=== PATIENT | female | born 1990 | race Caucasian/White ===

== ENCOUNTER 2023-01-27 15:40 | Outpatient (OUT) | payer BC, SELFPAY ==
[2023-01-27 16:10] LABS: Basophils Percent Auto 0.6 % (0.2-2.0); Eosinophils Absolute Auto 0.2 10^3/uL (0.0-0.7); Eosinophils Percent Auto 2.6 % (0.9-7.0); Hematocrit 39.4 % (36.0-48.0); Hemoglobin 13.2 g/dL (12.0-16.0); Immature Granulocytes Abs Auto 0.01 10^3/uL (0.00-0.03); Immature Granulocytes Pct Auto 0.1 % (0.0-0.5); Lymphocytes Absolute Auto 1.7 10^3/uL (1.2-3.8); Lymphocytes Percent Auto 23.5 % (20.5-60.0); Mean Corpuscular HGB Conc 33.5 g/dL (29.9-35.2); Mean Corpuscular Hemoglobin 28.4 pg (26.7-34.0); Mean Corpuscular Volume 84.9 fL (81.0-99.0); Mean Platelet Volume 9.9 fL (9.5-13.5); Monocytes Absolute Auto 0.6 10^3/uL (0.3-0.8); Monocytes Percent Auto 8.4 % (1.7-12.0); Neutrophils Absolute Auto 4.7 10^3/uL (1.4-6.5); Neutrophils Percent Auto 64.8 % (43.0-75.0); Platelet Count 298 10^3/uL (150-450); Red Blood Count 4.64 10^6/uL (4.20-5.40); Red Cell Distribution Width 13.3 % (11.0-15.0); White Blood Count 7.2 10^3/uL (4.0-11.0)
[2023-01-27 16:48] LABS: Free T4 1.01 ng/dL (0.76-1.46)
[2023-01-27 16:52] LABS: Thyroid Stimulating Hormone 2.483 uIU/mL (0.358-3.740)
== END 2023-01-27 15:41 | disposition home or self-care (01) ==
PROVIDERS: Visit Provider Obstetrics & Gynecology
DX: N92.6 Irregular menstruation, unspecified (principal)
CPT/HCPCS: 36415; 84439; 84443; 85025

== ENCOUNTER 2023-03-03 02:28 | Emergency (ER) | payer BC, SELFPAY ==
[2023-03-03 02:33] VITALS: BP 147/84; PULSE 71; RESP 16; TEMP 36.6; O2SAT 98; BMI 34.2
[2023-03-03 02:45] VITALS: RESP 16
--- NOTE | 2023-03-03 02:51 | ED.EAR1 ---
HPI - Ear Problem General Chief complaint: Ear Stated complaint: R EAR PAIN Time Seen by Provider: 03/03/23 02:41 Source: patient Mode of arrival: walk-in Limitations: no limitations History of Present Illness HPI Narrative: 32-year-old female presents for right ear pain. It started about 8 PM, about seven hours ago. It's been continuous, no trauma, no drainage. No left ear pain or fever. No injury. It's throbbing and moderate to severe and continuous. Related Data Home Medications Medication Instructions Recorded Confirmed acetaminophen 500 mg tablet 1,000 mg PO Q4H PRN pain 03/03/23 03/03/23 (Acetaminophen Extra Strength) control 03/03/23 ibuprofen 100 mg tablet 200 mg PO Q8H PRN pain 03/03/23 03/03/23 ibuprofen 800 mg tablet mg 03/03/23 Previous Rx's Medication Instructions Recorded amoxicillin 500 mg capsule 500 mg PO TID 10 days #30 caps 03/03/23 ibuprofen 800 mg tablet 800 mg PO Q8H PRN pain #20 tabs 03/03/23 Allergies Allergy/AdvReac Type Severity Reaction Status Date / Time No Known Drug Allergies Allergy Verified 03/03/23 02:38 Review of Systems ROS Narrative A ten point review of systems is negative except as noted above. PFSH PFSH Social History Smoking status: Never smoker Exam Narrative Exam Narrative: Nurses note and vital signs reviewed and patient is not hypoxic. General: The patient appears well and in no apparent distress. Patient is resting comfortably on cart. Skin: Warm, dry, no pallor noted. There is no rash noted. Head: Normocephalic, atraumatic Eye: Normal conjunctiva, no drainage Ears, Nose, Mouth, and Throat: oral mucosa is moist. Nares patent. left tympanic membrane and external canal are normal. The right external canal is normal but the right tympanic membrane is quite erythematous with distorted light reflex. Cardiovascular: Regular Rate and Rhythm Respiratory: Patient is in no distress, no accessory muscle use, lungs are clear to auscultation, no wheezing, rales or rhonchi Back: non-tender GI: nontender Musculoskeletal: no joint swelling Neurological: A&O, normal speech Psychiatric: Cooperative Constitutional Vital Signs, click to edit/add: Last Vital Signs Temp 97.9 F 03/03/23 02:33 Pulse 71 03/03/23 02:33 Resp 16 03/03/23 02:45 BP 147/84 H 03/03/23 02:33 Pulse Ox 98 03/03/23 02:33 O2 Del Method Room Air 03/03/23 02:33 Course Vital Signs Vital signs: Vital Signs Temperature 97.9 F 03/03/23 02:33 Pulse Rate 71 03/03/23 02:33 Respiratory Rate 16 03/03/23 02:33 Blood Pressure 147/84 H 03/03/23 02:33 Pulse Oximetry 98 03/03/23 02:33 Oxygen Delivery Method Room Air 03/03/23 02:33 Temperature 97.9 F 03/03/23 02:33 Pulse Rate 71 03/03/23 02:33 Respiratory Rate 16 03/03/23 02:45 Blood Pressure 147/84 H 03/03/23 02:33 Pulse Oximetry 98 03/03/23 02:33 Oxygen Delivery Method Room Air 03/03/23 02:33 Medical Decision Making MDM Narrative Medical decision making narrative: my clinical impression is that she has otitis media. Treatment diagnosis and follow up are discussed with the patient. Differential Diagnosis Differential Diagnosis: otitis medial, otitis externa Discharge Plan Discharge Chief Complaint: Ear Clinical Impression: Otitis media Patient Disposition: Home, Self-Care Time of Disposition Decision: 02:49 Condition: Good Mode of Transportation: Private Vehicle Prescriptions / Home Meds: New ibuprofen 800 mg tablet 800 mg PO Q8H PRN (Reason: pain) Qty: 20 0RF amoxicillin 500 mg capsule 500 mg PO TID 10 Days Qty: 30 0RF No Action acetaminophen [Acetaminophen Extra Strength] 500 mg tablet 1,000 mg PO Q4H PRN (Reason: pain) control ibuprofen 800 mg tablet ibuprofen 100 mg tablet 200 mg PO Q8H PRN (Reason: pain) Instructions: Ear Infection (ED) Stand Alone Forms: Portal Instructions Referrals: Physician,Non-Staff, MD [Primary Care Provider] - 1 week
[2023-03-03] MEDS: AMOXICILLIN 500 MG CAPSULE PO (02:56)
[2023-03-03] MEDS: KETOROLAC TROMETHAMINE 60 MG/2 ML VIAL IM (02:56)
== END 2023-03-03 03:06 | disposition home or self-care (01) ==
PROVIDERS: Emergency Provider Emergency Medicine
DX: H66.91 Otitis media, unspecified, right ear (principal); Z79.899 Other long term (current) drug therapy; Z79.3 Long term (current) use of hormonal contraceptives
CPT/HCPCS: 96372; 99284

== ENCOUNTER 2023-07-12 19:12 | Emergency (ER) | payer BC, SELFPAY ==
--- OUTSIDE RECORDS SUMMARY | 2023-07-12 19:21 | XMS_ITS | CCD ---
Author Organization [facility] Care Team Providers Care Customs Guard Name Role Phone Emilee Schmid Unavailable MD Wilberto Corona Attending Provider [phone] NO FAMILY, PHYSICIAN Primary Care Provider Unava ilable Wilberto Corona Unavailable NO FAMILY, PHYSICIAN Primary Care Provider Unava ilable MD Wilberto Corona Attending Provider Wilberto Corona S Admitting Unavailable Wilberto Corona Attending Unavailable NO FAMILY, PHYSICIAN Primary Care Unavailable Wilberto Corona S Attending Unavailable NO FAMILY, PHYSICIAN Primary Care Unavailable Devan Coronaif S Admitting Unavailable WILY ., DR FERREIRA Attending Unavailable RINARD, DR TAMMY Eng Consulting Unavailable [facility] Primary Care Unavailable WILY ., DR FERREIRA Admitting Unavailable WILY ., DR FERREIRA Consulting Unavailable WILY ., DR FERREIRA Attending Unavailable REQUEST, DR NONE LISTED Primary Care Unavaila ble WILY ., DR FERREIRA Consulting Unavailable WILY ., DR FERREIRA Admitting Unavailable WILY ., DR FERREIRA Attending Unavailable WILY ., DR FERREIRA Consulting Unavailable REQUEST, DR NONE LISTED Primary Care Unavaila ble WILY ., DR FERREIRA Admitting Unavailable WILY ., DR FERREIRA Attending Unavailable WILY ., DR FERREIRA Consulting Unavailable REQUEST, NONE LISTED Primary Care Unavaila ble WILY ., DR FERREIRA Admitting Unavailable RINARD, DR TAMMY Eng Consulting Unavailable REQUEST, NONE LISTED Primary Care Unavaila ble WILY ., DR FERREIRA Admitting Unavailable WILY ., DR FERREIRA Attending Unavailable WILY ., DR FERREIRA Consulting Unavailable PAY ., DR ALLEN Admitting Unavailable PAY ., DR ALLEN Attending Unavailable [facility]INO [facility]ERRY [facility] Unavailable ALMA CROFT Consulting Unavailable CLAY ., DR COFFEY Admitting Unavailable CLAY Rea, DR COFFEY Attending Unavailable LINDA .GABINO Consulting [facility] Primary Care Unavailable JENNYFER SMITH Consulting Unavailable [facility] [place] Primary Care Unavailable WILY ., DR FERREIRA Consulting Unavailable WILY ., DR FERREIRA Attending Unavailable WILY ., DR FERREIRA Admitting Unavailable [employer] Unavailable JHON JULIEN Attending Unavailable KESHA BA Attending Unavailable JEREMY CASTLE Attending Unavailable LYNNETTE MCDUFFIE Attending Unavailable RICH CAMARGO Attending Unavailable Medications Current Medications Medication Drug Class(es) Dates Sig (Normalized) Sig (Original) amoxicillin 500 mg oral capsule (1 source) Penicillin-class Antibacterial take 1 capsule by mouth every eight hours Amoxicillin 500 MG 1 capsule Orally Three times a day Active cefdinir 300 mg oral capsule (1 source) Cephalosporin Antibacterial Start: 03-09-2023 take 1 capsule by mouth every twelve hours Cefdinir 300 MG 1 capsule Orally twice a day for 7 days Feb, Active Depo-Provera 400 MG/ML (3 sources) Depo-Provera 400 MG/ML as directed Intramuscular Active apri 0.15-30 mg-mcg tablet (3 sources) Progestin, Estrogen take 1 tablet by mouth every twenty-four hours Apri 0.15-30 MG-MCG 1 tablet Orally Once a day Active fluticasone propionate 0.05 mg/actuat metered dose nasal spray (9 sources) Corticosteroid Start: 12-20-2021 take 1 spray(s) nasal route twice daily Fluticasone Propionate 50 MCG/ACT 1 spray in each nostril Nasally Twice a day for 14 days Feb, Active levothyroxine sodium 0.075 mg oral tablet (10 sources) l-Thyroxine Start: 05-07-2022 take 75 ug by mouth once daily Levothyroxine Active 75 MCG PO Daily May 07, 2022 1:00am Levothyroxine So dium 75 MCG Oral for 90 Not-Taking predniSONE 20 mg oral tablet (2 sources) Start: 04-04-2023 take 1 tablet by mouth every twelve hours prednisone 20 MG 1 tablet Orally BID for 5 Mar, Active Completed/Discontinued Medications Medication Drug Class(es) Dates Sig (Normalized) Sig (Original) cetirizine hydrochloride 10 mg oral tablet (8 sources) Histamine-1 Receptor Antagonist Start: 12-20-2021 take 1 tablet by mouth every twelve hours Cetirizine HCl 10 MG 1 tablet Orally Twice a day for 14 days Dec, Not-Taking citalopram 20 mg oral tablet (8 sources) Serotonin Reuptake Inhibitor Citalopram Hydrobromide 20 MG Oral for 90 Not-Taking Diclofenac (3 sources) Nonsteroidal Anti-inflammatory Drug Start: 08-01-2022 Voltaren 1 % as directed Externally 1-2 grams every 6-8 hours as needed for 30 days Jul, Not-Taking Start: 08-01-2022 Voltaren 1 % a s directed Externally 1-2 grams every 6-8 hours as needed for 30 days Jul, Active Iron (8 sources) Iron Not-Taking Iron Active Levonorgestrel (8 sources) Progestin, Progestin-containing Intraute rine Device Mirena Not-Taking Mirena Active Megestrol (7 sources) Progestin Megace ES Not-Ta orly Megace ES Active Problems Active Problems Problem Classification Problem Date Documented Date Episodic/Chronic E Codes: Fall (1 source) Fall (on) (from) other stairs and steps, initial encounter; Translations: [FALL ON FROM OTH STAIRS STEPS INIT] Onset: 08-01-2022 Episodic Menstrual disorders (5 sources) Excessive and frequent menstruation with irregular cycle; Translations: [EXCESS AND FREQ MEN W/IRREG CYCLE] Onset: 07-30-2022 Chronic Other female genital disorders (4 sources) Abnormal uterine and vaginal bleeding, unspecified; Translations: [ABNORMAL UTERINE VAGINAL BLEED UNS] Onset: 02-17-2022 Chronic Other nervous system disorders (9 sources) Chronic pain; Translations: [Other chronic pain] Chronic Other nervous system disorders (4 sources) Other chronic pain Chronic Other nervous system disorders (1 source) Other chronic pain; Translations: [Other chronic pain] Onset: 05-07-2022 Chronic Other screening for suspected conditions (not mental disorders or infectious disease) (4 sources) Encounter for screening for malignant neoplasm of cervix; Translations: [ENC SCREENING MALIG NEOPLASM CERV] Onset: 09-09-2022 Episodic Other upper respiratory disease (1 source) Nasal congestion Episodic Otitis media and related conditions (3 sources) Other acute nonsuppurative otitis media, bilateral; Translations: [Acute suppurative otitis media without spontaneous rupture of ear drum, right ear] Onset: 12-20-2021 Resolved: 12-20-2021 Episodic Ovarian cyst (1 source) Unspecified ovarian cyst, right side; Translations: [UNSPECIFIED OVARIAN CYST RIGHT SIDE] Onset: 08-01-2022 Episodic Spondylosis; intervertebral disc disorders; other back problems (13 sources) Inflammation of sacroiliac joint; Translations: [Sacroiliitis, not elsewhere classified] Chronic Spondylosis; intervertebral disc disorders; other back problems (7 sources) Sacrococcygeal disorders, not elsewhere classified; Translations: [SACROCOCCYGEAL DISORDERS NEC] Onset: 07-30-2022 Episodic Superficial injury; contusion (1 source) Contusion of lower back and pelvis, initial encounter; Translations: [CONTUSION LOWER BACK PELVIS INITIAL] Onset: 08-01-2022 Episodic Thyroid disorders (4 sources) Hypothyroidism, unspecified; Translations: [HYPOTHYROIDISM UNSPECIFIED] Onset: 04-07-2022 Chronic Viral infection (1 source) COVID-19; Translations: [COVID-19] Onset: 05-26-2022 Past or Other Problems Problem Classification Problem Date Documented Da te Episodic/Chronic Cardiac dysrhythmias (1 source) Palpitations; Translations: [PALPITATIONS] Onset: 05-26-2022 Episodic Nonspecific chest pain (4 sources) Other chest pain; Translations: [OTHER CHEST PAIN] Onset: 05-22-2022 Episodic Results Test Name Value Interpretation Reference Range Facility HCG ( test) IAmoira d Ql (U)Ordered By: Wilberto Corona on 08-13-2022 HCG ( test) Ql (U) Negative [facility] HCG,Urineon 08-13-2022 Beta HCG ( test) Ql (U) Negative Normal [facility] Comment on above: Result Comment: PERF ORMED BY: [address] [id number] PATHOLOGIST [employer] YUDITH MONTERO M.D. Performed By: #### U HCG #### [address] [address] [facility] US PELVIS AND TRANSVAGon US PELVIS AND TRANSVAG EXAMINATION: US PELVIS AND TRANSVAG HISTORY: Excessive menstruation with irregular cycle COMPARISON: 02/17/2022 FINDINGS: The uterus is anteverted. Uterus is normal in size, contour and echotexture measuring 8.9 x 3.4 x 5.5 cm. No focal myometrial mass The endometrium measures 3.1 mm, normal The right ovary measures 4.5 x 3.8 x 4.1 cm. Normal color Doppler flow. Area of anechoic echogenicity measuring 3.7 cm, simple cyst. Left ovary measures 2.4 x 2.5 x 2.3 cm. Normal color Doppler flow. No free fluid IMPRESSION: 3.7 cm right ovarian cyst Electronically authenticated by: TAMMY GARCIA Date: 2022-07-30 19:20 Normal [facility] XR SACRUM_COCCYXon 3 XR SACRUM_COCCYX EXAM: XR SACRUM_COCCYX TECHNIQUE: AP, angled AP and lateral views sacrum and coccyx HISTORY: Unspecified fall COMPARISON: None. _ FINDINGS: No fracture or dislocation. Soft tissues are unremarkable. No arthritic changes. ____ IMPRESSION: No fracture. Electronically authenticated by: ALMA CROFT Date: 2022-07-30 18:51 Normal [facility] CBC AUTO DIFFon 05-22-2022 BASO # 0.0 103/ul Normal 0.0-0.1 [facility] Comment on above: Performed By: #### P RCFACT #### [facility] [address] [address] [address] Lisa Lopez Basophils/100 WBC (Bld) 0.6 % Normal 0.2-2.0 [facility] Comment on above: Performed By: #### P RCFACT #### [facility] [address] [address] [address] Lisa Lopez EO # 0.1 103/ul Normal 0.0-0.7 [facility] Comment on above: Performed By: #### P RCFACT #### [facility] [address] [place] [address] Dr. Lisa Lopez Eosinophils/100 WBC (Bld) 1.9 % Normal 0.9-7.0 [facility] Comment on above: Performed By: #### P RCFACT #### [facility] [address] [place] [address] Dr. Lisa Lopez Erythrocyte distribution width (RBC) [Ratio] 13.2 % Normal 11.0-15.0 [facility] Comment on above: Performed By: #### P RCFACT #### [facility] [address] [place] [address] Dr. Lisa Lopez Hematocrit (Bld) [Volume fraction] 41.9 % Normal 36.0-48.0 [facility] Comment on above: Performed By: #### P RCFACT #### [facility] [address] [place] [address] Dr. Lisa Lopez Hemoglobin (Bld) [Mass/Vol] 13.9 g/dL Normal 12.0-16.0 [facility] Comment on above: Performed By: #### P RCFACT #### [facility] [address] [place] [address] Dr. Lisa Lopez IG # 0.02 10e3/ul Normal 0.00-0.03 [facility] Comment on above: Performed By: #### P RCFACT #### [facility] [address] [place] [address] Dr. Lisa Lopez IG % 0.3 % Normal 0.0-0.5 [facility] Comment on above: Performed By: #### P RCFACT #### [facility] [address] [place] [address] Dr. Lisa Lopez LYMPH # 0.5 103/ul Critically low 1.2-3.[address] [facility] Comment on above: Performed By: #### P RCFACT #### [facility] [address] [place] [address] Dr. Lisa Lopez Lymphocytes/100 WBC (Bld) 6.2 % Critically low 20.5-60.0 [facility] Comment on above: Performed By: #### P RCFACT #### [facility] [address] [place] [address] Dr. Lisa Lopez MANUAL DIFF REQ NO Normal [facility] Comment on above: Performed By: #### P RCFACT #### [facility] [address] [place] [address] Dr. Lisa Lopez MCH (RBC) [Entitic mass] 28.0 pg Normal 26.7-34.0 [facility] Comment on above: Performed By: #### P RCFACT #### [facility] [address] [place] [address] Dr. Lisa Lopez MCHC (RBC) [Mass/Vol] 33.2 g/dL Normal 29.9-35.2 [facility] Comment on above: Performed By: #### P RCFACT #### [facility] [address] [place] [address] Dr. Lisa Lopez MCV (RBC) [Entitic vol] 84.5 fL Normal 81.0-99.0 [facility] Comment on above: Performed By: #### P RCFACT #### [facility] [address] [place] [address] Dr. Lisa Lopez MONO # 0.5 103/ul Normal 0.3-0.8 [facility] Comment on above: Performed By: #### P RCFACT #### [facility] [address] [place] [address] Dr. Lisa Lopez Monocytes/100 WBC (Bld) 6.7 % Normal 1.7-12.0 [facility] Comment on above: Performed By: #### P RCFACT #### [facility] [address] [place] [address] Dr. Lisa Lopez NEUT # 6.1 103/ul Normal 1.4-6.5 [facility] Comment on above: Performed By: #### P RCFACT #### [facility] [address] [place] [address] Dr. Lisa Lopez Neutrophils/100 WBC (Bld) 84.3 % Critically high 43.0-75.0 [facility] Comment on above: Performed By: #### P RCFACT #### [facility] [address] [address] [address] Lisa Lopez Platelet mean volume (Bld) [Entitic vol] 9.5 fL Normal 9.5-13.5 [facility] Comment on above: Performed By: #### P RCFACT #### [facility] [address] [address] [address] Lisa Lopez PLT 260 103/ul Normal 150-450 [facility] Comment on above: Performed By: #### P RCFACT #### [facility] [address] [place] [address] Dr. Lisa Lopez RBC 4.96 106/ul Normal 4.20-5.40 [facility] Comment on above: Performed By: #### P RCFACT #### [facility] [address] [place] [address] Dr. Lisa Lopez WBC 7.2 103/ul Normal 4.0-11.0 [facility] Comment on above: Performed By: #### P RCFACT #### [facility] [address] [place] [address] Dr. Lisa Lopez [facility]on SARS-CoV-2 (COVID-19) RNA ALLI+probe Ql (Unsp spec) Detected Abnormal NOT DETECTED [facility] Comment on above: Result Comment: This test is not yet approved or cleared by the [place] FDA. When there are no FDA-approved or cleared tests available, and other criteria are met, FDA can make tests available under an emergency access mechanism called an Emergency Use Authorization (EUA). The EUA for this test is supported by the [employer] Supervisor of Health and Human Service's declaration that circumstances exist to justify the emergency use of in vitro diagnostics for the detection and/or diagnosis of the virus that causes COVID-19. This EUA will remain in effect for the duration of the COVID-19 declaration justifying emergency of IVDs, unless it is terminated or revoked by the FDA (after which the test may no longer be used). Performed By: #### C VDTBH #### [facility] [address] [place] [address] Dr. Lisa Lopez D-DIMERon 05-22-2022 D-DIMER 0.23 mg/L FEU Normal <=0.59 [facility] Comment on above: Performed By: #### B 2GPG #### [facility] [address] [place] [address] Dr. Lisa Lopez D-DIMER COMMENTS SEE BELOW Normal [facility] Comment on above: Result Comment: Incr eases in D-Dimer concentration observed with thromboembolic events can be variable due to localization, size, and age of the thrombus. Therefore, a thromboembolic event cannot be diagnosed with certainty on the basis of the reference range. D-Dimers may also be elevated for a variety of disorders including: advanced age, , coronary disease, cancer, liver disease, infection, inflammation, hematoma, DIC, trauma, post-surgery, diabetes, thrombolytic or anticoagulant therapy, stress, and generalized hospitalization. Performed By: #### B 2GPG #### [facility] [address] [place] [address] Dr. Lisa Lopez ER URINE PROFILEon 3 Bilirubin Ql (U) Negative Normal NEGATIVE [facility] Comment on above: Performed By: #### B 2GPG #### [facility] [address] [place] [address] Dr. Lisa Lopez Clarity (U) CLEAR Normal CLEAR [facility] Comment on above: Performed By: #### B 2GPG #### [facility] [address] [place] [address] Dr. Lisa Lopez Color (U) LT. YELLOW Normal YELLOW [facility] Comment on above: Performed By: #### B 2GPG #### [facility] [address] [place] [address] Dr. Lias QUINTANILLA A micrscopic examination will be performed if indicated. Normal [facility] Comment on above: Performed By: #### B 2GPG #### [facility] [address] [place] [address] Dr. Lisa Lopez Glucose Ql (U) Negative Normal NEGATIVE [facility] Comment on above: Performed By: #### B 2GPG #### [facility] [address] [address] [address] Lisa Lopez Hemoglobin Ql (U) Negative Normal NEGATIVE [facility] Comment on above: Performed By: #### B 2GPG #### [facility] [address] [place] [address] Dr. Lisa Lopez Ketones Ql (U) Negative Normal NEGATIVE [facility] Comment on above: Performed By: #### B 2GPG #### [facility] [address] [place] [address] Dr. Lisa Lopez LEUKOCYTES Negative Normal NEGATIVE [facility] Comment on above: Performed By: #### B 2GPG #### [facility] [address] [place] [address] Dr. Lisa Lopez Nitrite Ql (U) Negative Normal NEGATIVE [facility] Comment on above: Performed By: #### B 2GPG #### [facility] [address] [place] [address] Dr. Lisa Lopez pH (U) 7.0 [pH] Normal 5-9 [facility] Comment on above: Performed By: #### B 2GPG #### [facility] [address] [place] [address] Dr. Lisa Lopez SPEC GRAVITY <=1.005 Abnormal 1.005-<=1.025 [facility] Comment on above: Performed By: #### B 2GPG #### [facility] [address] [place] [address] Dr. Lisa Lopez UA PROTEIN Negative Normal NEGATIVE/ TRACE [facility] Comment on above: Performed By: #### B 2GPG #### [facility] [address] [place] [address] Dr. Lisa Lopez UR MICRO IND NOT INDICATED Normal [facility] Comment on above: Performed By: #### B 2GPG #### [facility] [address] [place] [address] Dr. Lisa Lopez Urobilinogen Qn (U) 0.2 {Naya'U}/dL Normal 0.2 - 1. 0 [facility] Comment on above: Performed By: #### B 2GPG #### [facility] [address] [place] [address] Dr. Lisa Lopez INFLUENZA A AND B AGon 05-22 INFLUANEGH SEE BELOW Normal [facility] Comment on above: Result Comment: Nega tive for Flu A protein angiten. Infection due to Flu A cannot be ruled out. Flu A angiten in the sample may be below the detection limit of the test. Performed By: #### P RCFACT #### [facility] [address] [place] [address] Dr. Lisa Lopez INFLUBNEGH SEE BELOW Normal [facility] Comment on above: Result Comment: Nega tive for Flu B protein antigen. Infection due to Flu B cannot be ruled out. Flu B antigen in the sample may be below the detection limit of the test. Performed By: #### P RCFACT #### [facility] [address] [place] [address] Dr. Lisa Lopez INFLUENZA A AG Negative Normal NEGATIVE SEE COMMENT [facility] Comment on above: Performed By: #### P RCFACT #### [facility] [address] [place] [address] Dr. Lisa Lopez INFLUENZA B AG Negative Normal NEGATIVE SEE COMMENT [facility] Comment on above: Performed By: #### P RCFACT #### [facility] [address] [place] [address] Dr. Lisa Lopez URon 05-22-2022 , QUAL Negative Normal NEGATIVE [facility] Comment on above: Performed By: #### B 2GPG #### [facility] [address] [place] [address] Dr. Lisa Lopez PROF 14(COMP METB)on 023 Albumin [Mass/Vol] 3.6 g/dL Normal 3.4-5.0 [facility] Comment on above: Performed By: #### P RCFACT #### [facility] [address] [place] [address] Dr. Lisa Lopez Albumin/Globulin [Mass ratio] 0.9 {ratio} Normal [facility] Comment on above: Performed By: #### P RCFACT #### [facility] [address] [address] [address] Lisa Lopez ALP [Catalytic activity/Vol] 102 U/L Normal 46-116 [facility] Comment on above: Performed By: #### P RCFACT #### [facility] [address] [address] [address] Lisa Lopez ALT [Catalytic activity/Vol] 32 U/L Normal 14-59 [facility] Comment on above: Performed By: #### P RCFACT #### [facility] [address] [address] [address] Lisa Lopez Anion gap [Moles/Vol] 11.1 mmol/L Normal [facility] Comment on above: Performed By: #### P RCFACT #### [facility] [address] [place] [address] Dr. Lisa Lopez AST [Catalytic activity/Vol] 14 U/L Critically low 15-37 [facility] Comment on above: Performed By: #### P RCFACT #### [facility] [address] [address] [address] Lisa Lopez Bilirubin [Mass/Vol] 0.2 mg/dL Normal 0.2-1.0 [facility] Comment on above: Performed By: #### P RCFACT #### [facility] [address] [place] [address] Dr. Lisa Lopez Calcium [Mass/Vol] 9.2 mg/dL Normal 8.5-10.1 [facility] Comment on above: Performed By: #### P RCFACT #### [facility] [address] [address] [address] Lisa Lopez Chloride [Moles/Vol] 102 mmol/L Normal 98-107 [facility] Comment on above: Performed By: #### P RCFACT #### [facility] [address] [address] [address] Lisa Lopez CO2 [Moles/Vol] 29.5 mmol/L Normal 21.0-32.0 [facility] Comment on above: Performed By: #### P RCFACT #### [facility] [address] [place] [address] Dr. Lisa Lopez Creatinine [Mass/Vol] 0.83 mg/dL Normal 0.55-1.02 [facility] Comment on above: Performed By: #### P RCFACT #### [facility] [address] [place] [address] Dr. Lisa Lopez EGFR-AF BOTSWANAN >60 Normal >=60 [facility] Comment on above: Performed By: #### P RCFACT #### [facility] [address] [place] [address] Dr. Lisa Lopez EGFR-NON AF BOTSWANAN >60 Normal >=60 [facility] Comment on above: Performed By: #### P RCFACT #### [facility] [address] [place] [address] Dr. Lisa Lopez Globulin (S) [Mass/Vol] 4.2 g/dL Normal [facility] Comment on above: Performed By: #### P RCFACT #### [facility] [address] [place] [address] Dr. Lisa Lopez Glucose [Mass/Vol] 107 mg/dL Critically high 74-106 [facility] Comment on above: Performed By: #### P RCFACT #### [facility] [address] [place] [address] Dr. Lisa Lopez Potassium [Moles/Vol] 3.6 mmol/L Normal 3.5-5.1 [facility] Comment on above: Performed By: #### P RCFACT #### [facility] [address] [place] [address] Dr. Lisa Lopez Protein [Mass/Vol] 7.8 g/dL Normal 6.4-8.2 [facility] Comment on above: Performed By: #### P RCFACT #### [facility] [address] [place] [address] Dr. Lisa Lopez Sodium [Moles/Vol] 139 mmol/L Normal 136-145 [facility] Comment on above: Performed By: #### P RCFACT #### [facility] [address] [place] [address] Dr. Lisa Lopez Urea nitrogen [Mass/Vol] 9.0 mg/dL Normal 7.0-18.0 [facility] Comment on above: Performed By: #### P RCFACT #### [facility] [address] [place] [address] Dr. Lisa Lopez Urea nitrogen/Creatinine [Mass ratio] 10.8 mg/mg Normal [facility] Comment on above: Performed By: #### P RCFACT #### [facility] [address] [place] [address] Dr. Lisa Lopez PROTIMEon 05-22-2022 INR Coag (PPP) [Relative time] 0.93 {INR} Normal [facility] Comment on above: Performed By: #### B 2GPG #### [facility] [address] [place] [address] Dr. Lisa Lopez INR GUIDELINES SEE BELOW Normal [facility] Comment on above: Result Comment: DELVIN RED INR: 2.0 - 3.0 CONDITIONS NOT LISTED BELOW 2.5 - 3.5 FOR PROSTHETIC HEART VALVE REPLACEMENT 2.5 - 3.5 RECURRENT THROMBOSIS Performed By: #### B 2GPG #### [facility] [address] [place] [address] Dr. Lisa Lopez PT Coag (PPP) [Time] 9.9 s Normal 9.0-11.6 [facility] Comment on above: Performed By: #### B 2GPG #### [facility] [address] [place] [address] Dr. Lisa Lopez PTTon 05-22-2022 aPTT Coag (Bld) [Time] 28.0 s Normal 22.3-36.2 [facility] Comment on above: Performed By: #### B 2GPG #### [facility] [address] [place] [address] Dr. Lisa Lopez TROPONIN, HIGH SENSITIVITYon 05-22-2022 HSTROP <4.0 Normal 4.0-51.3 [facility] Comment on above: Result Comment: CUT- OFF POINTS HAVE BEEN ESTABLISHED BASED ON THE FOURTH UNIVERSAL DEFINITIONS OF MYOCARDIAL INFARCTION. THE UPPER REFERENCE LIMIT (URL) OF TROPONIN, DEFINED THE 99TH PERCENTILE OF cTnI DISTRIBUTION IN A REFERENCE POPULATION, HAS BEEN CONFIRMED THE DECISION THRESHOLD FOR CA DIAGNOSIS. Performed By: #### P RCFACT #### [facility] [address] [address] [address] Lisa Lopez TSHon 05-22-2022 TSH 1.450 uIU/mL Normal 0.358-3.740 [facility] Comment on above: Performed By: #### P RCFACT #### [facility] [id number] Lisa Lopez XR CHEST 1 Von 05-22-2022 XR CHEST 1 V EXAM: XR CHEST 1 V a t 1738 hours HISTORY: CHEST PAIN, UNSPECIFIED COMPARISON: None. TECHNIQUE: AP upright portable chest x-ray FINDINGS: The heart is not enlarged and the vasculature is not distended. No acute infiltrate, effusion or pneumothorax is identified. The osseous structures are grossly intact. IMPRESSION: No acute infiltrate or evidence of cardiac decompensation. Direct comparison with a previous study would be helpful in determining the chronicity of these findings. Electronically authenticated by: JENNYFER SMITH Date: 2022-05-22 18:12 Normal [facility] HCG ( test) IA.rapi d Ql (U)Ordered By: Wilberto Corona on 05-07-2022 HCG ( test) Ql (U) Negative [facility] HCG,Urineon 05-07-2022 Beta HCG ( test) Ql (U) Negative Normal [facility] Comment on above: Result Comment: PERF ORMED BY: [place] [address] PATHOLOGIST HEAD OF CONSERVATION YUDITH MONTERO M.D. Performed By: #### U HCG #### [address] FACTOR V LEIDEN MUTATION TORRES LYSISon 05-01-2022 Factor V Leiden Comment Normal [facility] Comment on above: Result Comment: Resu lt: c.1601G>A (p.[id number]) - Not Detected . This result is not associated with an increased risk for venous thromboembolism. See Additional Clinical Information and Comments. Additional Clinical Information: Venous thromboembolism is a multifactorial disease influenced by genetic, environmental, and circumstantial risk factors. The c.1601G>A (p. [id number]) variant in the F5 gene, commonly referred to as Factor V Leiden, is a genetic risk factor for venous thromboembolism. Heterozygous carriers of this variant have a 6- to 8-fold increased risk for venous thromboembolism. Individuals homozygous for this variant (ie, with a copy of the variant on each chromosome) have an approximately 80-fold increased risk for venous thromboembolism. Individuals who carry both a c.*97G>A variant in the F2 gene and Factor V Leiden have an approximately 20-fold increased risk for venous thromboembolism. Risks are likely to be even higher in more complex genotype combinations involving the F2 c.*97G>A variant and Factor V Leiden (PMID: 95320292). Additional risk factors include but are not limited to: deficiency of protein C, protein S, or antithrombin III, age, male sex, personal or family history of deep vein thromboembolism, smoking, surgery, prolonged immobilization, malignant neoplasm, tamoxifen treatment, raloxifene treatment, oral contraceptive use, hormone replacement therapy, and . Management of thrombotic risk and thrombotic events should follow established guidelines and fit the clinical circumstance. This result cannot predict the occurrence or recurrence of a thrombotic event. . Comment: Genetic counseling is recommended to discuss the potential clinical implications of positive results, as well as recommendations for testing family members. . Genetic Coordinators are available for health care providers to discuss results at [phone] ([phone]). . Test Details: Variant Analyzed: c.1601G>A (p. [id number]), referred to as Factor V Leiden . Methods/Limitations: DNA analysis of the F5 gene (NM_000130.5) was performed by PCR amplification followed by restriction enzyme analysis. The diagnostic sensitivity is >99%. Results must be combined with clinical information for the most accurate interpretation. Molecular-based testing is highly accurate, but as in any laboratory test, diagnostic errors may occur. False positive or false negative results may occur for reasons that include genetic variants, blood transfusions, bone marrow transplantation, somatic or tissue-specific mosaicism, mislabeled samples, or erroneous representation of family relationships. . This test was developed and its performance characteristics determined by [employer]. It has not been cleared or approved by the Food and Drug Administration. . References: Cindy S, Mercedes AK, Adam R, Surinder WW, Juwan JH; [employer] Professional Practice and Guidelines Committee. Addendum: [place] [employer] consensus statement on factor V Leiden mutation testing. Sherin Med. 2020Jun 15. doi: 10.1038/f89200-211-21199-h. PMID: 22674094. . Miguel Angel LITTLE. Factor V Leiden Thrombophilia. 1998August 24 (Updated 2017Apr 16). In: Tj MP, Hilda HH, Kelsey RA, et al., editors. Cinda(R) (Internet). [place] ([place]): [facility]; 9901-4070. Available from: https://www.ncbi.nlm.nih.gov/books/YKT1676/ . Leif S, Mercedes AK, Vin X, Liam B, Luisito EB, Estela P, Junito CS; [employer] Laboratory [employer] Committee. Venous thromboembolism laboratory testing (factor V Leiden and factor II c.*97G>A), 2018 update: a technical standard of the [place] [employer] and [employer]omics (ACMG). Sherin Med. 2017;20(12):5987-6439. doi: 10.1038/a36937-968-0271-q. Epub 2017Jan 15. PMID: 96334302. . Yaneth Cortez, PhD, [facility] Dameon Donnelly, PhD Ad Tineo, PhD, FAC Rui Mejia, PhD, FAC Robert Napoles, PhD, FAC W Annie Santo, PhD, FAC Judi Borges, PhD, FAC Felipa Becker, PhD, [facility] Performed By: #### F VPCR #### [facility] [address] [place] [address] [address] [address] Lisa Lopez THYROGLOBULIN ABon Thyroglobulin Antibody <1.0 Normal 0.0-0.9 [facility] Comment on above: Result Comment: Thyr oglobulin Antibody measured by [facility] [employer] Methodology Performed By: #### T HYGAB #### [facility] [address] [place], [place] [address] Dr. Lisa Lopez B-2 GLYCOPROTEIN AB IGGon Beta-2 Glycoprotein I Ab, IgG <9 Normal 0-20 [facility] Comment on above: Result Comment: The reference interval reflects a 3SD or 99th percentile interval, which is thought to represent a potentially clinically significant result in accordance with the International Consensus Statement on the classification criteria for definitive antiphospholipid syndrome (APS). J Thromb Haem 2006;4:295-306. Performed By: #### B 2GPG #### [facility] [address] [place] [address] Dr. Lisa Lopez B2-GLYCOPROTEIN 1 AB IGMon 0 04-28-2022 Beta-2 Glycoprotein I Ab, IgM <9 Normal 0-32 [facility] Comment on above: Result Comment: The reference interval reflects a 3SD or 99th percentile interval, which is thought to represent a potentially clinically significant result in accordance with the International Consensus Statement on the classification criteria for definitive antiphospholipid syndrome (APS). J Thromb Haem 2006;4:295-306. Performed By: #### B GLYIGM #### [facility] [address] [place] [address] Dr. Lisa Lopez LAB TESTINGon 04-28-2022 RECV HEADER SEE SCANNED REPORT I N HPF Normal [facility] Comment on above: Performed By: #### B 2GPG #### [facility] [address] [place] [address] Dr. Lisa Lopez REV FROM REF LAB 05/15/2022 [facility] Comment on above: Performed By: #### B 2GPG #### [facility] [address] [place] [address] Dr. Lisa Lopez SENT TO REF LAB 04/28/2022 Normal [facility] Comment on above: Performed By: #### B 2GPG #### [facility] [address] [place] [address] Dr. Lisa Lopez Screen dRVVTon 04-28-2022 dRVVT Coag (PPP) [Time] 34.1 s Normal 32.0-45.7 [facility] Comment on above: Order Comment: Speci men Type: BLOOD SPECIMEN Ordering Facility: External Submitter Address: , , Performed By: #### 6 303-2 #### [facility] CLIA [id number] [address] [place] [address] [place] dRVVT Coag (PPP) [Time]on dRVVT factor substitution immediately after 1:2 addition of normal plasma Coag (PPP) [Time] 37.5 seconds Normal 32.0-45.7 [facility] Comment on above: Order Comment: Speci men Type: BLOOD SPECIMEN Ordering Facility: External Submitter Address: , , Performed By: #### 6 303-2 #### [facility] CLIA [id number] [address] [place] [address] [place] dRVVT/dRVVT.excess phospholipid Coag (PPP) [Ratio] 0.93 Normal <1.32 [facility] Comment on above: Order Comment: Speci men Type: BLOOD SPECIMEN Ordering Facility: External Submitter Address: , , Performed By: #### 6 303-2 #### [facility] [place] [id number] [address] [place] [address] [place] ANTITHROMBIN ACTIVITYon 04-13 Antithrombin Activity 132 % Normal 75-135 [facility] Comment on above: Result Comment: Dire ct Xa inhibitor anticoagulants such as rivaroxaban, apixaban and edoxaban will lead to spuriously elevated antithrombin activity levels possibly masking a deficiency. Performed By: #### B 2GPG #### [facility] [address] [place] [address] Dr. Lisa Lopez BLOOD CULTURE ID PANELon A. baumannii Not detected Normal NOT DETECTED [facility] Comment on above: Result Comment: Prev iously reported as: [id number] On 04/29/2022 04:07 By JANINE Performed By: #### B 2GPG #### [facility] [address] [place] [address] Dr. Lisa Lopez Bacteriodes fragilis Not detected Normal NOT DETECTED [facility] Comment on above: Result Comment: Prev iously reported as: [id number] On 04/29/2022 04:07 By [facility] Performed By: #### B 2GPG #### [facility] [address] [place] [address] Dr. Lisa KONGD CONTROLS PASSED Normal [facility] Comment on above: Result Comment: Prev iously reported as: [id number] On 04/29/2022 04:07 By [facility] Performed By: #### B 2GPG #### [facility] [address] [place] [address] Dr. Lisa KNOGDBTHD BLOOD CULTURE BOTTLE INFORMATION [facility] Comment on above: Performed By: #### B 2GPG #### [facility] [address] [place] [address] Dr. Lisa KONGDHD1 ANTIMICROBIAL RESISTANCE GENES [facility] Comment on above: Performed By: #### B 2GPG #### [facility] [address] [place] [address] Dr. Lisa KONGDHD2 SEE BELOW [facility] Comment on above: Result Comment: Note : Antimicrobial resitance can occur via multiple mechanisms. A Not Detected result for the [employer] antomicrobial resistance gene assays does not indicate antimicrobial susceptibility. Subculturing is required for species identification and susceptibility testing of isolates. Performed By: #### B 2GPG #### [facility] [address] [place] [address] Dr. Lisa Lopez BCIDHD3 Positive [facility] Comment on above: Performed By: #### B 2GPG #### [facility] [address] [place] [address] Dr. Lisa Lopez BCIDHD4 Negative [facility] Comment on above: Performed By: #### B 2GPG #### [facility] [address] [place] [address] Dr. Lisa Lopez BCIDHD5 YEAST [facility] Comment on above: Performed By: #### B 2GPG #### [facility] [address] [place] [address] Dr. Lisa Lopez Bottle Set: Set 2 [facility] Comment on above: Result Comment: Prev iously reported as: [id number] On 04/29/2022 04:07 By [facility] Performed By: #### B 2GPG #### [facility] [address] [place] [address] Dr. Lisa Lopez Bottle: Aerobic Normal [facility] Comment on above: Result Comment: Prev iously reported as: [id number] On 04/29/2022 04:07 By [facility] Performed By: #### B 2GPG #### [facility] [address] [place] [address] Dr. Lisa Lopez C. neoformans/gattii Not detected Normal NOT DETECTED [facility] Comment on above: Result Comment: Prev iously reported as: [id number] On 04/29/2022 04:07 By [facility] Performed By: #### B 2GPG #### [facility] [address] [place] [address] Dr. Lisa Lopez Ayana albicans Not detected Normal NOT DETECTED [facility] Comment on above: Result Comment: Prev iously reported as: [id number] On 04/29/2022 04:07 By [facility] Performed By: #### B 2GPG #### [facility] [address] [place] [address] Dr. Lisa Lopez Ayana auris Not detected Normal NOT DETECTED [facility] Comment on above: Result Comment: Prev iously reported as: [id number] On 04/29/2022 04:07 By [facility] Performed By: #### B 2GPG #### [facility] [address] [place] [address] Dr. Lisa Lopez Ayana glabrata Not detected Normal NOT DETECTED [facility] Comment on above: Result Comment: Prev iously reported as: [id number] On 04/29/2022 04:07 By [facility] Performed By: #### B 2GPG #### [facility] [address] [place] [address] Dr. Lisa Lopez Ayana Krusei Not detected Normal NOT DETECTED [facility] Comment on above: Result Comment: Prev iously reported as: [id number] On 04/29/2022 04:07 By [facility] Performed By: #### B 2GPG #### [facility] [address] [place] [address] Dr. Lisa Lopez Ayana Parapsilosis Not detected Normal NOT DETECTED [facility] Comment on above: Result Comment: Prev iously reported as: [id number] On 04/29/2022 04:07 By [facility] Performed By: #### B 2GPG #### [facility] [address] [place] [address] Dr. Lisa Lopez Ayana Tropicalis Not detected Normal NOT DETECTED [facility] Comment on above: Result Comment: Prev iously reported as: [id number] On 04/29/2022 04:07 By [facility] Performed By: #### B 2GPG #### [facility] [address] [place] [address] Dr. Lisa Lopez CTX-M Resistant Gene Not detected Normal NOT DETECTED [facility] Comment on above: Result Comment: Prev iously reported as: [id number] On 04/29/2022 04:07 By [facility] Performed By: #### B 2GPG #### [facility] [address] [place] [address] Dr. Lisa Lopez E. Cloacae complex Not detected Normal NOT DETECTED [facility] Comment on above: Result Comment: Prev iously reported as: [id number] On 04/29/2022 04:07 By [facility] Performed By: #### B 2GPG #### [facility] [address] [place] [address] Dr. Lisa Lopez E. faecalis Not detected Normal NOT DETECTED [facility] Comment on above: Result Comment: Prev iously reported as: [id number] On 04/29/2022 04:07 By [facility] Performed By: #### B 2GPG #### [facility] [address] [place] [address] Dr. Lisa Lopez E. faecium Not detected Normal NOT DETECTED [facility] Comment on above: Result Comment: Prev iously reported as: [id number] On 04/29/2022 04:07 By [facility] Performed By: #### B 2GPG #### [facility] [address] [place] [address] Dr. Lisa Lopez Enterobacteriaceae Not detected Normal NOT DETECTED [facility] Comment on above: Result Comment: Prev iously reported as: [id number] On 04/29/2022 04:07 By [facility] Performed By: #### B 2GPG #### [facility] [address] [place] [address] Dr. Lisa Lopez Escherichia coli Not detected Normal NOT DETECTED [facility] Comment on above: Result Comment: Prev iously reported as: [id number] On 04/29/2022 04:07 By [facility] Performed By: #### B 2GPG #### [facility] [address] [place] [address] Dr. Lisa Lopez H. influenzae Not detected Normal NOT DETECTED [facility] Comment on above: Result Comment: Prev iously reported as: [id number] On 04/29/2022 04:07 By [facility] Performed By: #### B 2GPG #### [facility] [address] [place] [address] Dr. Lisa Lopez IMP Resistant Gene Not detected Normal NOT DETECTED [facility] Comment on above: Result Comment: Prev iously reported as: [id number] On 04/29/2022 04:07 By [facility] Performed By: #### B 2GPG #### [facility] [address] [place] [address] Dr. Lisa Lopez K. oxytoca Not detected Normal NOT DETECTED [facility] Comment on above: Result Comment: Prev iously reported as: [id number] On 04/29/2022 04:07 By [facility] Performed By: #### B 2GPG #### [facility] [address] [place] [address] Dr. Lisa Lopez K. pneumoniae Not detected Normal NOT DETECTED [facility] Comment on above: Result Comment: Prev iously reported as: [id number] On 04/29/2022 04:07 By [facility] Performed By: #### B 2GPG #### [facility] [address] [place] [address] Dr. Lisa Lopez Klebsiella aerogenes Not detected Normal NOT DETECTED [facility] Comment on above: Result Comment: Prev iously reported as: [id number] On 04/29/2022 04:07 By [facility] Performed By: #### B 2GPG #### [facility] [address] [place] [address] Dr. Lisa Lopez KPC Resistant Gene Not detected Normal NOT DETECTED [facility] Comment on above: Result Comment: Prev iously reported as: [id number] On 04/29/2022 04:07 By [facility] Performed By: #### B 2GPG #### [facility] [address] [place] [address] Dr. Lisa Lopez List. monocytogenes Not detected Normal NOT DETECTED [facility] Comment on above: Result Comment: Prev iously reported as: [id number] On 04/29/2022 04:07 By [facility] Performed By: #### B 2GPG #### [facility] [address] [place] [address] Dr. Lisa Lopez Mcr-1 Resistant Gene Not detected Normal NOT DETECTED [facility] Comment on above: Result Comment: Prev iously reported as: [id number] On 04/29/2022 04:07 By [facility] Performed By: #### B 2GPG #### [facility] [address] [place] [address] Dr. Lisa Lopez mecA/C Not detected Normal NOT DETECTED [facility] Comment on above: Result Comment: Prev iously reported as: [id number] On 04/29/2022 04:07 By [facility] Performed By: #### B 2GPG #### [facility] [address] [place] [address] Dr. Lisa Lopez mecA/C MREJ Not detected Normal NOT DETECTED [facility] Comment on above: Result Comment: Prev iously reported as: [id number] On 04/29/2022 04:07 By [facility] Performed By: #### B 2GPG #### [facility] [address] [place] [address] Dr. Lisa Lopez N. meningitidis Not detected Normal NOT DETECTED [facility] Comment on above: Result Comment: Prev iously reported as: [id number] On 04/29/2022 04:07 By [facility] Performed By: #### B 2GPG #### [facility] [address] [place] [address] Dr. Lisa Lopez NDM Resistant Gene Not detected Normal NOT DETECTED [facility] Comment on above: Result Comment: Prev iously reported as: [id number] On 04/29/2022 04:07 By [facility] Performed By: #### B 2GPG #### [facility] [address] [place] [address] Dr. Lisa Lopez Oxa-48-like Not detected Normal NOT DETECTED [facility] Comment on above: Result Comment: Prev iously reported as: [id number] On 04/29/2022 04:07 By [facility] Performed By: #### B 2GPG #### [facility] [address] [place] [address] Dr. Lisa Lopez Proteus Not detected Normal NOT DETECTED [facility] Comment on above: Result Comment: Prev iously reported as: [id number] On 04/29/2022 04:07 By [facility] Performed By: #### B 2GPG #### [facility] [address] [place] [address] Dr. Lisa Lopez Pseud. aeruginosa Not detected Normal NOT DETECTED [facility] Comment on above: Result Comment: Prev iously reported as: [id number] On 04/29/2022 04:07 By [facility] Performed By: #### B 2GPG #### [facility] [address] [place] [address] Dr. Lisa Lopez S. maltophilia Not detected Normal NOT DETECTED [facility] Comment on above: Result Comment: Prev iously reported as: [id number] On 04/29/2022 04:07 By [facility] Performed By: #### B 2GPG #### [facility] [address] [place] [address] Dr. Lisa Lopez Salmonella Not detected Normal NOT DETECTED [facility] Comment on above: Result Comment: Prev iously reported as: [id number] On 04/29/2022 04:07 By [facility] Performed By: #### B 2GPG #### [facility] [address] [place] [address] Dr. Lisa Lopez Seratia marcescens Not detected Normal NOT DETECTED [facility] Comment on above: Result Comment: Prev iously reported as: [id number] On 04/29/2022 04:07 By [facility] Performed By: #### B 2GPG #### [facility] [address] [place] [address] Dr. Lisa Lopez Site: left ac Normal [facility] Comment on above: Result Comment: Prev iously reported as: [id number] On 04/29/2022 04:07 By [facility] Performed By: #### B 2GPG #### [facility] [address] [place] [address] Dr. Lisa Lopez Stapstanislaw. aureus Not detected Normal NOT DETECTED [facility] Comment on above: Result Comment: Prev iously reported as: [id number] On 04/29/2022 04:07 By [facility] Performed By: #### B 2GPG #### [facility] [address] [place] [address] Dr. Lisa Lopez Stapstanislaw. epidermidis Not detected Normal NOT DETECTED [facility] Comment on above: Result Comment: Prev iously reported as: [id number] On 04/29/2022 04:07 By [facility] Performed By: #### B 2GPG #### [facility] [address] [place] [address] Dr. Lisa Lopez Stapstanislaw. lugdunensis Not detected Normal NOT DETECTED [facility] Comment on above: Result Comment: Prev iously reported as: [id number] On 04/29/2022 04:07 By [facility] Performed By: #### B 2GPG #### [facility] [address] [place] [address] Dr. Lisa Lopez Staphylococcus Not detected Normal NOT DETECTED [facility] Comment on above: Result Comment: Prev iously reported as: [id number] On 04/29/2022 04:07 By [facility] Performed By: #### B 2GPG #### [facility] [address] [place] [address] Dr. Lisa Lopez Strep. agalactiae Not detected Normal NOT DETECTED [facility] Comment on above: Result Comment: Prev iously reported as: [id number] On 04/29/2022 04:07 By [facility] Performed By: #### B 2GPG #### [facility] [address] [place] [address] Dr. Lisa Lopez Strep. pneumoniae Not detected Normal NOT DETECTED [facility] Comment on above: Result Comment: Prev iously reported as: [id number] On 04/29/2022 04:07 By [facility] Performed By: #### B 2GPG #### [facility] [address] [place] [address] Dr. Lisa Lopez Strep. pyogenes Not detected Normal NOT DETECTED [facility] Comment on above: Result Comment: Prev iously reported as: [id number] On 04/29/2022 04:07 By [facility] Performed By: #### B 2GPG #### [facility] [address] [place] [address] Dr. Lisa Lopez Streptococcus Not detected Normal NOT DETECTED [facility] Comment on above: Result Comment: Prev iously reported as: [id number] On 04/29/2022 04:07 By [facility] Performed By: #### B 2GPG #### [facility] [address] [place] [address] Dr. Lisa doughertyA/Manjinder Resist. Gene Not detected Normal NOT DETECTED [facility] Comment on above: Result Comment: Prev iously reported as: [id number] On 04/29/2022 04:07 By [facility] Performed By: #### B 2GPG #### [facility] [address] [place] [address] Dr. Lisa Lopez VIM Resistant Gene Not detected Normal NOT DETECTED [facility] Comment on above: Result Comment: Prev iously reported as: [id number] On 04/29/2022 04:07 By [facility] Performed By: #### B 2GPG #### [facility] [address] [place] [address] Dr. Lisa Lopez PROTEIN C FUNC ACTIVITYon Protein C-Functional 108 % Normal 73-180 [facility] Comment on above: Performed By: #### P RCFACT #### [facility] [address] [place] [address] Dr. Lisa Lopez PROTEIN S ANTIGENon 04-27-19 23 Protein S, Free 112 % Normal 61-136 [facility] Comment on above: Performed By: #### P RTSAG #### [facility] [address] [place] [address] Dr. Lisa Lopez Protein S, Free 117 % Normal 61-136 [facility] Comment on above: Performed By: #### P RCFACT #### [facility] [address] [place] [address] Dr. Lisa Lopez Protein S, Total 103 % Normal 60-150 [facility] Comment on above: Result Comment: This test was developed and its performance characteristics determined by [employer]. It has not been cleared or approved by the Food and Drug Administration. Performed By: #### P RTSAG #### [facility] [address] [place] [address] Dr. Lisa Lopez Protein S, Total 92 % Normal 60-150 [facility] Comment on above: Result Comment: This test was developed and its performance characteristics determined by [employer]. It has not been cleared or approved by the Food and Drug Administration. Performed By: #### P RCFACT #### [facility] [address] [place] [address] Dr. Lisa Lopez ANTICARDIOLIPIN AB (ENZO) IGA /IGG/IGMon 04-26-2022 Anticardiolipin Ab,IgA,Qn <9 Normal 0-11 [facility] Comment on above: Result Comment: Nega tive: <12 Indeterminate: 12 - 20 Low-Med Positive: >20 - 80 High Positive: >80 Performed By: #### A CAAN #### [facility] [address] [place] [address] Dr. Lisa Lopez Anticardiolipin Ab,IgG,Qn <9 Normal 0-14 [facility] Comment on above: Result Comment: Nega tive: <15 Indeterminate: 15 - 20 Low-Med Positive: >20 - 80 High Positive: >80 Performed By: #### A CAAN #### [facility] [address] [place] [address] Dr. Lisa Lopez Anticardiolipin Ab,IgM,Qn <9 Normal 0-12 [facility] Comment on above: Result Comment: Nega tive: <13 Indeterminate: 13 - 20 Low-Med Positive: >20 - 80 High Positive: >80 Performed By: #### A VY #### [facility] [address] [place] [address] Dr. Lisa Lopez CBC AUTO DIFFon 04-24-2022 BASO # 0.1 103/ul Normal 0.0-0.1 [facility] Comment on above: Performed By: #### C BC #### [facility] [address] [place] [address] Dr. Lisa oLpez Basophils/100 WBC (Bld) 0.8 % Normal 0.2-2.0 [facility] Comment on above: Performed By: #### C BC #### [facility] [address] [place] [address] Dr. Lisa Lopez EO # 0.2 103/ul Normal 0.0-0.7 [facility] Comment on above: Performed By: #### C BC #### [facility] [address] [place] [address] Dr. Lisa Lopez Eosinophils/100 WBC (Bld) 2.5 % Normal 0.9-7.0 [facility] Comment on above: Performed By: #### C BC #### [facility] [address] [place] [address] Dr. Lisa Lopez Erythrocyte distribution width (RBC) [Ratio] 13.1 % Normal 11.0-15.0 [facility] Comment on above: Performed By: #### C BC #### [facility] [address] [place] [address] Dr. Lisa Lopez Hematocrit (Bld) [Volume fraction] 42.6 % Normal 36.0-48.0 [facility] Comment on above: Performed By: #### C BC #### [facility] [address] [place] [address] Dr. Lisa Lopez Hemoglobin (Bld) [Mass/Vol] 13.2 g/dL Normal 12.0-16.0 [facility] Comment on above: Performed By: #### C BC #### [facility] [address] [place] [address] Dr. Lisa Lopez IG # 0.02 10e3/ul Normal 0.00-0.03 [facility] Comment on above: Performed By: #### C BC #### [facility] [address] [place] [address] Dr. Lisa Lopez IG % 0.3 % Normal 0.0-0.5 [facility] Comment on above: Performed By: #### C BC #### [facility] [address] [place] [address] Dr. Lisa Lopez LYMPH # 2.0 103/ul Normal 1.2-3.8 [facility] Comment on above: Performed By: #### C BC #### [facility] [address] [place] [address] Dr. Lisa Lopez Lymphocytes/100 WBC (Bld) 26.4 % Normal 20.5-60.0 [facility] Comment on above: Performed By: #### C BC #### [facility] [address] [place] [address] Dr. Lisa Lopez MANUAL DIFF REQ NO Normal [facility] Comment on above: Performed By: #### C BC #### [facility] [address] [place] [address] Dr. Lisa Lopez MCH (RBC) [Entitic mass] 28.3 pg Normal 26.7-34.0 [facility] Comment on above: Performed By: #### C BC #### [facility] [address] [place] [address] Dr. Lisa Lopez MCHC (RBC) [Mass/Vol] 31.0 g/dL Normal 29.9-35.2 [facility] Comment on above: Performed By: #### C BC #### [facility] [address] [place] [address] Dr. Lisa Lopez MCV (RBC) [Entitic vol] 91.4 fL Normal 81.0-99.0 [facility] Comment on above: Performed By: #### C BC #### [facility] [address] [place] [address] Dr. Lisa Lopez MONO # 0.6 103/ul Normal 0.3-0.8 [facility] Comment on above: Performed By: #### C BC #### [facility] [address] [place] [address] Dr. Lisa Lopez Monocytes/100 WBC (Bld) 7.7 % Normal 1.7-12.0 [facility] Comment on above: Performed By: #### C BC #### [facility] [address] [place] [address] Dr. Lisa Lopez NEUT # 4.8 103/ul Normal 1.4-6.5 [facility] Comment on above: Performed By: #### C BC #### [facility] [address] [place] [address] Dr. Lisa Lopez Neutrophils/100 WBC (Bld) 62.3 % Normal 43.0-75.0 [facility] Comment on above: Performed By: #### C BC #### [facility] [address] [place] [address] Dr. Lisa Lopez Platelet mean volume (Bld) [Entitic vol] 10.2 fL Normal 9.5-13.5 [facility] Comment on above: Performed By: #### C BC #### [facility] [address] [place] [address] Dr. Lisa Lopez PLT 301 103/ul Normal 150-450 [facility] Comment on above: Performed By: #### C BC #### [facility] [address] [place] [address] Dr. Lisa Lopez RBC 4.66 106/ul Normal 4.20-5.40 [facility] Comment on above: Performed By: #### C BC #### [facility] [address] [place] [address] Dr. Lisa Lopez WBC 7.7 103/ul Normal 4.0-11.0 [facility] Comment on above: Performed By: #### C BC #### [facility] [address] [place] [address] Dr. Lisa Lopez CBC AUTO DIFFon 04-07-2022 BASO # 0.1 103/ul Normal 0.0-0.1 [facility] Comment on above: Performed By: #### B 2GPG #### [facility] [address] [place] [address] Dr. Lisa Lopez Basophils/100 WBC (Bld) 0.7 % Normal 0.2-2.0 [facility] Comment on above: Performed By: #### B 2GPG #### [facility] [address] [place] [address] Dr. Lisa Lopez EO # 0.3 103/ul Normal 0.0-0.7 [facility] Comment on above: Performed By: #### B 2GPG #### [facility] [address] [place] [address] Dr. Lisa Lopez Eosinophils/100 WBC (Bld) 2.7 % Normal 0.9-7.0 [facility] Comment on above: Performed By: #### B 2GPG #### [facility] [address] [place] [address] Dr. Lisa Lopez Erythrocyte distribution width (RBC) [Ratio] 13.0 % Normal 11.0-15.0 [facility] Comment on above: Performed By: #### B 2GPG #### [facility] [address] [place] [address] Dr. Lisa Lopez Hematocrit (Bld) [Volume fraction] 42.0 % Normal 36.0-48.0 [facility] Comment on above: Performed By: #### B 2GPG #### [facility] [address] [place] [address] Dr. Lisa Lopez Hemoglobin (Bld) [Mass/Vol] 14.0 g/dL Normal 12.0-16.0 [facility] Comment on above: Performed By: #### B 2GPG #### [facility] [address] [place] [address] Dr. Lisa Lopez IG # 0.02 10e3/ul Normal 0.00-0.03 [facility] Comment on above: Performed By: #### B 2GPG #### [facility] [address] [place] [address] Dr. Lisa Lopez IG % 0.2 % Normal 0.0-0.5 [facility] Comment on above: Performed By: #### B 2GPG #### [facility] [address] [place] [address] Dr. Lisa Lopez LYMPH # 2.1 103/ul Normal 1.2-3.8 [facility] Comment on above: Performed By: #### B 2GPG #### [facility] [address] [place] [address] Dr. Lisa Lopez Lymphocytes/100 WBC (Bld) 22.8 % Normal 20.5-60.0 [facility] Comment on above: Performed By: #### B 2GPG #### [facility] [address] [place] [address] Dr. Lisa Lopez MANUAL DIFF REQ NO Normal [facility] Comment on above: Performed By: #### B 2GPG #### [facility] [address] [place] [address] Dr. Lisa Lopez MCH (RBC) [Entitic mass] 28.1 pg Normal 26.7-34.0 [facility] Comment on above: Performed By: #### B 2GPG #### [facility] [address] [place] [address] Dr. Lisa Lopez MCHC (RBC) [Mass/Vol] 33.3 g/dL Normal 29.9-35.2 [facility] Comment on above: Performed By: #### B 2GPG #### [facility] [address] [place] [address] Dr. Lisa Lopez MCV (RBC) [Entitic vol] 84.3 fL Normal 81.0-99.0 [facility] Comment on above: Performed By: #### B 2GPG #### [facility] [address] [place] [address] Dr. Lisa Lopez MONO # 0.6 103/ul Normal 0.3-0.8 [facility] Comment on above: Performed By: #### B 2GPG #### [facility] [address] [place] [address] Dr. Lisa Lopez Monocytes/100 WBC (Bld) 6.8 % Normal 1.7-12.0 [facility] Comment on above: Performed By: #### B 2GPG #### [facility] [address] [place] [address] Dr. Lisa Lopez NEUT # 6.1 103/ul Normal 1.4-6.5 [facility] Comment on above: Performed By: #### B 2GPG #### [facility] [address] [place] [address] Dr. Lisa Lopez Neutrophils/100 WBC (Bld) 66.8 % Normal 43.0-75.0 [facility] Comment on above: Performed By: #### B 2GPG #### [facility] [address] [place] [address] Dr. Lisa Lopez Platelet mean volume (Bld) [Entitic vol] 9.6 fL Normal 9.5-13.5 [facility] Comment on above: Performed By: #### B 2GPG #### [facility] [address] [place] [address] Dr. Lisa Lopez PLT 321 103/ul Normal 150-450 [facility] Comment on above: Performed By: #### B 2GPG #### [facility] [address] [place] [address] Dr. Lsia Lopez RBC 4.98 106/ul Normal 4.20-5.40 [facility] Comment on above: Performed By: #### B 2GPG #### [facility] [address] [place] [address] Dr. Lisa Lopez WBC 9.1 103/ul Normal 4.0-11.0 [facility] Comment on above: Performed By: #### B 2GPG #### [facility] [address] [place] [address] Dr. Lisa Lopez TSHon 04-07-2022 TSH 2.113 uIU/mL Normal 0.358-3.740 [facility] Comment on above: Performed By: #### T SH #### [facility] [address] [place] [address] Dr. Lisa Lopez US PELVIS AND TRANSVAGon US PELVIS AND TRANSVAG EXAMINATION: US PELVIS AND TRANSVAG HISTORY: Abnormal uterine bleeding unrelated to menstrual cycle COMPARISON: 09/03/2021 FINDINGS: The uterus is normal in size, contour and echotexture measuring 8.6 x 4.3 x 5.2 cm. No focal myometrial mass. The endometrium measures 5 mm, normal. Linear hyperechogenicity within the endometrial cavity, normally positioned IUD The right ovary is normal measuring 3.1 x 1.7 x 2.6 cm. Normal color and Doppler flow The left ovary is normal in appearance measuring 1.0 x 3.0 x 3.3 cm. Normal color and Doppler flow IMPRESSION: Normal position of the IUD Electronically authenticated by: TAMMY GARCIA Date: 2022-02-18 20:11 Normal [facility] MRI Lumbar Spine w/o + w/on 11-18-2021 MRI Lumbar Spine w/o + w/ MRI of the lumbar spine without and with IV contrast History:??Hard lump on tailbone for 1.5 months. Sacral pain. Check for possible abscess. Patient unable to sit. Comparison:??X-ray sacrum/coccyx: 09/25/2021 Technique:??Multiplan ar multisequence MRI of the lumbar spine was performed without contrast.??Additional sequences were obtained to the sacrum/coccyx. It was routine without and with IV contrast. 20 mL of ProHance given intravenously. A marker was placed at the site of the patient's pain. Findings: Lumbar spine alignment is anatomic.??Conus medullaris terminates at a normal level. Lumbar vertebral body height are maintained.??Interver tebral disc heights are maintained. ??No abnormal sites of theirs that the distal segments of the enhancement in the lumbar spine or sacral spine. Good alignment of the sacrum. No evidence for sacral abscess or abscess adjacent to the coccyx. No evidence of fluid collection adjacent to the sacrum or coccyx. L1-L2: No significant disc bulge, neural foraminal or spinal canal stenosis. L2-L3:??No significant disc bulge, neural foraminal or spinal canal stenosis. L3-L4:??No significant disc bulge, neural foraminal or spinal canal stenosis. L4-L5:??No significant disc bulge, neural foraminal or spinal canal stenosis. L5-S1:??Mild posterior bulging of disc.?? No central canal or neuroforaminal stenosis. There is mild edema posterior to the coccyx, consistent with mild coccydynia. IMPRESSION: NO FRACTURE AND GOOD ALIGNMENT OF THE LUMBAR SACRAL SPINE. NO EVIDENCE OF ABSCESS. MILD POSTERIOR BULGING L5-S1 DISC. NO CENTRAL CANAL OR NEUROFORAMINAL STENOSIS. NO DEFINITE FOCAL ABNORMALITY INVOLVING THE SACRUM OR COCCYX. MILD EDEMA IN THE SOFT TISSUES POSTERIOR TO THE COCCYX, CONSISTENT WITH MILD COCCYDYNIA. Report reported and signed by Jackie Castle on 11/18/2021 1351 Normal [facility] US Abdomen Limitedon 022 US Abdomen Limited CLINICAL HISTORY: . COMPARISON: . TECHNIQUE: . Grayscale and Doppler images of the region of concern in the area of the sacrum were obtained in multiple planes. FINDINGS: There are no solid or cystic lesions in the region of concern. IMPRESSION: There are no sonographically detectable abnormalities. Report reported and signed by NIKITA CORDERO on 10/10/2021 1636 Normal [facility] XR Sacrum/Coccyxon 2 XR Sacrum/Coccyx COMPARISON: none FINDINGS: There is no lytic or sclerotic bone lesion. There is no fracture or dislocation. There is no significant degenerative change. There is a metallic IUD in the pelvis. The soft tissues are within normal limits. IMPRESSION: There are no acute osseous changes Report reported and signed by NIKITA CORDERO on 09/25/2021 1017 Normal [facility] Complete Blood Counton 05-14 Erythrocyte distribution width (RBC) [Ratio] 19.7 % High 11.0-15.0 [facility] Comment on above: Performed By: #### L IPD, CBC, TSH reflex FT4, CMP #### [facility] [address], [place] [id number] Hematocrit (Bld) [Volume fraction] 35.2 % Normal 35.0-47.0 [facility] Comment on above: Performed By: #### L IPD, CBC, TSH reflex FT4, CMP #### [facility] [address], [place] [id number] Hemoglobin (Bld) [Mass/Vol] 9.7 g/dL Low 11.6-15.5 [facility] Comment on above: Performed By: #### L IPD, CBC, TSH reflex FT4, CMP #### [facility] [address], [place] [id number] MCH (RBC) [Entitic mass] 18.9 pg Low 27.0-33.0 [facility] Comment on above: Performed By: #### L IPD, CBC, TSH reflex FT4, CMP #### [facility] [address], [place] [id number] MCHC (RBC) [Mass/Vol] 27.6 g/dL Low 32.0-36.0 [facility] Comment on above: Performed By: #### L IPD, CBC, TSH reflex FT4, CMP #### [facility] [address], [place] [id number] MCV (RBC) [Entitic vol] 69 fL Low 80-100 [facility] Comment on above: Performed By: #### L IPD, CBC, TSH reflex FT4, CMP #### [facility] [address], [place] [id number] Platelet mean volume (Bld) [Entitic vol] 9.30 fL Normal 7.50-12.50 [facility] Specialist Comment on above: Performed By: #### L IPD, CBC, TSH reflex FT4, CMP #### [facility] [address], [place] [id number] Platelets (Bld) [#/Vol] 348 10*3/uL Normal 140-400 [facility] Comment on above: Performed By: #### L IPD, CBC, TSH reflex FT4, CMP #### [facility] [address], [place] [id number] RBC (Bld) [#/Vol] 5.12 10*6/uL Normal 3.90-5.20 [facility] Comment on above: Performed By: #### L IPD, CBC, TSH reflex FT4, CMP #### [facility] [address], [place] [id number] RDW-SD 47.3 fL Normal 37.0-50.0 [facility] Comment on above: Performed By: #### L IPD, CBC, TSH reflex FT4, CMP #### [facility] [address], [place] [id number] WBC (Bld) [#/Vol] 7.1 10*3/uL Normal 3.8-11.0 [facility] Comment on above: Performed By: #### L IPD, CBC, TSH reflex FT4, CMP #### [facility] [address], [place] [id number] [facility] 05-14-2021 Albumin [Mass/Vol] 4.1 g/dL Normal 3.6-5.1 [facility] Comment on above: Performed By: #### L IPD, CBC, TSH reflex FT4, CMP #### [facility] [address], [place] [id number] Albumin/Globulin [Mass ratio] 1.5 {ratio} Normal 1.0-2.5 [facility] Comment on above: Performed By: #### L IPD, CBC, TSH reflex FT4, CMP #### [facility] [address], [place] [id number] ALP [Catalytic activity/Vol] 133 U/L High 35-119 [facility] Comment on above: Performed By: #### L IPD, CBC, TSH reflex FT4, CMP #### [facility] [address], [place] [id number] ALT [Catalytic activity/Vol] 17 U/L Normal 6-33 [facility] Comment on above: Result Comment: 03/13 Female reference range changed. Performed By: #### L IPD, CBC, TSH reflex FT4, CMP #### [facility] [address], [place] [id number] Anion gap [Moles/Vol] 18 mmol/L Normal 12-20 [facility] Comment on above: Result Comment: Effe ctive 04/18/2019 reference range changed. Performed By: #### L IPD, CBC, TSH reflex FT4, CMP #### [facility] [address], [place] [id number] AST [Catalytic activity/Vol] 17 U/L Normal 9-34 [facility] Comment on above: Performed By: #### L IPD, CBC, TSH reflex FT4, CMP #### [facility] [address], [place] [id number] BUN/CREA 14 Ratio Normal 6-22 [facility] Comment on above: Performed By: #### L IPD, CBC, TSH reflex FT4, CMP #### [facility] [address], [place] [id number] Calcium [Mass/Vol] 9.1 mg/dL Normal 8.6-10.2 [facility] Comment on above: Performed By: #### L IPD, CBC, TSH reflex FT4, CMP #### [facility] [address], [place] [id number] Chloride [Moles/Vol] 105 mmol/L Normal 98-107 [facility] Comment on above: Performed By: #### L IPD, CBC, TSH reflex FT4, CMP #### [facility] [address], [place] [id number] CO2 [Moles/Vol] 22 mmol/L Normal 20-31 [facility] Comment on above: Performed By: #### L IPD, CBC, TSH reflex FT4, CMP #### [facility] [address], [place] [id number] Creatinine [Mass/Vol] 0.6 mg/dL Normal 0.6-1.4 [facility] [place] [facility] Comment on above: Performed By: #### L IPD, CBC, TSH reflex FT4, CMP #### [facility] [address], [place] [id number] eGFRAA 153 mL/min/1.73m2 Normal >60 [facility] Comment on above: Performed By: #### L IPD, CBC, TSH reflex FT4, CMP #### [facility] [address], [place] [id number] eGFRNAA 126 mL/min/1.73m2 Normal >60 [facility] Flight Engineer Comment on above: Performed By: #### L IPD, CBC, TSH reflex FT4, CMP #### [facility] [address], [place] [id number] Globulin (S) [Mass/Vol] 2.8 g/dL Normal 1.9-3.7 [facility] Flight Engineer Comment on above: Performed By: #### L IPD, CBC, TSH reflex FT4, CMP #### [facility] [address], [place] [id number] Glucose [Mass/Vol] 94 mg/dL Normal 65-99 [facility] Flight Engineer Comment on above: Result Comment: For FASTING Glucose --- ADA reference ranges: Normal 65-99 mg/dl Prediabetes 100-125 Diabetes >/= 126 Performed By: #### L IPD, CBC, TSH reflex FT4, CMP #### [facility] [address], [place] [id number] Potassium [Moles/Vol] 4.4 mmol/L Normal 3.5-5.5 [facility] Flight Engineer Comment on above: Performed By: #### L IPD, CBC, TSH reflex FT4, CMP #### [facility] [address], [place] [id number] Protein [Mass/Vol] 6.9 g/dL Normal 6.1-8.1 Anisha corado [place] Flight Engineer Comment on above: Performed By: #### L IPD, CBC, TSH reflex FT4, CMP #### [facility] [address], [place] [id number] Sodium [Moles/Vol] 140 mmol/L Normal 135-146 Anisha corado [place] Flight Engineer Comment on above: Performed By: #### L IPD, CBC, TSH reflex FT4, CMP #### [facility] [address], [place] [id number] TBIL <0.3 Normal [facility] Specialist Comment on above: Performed By: #### L IPD, CBC, TSH reflex FT4, CMP #### [facility] [address], [place] [id number] Urea nitrogen [Mass/Vol] 8 mg/dL Normal 7-25 [facility] Specialist Comment on above: Performed By: #### L IPD, CBC, TSH reflex FT4, CMP #### [facility] [address], [place] [id number] Lipid Panelon 05-14-2021 Cholesterol [Mass/Vol] 150 mg/dL Normal 125-200 [facility] Comment on above: Result Comment: Low risk < 200mg/dL Borderline risk 201-239 mg/dl High risk > or equal to 240 Performed By: #### L IPD, CBC, TSH reflex FT4, CMP #### [facility] [address], [place] [id number] Cholesterol in HDL [Mass/Vol] 40 mg/dL Low >40 [facility] Specialist Comment on above: Result Comment: High Cardiovascular Risk HDL <40 mg/dL Low Cardiovascular Risk HDL > or equal to 60 mg/dl Performed By: #### L IPD, CBC, TSH reflex FT4, CMP #### [facility] [address], [place] [id number] Cholesterol in LDL [Mass/Vol] 81 mg/dL Normal [facility] Specialist Comment on above: Result Comment: LDL ATP III CLASSIFICATION LDL less than 100 mg/dl Optimal LDL 100-129 mg/dl Near or above optimal LDL 130-159 Borderline high LDL 160-189 High LDL greater than 189 mg/dl Very High Performed By: #### L IPD, CBC, TSH reflex FT4, CMP #### [facility] [address], [place] [id number] Cholesterol in VLDL [Mass/Vol] 29 mg/dL Normal [facility] Specialist Comment on above: Performed By: #### L IPD, CBC, TSH reflex FT4, CMP #### [facility] [address], [place] [id number] Cholesterol.total/Chol esterol in HDL [Mass ratio] 4 {ratio} Normal [facility] Comment on above: Performed By: #### L IPD, CBC, TSH reflex FT4, CMP #### [facility] [address], [place] [id number] Triglyceride [Mass/Vol] 146 mg/dL Normal 30-150 [facility] Specialist Comment on above: Result Comment: TRIG ATPIII CLASSIFICATIONS TRIG less than 150 mg/dl Normal TRIG 150-199 mg/dl Borderline High TRIG 200-500 mg/dl High TRIG greather than 500 mg/dl Very High Performed By: #### L IPD, CBC, TSH reflex FT4, CMP #### [facility] [address], [place] [id number] TSH w/ Reflex to Free T4on 0 05-14-2021 TSH 1.460 uIU/mL Normal 0.400-4.500 [facility] Flight Engineer Comment on above: Performed By: #### L IPD, CBC, TSH reflex FT4, CMP #### [facility] [address], [place] [id number] XR Shoulder Complete Left*on 04-15-2021 XR Shoulder Complete Left* CLINICAL HISTORY: Anterior shoulder pain with abduction. COMPARISON: None available. TECHNIQUE: Neutral, internal and external rotation AP, transscapular and axillary radiographs of both shoulders were obtained. FINDINGS: There is no fracture, dislocation, significant degenerative changes, narrowing of the subacromial space, widening of the acromioclavicular joint, pathologic calcifications, or other findings of concern identified. IMPRESSION: NEGATIVE BILATERAL SHOULDER RADIOGRAPHS. Report reported and signed by Neri Ann on 04/15/2021 1158 Normal [facility] XR Shoulder Complete Right*o n 04-15-2021 XR Shoulder Complete Right* Please see XR Shoulder Complete Left report dated: 04/15/2021. Report reported and signed by Neri Ann on 04/15/2021 1158 Normal [facility] Family Medicine Office/Clini c Noteon 11-23-2019 Family Medicine Office/Clinic Note Chief Complaint EST Sore Throat HPI Staff Patient presents with sore throat. Pt states symptoms started 2 days ago. Pt states she has a little cough with the drainage. Pt is , wasn't sure what she could take. History of Present Illness 29 yo F who is 20 wks OB c/o sore throat. started 2 days ago. staying the same. mild, scratchy. no difficulty swallowing. good po intake food/fluids. has noticed an intermittent runny nose, clear drainage, and some mild post-nasal drip. denies seasonal allergies. no fever, chills, malaise, myalgia. no ear ache, sinus congestion, or headache. no cough, SOB, CP, palpitations. no abd pain, nausea, vomiting, diarrhea. no vaginal bleeding. has not taken any meds for symptoms due to - wasn't sure what she can take. Review of Systems PHQ Score Initial Depression Screen Score: 0 Skin: no rash/lesions Eye: no vision changes : no dysuria MS: no joint injury see HPI Physical Exam Vitals & Measurements T: 36.7 ?C (Oral) HR: 111(Peripheral) RR: 18 BP: 122/76 SpO2: 97% HT: 176 cm HT: 176.0 cm WT: 115.7 kg WT: 115.7 kg BMI: 37.35 General: Well developed, well nourished, in no acute distress Head: Normocephalic/atrauma tic no sinus tenderness frontal or maxillary Eyes: Pupils equal, round, and reactive to light. Conjunctivae and sclerae normal, and extraocular movements intact Ears: No deformity or lesion of external ear. Canals and TM appear normal bilaterally. TM?s intact, not inflamed, with normal light reflex. Hearing grossly normal to conversational speech Nose: mild nasal mucosa inflammation and edema with clear rhinorrhea Mouth: _moist mucosa. posterior pharynx with mild edema and erythema, +PND, no purulent exudate, no abscess. uvula midline. Neck: anterior cervical adenopathy L side Lungs: normal respiratory effort and rate, lungs clear to auscultation bilat Cardio: normal rate and rhythm, no murmur, distal extremities well-perfused Abdomen: gravid appearance Musculoskeletal: no gross deformity, ROM grossly intact Neurologic: grossly intact Skin: warm, dry, no rashes/lesions Mental Status: alert, appropriate responses/behavior for age Assessment/Plan 1. Acute pharyngitis, unspecified, (J02.9: Acute pharyngitis, unspecified)Sore throat RST negative. no difficulty swallowing. good po intake food/fluids. no fever, nontoxic, no systemic symptoms. advised that sore throat likely from PND which could be rhinitis, seasonal allergies, viral URI, others. advised to monitor for worsening symptoms. provided list of antihistamines and cold medications safe in . [id number] she clear anything she starts with OB. Follow up with family doctor in 7-10 days, sooner if not improving as expected, ER if condition worsens significantly. Ordered: Rapid Strep POC 16894 2. Rhinitis (J31.0: Chronic rhinitis) BMI 37.0-37.9, adult (Z68.37: Body mass index (BMI) 37.0-37.9, adult) Ordered: Body Mass Index (BMI) documented 3008F Rapid Strep POC 86372 Follow-up No qualifying data available Patient Education Sore Throat Problem List/Past Medical History Ongoing No chronic problems Historical No qualifying data Procedure/Surgical History section. Medications levothyroxine 50 mcg (0.05 mg) Tab, Oral, Daily omeprazole 20 mg Cap-DR, 20 mg= 1 cap(s), Oral, Daily Allergies No Known Medication Allergies Social History Tobacco Never (less than 100 in lifetime) Tobacco Use:. Never Smokeless Tobacco Use:., 11/23/2019 Family History Diabetes mellitus type 1: Mother. Malignant lymphoma: Father. Lab Results Ambulatory Point of Care Results Rapid Strep POC Result: Negative (11/23/19 12:50:00) Normal [facility] Comment on above: Result Comment: Elec tronically Signed By: JASMINA MARTÍNEZ PA-C\.quyen\Date and Time Signed: 11/23/19 13:21 EDT Patient Educationon 11-23-19 20 Patient Education Allergy and Immunology Sore Throat A sore throat is pain, burning, irritation, or scratchiness of the throat. There is often pain or tenderness when swallowing or talking. A sore throat may be accompanied by other symptoms, such as coughing, sneezing, fever, and swollen neck glands. A sore throat is often the first sign of another sickness, such as a cold, flu, strep throat, or mononucleosis (commonly known as mono). Most sore throats go away without medical treatment. CAUSES The most common causes of a sore throat include: ? A viral infection, such as a cold, flu, or mono. ? A bacterial infection, such as strep throat, tonsillitis, or whooping cough. ? Seasonal allergies. ? Dryness in the air. ? Irritants, such as smoke or pollution. ? Gastroesophageal reflux disease (GERD). HOME CARE INSTRUCTIONS ? Only take fwdy-flr-mcrnvik medicines as directed by your caregiver. ? Drink enough fluids to keep your urine clear or pale yellow. ? Rest as needed. ? Try using throat sprays, lozenges, or sucking on hard candy to ease any pain (if older than 4 years or as directed). ? Sip warm liquids, such as broth, herbal tea, or warm water with honey to relieve pain temporarily. You may also eat or drink cold or frozen liquids such as frozen ice pops. ? Gargle with salt water (mix 1 tsp salt with 8 oz of water). ? Do not smoke and avoid secondhand smoke. ? Put a cool-mist humidifier in your bedroom at night to moisten the air. You can also turn on a hot shower and sit in the bathroom with the door closed for 5?10 minutes. SEEK IMMEDIATE MEDICAL CARE IF: ? You have difficulty breathing. ? You are unable to swallow fluids, soft foods, or your saliva. ? You have increased swelling in the throat. ? Your sore throat does not get better in 7 days. ? You have nausea and vomiting. ? You have a fever or persistent symptoms for more than 2?3 days. ? You have a fever and your symptoms suddenly get worse. MAKE SURE YOU: ? Understand these instructions. ? Will watch your condition. ? Will get help right away if you are not doing well or get worse. Document Released: 05/07/2005 Document Revised: 03/16/2013 Document Reviewed: 12/05/2012 ExitCare? Patient Information ?2013 [employer]. Normal [facility] Vital Signs Date Time Vital Sign Value Performing Clinician Facility 04-04-2023 14:50-0500 Body height 167.64 cm Emilee Schmid Other [facility] 04-04-2023 14:50-0500 Body mass index (BMI) [Ratio] 37.12 kg/m2 Emilee Schmid Other [facility] 04-04-2023 14:50-0500 Body temperature 97.9 [degF] Emilee Schmid Other [facility] 04-04-2023 14:50-0500 Body weight 104.33 kg Emilee Binu Other [facility] 04-04-2023 14:50-0500 Diastolic blood pressure 63 mm[Hg] Emilee Binu Other [facility] 04-04-2023 14:50-0500 Respiratory rate 18 /min Emilee Binu Other [facility] 04-04-2023 14:50-0500 SaO2% (BldA) [Mass fraction] 98 % Emilee Binu Other [facility] 04-04-2023 14:50-0500 Systolic blood pressure 113 mm[Hg] Emilee Binu Other [facility] 03-09-2023 09:10-0500 Body height 167.64 cm Yury Cardosoaker Other [facility] 03-09-2023 09:10-0500 Body mass index (BMI) [Ratio] 37.12 kg/m2 Yury Cardosoaker Other [facility] 03-09-2023 09:10-0500 Body temperature 98.2 [degF] Yury Cardosoaker Other [facility] 03-09-2023 09:10-0500 Body weight 104.33 kg Yury Alegria Other [facility] 03-09-2023 09:10-0500 Diastolic blood pressure 82 mm[Hg] Yury Alegria Other [facility] 03-09-2023 09:10-0500 Respiratory rate 18 /min Yury Alegria Other [facility] 03-09-2023 09:10-0500 SaO2% (BldA) [Mass fraction] 98 % Yury Alegria Other [facility] 03-09-2023 09:10-0500 Systolic blood pressure 134 mm[Hg] Yury Alegria Other [facility] 08-13-2022 09:30-0400 Diastolic blood pressure 72 mm[Hg] PHYSICIAN NO [facility] 08-13-2022 09:30-0400 Heart rate 80 /min PHYSICIAN NO [facility] 08-13-2022 09:30-0400 Respiratory rate 18 /min PHYSICIAN NO [facility] 08-13-2022 09:30-0400 SaO2% (BldA) [Mass fraction] 99 % PHYSICIAN NO [facility] 08-13-2022 09:30-0400 Systolic blood pressure 124 mm[Hg] PHYSICIAN NO [facility] 08-13-2022 08:01-0400 Body height 170.18 cm PHYSICIAN NO [facility] 08-13-2022 08:01-0400 Body weight 104.32 kg PHYSICIAN NO [facility] 08-01-2022 10:45-0400 Body height 167.64 cm Wilberto Corona Other [facility] 08-01-2022 10:45-0400 Body mass index (BMI) [Ratio] 39.09 kg/m2 Wilberto Corona Other [facility] 08-01-2022 10:45-0400 Body weight 109.86 kg Wilberto Corona Other [facility] 08-01-2022 10:45-0400 SaO2% (BldA) [Mass fraction] 99 % Wilberto Corona Other [facility] 05-14-2022 17:30-0500 Body height 167.64 cm Wilberto Corona Other [facility] 05-14-2022 17:30-0500 SaO2% (BldA) [Mass fraction] 97 % Wilberto Corona Other [facility] [email or web address] Other 05-07-2022 08:59-0500 Diastolic blood pressure 56 mm[Hg] PHYSICIAN NO [facility] 05-07-2022 08:59-0500 Heart rate 62 /min PHYSICIAN NO [facility] 05-07-2022 08:59-0500 Respiratory rate 18 /min PHYSICIAN NO [facility] 05-07-2022 08:59-0500 SaO2% (BldA) [Mass fraction] 99 % PHYSICIAN NO [facility] 05-07-2022 08:59-0500 Systolic blood pressure 127 mm[Hg] PHYSICIAN NO [facility] 05-07-2022 07:47-0500 Body height 170.18 cm PHYSICIAN NO [facility] 05-07-2022 07:47-0500 Body weight 108.86 kg PHYSICIAN NO [facility] 04-24-2022 16:45-0500 Body height 167.64 cm Wilberto Corona Other [facility] [employer] Other 04-24-2022 16:45-0500 Diastolic blood pressure 80 mm[Hg] Wilberto Corona Other [facility] 04-24-2022 16:45-0500 SaO2% (BldA) [Mass fraction] 98 % Wilberto Corona Other [facility] 04-24-2022 16:45-0500 Systolic blood pressure 124 mm[Hg] Wilberto Corona Other [facility] 03-27-2022 17:00-0500 Body height 167.64 cm Wilberto Corona Other [facility] 03-27-2022 17:00-0500 Body mass index (BMI) [Ratio] 35.51 kg/m2 Wilberto Corona Other [facility] 03-27-2022 17:00-0500 Body weight 99.79 kg Wilberto Corona Other [facility] 03-27-2022 17:00-0500 Diastolic blood pressure 74 mm[Hg] Wilberto Corona Other [facility] 03-27-2022 17:00-0500 Systolic blood pressure 112 mm[Hg] Wilberto Corona Other [facility] 12-20-2021 19:20-0400 Body height 167.64 cm Emilee Schmid Other [facility] 12-20-2021 19:20-0400 Body mass index (BMI) [Ratio] 37.12 kg/m2 Emilee Schmid Other [facility] 12-20-2021 19:20-0400 Body temperature 98.7 [degF] Emilee Schmid Other [facility] 12-20-2021 19:20-0400 Body weight 104.33 kg Emilee Schmid Other [facility] 12-20-2021 19:20-0400 Respiratory rate 18 /min Emilee Prattler Other [facility] 12-20-2021 19:20-0400 SaO2% (BldA) [Mass fraction] 97 % Emilee Schmid Other [facility] Other Encounters Encounter Date Encounter Type Care Provider Facility Start: 06-26-2023 End: 06-26-2023 ambulatory RICH CAMARGO Not Available Start: 06-08-2023 End: 06-08-2023 ambulatory KESHA BA Not Available Start: 05-25-2023 End: 05-25-2023 ambulatory JHON WILY Not Available Start: 05-04-2023 End: 05-04-2023 ambulatory Emilee Schmid Other [facility] Start: 05-04-2023 Telephone encounter Emilee Schmid [facility] Start: 04-04-2023 End: 04-04-2023 ambulatory Emilee Schmid Other [facility] Start: 04-04-2023 Office outpatient vi sit 25 minutes Emilee Schmid [facility] Start: 03-24-2023 End: 03-24-2023 ambulatory LYNNETTE MCDUFFIE Not Available Start: 03-17-2023 End: 03-17-2023 ambulatory JEREMY CASTLE Not Available Start: 03-09-2023 End: 03-09-2023 ambulatory Yury Alegria Other [facility] Start: 03-09-2023 Office outpatient vi sit 15 minutes Yury Alegria [facility] [address] Start: 09-09-2022 End: 09-09-[address] DOCTOR MATSON Facility:[facility] Start: 08-13-2022 (PROC) PROCEDURE Wilberto Flynn [facility] Start: 08-13-2022 End: 08-13-2022 Admission to same day surgery center PHYSICIAN NO [facility] Work Phone: Start: 08-13-2022 End: 08-13-2022 ambulatory PHYSICIAN NO [facility] Work Phone: Start: 08-01-2022 End: 08-01-2022 ambulatory Wilberto Chloe Other [facility] Start: 08-01-2022 Office outpatient vi sit 25 minutes Wilberto Corona [facility] [place] Start: 07-30-2022 End: 07-31-[address] JHON JULIEN . Facility:[facility] Start: 05-22-2022 End: 05-22-[address] ALEXX WILLIAMSON . Facility:[facility] Start: 05-14-2022 End: 05-14-2022 ambulatory Wilberto Chloe Other [facility] Start: 05-14-2022 Office outpatient vi sit 15 minutes Wilberto Chloe [facility] Start: 05-07-2022 (PROC) PROCEDURE Wilberto Flynn nds [facility] Start: 05-07-2022 End: 05-07-2022 ambulatory Wilberto Corona Facility:[facility] Start: 05-07-2022 End: 05-07-2022 Admission to same day surgery center PHYSICIAN NO [facility] Work Phone: Start: 05-07-2022 End: 05-07-2022 ambulatory PHYSICIAN NO [facility] Work Phone: Start: 04-28-2022 End: 04-29-[address] JHON JULIEN . Facility:[facility] Start: 04-24-2022 End: 04-25-[address] JHON JULIEN . [facility] Start: 04-24-2022 Office outpatient vi sit 15 minutes Wilberto Chloe [facility] Start: 04-07-2022 End: 04-08-[address] JHON JULIEN . Facility:[facility] Start: 03-27-2022 End: 03-27-2022 ambulatory Wilberto Chloe Other [facility] Start: 03-27-2022 Office consultation new/estab patient 60 min Wilberto Chloe [facility] Start: 02-17-2022 End: 02-18-[address] TAMMY GARCIA Facility:[facility] Start: 12-20-2021 End: 12-20-2021 ambulatory Emilee Schmid Other [facility] Start: 12-20-2021 Office outpatient vi sit 25 minutes Emilee Schmid [facility] Procedures Date Procedure Procedure Detail Performing Clinician Start: 08-13-2022 Injection of anesthe tic agent into stellate ganglion PHYSICIAN NO [facility] Start: 05-07-2022 Injection of anesthe tic agent into stellate ganglion PHYSICIAN NO FAMILY Plan of Treatment Date Care Activity Detail Author Start: 08-13-2022 [facility] Start: 05-07-2022 [facility] Patient Education [facility] Work Phone: Patient referral [facility] Work Phone: Payers Date Payer Category Payer Self-pay 1992 Unknown [id number] 2.16.84 [id number] 1992 Unknown [id number] [id number] 1992 Unknown [id number] 2.16.84 [id number] 1992 Unknown [id number] 2.16.84 0.1.315053.3.579.2.593 1992 Unknown [id number] 2.16.84 0.1.054607.3.579.2.593 1992 Unknown [id number] 2.16.84 0.1.469535.3.579.2.593 1992 Unknown [id number] 2.16.84 0.1.989134.3.579.2.593 1992 Unknown [id number] 2.16.84 0.1.526037.3.579.2.593 1992 Unknown [id number] 2.16.84 0.1.288077.3.579.2.1259 1992 Unknown [id number] 2.16.84 0.1.863259.3.579.2.1259 1992 Unknown [id number] 2.16.84 0.1.827179.3.579.2.1259 1992 Unknown [id number] 2.16.840 .1.802403.3.579.2.1259 1992 Unknown [id number] 2.16.840 .1.019376.3.579.2.1259 1957 [facility] [id number] [id number] Unknown MMO [id number] Unknown [id number] 2.16.8 [id number] Unknown [id number] 2.16.8 [id number] Social History Date Type Detail Facility Unknown if ever smoked [facility] Other Sex Assigned At Sex Assigned At Bir th [facility] Start: 1990 Sex Assigned At Female [facility] Goals Date Patient Goal Desired Activity /State Clinical Notes 12-20-2021 to 04-04-2023 Note Date & Type Note Facility 04-04-2023 Evaluation note Encounter Date Diagnosis Assessment Notes Mar, Acute middle ear effusion, bilateral (ICD-10 - H65.193) Discussed diagnosis with patient, explained to patient that there is middle ear fluid without signs of bacterial infection, antibiotics are not indicated at this time. This is commonly due to ET dysfunction, viral illness, allergies, barotrauma, or recent AOM. Advised patient that fluid in middle ear may take several weeks to resolve. Take rx medications as directed. Supportive treatment as directed, OTC Zyrtec/Claritin, OTC Flonase, push fluids/test, Tylenol for discomfort. Follow up with PCP in 2 weeks or sooner for new or worsening symptoms. Will send in referral to ENT per patient request. Patient verbalizes understanding and is agreeable to treatment plan [facility] 11-27-2023 Evaluation note* Encounter Date Diagnosis Assessment Notes Treatment Notes Treatment Clinical Notes Feb, Non-recurrent acute suppurative otitis media of right ear without spontaneous rupture of tympanic membrane (ICD-10 - H66.001) She appears to still have a residual R. otitis media with L. serous otiis media. Will prescribe cefdinir and fluticasone. Ear infections are often a secondary infection caused from an URI, the flu or allergies. Take medication as directed. Complete all doses, even if you feel better. Tylenol or ibuprofen can help with pain. Warm pack to area for comfort helps as well. Follow up with primary care provider if no improvement of symptoms. Feb, Nasal congestion (ICD-10 - R09.81) [facility] Encounter Date Diagnosis Assessment Notes Treatment Notes Treatment Clinical Notes Jul, Coccydynia (ICD-10 - M53.3) 31 year old female here for follow up to discuss chronic pain. She voices complaints of tailbone pain. She states she fell down a flight of stairs almost 2 weeks ago which has irritated her tailbone pain. She notes after the injury she had imaging done at [place], she states this does not show any fractures. We will proceed with a repeat ganglion impar nerve block. Risks and benefits of procedure explained to patient; patient verbalizes understanding. Jul, Sacroiliitis (ICD-10 - M46.1) Consider SI joint injections in the future if needed Jul, Other chronic pain (ICD-10 - G89.29) Follow up after procedure [facility] 02-01-2023 Evaluation note* Encounter Date Diagnosis Assessment Notes Treatment Notes Treatment Clinical Notes May, Coccydynia (ICD-10 - M53.3) 31 year old female here for follow up status post ganglion impar block under fluoroscopic guidance. Patient reports 90% pain relief as well as improved walking, standing and daily functions following the procedure. She voices complaints of mild tailbone pain today. Overall she is doing very well and does not require any further treatment at this time. She is counselled against sitting on hard surfaces. She can continue her activities as tolerated and call the office should her pain become bothersome. May, Sacroiliitis (ICD-10 - M46.1) Patient denies any pain today. May, Other chronic pain (ICD-10 - G89.29) Follow up as needed. [facility] 01-12-2023 Evaluation note* Encounter Date Diagnosis Assessment Notes Treatment Notes Treatment Clinical Notes Apr, Coccydynia (ICD-10 - M53.3) 31 year old female here for follow up to discuss chronic pain. She voices complaints of tailbone pain. She rates her pain 5-6/10 today. She feels her pain is negatively impacting her activities of daily living. She was recently scheduled for a paracocyxgeal nerve block however this was denied by her insurance. 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 Anatomy of spine as well as different treatment options were discussed in detail with patient in regards to patients condition. I recommend we proceed with a ganglion impar nerve block under fluoroscopic guidance. Risks and benefits of procedure explained to patient; patient verbalizes understanding. Apr, Sacroiliitis (ICD-10 - M46.1) In the future if the pain persists, we can consider sacroiliac joint injections. Apr, Other chronic pain (ICD-10 - G89.29) Continue with current treatment plan. Cynny Other 12-15-2022 Evaluation note* Encounter Date Diagnosis Assessment Notes Treatment Notes Treatment Clinical Notes Mar, Coccydynia (ICD-10 - M53.3) 31 y/o female here with complaints of tailbone pain, denying radicular symptoms. She notes pain increases with prolonged sitting. She states pain has been has been present for 6 months. She denies any prior physical therapy. She has tried taking NSAIDs with minimal relief of her pain and a steroid pack with temporary relief. She feels pain can negatively impact her daily activities and sleeping pattern. Prior to examining the patient, I independently reviewed office notes from referring provider, Dr Mcduffie. 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 History, physical examination and available images are consistent with coccydynia and sacroilitis. Anatomy of spine discussed in detail with patient in regards to patients condition. I recommend we proceed with a paracoccygeal nerve block under fluoroscopic guidance. Risks and benefits of procedure explained to patient; patient verbalizes understanding. Mar, Sacroiliitis (ICD-10 - M46.1) In the future if the pain persists, we can consider sacroiliac joint injections. Mar, Other chronic pain (ICD-10 - G89.29) Continue with current treatment plan. Mar, Other Medical deci tahira making shows a new problem to me with further workup planned or suggested with the potential for extensive treatment options that were considered with the most applicable given this patient's situation as noted above. Treatment options considered include a combination of physical therapy approaches, pharmacologic management, and interventional procedures. Those most applicable to the patient were discussed at this time. Risk of complications and/or morbidity and mortality is high given that acute and chronic pain poses a threat to life and bodily function if undertreated, poorly treated or with failure to maintain adequate treatment and timely followup. Given the serious and fluctuating nature of pain with extensive consideration for whenever pain changes, there always remains the possibility of prolonged functional impairment requiring constant patient reassessment and high-level medical decision making. The amount and complexity of data reviewed is high given that patient labs, radiology reports, and other test were obtained, reviewed and summarized as applicable from the physician portal and/or outside medical records. Pertinent positive and negative findings were considered in medical decision-making. Cynny Other [id number] Evaluation note* Encounter Date Diagnosis Assessment Notes Treatment Notes Treatment Clinical Notes Dec, Acute effusion of both middle ears (ICD-10 - H65.193) Discussed diagnosis with patient, explained to patient that there is middle ear fluid without signs of bacterial infection, antibiotics are not indicated at this time. This is commonly due to ET dysfunction, viral illness, allergies, barotrauma, or recent AOM. Advised patient that fluid in middle ear may take several weeks to resolve. Take rx medications as directed. Supportive treatment as directed, push fluids/test, Tylenol/Motrin for discomfort. Follow up with PCP in 2 weeks or sooner for new or worsening symptoms. Patient verbalizes understanding and is agreeable to treatment plan Cynny Other Evaluation noteNo assessment information available [facility] Work Phone: Evaluation noteNo InformationNort [email or web address] Other History general Narrative - Reported* Type Description Date Medical History Hypothyroidism Medical History Anxiety Surgical History C section x2 Hospitalization History see above Cynny Other Reason for referral (narrative)* Reason *FU 04/14/23 ortiz nt requests referral to ENT for ongoing ear complaints Diagnosis 1 Acute middle ear eff usion, bilateral (H65.193) Referral Organization [facility] Referring Provider First Name Emilee Referring Provider Last Name Binu Referring Provider Specialty Nurse Pract itioner Referred Organization [facility] Referred Provider Martinez Vazquez Referred Address ,[place], [place],[address] Referred Provider Specialty Otolaryngolo gy Referral Priority Routine General Notes Maico Gonzalez 04/07 11:21:55 AM > Referral received, attachments made and faxed to [facility] [employer] Other Summary Purpose Family History No Family History Records Found Relationship Condition Age at Onset Recorded Date/T lenka Not Specified No pertinent family history Unknown father Lymphoma Unknown Not Specified Diabetes mellitus Unknown Advance Directives No Advanced Directives Records Found Advance Directive Response Recorded Date/ Time Advance Directives No May 07, 2022 7:27am Advance Directive Response Recorded Date/ Time Advance Directives No May 07, 2022 8:27am Chief Complaint and Reason for Visit Chief Complaint Pain Additional Source Comments INFORMATION SOURCE (unrecogn ized section and content) DATE CREATED AUTHOR 11/24/2019 Alexandru Chaparro [facility] DATE CREATED AUTHOR AUTHOR'S ORGANIZ ATION 11/18/2021 [facility] DATE CREATED AUTHOR AUTHOR'S ORGANIZ ATION 05/01/2022 [facility] DATE CREATED AUTHOR AUTHOR'S ORGANIZ ATION 08/21/2022 [facility] DATE CREATED AUTHOR AUTHOR'S ORGANIZ ATION 09/19/2022 [facility] DATE CREATED AUTHOR AUTHOR'S ORGANIZ ATION 06/27/2023 [facility] EPIC REASON FOR VISIT (unrecogniz ed section and content) RIGHT EARACHEREF BY LYNNETTE HAWKINS FOR COCCYDYNIAF/U TO DISCUSS OPTIONS- PARACOCCYGEAL NB NOT COVEREDGANGLION IMPAR NBF/U AFTER GANGLION IMPAR NBINCREASED TAILBONE PAINGANGLION IMPAR NERVE BLOCK/ELright ear painEAR PAINENT REFERRAL UPDATE Care Teams (unrecognized sec tion and content) Team Status: Inactive Member Role Status Dates Wilberto Corona MD Attending Provider Active PHYSICIAN NO FAMILY Primary Care Provider Active Team Status: Active Member Role Status Dates PHYSICIAN NO FAMILY Primary Care Provider Active Team Status: Inactive Member Role Status Dates PHYSICIAN NO FAMILY Primary Care Provider Active Wilberto Corona MD Attending Provider Active FOR RECORDS PERTAINING TO PATIENTS WHO ARE OR HAVE BEEN ENROLLED IN A CHEMICAL DEPENDENCY/SUBSTANCEABUSE PROGRAM, SOME INFORMATION MAY BE OMITTED. This clinical summary was aggregated from multiple sources. Caution should be exercised in using it in the provision of clinical care. This summary normalizes information from multiple sources, and as a consequence, information in this document may materially change the coding, format and clinical context of patient data. In addition, data may be omitted in some cases. CLINICAL DECISIONS SHOULD BE BASED ON THE PRIMARY CLINICAL RECORDS. [employer] provides no warranty or guarantee of the accuracy or completeness of information in this document.
[2023-07-12 19:34] VITALS: BP 122/78; PULSE 127; TEMP 37.1; O2SAT 98; BMI 37.0
--- NOTE | 2023-07-12 20:03 | US_ITS ---
The [address] [address] Patient Name: CAMRON RUIZ MRN: [id number] date: 1990 Sex: F Assigned Patient Location: ER Current Patient Location: ER Accession/Order Number: [id number] Exam Date: 07/12/2023 21:43 Report Date: 07/12/2023 23:01 At the request of: SHAI MCKEON Procedure: US pelvis transvaginal EXAM: US pelvis transvaginal HISTORY: Heavy bleeding x4 days. History of . Dysfunctional uterine bleeding. COMPARISON: None. TECHNIQUE: Transvaginal pelvic ultrasound only performed. FINDINGS: Uterus: Slightly anteverted. Measures 9.3 x 4.5 x 5 cm. No uterine mass or cyst. Endometrium: Endometrial stripe thickness 10.1 cm which is normal for a non menstruating female. No endocervical fluid. There is defect along the anterior lower uterine body with some endometrial tissue extending into the scar from prior Pfannenstiel incision. The right and left ovaries were not visualized. No adnexal masses. No free fluid or fluid collection within the pelvis. Ovaries are obscured due to bowel gas. Urinary bladder not visualized on transvaginal scanning. US/US pelvis transvaginal IMPRESSION: 1. Anteverted uterus with changes of previous Pfannenstiel incision for . Endometrial stripe thickness grossly normal for a non menstruating female with no endometrial fluid. 2. No uterine mass or cyst 3. Ovaries not visualized, obscured by bowel gas. Electronically authenticated by: MARÍA ELENA MCLAIN Date: 07/12/2023 23:01
[2023-07-12 20:22] LABS: Basophils Absolute Auto 0.1 10^3/uL (0.0-0.1); Basophils Percent Auto 1.4 % (0.2-2.0); Eosinophils Absolute Auto 0.1 10^3/uL (0.0-0.7); Eosinophils Percent Auto 2.6 % (0.9-7.0); Hematocrit 39.8 % (36.0-48.0); Hemoglobin 13.3 g/dL (12.0-16.0); Immature Granulocytes Abs Auto 0.01 10^3/uL (0.00-0.03); Immature Granulocytes Pct Auto 0.2 % (0.0-0.5); Lymphocytes Percent Auto 22.9 % (20.5-60.0); Mean Corpuscular HGB Conc 33.4 g/dL (29.9-35.2); Mean Corpuscular Hemoglobin 28.4 pg (26.7-34.0); Mean Platelet Volume 10.4 fL (9.5-13.5); Monocytes Absolute Auto 0.4 10^3/uL (0.3-0.8); Monocytes Percent Auto 9.6 % (1.7-12.0); Neutrophils Absolute Auto 2.7 10^3/uL (1.4-6.5); Neutrophils Percent Auto 63.3 % (43.0-75.0); Platelet Count 240 10^3/uL (150-450); Red Blood Count 4.68 10^6/uL (4.20-5.40); Red Cell Distribution Width 12.7 % (11.0-15.0); White Blood Count 4.3 10^3/uL (4.0-11.0)
[2023-07-12 20:35] LABS: INR 0.96; Prothrombin Time 10.2 sec (9.0-11.6)
[2023-07-12 20:36] LABS: HCG Qualitative NEGATIVE (NEGATIVE)
--- NOTE | 2023-07-12 21:07 | ED.FEMALEGU1 ---
HPI - Female Genitourinary General Chief complaint: OB/Uterine Contractions Stated complaint: VAGINAL BLEEDING Time Seen by Provider: 07/12/23 19:42 Source: patient Mode of arrival: walk-in History of Present Illness HPI Narrative: Dictated [id number] female presents for heavy vaginal bleeding. She is scheduled to have a hysterectomy on August 19. 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 She has used about 7 tampons 5 hours ago. She felt a little bit dizzy as well. No syncope. Related Data Home Medications ?Medication ?Instructions ?Recorded ?Confirmed acetaminophen 500 mg tablet 1,000 mg PO Q4H PRN pain 03/03/23 03/03/23 (Acetaminophen Extra Strength) control 03/03/23 ibuprofen 100 mg tablet 200 mg PO Q8H PRN pain 03/03/23 03/03/23 ibuprofen 800 mg tablet mg 03/03/23 Previous Rx's ?Medication ?Instructions ?Recorded amoxicillin 500 mg capsule 500 mg PO TID 10 days #30 caps 03/03/23 ibuprofen 800 mg tablet 800 mg PO Q8H PRN pain #20 tabs 03/03/23 megestrol 20 mg tablet 20 mg PO BID #40 tabs 07/12/23 Allergies Allergy/AdvReac Type Severity Reaction Status Date / Time No Known Drug Allergies Allergy Verified 03/03/23 02:38 Review of Systems ROS Narrative A ten point review of systems is negative except as noted above. PFSH PFSH Social History Smoking status: Never smoker Exam Narrative Exam Narrative: Nurses note and vital signs reviewed and patient is not hypoxic. General: The patient appears well and in no apparent distress. Patient is resting comfortably on cart. Skin: Warm, dry, no pallor noted. There is no rash noted. Head: Normocephalic, atraumatic Eye: Normal conjunctiva, no drainage Ears, Nose, Mouth, and Throat: oral mucosa is moist. Nares patent. Cardiovascular: Regular Rate and Rhythm Respiratory: Patient is in no distress, no accessory muscle use, lungs are clear to auscultation, no wheezing, rales or rhonchi Back: non-tender GI: Soft and Musculoskeletal: The patient has no evidence of calf tenderness, no pitting edema, symmetrical pulses noted bilaterally Neurological: A&O, normal speech Psychiatric: Cooperative Constitutional Vital Signs, click to edit/add: Last Vital Signs Temp 98.7 F 07/12/23 19:34 Pulse 127 H 07/12/23 19:34 Resp 20 07/12/23 19:34 BP 122/78 07/12/23 19:34 Pulse Ox 98 07/12/23 19:34 O2 Del Method Room Air 07/12/23 19:34 Course Vital Signs Vital signs: Vital Signs Temperature 98.7 F 07/12/23 19:34 Pulse Rate 127 H 07/12/23 19:34 Respiratory Rate 20 07/12/23 19:34 Blood Pressure 122/78 07/12/23 19:34 Pulse Oximetry 98 07/12/23 19:34 Oxygen Delivery Method Room Air 07/12/23 19:34 Temperature 98.7 F 07/12/23 19:34 Pulse Rate 127 H 07/12/23 19:34 Respiratory Rate 20 07/12/23 19:34 Blood Pressure 122/78 07/12/23 19:34 Pulse Oximetry 98 07/12/23 19:34 Oxygen Delivery Method Room Air 07/12/23 19:34 MDM - Female Genitourinary MDM Narrative Medical decision making narrative: The patient is not and her hemoglobin is 13.3. Ultrasound shows no acute findings. Case discussed with Dr. Oliver and she is discharged home. She will call the office in the morning for a follow-up appointment. At Dr. Oliver's request I have prescribed the patient Megace, 20 mg p.o. twice daily. Treatment diagnosis and follow-up were discussed with the patient. Differential Diagnosis Differential diagnosis: Likely other (Uterine fibroid, dysfunctional uterine bleeding, miscarriage, ectopic ) Lab Data Attestation: I reviewed the patient's lab results. Labs: Lab Results 07/12/23 Range/Units 20:14 WBC 4.3 (4.0-11.0) 10^3/uL RBC 4.68 (4.20-5.40) 10^6/uL Hgb 13.3 (12.0-16.0) g/dL Hct 39.8 (36.0-48.0) % MCV 85.0 (81.0-99.0) fL MCH 28.4 (26.7-34.0) pg MCHC 33.4 (29.9-35.2) g/dL RDW 12.7 (11.0-15.0) % Plt Count 240 (150-450) 10^3/uL MPV 10.4 (9.5-13.5) fL Neut % (Auto) 63.3 (43.0-75.0) % Lymph % (Auto) 22.9 (20.5-60.0) % [place] % (Auto) 9.6 (1.7-12.0) % Eos % (Auto) 2.6 (0.9-7.0) % Baso % (Auto) 1.4 (0.2-2.0) % Neut # (Auto) 2.7 (1.4-6.5) 10^3/uL Lymph # (Auto) 1.0 L (1.2-3.8) 10^3/uL [place] # (Auto) 0.4 (0.3-0.8) 10^3/uL Eos # (Auto) 0.1 (0.0-0.7) 10^3/uL Baso # (Auto) 0.1 (0.0-0.1) 10^3/uL Abs Immat Gran (auto) 0.01 (0.00-0.03) 10^3/uL Imm/Tot Granulo (auto) 0.2 (0.0-0.5) % PT 10.2 (9.0-11.6) sec INR 0.96 Serum HCG, Qual Negative (NEGATIVE) Imaging Data Pelvic ultrasound: Radiologist's impression: ITS Impressions Transvaginal US 07/12/23 20:03 IMPRESSION: 1. Anteverted uterus with changes of previous Pfannenstiel incision for . Endometrial stripe thickness grossly normal for a non menstruating female with no endometrial fluid. 2. No uterine mass or cyst 3. Ovaries not visualized, obscured by bowel gas. Electronically authenticated by: MARÍA ELENA MCLAIN Date: 07/12/2023 23:01 Discharge Plan Discharge Stand Alone Forms: Portal Instructions Chief Complaint: OB/Uterine Contractions Clinical Impression: Dysfunctional uterine bleeding Patient Disposition: Home, Self-Care Time of Disposition Decision: 23:20 Condition: Good Mode of Transportation: Private Vehicle Prescriptions / Home Meds: New megestrol 20 mg tablet 20 mg PO BID Qty: 40 0RF No Action acetaminophen [Acetaminophen Extra Strength] 500 mg tablet 1,000 mg PO Q4H PRN (Reason: pain) control ibuprofen 800 mg tablet ibuprofen 100 mg tablet 200 mg PO Q8H PRN (Reason: pain) ibuprofen 800 mg tablet 800 mg PO Q8H PRN (Reason: pain) Qty: 20 0RF amoxicillin 500 mg capsule 500 mg PO TID 10 Days Qty: 30 0RF Print Language: Wolof Instructions: Abnormal (Dysfunctional) Uterine Bleeding (ED) Additional Instructions: Call Dr. Oliver's office in the morning Referrals: Physician,Non-Staff, MD [Primary Care Provider] - 1 week
[2023-07-12 23:39] VITALS: PULSE 104
== END 2023-07-12 23:40 | disposition home or self-care (01) ==
PROVIDERS: Physician Assistant; Emergency Provider Emergency Medicine
DX: N93.8 Other specified abnormal uterine and vaginal bleeding (principal); Z79.899 Other long term (current) drug therapy; Z79.3 Long term (current) use of hormonal contraceptives
CPT/HCPCS: 36415; 76830; 84703; 85025; 85610; 99284

== ENCOUNTER 2023-07-27 15:17 | Outpatient (REF) | payer BC, SELFPAY | END 2023-07-27 15:18 | disposition home or self-care (01) | LOC: LAB 15:17 | PROVIDERS: Visit Provider Obstetrics & Gynecology | DX: N92.1 Excessive and frequent menstruation with irregular cycle (principal) | CPT/HCPCS: 88305 ==

== ENCOUNTER 2023-08-07 08:05 | Outpatient (OUT) | payer BC, SELFPAY ==
--- OUTSIDE RECORDS SUMMARY | 2023-08-07 08:23 | XMS_ITS | CCD ---
Author Organization [facility] Care Team Providers Care Body Make Up Artist Name Role Phone Emilee Schmid Unavailable MD Wilberto Corona Attending Provider [phone] NO FAMILY, PHYSICIAN Primary Care Provider Unava Wilberto Rondon Unavailable NO FAMILY, PHYSICIAN Primary Care Provider Unava MD Wilberto Rondon Attending Provider WILY ., DR FERREIRA Attending Unavailable RADHA, DR TAMMY Eng Consulting Unavailable MISC, DR DIAS Primary Care Unavailable WILY ., [...] ble WILY ., DR FERREIRA Admitting Unavailable WENDEL, DR TAMMY Eng Consulting Unavailable REQUEST, DR TRINIDAD LISTED Primary Care Unavaila ble WILY ., DR FERREIRA Admitting Unavailable WILY ., DR FERREIRA Attending Unavailable WILY ., DR FERREIRA Consulting Unavailable PAY ., DR ALLEN Admitting Unavailable PAY ., DR ALLEN Attending Unavailable GRECHNY ., GABINO GIBBONS Consulting Unavailabl e MIS, DR DIAS Primary Care Unavailable ALMA CROFT Consulting Unavailable HAY ., DR COFFEY Admitting Unavailable HAY ., DR COFFEY Attending Unavailable GRECHNY ., GABINO GIBBONS Consulting Unavailabl e [facility], DR DIAS Primary Care Unavailable JENNYFER SMITH Consulting Unavailable [facility], DR DIAS Primary Care Unavailable WILY ., DR FERREIRA Consulting Unavailable WILY ., DR FERREIRA Attending Unavailable WILY ., DR FERREIRA Admitting Unavailable Yury Alegria Unavailable PAWEL OLIVER Attending Unavailable KESHA BA Attending Unavailable RICH CAMARGO Attending Unavailable MARTINEZ CALL Attending Unavailable PAWEL OLIVER Attending Unavailable PAWEL OLIVER Attending Unavailable JEREMY CASTLE Attending Unavailable LYNNETTE MCDUFFIE Attending Unavailable NO FAMILY, PHYSICIAN Primary Care Provider Unava ilable Pawel Oliver Attending Provider Wilberto Corona Admitting Unavailable Wilberto Corona Attending Unavailable NO FAMILY, PHYSICIAN Primary Care Unavailable NO FAMILY, PHYSICIAN Primary Care Unavailable Pawel Oliver Admitting Unavailable Pawel Oliver Attending Unavailable Medications Current Medications Medication Drug [...] Depo-Provera 400 MG/ML as directed Intramuscular Active Desogestrel / Ethinyl Estradiol (4 sources) Progestin, Estrogen Start: 07-29-2023 Desogestrel-Ethinyl Estradiol (Apri) 0.15-0.03 mg tablet Active 1 TAB PO Daily July 29, 2023 12:00am take 1 tablet by chriss th every twenty-four hours Apri 0.15-30 MG-MCG 1 tablet Orally Once a day Active fluticasone propionate 0.05 mg/actuat metered dose nasal spray (9 sources) Corticosteroid Start: 12-20-2021 take 1 spray(s) nasal route twice daily Fluticasone Propionate 50 MCG/ACT 1 spray in each nostril Nasally Twice a day for 14 days Feb, Active methylPREDNISolone acetate 20 mg/ml injectable suspension (1 source) Corticosteroid Start: 07-29-2023 Methylprednisolone Acetate (Depo-Medrol) 20 mg/mL suspension Active 20 MG INFILTRATN EVERY 4 WEEKS July 29, 2023 12:00am predniSONE 20 mg oral tablet (3 sources) Start: 07-29-2023 Prednisone Active 20 MG PO Daily July 29, 2023 12:00am Take 3 pills x3 days, 2 pills x3 days, 1 pill x 3 days Start: 04-04-2023 take 1 tablet by chriss th every twelve hours prednisone 20 MG 1 tablet Orally BID for 5 Mar, Active Semaglutide (1 source) Start: 07-29-2023 take 7 mg by mouth o nce daily Semaglutide Active 7 MG PO Daily July 29, 2023 12:00am Completed/Discontinued Medications Medication Drug Class(es) Dates Sig [...] Intraute rine Device Mirena Not-Taking Mirena Active levothyroxine sodium 0.075 mg oral tablet (12 sources) l-Thyroxine Start: 05-07-2022 End: 07-29-2023 take 75 ug by mouth once daily Levothyroxine Discontinued 75 MCG PO Daily May 07, 2022 1:00am July 29, 2023 10:00am Levothyroxine So dium 75 MCG Oral for 90 Not-Taking Megestrol (7 sources) Progestin Megace ES Not-Ta [...] chronic pain; Translations: [Other chronic pain] Onset: 08-13-2022 Chronic Other screening for suspected conditions (not [...] Test Name Value Interpretation Reference Range Facility [facility] 07-27-2023 L Specimen: [id number] Received: 07/28/23 Status: JOSE MIGUEL Leyva Num: [id number] Spec Type: Surgical Subm Dr: Pawel Oliver Tissues: A Endometrium - Biopsy (ENODM BX) Procedures: HE/2, Gross/Micro L4 Age/ Patient Sex Location Account Attending Physician Nancy Toney 32/F LABELL [id number] Pawel Oliver SPEC NUM: [id number] RECD: 07/28/23 STATUS: JOSE MIGUEL LEYVA NUM: [id number] RAGHU: 07/27/23- SUBM DR: Pawel Oliver ENTERED: 07/28/[address] [facility] DR: Fan,Lab SPEC TYPE: Surgical DEPT: SHIRA GREGORIO ENTERED BY: [id number] RECV BY: [id number] ORDERED: HE/2, Gross/Micro L4 ORDERED: HE/2, Gross/Micro L4 Pathological Diagnosis Endometrium, biopsy: Scanty fragments of benign endometrium with features suggestive of endometrial polyp. Gross Description In formalin labeled endometrial biopsy are multiple pieces of zendejas-brown soft tissue ranging in size from 0.1 x 0.1 x 0.1 cm to 0.7 x 0.3 x 0.1 cm. Submitted entirely in A1. RG Clinical history: Menorrhagia with irregular cycle CPT Codes 10181 -------- -------- Specimen: [id number] Received: 07/28/23-1719 Status: JOSE MIGUEL Leyva Num: [id number] Spec Type: Surgical Subm Dr: Pawel Oliver Tissues: A Endometrium - Biopsy (ENODM BX) Procedures: HE/2, Gross/Micro L4 -------- Patient: Nancy Toney [id number] (Continued) -------- Signed (signature on file) Oscar Quezada MD 07/30/23 1427 Normal [facility] HCG ( test) Francesco gordon Ql (U)Ordered By: Wilberto Corona on 08-13-2022 HCG ( test) Ql (U) Negative [facility] HCG,Urineon 08-13-2022 Beta HCG ( test) Ql (U) Negative Normal [facility] Comment on above: Result Comment: PERF ORMED BY: [facility] [place] [address] PATHOLOGIST PRODUCTION CLERK YUDITH MONTERO M.D. Performed By: #### U HCG #### [facility] [address] US PELVIS AND TRANSVAGon US PELVIS AND [...] TAMMY GARCIA Date: 2022-07-30 19:20 Normal [facility] XR SACRUM_COCCYXon 3 XR SACRUM_COCCYX EXAM: XR SACRUM_COCCYX TECHNIQUE: AP, angled AP and lateral views sacrum and coccyx HISTORY: Unspecified fall COMPARISON: None. _ FINDINGS: No fracture or dislocation. Soft tissues are unremarkable. No arthritic changes. ____ IMPRESSION: No fracture. Electronically authenticated by: ALMA CROFT Date: 2022-07-30 18:51 Normal [facility] CBC AUTO DIFFon 05-22-2022 BASO # 0.0 103/ul Normal 0.0-0.1 [facility] Comment on above: Performed By: #### P RCFACT #### [facility] [address] [place] [address] Dr. Lisa Lopez Basophils/100 WBC (Bld) 0.6 % Normal 0.2-2.0 [facility] Comment on above: Performed By: #### P RCFACT #### [facility] [address] [place] [address] Dr. Lisa Lopez EO # 0.1 103/ul Normal 0.0-0.7 [facility] Comment on above: Performed By: #### P RCFACT #### [facility] [address] [place] [address] Dr. Lisa Lopez Eosinophils/100 WBC (Bld) 1.9 % Normal 0.9-7.0 [facility] Comment on above: Performed By: #### P RCFACT #### [facility] [address] [place] [address] Dr. Lisa Lopez Erythrocyte distribution width (RBC) [Ratio] 13.2 % Normal 11.0-15.0 [facility] Comment on above: Performed By: #### P RCFACT #### [facility] [address] [place] [address] Dr. Lisa Lopez Hematocrit (Bld) [Volume fraction] 41.9 % Normal 36.0-48.0 [facility] Comment on above: Performed By: #### P RCFACT #### [facility] [address] [place] [address] Dr. Lisa Lopez Hemoglobin (Bld) [Mass/Vol] 13.9 g/dL Normal 12.0-16.0 [facility] Comment on above: Performed By: #### P RCFACT #### [facility] [address] [place] [address] Dr. Lisa Lopez IG # 0.02 10e3/ul Normal 0.00-0.03 [facility] Comment on above: Performed By: #### P RCFACT #### [facility] [address] [place] [address] Dr. Lisa Lopez IG % 0.3 % Normal 0.0-0.5 [facility] Comment on above: Performed By: #### P RCFACT #### [facility] [address] [place] [address] Dr. Lisa Lopez LYMPH # 0.5 103/ul Critically low 1.2-3.8 [facility] Comment on above: Performed By: #### P RCFACT #### [facility] [address] [place] [address] Dr. Lisa Lopez Lymphocytes/100 WBC (Bld) 6.2 % Critically low 20.5-60.0 [facility] Comment on above: Performed By: #### P RCFACT #### [facility] [address] [place] [address] Dr. Lisa Lopez MANUAL DIFF REQ NO Normal [facility] Comment on above: Performed By: #### P RCFACT #### [facility] [address] [place] [address] Dr. Lisa Lopez MCH (RBC) [Entitic mass] 28.0 pg Normal 26.7-34.0 [facility] Comment on above: Performed By: #### P RCFACT #### [facility] [address] [place] [address] Dr. Lisa Lopez MCHC (RBC) [Mass/Vol] 33.2 g/dL Normal 29.9-35.2 [facility] Comment on above: Performed By: #### P RCFACT #### [facility] [address] [place] [address] Dr. Lisa Lopez MCV (RBC) [Entitic vol] 84.5 fL Normal 81.0-99.0 [facility] Comment on above: Performed By: #### P RCFACT #### [facility] [address] [place] [address] Dr. Lisa Lopez MONO # 0.5 103/ul Normal 0.3-0.8 [facility] Comment on above: Performed By: #### P RCFACT #### [facility] [address] [place] [address] Dr. Lisa Lopez Monocytes/100 WBC (Bld) 6.7 % Normal 1.7-12.0 [facility] Comment on above: Performed By: #### P RCFACT #### [facility] [address] [place] [address] Dr. Lisa Lopez NEUT # 6.1 103/ul Normal 1.4-6.5 [facility] Comment on above: Performed By: #### P RCFACT #### [facility] [address] [place] [address] Dr. Lisa Lopez Neutrophils/100 WBC (Bld) 84.3 % Critically high 43.0-75.0 [facility] Comment on above: Performed By: #### P RCFACT #### [facility] [address] [place] [address] Dr. Lisa Lopez Platelet mean volume (Bld) [Entitic vol] 9.5 fL Normal 9.5-13.5 [facility] Comment on above: Performed By: #### P RCFACT #### [facility] [address] [place] [address] Dr. Lisa Lopez PLT 260 103/ul Normal 150-450 [facility] Comment on above: Performed By: #### P RCFACT #### [facility] [address] [place] [address] Dr. Lisa Lopez RBC 4.96 106/ul Normal 4.20-5.40 [facility] Comment on above: Performed By: #### P RCFACT #### [facility] [address] [place] [address] Dr. Lisa Lopez WBC 7.2 103/ul Normal 4.0-11.0 [facility] Comment on above: Performed By: #### P RCFACT #### [facility] [address] [place] [address] Dr. Lisa Lopez [facility]on SARS-CoV-2 (COVID-19) RNA ALLI+probe Ql (Unsp spec) Detected Abnormal NOT DETECTED [facility] Comment on above: Result Comment: This test is not yet approved or cleared by the [place] FDA. When there are no FDA-approved or cleared tests available, and other criteria are met, FDA can make tests available under an emergency access mechanism called an Emergency Use Authorization (EUA). The EUA for this test is supported by the [place] of Health and Human Service's declaration that [...] used). Performed By: #### C VDTBH #### [facility] [address] [place] [address] Dr. Lisa Lopez D-DIMERon 05-22-2022 D-DIMER 0.23 mg/L FEU Normal <=0.59 [facility] Comment on above: Performed By: #### B 2GPG #### [facility] [address] [place] [address] Dr. Lisa Lopez D-DIMER COMMENTS SEE BELOW Normal [facility] Comment on above: Result Comment: Incr eases [...] hospitalization. Performed By: #### B 2GPG #### [facility] [address] [place] [address] Dr. Lisa Lopez ER URINE PROFILEon 3 Bilirubin Ql (U) Negative Normal NEGATIVE [facility] Comment on above: Performed By: #### B 2GPG #### [facility] [address] [place] [address] Dr. Lisa Lopez Clarity (U) CLEAR Normal CLEAR [facility] Comment on above: Performed By: #### B 2GPG #### [facility] [address] [place] [address] Dr. Lisa Lopez Color (U) LT. YELLOW Normal YELLOW [facility] Comment on above: Performed By: #### B 2GPG #### [facility] [address] [place] [address] Dr. Lisa QUINTANILLA A micrscopic examination will be performed if indicated. Normal [facility] Comment on above: Performed By: #### B 2GPG #### [facility] [address] [place] [address] Dr. Lisa Lopez Glucose Ql (U) Negative Normal NEGATIVE [facility] Comment on above: Performed By: #### B 2GPG #### [facility] [address] [address] [address] Lisa Lopez Hemoglobin Ql (U) Negative Normal NEGATIVE [facility] Comment on above: Performed By: #### B 2GPG #### [facility] [address] [address] [address] Lisa Lopez Ketones Ql (U) Negative Normal NEGATIVE [facility] Comment on above: Performed By: #### B 2GPG #### [facility] [address] [address] [address] Lisa Lopez LEUKOCYTES Negative Normal NEGATIVE [facility] Comment on above: Performed By: #### B 2GPG #### [facility] [address] [place] [address] Dr. Lisa Lopez Nitrite Ql (U) Negative Normal NEGATIVE [facility] Comment on above: Performed By: #### B 2GPG #### [facility] [address] [place] [address] Dr. Lisa Lopez pH (U) 7.0 [pH] Normal 5-9 [facility] Comment on above: Performed By: #### B 2GPG #### [facility] [address] [place] [address] Dr. Lisa Lopez SPEC GRAVITY <=1.005 Abnormal 1.005-<=1.025 [facility] Comment on above: Performed By: #### B 2GPG #### [facility] [address] [address] [address] Lisa Lopez UA PROTEIN Negative Normal NEGATIVE/ TRACE [facility] Comment on above: Performed By: #### B 2GPG #### [facility] [address] [place] [address] Dr. Lisa Lopez UR MICRO IND NOT INDICATED Normal [facility] Comment on above: Performed By: #### B 2GPG #### [facility] [address] [place] [address] Dr. Lisa Lopez Urobilinogen Qn (U) 0.2 {Naya'U}/dL Normal 0.2 - 1. 0 [facility] Comment on above: Performed By: #### B 2GPG #### [facility] [address] [place] [address] Dr. Lisa Lopez INFLUENZA A AND B AGon 05-22 INFLUANEGH SEE BELOW Normal [facility] Comment on above: Result Comment: Nega tive for Flu A protein angiten. Infection due to Flu A cannot be ruled out. Flu A angiten in the sample may be below the detection limit of the test. Performed By: #### P RCFACT #### [facility] [address] [place] [address] Dr. Lisa Lopez INFLUBNEGH SEE BELOW Normal [facility] Comment on above: Result Comment: Nega tive for Flu B protein antigen. Infection due to Flu B cannot be ruled out. Flu B antigen in the sample may be below the detection limit of the test. Performed By: #### P RCFACT #### [facility] [address] [place] [address] Dr. Lisa Lopez INFLUENZA A AG Negative Normal NEGATIVE SEE COMMENT [facility] Comment on above: Performed By: #### P RCFACT #### [facility] [address] [place] [address] Dr. Lisa Lopez INFLUENZA B AG Negative Normal NEGATIVE SEE COMMENT [facility] Comment on above: Performed By: #### P RCFACT #### [facility] [address] [place] [address] Dr. Lisa Lopez URon 05-22-2022 , QUAL Negative Normal NEGATIVE [facility] Comment on above: Performed By: #### B 2GPG #### [facility] [address] [place] [address] Dr. Lisa Lopez PROF 14(COMP METB)on 023 Albumin [Mass/Vol] 3.6 g/dL Normal 3.4-5.0 [facility] Comment on above: Performed By: #### P RCFACT #### [facility] [address] [place] [address] Dr. Lisa Lopez Albumin/Globulin [Mass ratio] 0.9 {ratio} Normal [facility] Comment on above: Performed By: #### P RCFACT #### [facility] [address] [address] [address] Lisa Lopez ALP [Catalytic activity/Vol] 102 U/L Normal 46-116 [facility] Comment on above: Performed By: #### P RCFACT #### [facility] [address] [address] [address] Lisa Lopez ALT [Catalytic activity/Vol] 32 U/L Normal 14-59 [facility] Comment on above: Performed By: #### P RCFACT #### [facility] [address] [address] [address] Lisa Lopez Anion gap [Moles/Vol] 11.1 mmol/L Normal [facility] Comment on above: Performed By: #### P RCFACT #### [facility] [address] [address] [address] Lisa Lopez AST [Catalytic activity/Vol] 14 U/L Critically low 15-37 [facility] Comment on above: Performed By: #### P RCFACT #### [facility] [address] [address] [address] Lisa Lopez Bilirubin [Mass/Vol] 0.2 mg/dL Normal 0.2-1.0 [facility] Comment on above: Performed By: #### P RCFACT #### [facility] [address] [address] [address] Lisa oLpez Calcium [Mass/Vol] 9.2 mg/dL Normal 8.5-10.1 [facility] Comment on above: Performed By: #### P RCFACT #### [facility] [address] [address] [address] Lisa Lopez Chloride [Moles/Vol] 102 mmol/L Normal 98-107 [facility] Comment on above: Performed By: #### P RCFACT #### [facility] [address] [address] [address] Lisa Lopez CO2 [Moles/Vol] 29.5 mmol/L Normal 21.0-32.0 [facility] Comment on above: Performed By: #### P RCFACT #### [facility] [address] [address] [address] Lisa Lopez Creatinine [Mass/Vol] 0.83 mg/dL Normal 0.55-1.02 [facility] Comment on above: Performed By: #### P RCFACT #### [facility] [address] [address] [address] Lisa Lopez EGFR-AF MALAYSIAN >60 Normal >=60 [facility] Comment on above: Performed By: #### P RCFACT #### [facility] [address] [address] [address] Lisa Lopez EGFR-NON AF MALAYSIAN >60 Normal >=60 [facility] Comment on above: Performed By: #### P RCFACT #### [facility] [address] [address] [address] Lisa Lopez Globulin (S) [Mass/Vol] 4.2 g/dL Normal [facility] Comment on above: Performed By: #### P RCFACT #### [facility] [address] [address] [address] Lisa Lopez Glucose [Mass/Vol] 107 mg/dL Critically high 74-106 [facility] Comment on above: Performed By: #### P RCFACT #### [facility] [address] [address] [address] Lisa Lopez Potassium [Moles/Vol] 3.6 mmol/L Normal 3.5-5.1 [facility] Comment on above: Performed By: #### P RCFACT #### [facility] [address] [address] [address] Lisa Lopez Protein [Mass/Vol] 7.8 g/dL Normal 6.4-8.2 [facility] Comment on above: Performed By: #### P RCFACT #### [facility] [address] [address] [address] Lisa Lopez Sodium [Moles/Vol] 139 mmol/L Normal 136-145 [facility] Comment on above: Performed By: #### P RCFACT #### [facility] [address] [place] [address] Dr. Lisa Lopez Urea nitrogen [Mass/Vol] 9.0 mg/dL Normal 7.0-18.0 [facility] Comment on above: Performed By: #### P RCFACT #### [facility] [address] [place] [address] Dr. Lisa Lopez Urea nitrogen/Creatinine [Mass ratio] 10.8 mg/mg Normal [facility] Comment on above: Performed By: #### P RCFACT #### [facility] [address] [place] [address] Dr. Lisa Lopez PROTIMEon 05-22-2022 INR Coag (PPP) [Relative time] 0.93 {INR} Normal [facility] Comment on above: Performed By: #### B 2GPG #### [facility] [address] [place] [address] Dr. Lisa Lopez INR GUIDELINES SEE BELOW Normal [facility] Comment on above: Result Comment: DELVIN RED INR: 2.0 - 3.0 CONDITIONS NOT LISTED BELOW 2.5 - 3.5 FOR PROSTHETIC HEART VALVE REPLACEMENT 2.5 - 3.5 RECURRENT THROMBOSIS Performed By: #### B 2GPG #### [facility] [address] [place] [address] Dr. Lisa Lopez PT Coag (PPP) [Time] 9.9 s Normal 9.0-11.6 [facility] Comment on above: Performed By: #### B 2GPG #### [facility] [address] [place] [address] Dr. Lisa Lopez PTTon 05-22-2022 aPTT Coag (Bld) [Time] 28.0 s Normal 22.3-36.2 Th e [facility] Comment on above: Performed By: #### B 2GPG #### [facility] [address] [place] [address] Dr. Lisa Lopez TROPONIN, HIGH SENSITIVITYon 05-22-2022 HSTROP <4.0 Normal 4.0-51.3 [facility] Comment on above: Result Comment: CUT- OFF POINTS HAVE BEEN ESTABLISHED BASED ON THE FOURTH UNIVERSAL DEFINITIONS OF MYOCARDIAL INFARCTION. THE UPPER REFERENCE LIMIT (URL) OF TROPONIN, DEFINED THE 99TH PERCENTILE OF cTnI DISTRIBUTION IN A REFERENCE POPULATION, HAS BEEN CONFIRMED THE DECISION THRESHOLD FOR CT DIAGNOSIS. Performed By: #### P RCFACT #### [facility] [address] [place], [place] [address] Dr. Lisa Lopez TSHon 05-22-2022 TSH 1.450 uIU/mL Normal 0.358-3.740 [facility] Comment on above: Performed By: #### P RCFACT #### [facility] [address] [place], [place] [address] Dr. Lisa Lopez XR CHEST 1 Von [...] by: JENNYFER SMITH Date: 2022-05-22 18:12 Normal [facility] HCG ( test) IA.rapi d Ql (U)Ordered By: Wilberto Corona on 05-07-2022 HCG ( test) Ql (U) Negative [facility] FACTOR V LEIDEN MUTATION TORRES LYSISon 05-01-2022 Factor V Leiden Comment Normal [facility] Comment on above: Result Comment: Resu lt: c.1601G>A (p.[id number]) - Not Detected . This result is not associated with an increased risk for venous thromboembolism. See Additional Clinical Information and Comments. Additional Clinical Information: Venous thromboembolism is a multifactorial disease influenced by genetic, environmental, and circumstantial risk factors. The c.1601G>A (p. Nmp120Igf) variant in the F5 gene, commonly referred [...] c.*97G>A variant and Factor V Leiden (PMID: 92488490). Additional risk factors include but are not [...] health care providers to discuss results at [phone] ([phone]). . Test Details: Variant Analyzed: c.1601G>A (p. [id number]), referred to as Factor V Leiden . [...] developed and its performance characteristics determined by [employer]. It has not been cleared or approved by the Food and Drug Administration. . References: Cindy S, Mercedes AK, Medina R, Surinder WW, Juwan JH; ACMG Professional Practice and Guidelines Committee. Addendum: [place] [employer] consensus statement on factor V Leiden mutation testing. Sherin Med. 2020Jun 15. doi: 10.1038/[id number]-s. PMID: 35761458. . Miguel Angel LITTLE. Factor V Leiden Thrombophilia. 1998August 24 (Updated 2017Apr 16). In: Tj MP, Hilda HH, Kelsey RA, et al., editors. Cinda(Patricia) (Internet). [place] ([place]): [facility]; 8425-4540. Available from: https://www.ncbi.nlm.nih.gov/books/MEI7884/ . Leif S, Mercedes AK, Banuelos X, Liam B, Luisito EB, Estela P, Junito CS; [facility] Laboratory Tool Programmer Committee. Venous thromboembolism laboratory testing (factor V Leiden and factor II c.*97G>A), 2018 update: a technical standard of the [place] [employer] and [employer] (ACMG). Shrein Med. 2018 Mar;20(12):0617-5486. doi: 10.1038/[id number]-r. Epub 2017Jan 15. PMID: 08977728. . Yaneth Cortez, PhD, FACMG Dameon Donnelly, PhD Ad Tineo, PhD, FACMG Rui Mejia, PhD, FACMG Robert Napoles, PhD, FACMG Alin Santo, PhD, FACMG Judi Borges, PhD, FACMG Felipa Becker, PhD, FAC Performed By: #### F VPCR #### [facility] [address] [place] [address] Dr. Lisa Lopez THYROGLOBULIN ABon Thyroglobulin Antibody <1.0 Normal 0.0-0.9 [facility] Comment on above: Result Comment: Thyr oglobulin Antibody measured by [facility] [place] Methodology Performed By: #### T HYGAB #### [facility] [address] [place] [address] Dr. Lisa Lopez B-2 GLYCOPROTEIN AB IGGon Beta-2 Glycoprotein I Ab, IgG <9 Normal 0-20 [facility] Comment on above: Result Comment: The reference interval reflects a 3SD or 99th percentile interval, which is thought to represent a potentially clinically significant result in accordance with the International Consensus Statement on the classification criteria for definitive antiphospholipid syndrome (APS). J Thromb Haem 2006;4:295-306. Performed By: #### B 2GPG #### [facility] [address] [address] [address] Lisa Lopez B2-GLYCOPROTEIN 1 AB IGMon 0 04-28-2022 Beta-2 Glycoprotein I Ab, IgM <9 Normal 0-32 [facility] Comment on above: Result Comment: The reference interval reflects a 3SD or 99th percentile interval, which is thought to represent a potentially clinically significant result in accordance with the International Consensus Statement on the classification criteria for definitive antiphospholipid syndrome (APS). J Thromb Haem 2006;4:295-306. Performed By: #### B GLYIGM #### [facility] [address] [address] [address] Lisa Lopez LAB TESTINGon 04-28-2022 RECV HEADER SEE SCANNED REPORT I N HPF [facility] Comment on above: Performed By: #### B 2GPG #### [facility] [address] [place] [address] Dr. Lisa Lopez REV FROM REF LAB 05/15/2022 [facility] Comment on above: Performed By: #### B 2GPG #### [facility] [address] [place] [address] Dr. Lisa Lopez SENT TO REF LAB 04/28/2022 [facility] Comment on above: Performed By: #### B 2GPG #### [facility] [address] [place] [address] Dr. Lisa Lopez Screen dRVVTon 04-28-2022 dRVVT Coag (PPP) [Time] 34.1 s Normal 32.0-45.7 [facility] Comment on above: Order Comment: Speci men Type: BLOOD SPECIMEN Ordering Facility: External Submitter Address: , , Performed By: #### 6 303-2 #### [facility] CLIA [id number] [address] [place] [address] [place] dRVVT Coag (PPP) [Time]on dRVVT factor substitution immediately after 1:2 addition of normal plasma Coag (PPP) [Time] 37.5 seconds Normal 32.0-45.7 [facility] Comment on above: Order Comment: Speci men Type: BLOOD SPECIMEN Ordering Facility: External Submitter Address: , , Performed By: #### 6 303-2 #### [facility] CLIA [id number] [address] [place] [address] [place] dRVVT/dRVVT.excess phospholipid Coag (PPP) [Ratio] 0.93 Normal <1.32 [facility] Comment on above: Order Comment: Speci men Type: BLOOD SPECIMEN Ordering Facility: External Submitter Address: , , Performed By: #### 6 303-2 #### [facility] CLIA [id number] [address] [place] [address] [place] ANTITHROMBIN ACTIVITYon 04-13 Antithrombin Activity 132 % Normal 75-135 [facility] Comment on above: Result Comment: Dire ct Xa inhibitor anticoagulants such as rivaroxaban, apixaban and edoxaban will lead to spuriously elevated antithrombin activity levels possibly masking a deficiency. Performed By: #### B 2GPG #### [facility] [address] [place] [address] Dr. Lisa Lopez BLOOD CULTURE ID PANELon A. baumannii Not detected Normal NOT DETECTED [facility] Comment on above: Result Comment: Prev iously reported as: [id number] On 04/29/2022 04:07 By [facility] Performed By: #### B 2GPG #### [facility] [address] [address] [address] Lisa Lopez Bacteriodes fragilis Not detected Normal NOT DETECTED [facility] Comment on above: Result Comment: Prev iously reported as: [id number] On 04/29/2022 04:07 By [facility] Performed By: #### B 2GPG #### [facility] [address] [place] [address] Dr. Lisa Lopez BCID CONTROLS PASSED Normal [facility] Comment on above: Result Comment: Prev iously reported as: [id number] On 04/29/2022 04:07 By JANINE Performed By: #### B 2GPG #### [facility] [address] [place] [address] Dr. Lisa Lopez BCIDBTHD BLOOD CULTURE BOTTLE INFORMATION [facility] Comment on above: Performed By: #### B 2GPG #### [facility] [address] [place] [address] Dr. Lisa Lopez BCIDHD1 ANTIMICROBIAL RESISTANCE GENES [facility] Comment on above: Performed By: #### B 2GPG #### [facility] [address] [place] [address] Dr. Lisa Lopez BCIDHD2 SEE BELOW [facility] Comment on above: Result Comment: Note : Antimicrobial resitance can occur via multiple mechanisms. A Not Detected result for the [employer] antomicrobial resistance gene assays does not indicate antimicrobial susceptibility. Subculturing is required for species identification and susceptibility testing of isolates. Performed By: #### B 2GPG #### [facility] [address] [place] [address] Dr. Lisa Lopez BCIDHD3 Positive [facility] Comment on above: Performed By: #### B 2GPG #### [facility] [address] [place] [address] Dr. Lisa Lopez BCIDHD4 Negative [facility] Comment on above: Performed By: #### B 2GPG #### [facility] [address] [place] [address] Dr. Lisa Lopez BCIDHD5 YEAST [facility] Comment on above: Performed By: #### B 2GPG #### [facility] [address] [place] [address] Dr. Lisa Lopez Bottle Set: Set 2 [facility] Comment on above: Result Comment: Prev iously reported as: [id number] On 04/29/2022 04:07 By JANINE Performed By: #### B 2GPG #### [facility] [address] [place] [address] Dr. Lisa Lopez Bottle: Aerobic [facility] Comment on above: Result Comment: Prev iously reported as: [id number] On 04/29/2022 04:07 By [facility] Performed By: #### B 2GPG #### [facility] [address] [place] [address] Dr. Lisa Lopez C. neoformans/gattii Not detected Normal NOT DETECTED [facility] Comment on above: Result Comment: Prev iously reported as: [id number] On 04/29/2022 04:07 By [facility] Performed By: #### B 2GPG #### [facility] [address] [place] [address] Dr. Lisa Lopez Ayana albicans Not detected Normal NOT DETECTED [facility] Comment on above: Result Comment: Prev iously reported as: [id number] On 04/29/2022 04:07 By [facility] Performed By: #### B 2GPG #### [facility] [address] [place] [address] Dr. Lisa Lopez Ayana auris Not detected Normal NOT DETECTED [facility] Comment on above: Result Comment: Prev iously reported as: [id number] On 04/29/2022 04:07 By [facility] Performed By: #### B 2GPG #### [facility] [address] [place] [address] Dr. Lisa Lopez Ayana glabrata Not detected Normal NOT DETECTED [facility] Comment on above: Result Comment: Prev iously reported as: [id number] On 04/29/2022 04:07 By [facility] Performed By: #### B 2GPG #### [facility] [address] [place] [address] Dr. Lisa Lopez Ayana Krusei Not detected Normal NOT DETECTED [facility] Comment on above: Result Comment: Prev iously reported as: [id number] On 04/29/2022 04:07 By [facility] Performed By: #### B 2GPG #### [facility] [address] [place] [address] Dr. Lisa Lopez Ayana Parapsilosis Not detected Normal NOT DETECTED [facility] Comment on above: Result Comment: Prev iously reported as: [id number] On 04/29/2022 04:07 By [facility] Performed By: #### B 2GPG #### [facility] [address] [place] [address] Dr. Lisa Lopez Ayana Tropicalis Not detected Normal NOT DETECTED [facility] Comment on above: Result Comment: Prev iously reported as: [id number] On 04/29/2022 04:07 By [facility] Performed By: #### B 2GPG #### [facility] [address] [place] [address] Dr. Lisa Lopez CTX-M Resistant Gene Not detected Normal NOT DETECTED [facility] Comment on above: Result Comment: Prev iously reported as: [id number] On 04/29/2022 04:07 By [facility] Performed By: #### B 2GPG #### [facility] [address] [place] [address] Dr. Lisa Lopez E. Cloacae complex Not detected Normal NOT DETECTED [facility] Comment on above: Result Comment: Prev iously reported as: [id number] On 04/29/2022 04:07 By [facility] Performed By: #### B 2GPG #### [facility] [address] [place] [address] Dr. Lisa Lopez E. faecalis Not detected Normal NOT DETECTED [facility] Comment on above: Result Comment: Prev iously reported as: [id number] On 04/29/2022 04:07 By [facility] Performed By: #### B 2GPG #### [facility] [address] [place] [address] Dr. Lisa Lopez E. faecium Not detected Normal NOT DETECTED [facility] Comment on above: Result Comment: Prev iously reported as: [id number] On 04/29/2022 04:07 By [facility] Performed By: #### B 2GPG #### [facility] [address] [place] [address] Dr. Lisa Lopez Enterobacteriaceae Not detected Normal NOT DETECTED [facility] Comment on above: Result Comment: Prev iously reported as: [id number] On 04/29/2022 04:07 By [facility] Performed By: #### B 2GPG #### [facility] [address] [place] [address] Dr. Lisa Lopez Escherichia coli Not detected Normal NOT DETECTED [facility] Comment on above: Result Comment: Prev iously reported as: [id number] On 04/29/2022 04:07 By [facility] Performed By: #### B 2GPG #### [facility] [address] [place] [address] Dr. Lisa Lopez H. influenzae Not detected Normal NOT DETECTED [facility] Comment on above: Result Comment: Prev iously reported as: [id number] On 04/29/2022 04:07 By [facility] Performed By: #### B 2GPG #### [facility] [address] [place] [address] Dr. Lisa Lopez IMP Resistant Gene Not detected Normal NOT DETECTED [facility] Comment on above: Result Comment: Prev iously reported as: [id number] On 04/29/2022 04:07 By [facility] Performed By: #### B 2GPG #### [facility] [address] [place] [address] Dr. Lisa Lopez K. oxytoca Not detected Normal NOT DETECTED [facility] Comment on above: Result Comment: Prev iously reported as: [id number] On 04/29/2022 04:07 By [facility] Performed By: #### B 2GPG #### [facility] [address] [place] [address] Dr. Lisa Lopez K. pneumoniae Not detected Normal NOT DETECTED [facility] Comment on above: Result Comment: Prev iously reported as: [id number] On 04/29/2022 04:07 By [facility] Performed By: #### B 2GPG #### [facility] [address] [place] [address] Dr. Lisa Lopez Klebsiella aerogenes Not detected Normal NOT DETECTED [facility] Comment on above: Result Comment: Prev iously reported as: [id number] On 04/29/2022 04:07 By [facility] Performed By: #### B 2GPG #### [facility] [address] [place] [address] Dr. Lisa Lopez KPC Resistant Gene Not detected Normal NOT DETECTED [facility] Comment on above: Result Comment: Prev iously reported as: [id number] On 04/29/2022 04:07 By [facility] Performed By: #### B 2GPG #### [facility] [address] [place] [address] Dr. Lisa Lopez List. monocytogenes Not detected Normal NOT DETECTED [facility] Comment on above: Result Comment: Prev iously reported as: [id number] On 04/29/2022 04:07 By [facility] Performed By: #### B 2GPG #### [facility] [address] [place] [address] Dr. Lisa Lopez Mcr-1 Resistant Gene Not detected Normal NOT DETECTED [facility] Comment on above: Result Comment: Prev iously reported as: [id number] On 04/29/2022 04:07 By [facility] Performed By: #### B 2GPG #### [facility] [address] [place] [address] Dr. Lisa Lopez mecA/C Not detected Normal NOT DETECTED [facility] Comment on above: Result Comment: Prev iously reported as: [id number] On 04/29/2022 04:07 By [facility] Performed By: #### B 2GPG #### [facility] [address] [place] [address] Dr. Lisa Lopez mecA/C MREJ Not detected Normal NOT DETECTED [facility] Comment on above: Result Comment: Prev iously reported as: [id number] On 04/29/2022 04:07 By [facility] Performed By: #### B 2GPG #### [facility] [address] [place] [address] Dr. Lisa Lopez N. meningitidis Not detected Normal NOT DETECTED [facility] Comment on above: Result Comment: Prev iously reported as: [id number] On 04/29/2022 04:07 By [facility] Performed By: #### B 2GPG #### [facility] [address] [place] [address] Dr. Lisa Lopez NDM Resistant Gene Not detected Normal NOT DETECTED [facility] Comment on above: Result Comment: Prev iously reported as: [id number] On 04/29/2022 04:07 By [facility] Performed By: #### B 2GPG #### [facility] [address] [place] [address] Dr. Lisa Lopez Oxa-48-like Not detected Normal NOT DETECTED [facility] Comment on above: Result Comment: Prev iously reported as: [id number] On 04/29/2022 04:07 By [facility] Performed By: #### B 2GPG #### [facility] [address] [place] [address] Dr. Lisa Lopez Proteus Not detected Normal NOT DETECTED [facility] Comment on above: Result Comment: Prev iously reported as: [id number] On 04/29/2022 04:07 By [facility] Performed By: #### B 2GPG #### [facility] [address] [place] [address] Dr. Lisa Lopez Pseud. aeruginosa Not detected Normal NOT DETECTED [facility] Comment on above: Result Comment: Prev iously reported as: [id number] On 04/29/2022 04:07 By [facility] Performed By: #### B 2GPG #### [facility] [address] [place] [address] Dr. Lisa Lopez S. maltophilia Not detected Normal NOT DETECTED [facility] Comment on above: Result Comment: Prev iously reported as: [id number] On 04/29/2022 04:07 By [facility] Performed By: #### B 2GPG #### [facility] [address] [place] [address] Dr. Lisa Lopez Salmonella Not detected Normal NOT DETECTED [facility] Comment on above: Result Comment: Prev iously reported as: [id number] On 04/29/2022 04:07 By [facility] Performed By: #### B 2GPG #### [facility] [address] [place] [address] Dr. Lisa Lopez Seratia marcescens Not detected Normal NOT DETECTED [facility] Comment on above: Result Comment: Prev iously reported as: [id number] On 04/29/2022 04:07 By [facility] Performed By: #### B 2GPG #### [facility] [address] [place] [address] Dr. Lisa Lopez Site: left ac Normal [facility] Comment on above: Result Comment: Prev iously reported as: [id number] On 04/29/2022 04:07 By [facility] Performed By: #### B 2GPG #### [facility] [address] [place] [address] Dr. Lisa Lopez Stapstanislaw. aureus Not detected Normal NOT DETECTED [facility] Comment on above: Result Comment: Prev iously reported as: [id number] On 04/29/2022 04:07 By [facility] Performed By: #### B 2GPG #### [facility] [address] [place] [address] Dr. Lisa Lopez Stapstanislaw. epidermidis Not detected Normal NOT DETECTED [facility] Comment on above: Result Comment: Prev iously reported as: [id number] On 04/29/2022 04:07 By [facility] Performed By: #### B 2GPG #### [facility] [address] [place] [address] Dr. Lisa Lopez Stapstanislaw. lugdunensis Not detected Normal NOT DETECTED [facility] Comment on above: Result Comment: Prev iously reported as: [id number] On 04/29/2022 04:07 By [facility] Performed By: #### B 2GPG #### [facility] [address] [place] [address] Dr. Lisa Lopez Staphylococcus Not detected Normal NOT DETECTED [facility] Comment on above: Result Comment: Prev iously reported as: [id number] On 04/29/2022 04:07 By [facility] Performed By: #### B 2GPG #### [facility] [address] [place] [address] Dr. Lisa Lopez Strep. agalactiae Not detected Normal NOT DETECTED [facility] Comment on above: Result Comment: Prev iously reported as: [id number] On 04/29/2022 04:07 By [facility] Performed By: #### B 2GPG #### [facility] [address] [place] [address] Dr. Lisa Lopez Strep. pneumoniae Not detected Normal NOT DETECTED [facility] Comment on above: Result Comment: Prev iously reported as: [id number] On 04/29/2022 04:07 By [facility] Performed By: #### B 2GPG #### [facility] [address] [place] [address] Dr. Lisa Lopez Strep. pyogenes Not detected Normal NOT DETECTED [facility] Comment on above: Result Comment: Prev iously reported as: [id number] On 04/29/2022 04:07 By [facility] Performed By: #### B 2GPG #### [facility] [address] [place] [address] Dr. Lisa Lopez Streptococcus Not detected Normal NOT DETECTED [facility] Comment on above: Result Comment: Prev iously reported as: [id number] On 04/29/2022 04:07 By [facility] Performed By: #### B 2GPG #### [facility] [address] [place] [address] Dr. Lisa doughertyA/Manjinder Resist. Gene Not detected Normal NOT DETECTED [facility] Comment on above: Result Comment: Prev iously reported as: [id number] On 04/29/2022 04:07 By [facility] Performed By: #### B 2GPG #### [facility] [address] [place] [address] Dr. Lisa Lopez VIM Resistant Gene Not detected Normal NOT DETECTED [facility] Comment on above: Result Comment: Prev iously reported as: [id number] On 04/29/2022 04:07 By MH01 Performed By: #### B 2GPG #### [facility] [address] [place] [address] Dr. Lisa Lopez PROTEIN C FUNC ACTIVITYon Protein C-Functional 108 % Normal 73-180 [facility] Comment on above: Performed By: #### P RCFACT #### [facility] [address] [place] [address] Dr. Lisa Lopez PROTEIN S ANTIGENon 04-27-19 23 Protein S, Free 112 % Normal 61-136 [facility] Comment on above: Performed By: #### P RTSAG #### [facility] [address] [place] [address] Dr. Lisa Lopez Protein S, Free 117 % Normal 61-136 [facility] Comment on above: Performed By: #### P RCFACT #### [facility] [address] [place] [address] Dr. Lisa Lopez Protein S, Total 103 % Normal 60-150 [facility] Comment on above: Result Comment: This test was developed and its performance characteristics determined by [employer]. It has not been cleared or approved by the Food and Drug Administration. Performed By: #### P RTSAG #### [facility] [address] [place] [address] Dr. Lisa Lopez Protein S, Total 92 % Normal 60-150 [facility] Comment on above: Result Comment: This test was developed and its performance characteristics determined by [employer]. It has not been cleared or approved by the Food and Drug Administration. Performed By: #### P RCFACT #### [facility] [address] [place] [address] Dr. Lisa Lopez ANTICARDIOLIPIN AB (ENZO) IGA /IGG/IGMon 04-26-2022 Anticardiolipin Ab,IgA,Qn <9 Normal 0-11 [facility] Comment on above: Result Comment: Nega tive: <12 Indeterminate: 12 - 20 Low-Med Positive: >20 - 80 High Positive: >80 Performed By: #### A CAQUAN #### [facility] [address] [place] [address] Dr. Lisa Lopez Anticardiolipin Ab,IgG,Qn <9 Normal 0-14 [facility] Comment on above: Result Comment: Nega tive: <15 Indeterminate: 15 - 20 Low-Med Positive: >20 - 80 High Positive: >80 Performed By: #### A VY #### [facility] [address] [place] [address] Dr. Lisa Lopez Anticardiolipin Ab,IgM,Qn <9 Normal 0-12 [facility] Comment on above: Result Comment: Nega tive: <13 Indeterminate: 13 - 20 Low-Med Positive: >20 - 80 High Positive: >80 Performed By: #### A VY #### [facility] [address] [place] [address] Dr. Lisa Lopez CBC AUTO DIFFon 04-24-2022 BASO # 0.1 103/ul Normal 0.0-0.1 [facility] Comment on above: Performed By: #### C BC #### [facility] [address] [place] [address] Dr. Lisa Lopez Basophils/100 WBC (Bld) 0.8 % Normal 0.2-2.0 [facility] Comment on above: Performed By: #### C BC #### [facility] [address] [place] [address] Dr. Lisa Lopez EO # 0.2 103/ul Normal 0.0-0.7 [facility] Comment on above: Performed By: #### C BC #### [facility] [address] [place] [address] Dr. Lisa Lopez Eosinophils/100 WBC (Bld) 2.5 % Normal 0.9-7.0 [facility] Comment on above: Performed By: #### C BC #### [facility] [address] [place] [address] Dr. Lisa Lopez Erythrocyte distribution width (RBC) [Ratio] 13.1 % Normal 11.0-15.0 [facility] Comment on above: Performed By: #### C BC #### [facility] [address] [place] [address] Dr. Lisa Lopez Hematocrit (Bld) [Volume fraction] 42.6 % Normal 36.0-48.0 [facility] Comment on above: Performed By: #### C BC #### [facility] [address] [place] [address] Dr. Lisa Lopez Hemoglobin (Bld) [Mass/Vol] 13.2 g/dL Normal 12.0-16.0 [facility] Comment on above: Performed By: #### C BC #### [facility] [address] [place] [address] Dr. Lisa Lopez IG # 0.02 10e3/ul Normal 0.00-0.03 [facility] Comment on above: Performed By: #### C BC #### [facility] [address] [place] [address] Dr. Lisa Lopez IG % 0.3 % Normal 0.0-0.5 [facility] Comment on above: Performed By: #### C BC #### [facility] [address] [place] [address] Dr. Lisa Lopez LYMPH # 2.0 103/ul Normal 1.2-3.8 [facility] Comment on above: Performed By: #### C BC #### [facility] [address] [place] [address] Dr. Lisa Lopez Lymphocytes/100 WBC (Bld) 26.4 % Normal 20.5-60.0 [facility] Comment on above: Performed By: #### C BC #### [facility] [address] [place] [address] Dr. Lisa Lopez MANUAL DIFF REQ NO Normal [facility] Comment on above: Performed By: #### C BC #### [facility] [address] [place] [address] Dr. Lisa Lopez MCH (RBC) [Entitic mass] 28.3 pg Normal 26.7-34.0 [facility] Comment on above: Performed By: #### C BC #### [facility] [address] [place] [address] Dr. Lisa Lopez MCHC (RBC) [Mass/Vol] 31.0 g/dL Normal 29.9-35.2 [facility] Comment on above: Performed By: #### C BC #### [facility] [address] [place] [address] Dr. Lisa Lopez MCV (RBC) [Entitic vol] 91.4 fL Normal 81.0-99.0 [facility] Comment on above: Performed By: #### C BC #### [facility] [address] [place] [address] Dr. Lisa Lopez MONO # 0.6 103/ul Normal 0.3-0.8 [facility] Comment on above: Performed By: #### C BC #### [facility] [address] [place] [address] Dr. Lisa Lopez Monocytes/100 WBC (Bld) 7.7 % Normal 1.7-12.0 [facility] Comment on above: Performed By: #### C BC #### [facility] [address] [place] [address] Dr. Lisa Lopez NEUT # 4.8 103/ul Normal 1.4-6.5 [facility] Comment on above: Performed By: #### C BC #### [facility] [address] [place] [address] Dr. Lisa Lopez Neutrophils/100 WBC (Bld) 62.3 % Normal 43.0-75.0 [facility] Comment on above: Performed By: #### C BC #### [facility] [address] [place] [address] Dr. Lisa Lopez Platelet mean volume (Bld) [Entitic vol] 10.2 fL Normal 9.5-13.5 [facility] Comment on above: Performed By: #### C BC #### [facility] [address] [place] [address] Dr. Lisa Lopez PLT 301 103/ul Normal 150-450 [facility] Comment on above: Performed By: #### C BC #### [facility] [address] [place] [address] Dr. Lisa Lopez RBC 4.66 106/ul Normal 4.20-5.40 [facility] Comment on above: Performed By: #### C BC #### [facility] [address] [place] [address] Dr. Lisa Lopez WBC 7.7 103/ul Normal 4.0-11.0 [facility] Comment on above: Performed By: #### C BC #### [facility] [address] [place] [address] Dr. Lisa Lopez CBC AUTO DIFFon 04-07-2022 BASO # 0.1 103/ul Normal 0.0-0.1 [facility] Comment on above: Performed By: #### B 2GPG #### [facility] [address] [place] [address] Dr. Lisa Lopez Basophils/100 WBC (Bld) 0.7 % Normal 0.2-2.0 [facility] Comment on above: Performed By: #### B 2GPG #### [facility] [address] [place] [address] Dr. Lisa Lopez EO # 0.3 103/ul Normal 0.0-0.7 [facility] Comment on above: Performed By: #### B 2GPG #### [facility] [address] [place] [address] Dr. Lisa Lopez Eosinophils/100 WBC (Bld) 2.7 % Normal 0.9-7.0 [facility] Comment on above: Performed By: #### B 2GPG #### [facility] [address] [place] [address] Dr. Lisa Lpoez Erythrocyte distribution width (RBC) [Ratio] 13.0 % Normal 11.0-15.0 [facility] Comment on above: Performed By: #### B 2GPG #### [facility] [address] [place] [address] Dr. Lisa Lopez Hematocrit (Bld) [Volume fraction] 42.0 % Normal 36.0-48.0 [facility] Comment on above: Performed By: #### B 2GPG #### [facility] [address] [place] [address] Dr. Lisa Lopez Hemoglobin (Bld) [Mass/Vol] 14.0 g/dL Normal 12.0-16.0 [facility] Comment on above: Performed By: #### B 2GPG #### [facility] [address] [place] [address] Dr. Lisa Lopez IG # 0.02 10e3/ul Normal 0.00-0.03 [facility] Comment on above: Performed By: #### B 2GPG #### [facility] [address] [place] [address] Dr. Lisa Lopez IG % 0.2 % Normal 0.0-0.5 [facility] Comment on above: Performed By: #### B 2GPG #### [facility] [address] [place] [address] Dr. Lisa Lopez LYMPH # 2.1 103/ul Normal 1.2-3.8 [facility] Comment on above: Performed By: #### B 2GPG #### [facility] [address] [place] [address] Dr. Lisa Lopez Lymphocytes/100 WBC (Bld) 22.8 % Normal 20.5-60.0 [facility] Comment on above: Performed By: #### B 2GPG #### [facility] [address] [place] [address] Dr. Lisa Lopez MANUAL DIFF REQ NO Normal [facility] Comment on above: Performed By: #### B 2GPG #### [facility] [address] [place] [address] Dr. Lisa Lopez MCH (RBC) [Entitic mass] 28.1 pg Normal 26.7-34.0 [facility] Comment on above: Performed By: #### B 2GPG #### [facility] [address] [place] [address] Dr. Lisa Lopez MCHC (RBC) [Mass/Vol] 33.3 g/dL Normal 29.9-35.2 [facility] Comment on above: Performed By: #### B 2GPG #### [facility] [address] [place] [address] Dr. Lisa Lopez MCV (RBC) [Entitic vol] 84.3 fL Normal 81.0-99.0 [facility] Comment on above: Performed By: #### B 2GPG #### [facility] [address] [place] [address] Dr. Lisa Lopez MONO # 0.6 103/ul Normal 0.3-0.8 [facility] Comment on above: Performed By: #### B 2GPG #### [facility] [address] [place] [address] Dr. Lisa Lopez Monocytes/100 WBC (Bld) 6.8 % Normal 1.7-12.0 [facility] Comment on above: Performed By: #### B 2GPG #### [facility] [address] [place] [address] Dr. Lisa Lopez NEUT # 6.1 103/ul Normal 1.4-6.5 [facility] Comment on above: Performed By: #### B 2GPG #### [facility] [address] [place] [address] Dr. Lisa Lopez Neutrophils/100 WBC (Bld) 66.8 % Normal 43.0-75.0 [facility] Comment on above: Performed By: #### B 2GPG #### [facility] [address] [place] [address] Dr. Lisa Lopez Platelet mean volume (Bld) [Entitic vol] 9.6 fL Normal 9.5-13.5 [facility] Comment on above: Performed By: #### B 2GPG #### [facility] [address] [place] [address] Dr. Lisa Lopez PLT 321 103/ul Normal 150-450 [facility] Comment on above: Performed By: #### B 2GPG #### [facility] [address] [place] [address] Dr. Lisa Lopez RBC 4.98 106/ul Normal 4.20-5.40 [facility] Comment on above: Performed By: #### B 2GPG #### [facility] [address] [place] [address] Dr. Lisa Lopez WBC 9.1 103/ul Normal 4.0-11.0 [facility] Comment on above: Performed By: #### B 2GPG #### [facility] [address] [place], [place] [address] Dr. Lisa Lopez TSHon 04-07-2022 TSH 2.113 uIU/mL Normal 0.358-3.740 [facility] Comment on above: Performed By: #### T SH #### [facility] [address] [id number] Lisa Lopez US PELVIS AND TRANSVAGon [...] TAMMY GARCIA Date: 2022-02-18 20:11 Normal [facility] MRI Lumbar Spine w/o + w/on 11-18-2021 [...] by Jackie Castle on 11/18/2021 1351 Normal [facility] Respiratory Care Program Director US Abdomen Limitedon 022 US Abdomen Limited [...] by NIKITA CORDERO on 10/10/2021 1636 Normal [facility] XR Sacrum/Coccyxon 2 XR Sacrum/Coccyx COMPARISON: none FINDINGS: There is no lytic or sclerotic bone lesion. There is no fracture or dislocation. There is no significant degenerative change. There is a metallic IUD in the pelvis. The soft tissues are within normal limits. IMPRESSION: There are no acute osseous changes Report reported and signed by NIKITA CORDERO on 09/25/2021 1017 Normal [facility] Complete Blood Counton 05-14 Erythrocyte distribution width (RBC) [Ratio] 19.7 % High 11.0-15.0 [facility] Comment on above: Performed By: #### L IPD, CBC, TSH reflex FT4, CMP #### [facility] [address] [place], [place] [id number] Hematocrit (Bld) [Volume fraction] 35.2 % Normal 35.0-47.0 [facility] Comment on above: Performed By: #### L IPD, CBC, TSH reflex FT4, CMP #### [facility] [address] [place], [place] [id number] Hemoglobin (Bld) [Mass/Vol] 9.7 g/dL Low 11.6-15.5 [facility] Comment on above: Performed By: #### L IPD, CBC, TSH reflex FT4, CMP #### [facility] [address] [place], [place] [id number] MCH (RBC) [Entitic mass] 18.9 pg Low 27.0-33.0 [facility] Comment on above: Performed By: #### L IPD, CBC, TSH reflex FT4, CMP #### [facility] [address] [place], [place] [id number] MCHC (RBC) [Mass/Vol] 27.6 g/dL Low 32.0-36.0 [facility] Comment on above: Performed By: #### L IPD, CBC, TSH reflex FT4, CMP #### [facility] [address] [place], [place] [id number] MCV (RBC) [Entitic vol] 69 fL Low 80-100 [facility] Comment on above: Performed By: #### L IPD, CBC, TSH reflex FT4, CMP #### [facility] [address] [place], [place] [id number] Platelet mean volume (Bld) [Entitic vol] 9.30 fL Normal 7.50-12.50 [facility] Comment on above: Performed By: #### L IPD, CBC, TSH reflex FT4, CMP #### [facility] [address] [place], [place] [id number] Platelets (Bld) [#/Vol] 348 10*3/uL Normal 140-400 [facility] Comment on above: Performed By: #### L IPD, CBC, TSH reflex FT4, CMP #### [facility] [address] [place], [place] [id number] RBC (Bld) [#/Vol] 5.12 10*6/uL Normal 3.90-5.20 [facility] Respiratory Care Program Director Comment on above: Performed By: #### L IPD, CBC, TSH reflex FT4, CMP #### [facility] [address] [place], [place] [id number] RDW-SD 47.3 fL Normal 37.0-50.0 [facility] Respiratory Care Program Director Comment on above: Performed By: #### L IPD, CBC, TSH reflex FT4, CMP #### [facility] [address] [place], [place] [id number] WBC (Bld) [#/Vol] 7.1 10*3/uL Normal 3.8-11.0 [facility] Respiratory Care Program Director Comment on above: Performed By: #### L IPD, CBC, TSH reflex FT4, CMP #### [facility] [address] [place], [place] [id number] Comprehensive Metabolic Pane [facility] 05-14-2021 Albumin [Mass/Vol] 4.1 g/dL Normal 3.6-5.1 [facility] Respiratory Care Program Director Comment on above: Performed By: #### L IPD, CBC, TSH reflex FT4, CMP #### [facility] [address] [place], [place] [id number] Albumin/Globulin [Mass ratio] 1.5 {ratio} Normal 1.0-2.5 [facility] Comment on above: Performed By: #### L IPD, CBC, TSH reflex FT4, CMP #### [facility] [address] [place], [place] [id number] ALP [Catalytic activity/Vol] 133 U/L High 35-119 [facility] Comment on above: Performed By: #### L IPD, CBC, TSH reflex FT4, CMP #### [facility] [address] [place], [place] [id number] ALT [Catalytic activity/Vol] 17 U/L Normal 6-33 [facility] Respiratory Care Program Director Comment on above: Result Comment: 03/13 Female reference range changed. Performed By: #### L IPD, CBC, TSH reflex FT4, CMP #### [facility] [address] [place], [place] [id number] Anion gap [Moles/Vol] 18 mmol/L Normal 12-20 [facility] Comment on above: Result Comment: Effoplly ctive 04/18/2019 reference range changed. Performed By: #### L IPD, CBC, TSH reflex FT4, CMP #### [facility] [address] [place], [place] [id number] AST [Catalytic activity/Vol] 17 U/L Normal 9-34 [facility] Comment on above: Performed By: #### L IPD, CBC, TSH reflex FT4, CMP #### [facility] [address] [place], [place] [id number] BUN/CREA 14 Ratio Normal 6-22 [facility] Comment on above: Performed By: #### L IPD, CBC, TSH reflex FT4, CMP #### [facility] [address] [place], [place] [id number] Calcium [Mass/Vol] 9.1 mg/dL Normal 8.6-10.2 [facility] Comment on above: Performed By: #### L IPD, CBC, TSH reflex FT4, CMP #### [facility] [address] [place], [place] [id number] Chloride [Moles/Vol] 105 mmol/L Normal 98-107 [facility] Comment on above: Performed By: #### L IPD, CBC, TSH reflex FT4, CMP #### [facility] [address] [place], [place] [id number] CO2 [Moles/Vol] 22 mmol/L Normal 20-31 [facility] Comment on above: Performed By: #### L IPD, CBC, TSH reflex FT4, CMP #### [facility] [address] [place], [place] [id number] Creatinine [Mass/Vol] 0.6 mg/dL Normal 0.6-1.4 [facility] Comment on above: Performed By: #### L IPD, CBC, TSH reflex FT4, CMP #### [facility] [address] [place], [place] [id number] eGFRAA 153 mL/min/1.73m2 Normal >60 [facility] Specialist Comment on above: Performed By: #### L IPD, CBC, TSH reflex FT4, CMP #### [facility] [address] [place], [place] [id number] eGFRNAA 126 mL/min/1.73m2 Normal >60 Demond mckeon [facility] Comment on above: Performed By: #### L IPD, CBC, TSH reflex FT4, CMP #### [facility] [address] [place], [place] [id number] Globulin (S) [Mass/Vol] 2.8 g/dL Normal 1.9-3.7 [facility] Respiratory Care Program Director Comment on above: Performed By: #### L IPD, CBC, TSH reflex FT4, CMP #### [facility] [address] [place], [place] [id number] Glucose [Mass/Vol] 94 mg/dL Normal 65-99 Anisha corado [place] Respiratory Care Program Director Comment on above: Result Comment: For FASTING Glucose --- ADA reference ranges: Normal 65-99 mg/dl Prediabetes 100-125 Diabetes >/= 126 Performed By: #### L IPD, CBC, TSH reflex FT4, CMP #### [facility] [address] [place], [place] [id number] Potassium [Moles/Vol] 4.4 mmol/L Normal 3.5-5.5 [facility] Comment on above: Performed By: #### L IPD, CBC, TSH reflex FT4, CMP #### [facility] [address] [place], [place] [id number] Protein [Mass/Vol] 6.9 g/dL Normal 6.1-8.1 Anisha corado [place] Respiratory Care Program Director Comment on above: Performed By: #### L IPD, CBC, TSH reflex FT4, CMP #### [facility] [address] [place], [place] [id number] Sodium [Moles/Vol] 140 mmol/L Normal 135-146 Anisha corado [place] Res[facility] Care Program Director Comment on above: Performed By: #### L IPD, CBC, TSH reflex FT4, CMP #### [facility] [address] [place], [place] [id number] TBIL <0.3 Normal [facility] Comment on above: Performed By: #### L IPD, CBC, TSH reflex FT4, CMP #### [facility] [address] [place], [place] [id number] Urea nitrogen [Mass/Vol] 8 mg/dL Normal 7-25 [facility] Respiratory Care Program Director Comment on above: Performed By: #### L IPD, CBC, TSH reflex FT4, CMP #### [facility] [address] [place], [place] [id number] Lipid Panelon 05-14-2021 Cholesterol [Mass/Vol] 150 mg/dL Normal 125-200 [facility] Comment on above: Result Comment: Low risk < 200mg/dL Borderline risk 201-239 mg/dl High risk > or equal to 240 Performed By: #### L IPD, CBC, TSH reflex FT4, CMP #### [facility] [address] [place], [place] [id number] Cholesterol in HDL [Mass/Vol] 40 mg/dL Low >40 [facility] Respiratory Care Program Director Comment on above: Result Comment: High Cardiovascular Risk HDL <40 mg/dL Low Cardiovascular Risk HDL > or equal to 60 mg/dl Performed By: #### L IPD, CBC, TSH reflex FT4, CMP #### [facility] [address] [place], [place] [id number] Cholesterol in LDL [Mass/Vol] 81 mg/dL Normal [facility] Comment on above: Result Comment: LDL ATP III CLASSIFICATION LDL less than 100 mg/dl Optimal LDL 100-129 mg/dl Near or above optimal LDL 130-159 Borderline high LDL 160-189 High LDL greater than 189 mg/dl Very High Performed By: #### L IPD, CBC, TSH reflex FT4, CMP #### [facility] [address] [place], [place] [id number] Cholesterol in VLDL [Mass/Vol] 29 mg/dL Normal [facility] Comment on above: Performed By: #### L IPD, CBC, TSH reflex FT4, CMP #### [facility] [address] [place], [place] [id number] Cholesterol.total/Chol esterol in HDL [Mass ratio] 4 {ratio} Normal [facility] Comment on above: Performed By: #### L IPD, CBC, TSH reflex FT4, CMP #### [facility] [address] [place], [place] [id number] Triglyceride [Mass/Vol] 146 mg/dL Normal 30-150 [facility] Respiratory Care Program Director Comment on above: Result Comment: TRIG ATPIII CLASSIFICATIONS TRIG less than 150 mg/dl Normal TRIG 150-199 mg/dl Borderline High TRIG 200-500 mg/dl High TRIG greather than 500 mg/dl Very High Performed By: #### L IPD, CBC, TSH reflex FT4, CMP #### [facility] [address] [place], [place] [id number] TSH w/ Reflex to Free T4on 0 05-14-2021 TSH 1.460 uIU/mL Normal 0.400-4.500 [facility] Respiratory Care Program Director Comment on above: Performed By: #### L IPD, CBC, TSH reflex FT4, CMP #### [facility] [address] [place], [place] [id number] XR Shoulder Complete Left*on 04-15-2021 XR Shoulder [...] by Neri Ann on 04/15/2021 1158 Normal [facility] XR Shoulder Complete Right*o n 04-15-2021 XR Shoulder Complete Right* Please see XR Shoulder Complete Left report dated: 04/15/2021. Report reported and signed by Neri Ann on 04/15/2021 1158 Normal [facility] Family Medicine Office/Clini c Noteon 11-23-2019 Family [...] antihistamines and cold medications safe in . [id number] she clear anything she starts with OB. Follow up with family doctor in 7-10 days, sooner if not improving as expected, ER if condition worsens significantly. Ordered: Rapid Strep POC 35055 2. Rhinitis (J31.0: Chronic rhinitis) BMI 37.0-37.9, adult (Z68.37: Body mass index (BMI) 37.0-37.9, adult) Ordered: Body Mass Index (BMI) documented 3008F Rapid Strep POC 27910 Follow-up No qualifying data available Patient Education [...] Strep POC Result: Negative (11/23/19 12:50:00) Normal [facility] Comment on above: Result Comment: Elec tronically Signed By: JASMINA MARTÍNEZ PA-C\.br\Date and Time Signed: 11/23/19 13:21 EDT Patient [...] (GERD). HOME CARE INSTRUCTIONS ? Only take [id number] medicines as directed by your caregiver. ? [...] Document Reviewed: 12/05/2012 ExitCare? Patient Information ?2013 [employer]. Normal [facility] Vital Signs Date Time Vital Sign Value Performing Clinician Facility 07-29-2023 10: Body height 167.64 cm PHYSICIAN NO [facility] 07-29-2023 10:010400 Body mass index (BMI) [Ratio] 36.3 kg/m2 PHYSICIAN NO [facility] 07-29-2023 10:040 Body temperature 97.8 [degF] PHYSICIAN NO [facility] 07-29-2023 10:010400 Body weight 102.05 kg PHYSICIAN NO [facility] 07-29-2023 10:010400 Diastolic blood pressure 74 mm[Hg] PHYSICIAN NO [facility] 07-29-2023 10:01-0400 Heart rate 100 /min PHYSICIAN NO [facility] 07-29-2023 10:01-0400 SaO2% (BldA) [Mass fraction] 97 % PHYSICIAN NO [place] [facility] 07-29-2023 10:01-0400 Systolic blood pressure 122 mm[Hg] PHYSICIAN NO [facility] 04-04-2023 14:50-0500 Body height 167.64 cm Emilee Schmid Other [facility] Other 04-04-2023 14:50-0500 Body mass index (BMI) [Ratio] 37.12 kg/m2 Emilee Schmid Other [facility] Other 04-04-2023 14:50-0500 Body temperature 97.9 [degF] Emilee Schmid Other [facility] Other 04-04-2023 14:50-0500 Body weight 104.33 kg Emilee Schmid Other [facility] Other 04-04-2023 14:50-0500 Diastolic blood pressure 63 mm[Hg] Emilee Schmid Other [facility] Other 04-04-2023 14:50-0500 Respiratory rate 18 /min Emilee Shcmid Other [facility] Other 04-04-2023 14:50-0500 SaO2% (BldA) [Mass fraction] 98 % Emilee Schmid Other [facility] Other 04-04-2023 14:50-0500 Systolic blood pressure 113 mm[Hg] Emilee Schmid Other [facility] Other 03-09-2023 09:10-0500 Body height 167.64 cm Yury Alegria Other [facility] Other 03-09-2023 09:10-0500 Body mass index (BMI) [Ratio] 37.12 kg/m2 Yury Alegria Other [facility] Other 03-09-2023 09:10-0500 Body temperature 98.2 [degF] Yury Alegria Other [facility] Other 03-09-2023 09:10-0500 Body weight 104.33 kg Yury Alegria Other [facility] Other 03-09-2023 09:10-0500 Diastolic blood pressure 82 mm[Hg] Yury Alegria Other [facility] 03-09-2023 09:10-0500 Respiratory rate 18 /min Yury Alegria Other [facility] 03-09-2023 09:10-0500 SaO2% (BldA) [Mass fraction] 98 % Yury Alegria Other [facility] 03-09-2023 09:10-0500 Systolic blood pressure 134 mm[Hg] Yury Alegria Other [facility] Other 08-13-2022 09:30-0400 Diastolic blood pressure 72 mm[Hg] PHYSICIAN NO [facility] 08-13-2022 09:30-0400 Heart rate 80 /min PHYSICIAN NO [facility] 08-13-2022 09:30-0400 Respiratory rate 18 /min PHYSICIAN NO [facility] 08-13-2022 09:30-0400 SaO2% (BldA) [Mass fraction] 99 % PHYSICIAN NO [facility] 08-13-2022 09:30-0400 Systolic blood pressure 124 mm[Hg] PHYSICIAN NO [facility] 08-13-2022 08:01-0400 Body height 170.18 cm PHYSICIAN NO [facility] 08-13-2022 08:01-0400 Body weight 104.32 kg PHYSICIAN NO [facility] 08-01-2022 10:45-0400 Body height 167.64 cm Wilberto Chloe Other [facility] 08-01-2022 10:45-0400 Body mass index (BMI) [Ratio] 39.09 kg/m2 Wilberto Chloe Other [facility] 08-01-2022 10:45-0400 Body weight 109.86 kg Wilberto Corona Other [facility] Other 08-01-2022 10:45-0400 SaO2% (BldA) [Mass fraction] 99 % Wilberto Corona Other [facility] Other 05-14-2022 17:30-0500 Body height 167.64 cm Wilberto Corona Other [facility] Other 05-14-2022 17:30-0500 SaO2% (BldA) [Mass fraction] 97 % Wilberto Corona Other [facility] 05-07-2022 08:59-0500 Diastolic blood pressure 56 mm[Hg] PHYSICIAN NO [facility] 05-07-2022 08:59-0500 Heart rate 62 /min PHYSICIAN NO [facility] 05-07-2022 08:59-0500 Respiratory rate 18 /min PHYSICIAN NO [facility] 05-07-2022 08:59-0500 SaO2% (BldA) [Mass fraction] 99 % PHYSICIAN NO [facility] 05-07-2022 08:59-0500 Systolic blood pressure 127 mm[Hg] PHYSICIAN NO [facility] 05-07-2022 07:47-0500 Body height 170.18 cm PHYSICIAN NO [facility] 05-07-2022 07:47-0500 Body weight 108.86 kg PHYSICIAN NO [facility] 04-24-2022 16:45-0500 Body height 167.64 cm Wilberto Corona Other [facility] Other 04-24-2022 16:45-0500 Diastolic blood pressure 80 mm[Hg] Wilberto Corona Other [facility] 04-24-2022 16:45-0500 SaO2% (BldA) [Mass fraction] 98 % Wilberto Corona Other [facility] Other 04-24-2022 16:45-0500 Systolic blood pressure 124 mm[Hg] Wilberto Corona Other [facility] Other 03-27-2022 17:00-0500 Body height 167.64 cm Wilberto Corona Other [facility] Other 03-27-2022 17:00-0500 Body mass index (BMI) [Ratio] 35.51 kg/m2 Wilberto Corona Other [facility] Other 03-27-2022 17:00-0500 Body weight 99.79 kg Wilberto Corona Other [facility] Other 03-27-2022 17:00-0500 Diastolic blood pressure 74 mm[Hg] Wilberto Corona Other [facility] Other 03-27-2022 17:00-0500 Systolic blood pressure 112 mm[Hg] Wilberto Corona Other [facility] Other 12-20-2021 19:20-0400 Body height 167.64 cm Emilee Schmid Other [facility] Other 12-20-2021 19:20-0400 Body mass index (BMI) [Ratio] 37.12 kg/m2 Emilee Schmid Other [facility] Other 12-20-2021 19:20-0400 Body temperature 98.7 [degF] Emilee Schmid Other [facility] Other 12-20-2021 19:20-0400 Body weight 104.33 kg Emilee Schmid Other [facility] Other 12-20-2021 19:20-0400 Respiratory rate 18 /min Emilee Schmid Other [facility] Other 12-20-2021 19:20-0400 SaO2% (BldA) [Mass fraction] 97 % Emilee Schmid Other [facility] Other Encounters Encounter Date Encounter Type Care Provider Facility Start: 07-29-2023 End: 07-29-2023 ambulatory PHYSICIAN NO [facility] Work Phone: Start: 07-29-2023 End: 07-29-2023 Patient encounter procedure PHYSICIAN NO [facility] Work Phone: Start: 07-28-2023 End: 07-28-2023 ambulatory PHYSICIAN NO [facility] Facility:[facility] Start: 07-28-2023 End: 07-28-2023 ambulatory PHYSICIAN NO [facility] Work Phone: Start: 07-28-2023 End: 07-28-2023 Departed Referred PHYSICIAN NO [facility] [place] [facility] Start: 07-27-2023 End: 07-27-2023 ambulatory PAWEL WILY Not Available Start: 07-14-2023 End: 07-14-2023 ambulatory PAWEL WILY Not Available Start: 07-10-2023 End: 07-10-2023 ambulatory MARTINEZ Guillaume ONEYDA Not Available Start: 06-26-2023 End: 06-26-2023 ambulatory RICH CAMARGO Not Available Start: 06-08-2023 End: 06-08-2023 ambulatory KESHA BA Not Available Start: 05-25-2023 End: 05-25-2023 ambulatory PAWEL WILY Not Available Start: 05-04-2023 End: 05-04-2023 ambulatory Emilee Schmid Other [facility] Other Start: 05-04-2023 Telephone encounter Emilee Schmid [facility] Start: 04-04-2023 End: 04-04-2023 ambulatory Emilee Schmid Other [facility] Other Start: 04-04-2023 Office outpatient vi sit 25 minutes Emilee Schmid [facility] Start: 03-24-2023 End: 03-24-2023 ambulatory LYNNETTE MCDUFFIE Not Available Start: 03-17-2023 End: 03-17-2023 ambulatory JEREMY CASTLE Not Available Start: 03-09-2023 End: 03-09-2023 ambulatory Yury Alegria Other [facility] Other Start: 03-09-2023 Office outpatient vi sit 15 minutes Yury Alegria [facility] Start: 09-09-2022 End: 09-09-[address] DOCTOR GRAVES Facility:[facility] Start: 08-13-2022 (PROC) PROCEDURE Wilberto Corona [facility] Start: 08-13-2022 End: 08-13-2022 Admission to same day surgery center PHYSICIAN NO [facility] Work Phone: Start: 08-13-2022 End: 08-13-2022 ambulatory PHYSICIAN NO [facility] Work Phone: Start: 08-01-2022 End: 08-01-2022 ambulatory Wilberto Corona Other [facility] Other Start: 08-01-2022 Office outpatient vi sit 25 minutes Wilberto Chloe [facility] [place] Start: 07-30-2022 End: 07-31-[address] PAWEL OLIVER . Facility:[facility] Start: 05-22-2022 End: 05-22-[address] ALEXX WILLIAMSON . Facility:[facility] Start: 05-14-2022 End: 05-14-2022 ambulatory Wilberto Corona Other [facility] Other Start: 05-14-2022 Office outpatient vi sit 15 minutes Wilberto Chloe [facility] Start: 05-07-2022 (PROC) [facility] Start: 05-07-2022 End: 05-07-2022 Admission to same day surgery center PHYSICIAN NO [facility] Work Phone: Start: 05-07-2022 End: 05-07-2022 ambulatory PHYSICIAN NO [facility] Work Phone: Start: 04-28-2022 End: 04-29-[address] PAWEL OLIVER . Facility:[facility] Start: 04-24-2022 End: 04-25-[address] PAWEL OLIVER . [facility] Other Start: 04-24-2022 Office outpatient vi sit 15 minutes Wilberto Chloe [facility] Start: 04-07-2022 End: 04-08-[address] PAWEL OLIVER . Facility:[facility] Start: 03-27-2022 End: 03-27-2022 ambulatory Wilberto Chloe Other [facility] Other Start: 03-27-2022 Office consultation new/estab patient 60 min Wilberto Corona [facility] Start: 02-17-2022 End: 02-18-[address] TAMMY GARCIA Facility:[facility] Start: 12-20-2021 End: 12-20-2021 ambulatory Emilee Schmid Other [facility] Other Start: 12-20-2021 Office outpatient vi sit 25 minutes Emilee Schmid [facility] Procedures Date Procedure Procedure Detail Performing Clinician Start: 08-13-2022 Injection of anesthe tic agent into stellate ganglion PHYSICIAN NO FAMILY Start: 05-07-2022 Injection of anesthe tic agent into stellate ganglion PHYSICIAN NO FAMILY Plan of Treatment Date Care Activity Detail Author Start: 08-13-2022 [facility] Start: 05-07-2022 [facility] Patient Education [facility] Work Phone: Patient referral [facility] Work Phone: [facility] Payers Date Payer Category Payer Self-pay 1992 Unknown [id number] 2.16.84 [id number] 1992 Unknown [id number] 2.16.84 [id number] 1992 Unknown [id number] 2.16.84 0.1.950545.3.579.2.593 1992 Unknown [id number] 2.16.84 0.1.551569.3.579.2.593 1992 Unknown [id number] 2.16.84 0.1.173406.3.579.2.593 1992 Unknown [id number] 2.16.84 0.1.420253.3.579.2.593 1992 Unknown [id number] 2.16.84 0.1.249677.3.579.2.593 1992 Unknown [id number] 2.16.84 0.1.836598.3.579.2.593 1992 Unknown [id number] 2.16.84 0.1.878922.3.579.2.9 1992 Unknown [id number] 2.16.84 0.1.467031.3.579.2.9 1992 Unknown [id number] 2.16.84 0.1.156497.3.579.2.1258 1992 Unknown [id number] 2.16.84 0.1.165455.3.579.2.1258 1992 Unknown [id number] 2.16.84 0.1.424130.3.579.2.1258 1992 Unknown [id number] 2.16.84 0.1.455711.3.579.2.9 1992 Unknown [id number] 2.16.840 .1.523941.3.579.2.1258 1992 Unknown [id number] 2.16.840 .1.662402.3.579.2.1259 1959 Blue Cross Blue Shield [id number] [id number] Unknown [facility] [id number] Unknown [id number] 2.16.8 40.1.231902.3.579.2.531 Unknown [id number] 2.16.8 40.1.846686.3.579.2.531 Social History Date Type Detail Facility Unknown if ever smoked [facility] Other Sex Assigned At Sex Assigned At Bir th [facility] Other Start: 1990 Sex Assigned At Female F [facility] Goals Date Patient Goal Desired Activity /State [...] understanding and is agreeable to treatment plan [facility] Other 11-27-2023 Evaluation note* Encounter Date Diagnosis [...] symptoms. Feb, Nasal congestion (ICD-10 - R09.81) [facility]* Encounter Date Diagnosis Assessment Notes [...] the injury she had imaging done at [place], she states this does not show any fractures. We will proceed with a repeat ganglion impar nerve block. Risks and benefits of procedure explained to patient; patient verbalizes understanding. Jul, Sacroiliitis (ICD-10 - M46.1) Consider SI joint injections in the future if needed Jul, Other chronic pain (ICD-10 - G89.29) Follow up after procedure [facility] Other 02-01-2023 Evaluation note* Encounter Date Diagnosis [...] (ICD-10 - G89.29) Follow up as needed. [facility] Other 01-12-2023 Evaluation note* Encounter Date Diagnosis [...] - G89.29) Continue with current treatment plan. [facility] Other 12-15-2022 Evaluation note* Encounter Date Diagnosis [...] negative findings were considered in medical decision-making. [facility] Other [id number] Evaluation note* Encounter Date Diagnosis Assessment Notes [...] understanding and is agreeable to treatment plan [facility] Other Evaluation noteNo assessment information available [facility] Work Phone: Evaluation noteNo InformationNort [employer] Other History general Narrative - Reported* Type Description Date Medical History Hypothyroidism Medical History Anxiety Surgical History C section x2 Hospitalization History see above [facility] Other Reason for referral (narrative)* Reason *FU 04/14/23 patie nt requests referral to ENT for ongoing ear complaints Diagnosis 1 Acute middle ear eff usion, bilateral (H65.193) Referral Organization [facility] Referring Provider First Name Emilee Referring Provider Last Name Binu Referring Provider Specialty Nurse Pract itioner Referred Organization [facility] Referred Provider Martinez Call Referred Address ,[place], [place],[address] Referred Provider Specialty Otolaryngolo gy Referral Priority Routine General Notes Maico Gonzalez 04/07 11:21:55 AM > Referral received, attachments made and faxed to [facility] [employer] [facility] Other Summary Purpose Family History No Family [...] and Reason for Visit Chief Complaint Pain Chief Complaint Unknown Chief Complaint Unknown hives Additional Source Comments INFORMATION SOURCE (unrecogn ized section and content) DATE CREATED AUTHOR 11/24/2019 Alexandru Carterus [facility] DATE CREATED AUTHOR AUTHOR'S ORGANIZ ATION 11/18/2021 [facility] dical Specialist DATE CREATED AUTHOR AUTHOR'S ORGANIZ ATION 05/01/2022 [facility] DATE CREATED AUTHOR AUTHOR'S ORGANIZ ATION 09/19/2022 [facility] DATE CREATED AUTHOR AUTHOR'S ORGANIZ ATION 07/28/2023 [facility] dical Specialists EPIC DATE CREATED AUTHOR AUTHOR'S ORGANIZ ATION 08/01/2023 [facility] REASON FOR VISIT (unrecogniz ed section and [...] Active Wilberto Corona MD Attending Provider Active Team Status: Inactive Member Role Status Dates PHYSICIAN NO FAMILY Primary Care Provider Active Start: July 28, 2023 End: July 28, 2023 Pawel Oliver Attending Provider Active Start: 2023 End: July 28, 2023 Team Status: Inactive Member Role Status Dates PHYSICIAN NO FAMILY Primary Care Provider Active Start: July 29, 2023 End: July 29, 2023 Evangelina Chavez APRN Attending Provider Active Sta rt: July 29, 2023 End: July 29, 2023 Goals (unrecognized section and content) Goals may be documented in a n alternate section FOR RECORDS PERTAINING TO PATIENTS WHO ARE [...] BE BASED ON THE PRIMARY CLINICAL RECORDS. [employer] [facility]. provides no warranty or guarantee of the accuracy or completeness of information in this document.
[2023-08-07 09:11] LABS: Alanine Aminotransferase 37 U/L (14-59); Albumin Globulin Ratio 0.9; Albumin Level 3.2 g/dL (3.4-5.0); Alkaline Phosphatase 68 U/L (46-116); Anion Gap 14.9; Aspartate Amino Transferase 12 U/L (15-37); BUN Creatinine Ratio 13.6; Bilirubin Direct 0.1 mg/dL (0.0-0.2); Bilirubin Total 0.3 mg/dL (0.2-1.0); Calcium 8.8 mg/dL (8.5-10.1); Carbon Dioxide 26.7 mmol/L (21.0-32.0); Chloride 103 mmol/L (98-107); Estimated GFR (African America >60 (>=60); Estimated GFR (Non-African Ame >60 (>=60); Globulin 3.4 g/dL; Glucose 90 mg/dL (74-106); Potassium 3.6 mmol/L (3.5-5.1); Sodium 141 mmol/L (136-145); Total Protein 6.6 g/dL (6.4-8.2)
[2023-08-07 09:27] LABS: Basophils Absolute Auto 0.1 10^3/uL (0.0-0.1); Basophils Percent Auto 0.7 % (0.2-2.0); Eosinophils Absolute Auto 0.2 10^3/uL (0.0-0.7); Eosinophils Percent Auto 2.3 % (0.9-7.0); Hematocrit 31.9 % (36.0-48.0); Hemoglobin 10.1 g/dL (12.0-16.0); Immature Granulocytes Abs Auto 0.02 10^3/uL (0.00-0.03); Immature Granulocytes Pct Auto 0.2 % (0.0-0.5); Lymphocytes Absolute Auto 2.6 10^3/uL (1.2-3.8); Lymphocytes Percent Auto 27.3 % (20.5-60.0); Mean Corpuscular HGB Conc 31.7 g/dL (29.9-35.2); Mean Corpuscular Hemoglobin 25.6 pg (26.7-34.0); Monocytes Absolute Auto 0.8 10^3/uL (0.3-0.8); Neutrophils Absolute Auto 5.8 10^3/uL (1.4-6.5); Neutrophils Percent Auto 61.5 % (43.0-75.0); Platelet Count 318 10^3/uL (150-450); Red Blood Count 3.94 10^6/uL (4.20-5.40); Red Cell Distribution Width 13.7 % (11.0-15.0); White Blood Count 9.5 10^3/uL (4.0-11.0)
[2023-08-07 10:39] LABS: INR 0.97; Partial Thromboplastin Time 24.1 sec (22.3-36.2); Prothrombin Time 10.3 sec (9.0-11.6)
== END 2023-08-07 08:06 | disposition home or self-care (01) ==
LOC: PST 08:07
PROVIDERS: Visit Provider Obstetrics & Gynecology
DX: Z01.812 Encounter for preprocedural laboratory examination (principal); N82.1 Other female urinary-genital tract fistulae; R10.2 Pelvic and perineal pain; N94.6 Dysmenorrhea, unspecified; N94.10 Unspecified dyspareunia
CPT/HCPCS: 80048; 80076; 85025; 85610; 85730; 86850; 86900; 86901

== ENCOUNTER 2023-08-20 11:09 | Day surgery (SDC) | payer BC, SELFPAY ==
[2023-08-07 08:46] VITALS: BP 115/75; PULSE 93; TEMP 36.5; O2SAT 97; BMI 36.6
[2023-08-20] VITALS (11 sets, daily range): BP systolic 96–147; BP diastolic 60–87; PULSE 68–129; TEMP 36.2–37.5; O2SAT 92–98; BMI 36.4
[2023-08-20 11:24] LABS: Basophils Absolute Auto 0.1 10^3/uL (0.0-0.1); Basophils Percent Auto 0.7 % (0.2-2.0); Eosinophils Absolute Auto 0.1 10^3/uL (0.0-0.7); Eosinophils Percent Auto 1.6 % (0.9-7.0); Hematocrit 31.8 % (36.0-48.0); Hemoglobin 9.8 g/dL (12.0-16.0); Immature Granulocytes Abs Auto 0.02 10^3/uL (0.00-0.03); Immature Granulocytes Pct Auto 0.2 % (0.0-0.5); Lymphocytes Absolute Auto 1.6 10^3/uL (1.2-3.8); Lymphocytes Percent Auto 19.1 % (20.5-60.0); Mean Corpuscular HGB Conc 30.8 g/dL (29.9-35.2); Mean Corpuscular Hemoglobin 24.6 pg (26.7-34.0); Mean Corpuscular Volume 79.7 fL (81.0-99.0); Mean Platelet Volume 9.6 fL (9.5-13.5); Monocytes Absolute Auto 0.5 10^3/uL (0.3-0.8); Monocytes Percent Auto 5.5 % (1.7-12.0); Neutrophils Absolute Auto 6.2 10^3/uL (1.4-6.5); Neutrophils Percent Auto 72.9 % (43.0-75.0); Platelet Count 354 10^3/uL (150-450); Red Blood Count 3.99 10^6/uL (4.20-5.40); Red Cell Distribution Width 14.6 % (11.0-15.0); White Blood Count 8.5 10^3/uL (4.0-11.0)
[2023-08-20] MEDS: LACTATED RINGER'S SOLUTION 1,000 ML 50 ML IV ×2 (11:54→14:15)
[2023-08-20 12:06] LABS: HCG Quantitative <1 mIU/mL
[2023-08-20] MEDS: CEFAZOLIN SODIUM/DEXTROSE,ISO 2 GM/50 ML PIGGYBACK IV ×2 (12:33→18:34)
--- NOTE | 2023-08-20 15:45 | PM.ONB ---
Brief Operative Note Date of procedure: 08/20/23 Pre-op diagnosis general: aub, acute blood loss anemia, pelvic pain, dysmenorrhea Post-op diagnosis: same as pre-op Procedure: NAME OF PROCEDURE: ? Robotic assisted laparoscopic hysterectomy with cystoscopy, bilateral salpingectomy PROCEDURE:? The patient was taken back to the operating room, where she was prepped and draped in the normal sterile fashion after being placed in the dorsal lithotomy position.? Patient?s anesthesia was found to be adequate.? Surgical timeout was performed using two patient identifiers.? SCDs were on and in place.? Two grams of Ancef were given prior to the surgery.? Sterile Stokes catheter was inserted.? Standard size VCare was secured to the uterine cervix and the surgeon changed gloves.? Attention then was turned to the patient's abdomen, where a supraumbilical incision was then made.? Two S retractors were used to identify the patient?s fascia.? The fascia was then tented up using Jass clamps and the patient?s fascia was incised sharply.? Patient?s abdomen was identified and entered bluntly.? The patient had the trocar placed and a pneumoperitoneum was obtained.? Approximately 4 liters of CO2 gas was used.? The camera was then placed through the trocar.? At this time, two robot trocars were placed in the patient?s left and right side, two hand widths from the midline, and this was placed under direct visualization.? The patient?s tube on the right side was tented up and the vessel sealer was then used to come across the mesosalpinx, and this was carried down to the uterine ovarian ligament.? The vessel sealer was carried down serially to the broad ligament, to the area of the bladder flap, which was then created anteriorly, and the uterine arteries were skeletonized and sealed using the vessel sealer.? this was performed on the contralateral side. The colpotomy was made using the monopolar cautery on cut, and this was carried circumferentially, posteriorly to anteriorly, until the uterus was amputated.? The specimen was then removed intact through the vagina, without difficulty.? The vagina was then closed using two running V-Loc in a non-lock fashion.? The robot was undocked.? The abdomen was desufflated.? The skin defects were closed using 4-0 Vicryl.? Please note, the fascia was closed using 0 Vicryl.? Sponge, lap and needle counts were correct x2.? Patient was taken to recovery room in stable condition.? The patient was awakened by Anesthesia first.? Patient tolerated procedure well.??Please note left ovarian cystectomy was performed using the vessel sealer Anesthesia: BRITTANY Surgeon: Pawel Oliver Senior Marketing Associate: [employer] Estimated blood loss (mL): 100 Pathology: other (uterus and cervix and tubes) Condition: stable Disposition: PACU Urinary Catheter Management Urinary Catheter Management Urethral: Cath placed during this visit: no
[2023-08-20] MEDS: PROMETHAZINE HCL 25 MG in 0.9 % SODIUM CHLORIDE 50 ML 204 MG IV (18:33)
[2023-08-20] MEDS: SIMETHICONE 80 MG TAB.CHEW PO (18:33)
[2023-08-20] MEDS: LACTATED RINGER'S SOLUTION 1,000 ML 125 ML IV (20:20)
[2023-08-21] MEDS: OXYCODONE HCL/ACETAMINOPHEN 5MG/325MG 2 TAB PO (00:16)
[2023-08-21] MEDS: CEFAZOLIN SODIUM/DEXTROSE,ISO 2 GM/50 ML PIGGYBACK IV (00:17)
[2023-08-21 03:00] VITALS: BP 110/70; PULSE 92; TEMP 37.2; O2SAT 96
[2023-08-21 07:04] LABS: Basophils Percent Auto 0.3 % (0.2-2.0); Eosinophils Percent Auto 0.1 % (0.9-7.0); Hematocrit 27.7 % (36.0-48.0); Hemoglobin 8.4 g/dL (12.0-16.0); Immature Granulocytes Abs Auto 0.04 10^3/uL (0.00-0.03); Immature Granulocytes Pct Auto 0.3 % (0.0-0.5); Lymphocytes Absolute Auto 1.4 10^3/uL (1.2-3.8); Lymphocytes Percent Auto 12.1 % (20.5-60.0); Mean Corpuscular HGB Conc 30.3 g/dL (29.9-35.2); Mean Corpuscular Hemoglobin 24.3 pg (26.7-34.0); Mean Corpuscular Volume 80.1 fL (81.0-99.0); Mean Platelet Volume 9.5 fL (9.5-13.5); Monocytes Absolute Auto 0.7 10^3/uL (0.3-0.8); Monocytes Percent Auto 6.3 % (1.7-12.0); Neutrophils Absolute Auto 9.5 10^3/uL (1.4-6.5); Neutrophils Percent Auto 80.9 % (43.0-75.0); Platelet Count 274 10^3/uL (150-450); Red Blood Count 3.46 10^6/uL (4.20-5.40); Red Cell Distribution Width 14.8 % (11.0-15.0); White Blood Count 11.8 10^3/uL (4.0-11.0)
[2023-08-21] MEDS: DOCUSATE SODIUM 100 MG CAPSULE PO (07:37)
[2023-08-21] MEDS: OXYCODONE HCL/ACETAMINOPHEN 5MG/325MG 1 TAB PO ×2 (07:37→16:07)
[2023-08-21 08:34] VITALS: BP 121/87; PULSE 113; TEMP 37.2; O2SAT 99
[2023-08-21] MEDS: MAGNESIUM HYDROXIDE 2,400 MG/10 ML ORAL.SUSP 2400 MG PO (08:47)
[2023-08-21] MEDS: SIMETHICONE 80 MG TAB.CHEW PO ×2 (09:22→13:19)
[2023-08-21] MEDS: IBUPROFEN 400 MG TABLET 800 MG PO (13:18)
== END 2023-08-21 16:10 | disposition home or self-care (01) ==
LOC: SURGOUT 16:29 → MS 16:48
PROVIDERS: Visit Provider Obstetrics & Gynecology
PROC: (CPT 840; principal; 2023-08-20 12:30)
DX: N93.9 Abnormal uterine and vaginal bleeding, unspecified (principal); D62 Acute posthemorrhagic anemia; R10.2 Pelvic and perineal pain; N94.6 Dysmenorrhea, unspecified; N80.03 Adenomyosis of the uterus; N83.8 Other noninflammatory disorders of ovary, fallopian tube and broad ligament; E03.9 Hypothyroidism, unspecified; D50.9 Iron deficiency anemia, unspecified; F41.9 Anxiety disorder, unspecified; N92.1 Excessive and frequent menstruation with irregular cycle; N94.10 Unspecified dyspareunia
CPT/HCPCS: 58571; 36415; 84702; 85025; 88307; 94667; J1094; J1170; J2704

== ENCOUNTER 2024-01-04 20:36 | Outpatient (REF) | payer BC, SELFPAY ==
--- OUTSIDE RECORDS SUMMARY | 2024-01-04 20:40 | XMS_ITS | CCD ---
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 Name Role Phone Emilee Schmid Unavailable MD Wilberto Corona Attending Provider [phone] NO FAMILY, PHYSICIAN Primary Care Provider Unava ilWilberto Etienne Unavailable NO FAMILY, PHYSICIAN Primary Care Provider Unava ilMD Wilberto Etienne Attending Provider MELODY ., DR FERREIRA Attending Unavailable RADHA, DR TAMMY Eng Consulting Unavailable MISC, DR DIAS Primary Care Unavailable MELODY ., DR FERREIRA Admitting Unavailable MELODY ., DR FERREIRA Consulting Unavailable MELODY ., DR FERREIRA Attending Unavailable REQUEST, DR NONE LISTED Primary Care Unavaila ble MELODY ., DR FERREIRA Consulting Unavailable MELODY ., DR FERREIRA Admitting Unavailable MELODY ., DR FERREIRA Attending Unavailable MELODY ., DR FERREIRA Consulting Unavailable REQUEST, DR VIVI LISTED Primary Care Unavaila ble MELODY ., DR FERREIRA Admitting Unavailable MELODY ., DR FERREIRA Attending Unavailable MELODY ., DR FERREIRA Consulting Unavailable REQUEST, DR TRINIDAD LISTED Primary Care Unavaila ble MELODY ., DR FERREIRA Admitting Unavailable RADHA, DR TAMMY Eng Consulting Unavailable REQUEST, DR TRINIDAD LISTED Primary Care Unavaila ble MELODY ., DR FERREIRA Admitting Unavailable MELODY ., DR FERREIRA Attending Unavailable MELODY ., DR FERREIRA Consulting Unavailable PAY ., DR ALLEN Admitting Unavailable PAY ., DR ALLEN Attending Unavailable GRECHNY ., GABINO GIBBONS Consulting Unavailabl e MISC, DR DIAS Primary Care Unavailable ALMA CROFT Consulting Unavailable HAY ., DR COFFEY Admitting Unavailable HAY ., DR COFFEY Attending Unavailable LINDA ., GABINO GIBBONS Consulting Unavailabl e [facility] [place] DI[place] Primary Care Unavailable JENNYFER SMITH Consulting Unavailable MIS, DR DIAS Primary Care Unavailable MELODY ., DR FERREIRA Consulting Unavailable MELODY ., DR FERREIRA Attending Unavailable MELODY ., DR FERREIRA Admitting Unavailable Yury Alegria Unavailable NO FAMILY, PHYSICIAN Primary Care Provider Unava ilable Pawel Oliver Attending Provider Pawel Oliver Attending Unavailable NO FAMILY, PHYSICIAN Primary Care Unavailable Pawel Oliver Admitting Unavailable NO FAMILY, PHYSICIAN Primary Care Unavailable aPwel Oliver Admitting Unavailable Pawel Oliver Attending Unavailable VINAYAK LOPES Attending Unavailable CHEMA BOWMAN Attending Unavailable CHEMA BOWMAN Attending Unavailable PAWEL OLIVER Attending Unavailable PAWEL OLIVER Attending Unavailable CHEMA BOWMAN Attending Unavailable LYNNETTE MCDUFFIE Attending Unavailable JEREMY CASTLE Attending Unavailable PAWEL OLIVER Attending Unavailable PAWEL OLIVER Attending Unavailable MARTINEZ CALL Attending Unavailable RICH CAMARGO Attending Unavailable KESHA BA Attending Unavailable PAWEL OLIVER Attending Unavailable Medications Current Medications Medication Drug [...] directed Intramuscular Active Desogestrel / Ethinyl Estradiol (5 sources) Progestin, Estrogen Start: 07-29-2023 Desogestrel-Ethinyl Estradiol [...] Active methylPREDNISolone acetate 20 mg/ml injectable suspension (2 sources) Corticosteroid Start: 07-29-2023 Methylprednisolone Acetate (Depo-Medrol) 20 mg/mL suspension Active 20 MG INFILTRATN EVERY 4 WEEKS July 29, 2023 12:00am predniSONE 20 mg oral tablet (4 sources) Start: 07-29-2023 Prednisone Active 20 MG PO Daily July 29, 2023 12:00am Take 3 pills x3 days, 2 pills x3 days, 1 pill x 3 days Start: 04-04-2023 take 1 tablet by chriss th every twelve hours prednisone 20 MG 1 tablet Orally BID for 5 Mar, Active Semaglutide (2 sources) Start: 07-29-2023 take 7 mg by mouth [...] Active levothyroxine sodium 0.075 mg oral tablet (13 sources) l-Thyroxine Start: 05-07-2022 End: 07-29-2023 take [...] (4 sources) Other chronic pain Chronic Other screening for suspected conditions (not [...] Test Name Value Interpretation Reference Range Facility [facility] 08-20-2023 L Specimen: [id number] Received: 08/21/23 Status: JOSE MIGUEL Leyva Num: [id number] Spec Type: Surgical Subm Dr: Pawel Oliver Tissues: A Uterus w/ or w/o tubes ovaries except neoplastic or prolap (UTERUS, BILAT Procedures: HE/12, Gross/Micro L5 Age/ Patient Sex Location Account Attending Physician Nancy Toney 32/F LABELL [id number] Pawel Oliver SPEC NUM: [id number] RECD: 08/21/23 STATUS: JOSE MIGUEL LEYVA NUM: [id number] RAGHU: 08/20/[address]: Pawel Oliver ENTERED: 08/21/[address] [facility] [address]: Fan,Lab SPEC TYPE: Surgical DEPT: SHIRA GREGORIO ORDERED: HE/12, Gross/Micro L5 ORDERED: HE/12, Gross/Micro L5 Pathological Diagnosis Uterus, cervix, bilateral fallopian tubes, total hysterectomy with bilateral salpingectomy: -Cervix without dysplasia or any other significant histopathological changes -Corpus with mild progestin effect including prominent deciduoid stromal changes, and the occasionally intermixed inactive type small tubular glands without any hyperplasia or atypia identified -Incidental mild adenomyosis -Incidental 1 large invaginated depression of the endometrial mucosa of uncertain cause or significance deeply into the anterior myometrial wall -Bilateral fimbriated fallopian tubes without significant histopathological findings except 1 small paratubal cyst, and occasional small Walthard cysts on A8 section Gross Description received in formalin with patient name and date of , labeled, uterus, bilateral fallopian tubes is a 82 g uterus with attached cervix and detached bilateral fallopian tubes, measuring, 4.9 cm cornu to cornu, 9.0 cm fundus to os, 4.5 cm anterior-posterior, with zendejas-purple smooth serosa. There is scattered adhesions noted along the anterior serosa. The roughened brown cervix is 1.6 cm long and 2.1 cm wide, leading to a 2.8 x 2.1 cm ectocervix with a 0.5 x 0.4 cm patent os. The 3.1 cm long and 0.4-0.5 cm wide endocervical canal leads to a rectangular 4.4 cm fundus to internal os and 1.6 cm cornu to cornu endometrial cavity. The zendejas-pink, soft 0.5 cm thick endometrium overlies a 1.3 cm thick zendejas trabeculated myometrium. There is a 1.5 x 1.3 x 0.9 cm depressed area within the anterior endomyometrium. No discrete masses, polyps or lesions are present. The undesignated, fimbriated fallopian tubes are arbitrarily designated as #1 and #2. Tube #1 measures 5.3 -------- Specimen: [id number] Received: 08/21/23 Status: JOSE MIGUEL Leyva Num: [id number] Spec Type: Surgical Subm Dr: Pawel Oliver Tissues: A Uterus w/ or w/o tubes ovaries except neoplastic or prolap (UTERUS, BILAT Procedures: , Gross/Micro L5 -------- Patient: Nancy Toney [id number] (Continued) -------- Specimen: [id number] Received: 08/21/23 (Continued) Gross Description (Continued) Signed (signature on file) Nadya Lopez MD 08/25/23 1939 -------- Specimen: [id number] Received: 08/21/23 Status: JOSE MIGUEL Leyva Num: [id number] Spec Type: Surgical Subm Dr: Pawel Oliver Tissues: A Uterus w/ or w/o tubes ovaries except neoplastic or prolap (UTERUS, BILAT Procedures: Ashley/Rae L5 -------- Patient: Nancy Toney [id number] (Continued) -------- Specimen: [id number] Received: 08/21/23 (Continued) Gross Description (Continued) cm in length and ranges from 0.3 to 0.5 cm in diameter. The serosal surface is zendejas-pink and unremarkable. Tube #2 measures 5.6 cm in length and ranging from 0.2 to 0.4 cm in diameter and contains 3 intact, clear fluid-filled paratubal cysts ranging from 0.5 to 0.2 cm. Cut sections for each tube demonstrates intact unremarkable luminal centers lined by zendejas mucosa. Credit Investigator sections submitted as follows: A1: Anterior cervix A2: Posterior cervix A3-A4: Anterior endomyometrium A5-A6: Posterior endomyometrium A7: Fallopian tube #1 A8: Fallopian tube #2 Clinical history: Menorrhagia, pelvic pain TW CPT Codes 24360 -------- -------- Specimen: [id number] Received: 08/21/23 Status: JOSE MIGUEL Leyva Num: [id number] Spec Type: Surgical Subm Dr: Pawel Oliver Tissues: A Uterus w/ or w/o tubes ovaries except neoplastic or prolap (UTERUS, (more content not included)... Normal [facility] Physician [facility] 07-27-2023 L Specimen: [id number] Received: 07/28/23 Status: JOSE MIGUEL Leyva Num: [id number] Spec Type: Surgical Subm Dr: Pawel Oliver Tissues: A Endometrium - Biopsy (ENODM BX) Procedures: HE/2, Gross/Micro L4 Age/ Patient Sex Location Account Attending Physician DawnaNancy 32/F LAB[facility] [id number] Pawel Oliver SPEC NUM: [id number] RECD: 07/28/23 STATUS: JOSE MIGUEL MARYAM NUM: [id number] RAGHU: 07/27/23- SUBM DR: Pawel Oliver ENTERED: 07/28/[address] [facility] [address]: Fan,Lab SPEC TYPE: Surgical DEPT: SHIRA GREGORIO ENTERED BY: [id number] RECV BY: [id number] ORDERED: HE/2, Gross/Micro L4 ORDERED: HE/2, Gross/Micro [...] history: Menorrhagia with irregular cycle CPT Codes 26461 -------- -------- Specimen: [id number] Received: 07/28/23 Status: JOSE MIGUEL Maryam Num: [id number] Spec Type: Surgical Subm Dr: Pawel Oliver Tissues: A Endometrium - Biopsy (ENODM BX) Procedures: HE/2, Gross/Micro L4 -------- Patient: Nancy Toney [id number] (Continued) -------- Signed (signature on file) Oscar Quezada MD 07/30/23 1427 Normal [facility] HCG ( test) IA.rapi d Ql (U)Ordered By: Wilberto Corona on 08-13-2022 HCG ( test) Ql (U) Negative [facility] US PELVIS AND TRANSVAGon US PELVIS AND [...] TAMMY GARCIA Date: 2022-07-30 19:20 Normal [facility] XR SACRUM_COCCYXon 3 XR SACRUM_COCCYX EXAM: XR SACRUM_COCCYX TECHNIQUE: AP, angled AP and lateral views sacrum and coccyx HISTORY: Unspecified fall COMPARISON: None. _ FINDINGS: No fracture or dislocation. Soft tissues are unremarkable. No arthritic changes. ____ IMPRESSION: No fracture. Electronically authenticated by: ALMA CROFT Date: 2022-07-30 18:51 Normal [facility] CBC AUTO DIFFon 05-22-2022 BASO # 0.0 103/ul Normal 0.0-0.1 [facility] Comment on above: Performed By: #### P RCFACT #### [facility] [address] [place] [address] Dr. Lisa Lopez Basophils/100 WBC (Bld) 0.6 % Normal 0.2-2.0 [facility] Comment on above: Performed By: #### P RCFACT #### [facility] [address] [place] [address] Dr. Lisa Lopez EO # 0.1 103/ul Normal 0.0-0.7 [facility] Comment on above: Performed By: #### P RCFACT #### [facility] [address] [place] [address] Dr. Lisa Lopez Eosinophils/100 WBC (Bld) 1.9 % Normal 0.9-7.0 [facility] Comment on above: Performed By: #### P RCFACT #### [facility] [address] [place] [address] Dr. Lisa Lopez Erythrocyte distribution width (RBC) [Ratio] 13.2 % Normal 11.0-15.0 [facility] Comment on above: Performed By: #### P RCFACT #### [facility] [address] [place] [address] Dr. Lisa Lopez Hematocrit (Bld) [Volume fraction] 41.9 % Normal 36.0-48.0 [facility] Comment on above: Performed By: #### P RCFACT #### [facility] [address] [address] [address] Lisa Lopez Hemoglobin (Bld) [Mass/Vol] 13.9 g/dL Normal 12.0-16.0 [facility] Comment on above: Performed By: #### P RCFACT #### [facility] [address] [address] [address] Lisa Lopez IG # 0.02 10e3/ul Normal 0.00-0.03 [facility] Comment on above: Performed By: #### P RCFACT #### [facility] [address] [place] [address] Dr. Lisa Lopez IG % 0.3 % Normal 0.0-0.5 [facility] Comment on above: Performed By: #### P RCFACT #### [facility] [address] [place] [address] Dr. Lisa Lopez LYMPH # 0.5 103/ul Critically low 1.2-3.8 The [facility] Comment on above: Performed By: #### P RCFACT #### [facility] [address] [place] [address] Dr. Lisa Lopez Lymphocytes/100 WBC (Bld) 6.2 % Critically low 20.5-60.0 [facility] Comment on above: Performed By: #### P RCFACT #### [facility] [address] [place] [address] Dr. Lisa Lopez MANUAL DIFF REQ NO Normal [facility] Comment on above: Performed By: #### P RCFACT #### [facility] [address] [place] [address] Dr. Lisa Lopez MCH (RBC) [Entitic mass] 28.0 pg Normal 26.7-34.0 [facility] Comment on above: Performed By: #### P RCFACT #### [facility] [address] [place] [address] Dr. Lisa Lopez MCHC (RBC) [Mass/Vol] 33.2 g/dL Normal 29.9-35.2 [facility] Comment on above: Performed By: #### P RCFACT #### [facility] [address] [address] [address] Lisa Lopez MCV (RBC) [Entitic vol] 84.5 fL Normal 81.0-99.0 [facility] Comment on above: Performed By: #### P RCFACT #### [facility] [address] [place] [address] Dr. Lisa Lopez MONO # 0.5 103/ul Normal 0.3-0.8 [facility] Comment on above: Performed By: #### P RCFACT #### [facility] [address] [place] [address] Dr. Lisa Lopez Monocytes/100 WBC (Bld) 6.7 % Normal 1.7-12.0 [facility] Comment on above: Performed By: #### P RCFACT #### [facility] [address] [place] [address] Dr. Lisa Lopez NEUT # 6.1 103/ul Normal 1.4-6.5 [facility] Comment on above: Performed By: #### P RCFACT #### [facility] [address] [place] [address] Dr. Lisa Lopez Neutrophils/100 WBC (Bld) 84.3 % Critically high 43.0-75.0 [facility] Comment on above: Performed By: #### P RCFACT #### [facility] [address] [place] [address] Dr. Lisa Lopez Platelet mean volume (Bld) [Entitic vol] 9.5 fL Normal 9.5-13.5 [facility] Comment on above: Performed By: #### P RCFACT #### [facility] [address] [place] [address] Dr. Lisa Lopez PLT 260 103/ul Normal 150-450 [facility] Comment on above: Performed By: #### P RCFACT #### [facility] [address] [place] [address] Dr. Lisa Lopez RBC 4.96 106/ul Normal 4.20-5.40 [facility] Comment on above: Performed By: #### P RCFACT #### [facility] [address] [place] [address] Dr. Lisa Lopez WBC 7.2 103/ul Normal 4.0-11.0 [facility] Comment on above: Performed By: #### P RCFACT #### [facility] [address] [place] [address] Dr. Lisa Lopez Covid-19 PCR ([facility])on SARS-CoV-2 (COVID-19) RNA ALLI+probe Ql (Unsp spec) Detected Abnormal NOT DETECTED [facility] Comment on above: Result Comment: This test is not yet approved or cleared by the [place] FDA. When there are no FDA-approved or cleared tests available, and other criteria are met, FDA can make tests available under an emergency access mechanism called an Emergency Use Authorization (EUA). The EUA for this test is supported by the Underground Distribution Engineer of Health and Human Service's declaration that [...] used). Performed By: #### C VDTBH #### [facility] [address] [place] [address] Dr. Lisa Lopez D-DIMERon 05-22-2022 D-DIMER 0.23 mg/L FEU Normal <=0.59 [facility] Comment on above: Performed By: #### B 2GPG #### [facility] [address] [place] [address] Dr. Lisa Lopez D-DIMER COMMENTS SEE BELOW Normal [facility] Comment on above: Result Comment: Incr eases [...] hospitalization. Performed By: #### B 2GPG #### [facility] [address] [address] [address] Lisa HARRIS URINE PROFILEon 3 Bilirubin Ql (U) Negative Normal NEGATIVE [facility] Comment on above: Performed By: #### B 2GPG #### [facility] [address] [place] [address] Dr. Lisa Lopez Clarity (U) CLEAR Normal CLEAR [facility] Comment on above: Performed By: #### B 2GPG #### [facility] [address] [address] [address] Lisa Lopez Color (U) LT. YELLOW Normal YELLOW [facility] Comment on above: Performed By: #### B 2GPG #### [facility] [address] [place] [address] Dr. Lisa QUINTANILLA A micrscopic examination will be performed if indicated. Normal [facility] Comment on above: Performed By: #### B 2GPG #### [facility] [address] [place] [address] Dr. Lisa Lopez Glucose Ql (U) Negative Normal NEGATIVE [facility] Comment on above: Performed By: #### B 2GPG #### [facility] [address] [place] [address] Dr. Lisa Lopez Hemoglobin Ql (U) Negative Normal NEGATIVE [facility] Comment on above: Performed By: #### B 2GPG #### [facility] [address] [place] [address] Dr. Lisa Lopez Ketones Ql (U) Negative Normal NEGATIVE [facility] Comment on above: Performed By: #### B 2GPG #### [facility] [address] [address] [address] Lisa Lopez LEUKOCYTES Negative Normal NEGATIVE [facility] Comment on above: Performed By: #### B 2GPG #### [facility] [address] [place] [address] Dr. Lisa Lopez Nitrite Ql (U) Negative Normal NEGATIVE [facility] Comment on above: Performed By: #### B 2GPG #### [facility] [address] [place] [address] Dr. Lisa Lopez pH (U) 7.0 [pH] Normal 5-9 [facility] Comment on above: Performed By: #### B 2GPG #### [facility] [address] [place] [address] Dr. Lisa Lopez SPEC GRAVITY <=1.005 Abnormal 1.005-<=1.025 [facility] Comment on above: Performed By: #### B 2GPG #### [facility] [address] [place] [address] Dr. Lisa Lopez UA PROTEIN Negative Normal NEGATIVE/ TRACE [facility] Comment on above: Performed By: #### B 2GPG #### [facility] [address] [place] [address] Dr. Lisa Lopez UR MICRO IND NOT INDICATED Normal [facility] Comment on above: Performed By: #### B 2GPG #### [facility] [address] [place] [address] Dr. Lisa Lopez Urobilinogen Qn (U) 0.2 {Naya'U}/dL Normal 0.2 - 1. 0 [facility] Comment on above: Performed By: #### B 2GPG #### [facility] [address] [place] [address] Dr. Lisa Lopez INFLUENZA A AND B AGon 05-22 [facility] SEE BELOW Normal [facility] Comment on above: Result Comment: Nega tive for Flu A protein angiten. Infection due to Flu A cannot be ruled out. Flu A angiten in the sample may be below the detection limit of the test. Performed By: #### P RCFACT #### [facility] [address] [place] [address] Dr. Lisa Lopez INFLUBNEGH SEE BELOW Normal [facility] Comment on above: Result Comment: Nega tive for Flu B protein antigen. Infection due to Flu B cannot be ruled out. Flu B antigen in the sample may be below the detection limit of the test. Performed By: #### P RCFACT #### [facility] [address] [place] [address] Dr. Lisa Lopez INFLUENZA A AG Negative Normal NEGATIVE SEE COMMENT [facility] Comment on above: Performed By: #### P RCFACT #### [facility] [address] [place] [address] Dr. Lisa Lopez INFLUENZA B AG Negative Normal NEGATIVE SEE COMMENT [facility] Comment on above: Performed By: #### P RCFACT #### [facility] [address] [address] [address] Lisa Lopez URon 05-22-2022 , QUAL Negative Normal NEGATIVE [facility] Comment on above: Performed By: #### B 2GPG #### [facility] [address] [place] [address] Dr. Lisa Lopez PROF 14(COMP METB)on 023 Albumin [Mass/Vol] 3.6 g/dL Normal 3.4-5.0 [facility] Comment on above: Performed By: #### P RCFACT #### [facility] [address] [place] [address] Dr. Lisa Lopez Albumin/Globulin [Mass ratio] 0.9 {ratio} Normal [facility] Comment on above: Performed By: #### P RCFACT #### [facility] [address] [place] [address] Dr. Lisa Lopez ALP [Catalytic activity/Vol] 102 U/L Normal 46-116 [facility] Comment on above: Performed By: #### P RCFACT #### [facility] [address] [address] [address] Lisa Lopez ALT [Catalytic activity/Vol] 32 U/L Normal 14-59 [facility] Comment on above: Performed By: #### P RCFACT #### [facility] [address] [place] [address] Dr. Lisa Lopez Anion gap [Moles/Vol] 11.1 mmol/L Normal [facility] Comment on above: Performed By: #### P RCFACT #### [facility] [address] [place] [address] Dr. Lisa Lopez AST [Catalytic activity/Vol] 14 U/L Critically low 15-37 [facility] Comment on above: Performed By: #### P RCFACT #### [facility] [address] [address] [address] Lisa Lopez Bilirubin [Mass/Vol] 0.2 mg/dL Normal 0.2-1.0 [facility] Comment on above: Performed By: #### P RCFACT #### [facility] [address] [place] [address] Dr. Lisa Lopez Calcium [Mass/Vol] 9.2 mg/dL Normal 8.5-10.1 [facility] Comment on above: Performed By: #### P RCFACT #### [facility] [address] [place] [address] Dr. Lisa Lopez Chloride [Moles/Vol] 102 mmol/L Normal 98-107 [facility] Comment on above: Performed By: #### P RCFACT #### [facility] [address] [place] [address] Dr. Lisa Lopez CO2 [Moles/Vol] 29.5 mmol/L Normal 21.0-32.[address] [facility] Comment on above: Performed By: #### P RCFACT #### [facility] [address] [place] [address] Dr. Lisa Lopez Creatinine [Mass/Vol] 0.83 mg/dL Normal 0.55-1.02 [facility] Comment on above: Performed By: #### P RCFACT #### [facility] [address] [place] [address] Dr. Lisa Lopez EGFR-AF UGANDAN >60 Normal >=60 [facility] Comment on above: Performed By: #### P RCFACT #### [facility] [address] [place] [address] Dr. Lisa Lopez EGFR-NON AF UGANDAN >60 Normal >=60 [facility] Comment on above: Performed By: #### P RCFACT #### [facility] [address] [place] [address] Dr. Lisa Lopez Globulin (S) [Mass/Vol] 4.2 g/dL Normal [facility] Comment on above: Performed By: #### P RCFACT #### [facility] [address] [address] [address] Lisa Lopez Glucose [Mass/Vol] 107 mg/dL Critically high 74-106 [facility] Comment on above: Performed By: #### P RCFACT #### [facility] [address] [address] [address] Lisa Lopez Potassium [Moles/Vol] 3.6 mmol/L Normal 3.5-5.1 [facility] Comment on above: Performed By: #### P RCFACT #### [facility] [address] [address] [address] Lisa Lopez Protein [Mass/Vol] 7.8 g/dL Normal 6.4-8.2 [facility] Comment on above: Performed By: #### P RCFACT #### [facility] [address] [address] [address] Lisa Lopez Sodium [Moles/Vol] 139 mmol/L Normal 136-145 [facility] Comment on above: Performed By: #### P RCFACT #### [facility] [address] [address] [address] Lisa Lopez Urea nitrogen [Mass/Vol] 9.0 mg/dL Normal 7.0-18.0 [facility] Comment on above: Performed By: #### P RCFACT #### [facility] [address] [address] [address] Lisa Lopez Urea nitrogen/Creatinine [Mass ratio] 10.8 mg/mg Normal [facility] Comment on above: Performed By: #### P RCFACT #### [facility] [address] [address] [address] Lisa Lopez PROTIMEon 05-22-2022 INR Coag (PPP) [Relative time] 0.93 {INR} Normal [facility] Comment on above: Performed By: #### B 2GPG #### [facility] [address] [address] [address] Lisa Lopez INR GUIDELINES SEE BELOW Normal [facility] Comment on above: Result Comment: DELVIN RED INR: 2.0 - 3.0 CONDITIONS NOT LISTED BELOW 2.5 - 3.5 FOR PROSTHETIC HEART VALVE REPLACEMENT 2.5 - 3.5 RECURRENT THROMBOSIS Performed By: #### B 2GPG #### [facility] [address] [place] [address] Dr. Lisa Lopez PT Coag (PPP) [Time] 9.9 s Normal 9.0-11.6 [facility] Comment on above: Performed By: #### B 2GPG #### [facility] [address] [place] [address] Dr. Lisa Lopez PTTon 05-22-2022 aPTT Coag (Bld) [Time] 28.0 s Normal 22.3-36.2 [facility] Comment on above: Performed By: #### B 2GPG #### [facility] [address] [place] [address] Dr. Lisa Lopez TROPONIN, HIGH SENSITIVITYon 05-22-2022 HSTROP <4.0 Normal 4.0-51.3 [facility] Comment on above: Result Comment: CUT- OFF POINTS HAVE BEEN ESTABLISHED BASED ON THE FOURTH UNIVERSAL DEFINITIONS OF MYOCARDIAL INFARCTION. THE UPPER REFERENCE LIMIT (URL) OF TROPONIN, DEFINED THE 99TH PERCENTILE OF cTnI DISTRIBUTION IN A REFERENCE POPULATION, HAS BEEN CONFIRMED THE DECISION THRESHOLD FOR SD DIAGNOSIS. Performed By: #### P RCFACT #### [facility] [address] [place] [address] Dr. Lisa Lopez TSHon 05-22-2022 TSH 1.450 uIU/mL Normal 0.358-3.740 [facility] Comment on above: Performed By: #### P RCFACT #### [facility] [address] [place] [address] Dr. Lisa Lopez XR CHEST 1 Von [...] JENNYFER SMITH Date: 2022-05-22 18:12 Normal [facility] HCG ( test) IA.loida gordon Ql (U)Ordered By: Wilberto Corona on 05-07-2022 HCG ( test) Ql (U) Negative [facility] FACTOR V LEIDEN MUTATION TORRES LYSISon 05-01-2022 Factor V Leiden Comment Normal [facility] Comment on above: Result Comment: Resu lt: c.1601G>A (p.Sgn733Urh) - Not Detected . This result is not associated with an increased risk for venous thromboembolism. See Additional Clinical Information and Comments. Additional Clinical Information: Venous thromboembolism is a multifactorial disease influenced by genetic, environmental, and circumstantial risk factors. The c.1601G>A (p. Vgq092Epc) variant in the F5 gene, commonly referred [...] c.*97G>A variant and Factor V Leiden (PMID: 83997325). Additional risk factors include but are not [...] health care providers to discuss results at [phone] ([phone]). . Test Details: Variant Analyzed: c.1601G>A (p. Uch712Ixi), referred to as Factor V Leiden . [...] developed and its performance characteristics determined by [employer]. It has not been cleared or approved by the Food and Drug Administration. . References: Cindy S, Mercedes COLEMAN, Adam R, Surinder WW, Juwan JH; ACMG Professional Practice and Guidelines Committee. Addendum: [employer] consensus statement on factor V Leiden mutation testing. [employer]in [employer]. 2020Jun 15. doi: 10.1038/v28728-690-21622-f. PMID: 57916244. . Miguel Angel LITTLE. Factor V Leiden Thrombophilia. 1998August 24 (Updated 2017Apr 16). In: Tj MP, Hilda HH, Kelsey RA, et al., editors. Cinda(R) (Internet). [place] ([place]): [facility]; 1651-0906. Available from: https://www.ncbi.nlm.nih.gov/books/TGY1120/ . Leif S, Mercedes COLEMAN, Vin X, Liam B, Luisito EB, Estela P, Junito CS; AC Laboratory Failure Analysis Engineer Committee. Venous thromboembolism laboratory testing (factor V Leiden and factor II c.*97G>A), 2018 update: a technical standard of the [employer] and [employer] (ACMG). Sherin Med. 2018 Mar;20(12):4375-1292. doi: 10.1038/[id number]-o. Epub 2017Jan 15. PMID: 87703480. . Yaneth Cortez, PhD, [facility] Dameon Donnelly, PhD Ad Tineo, PhD, [facility] Rui Mejia, PhD, FAC[facility] Robert Napoles, PhD, [facility] Alin Santo, PhD, [facility] Judi Borges, PhD, [facility] Felipa Becker, PhD, [facility] Performed By: #### F VPCR #### [facility] [address] [address] [address] Lisa Lopez THYROGLOBULIN ABon 3 Thyroglobulin Antibody <1.0 Normal 0.0-0.9 [facility] Comment on above: Result Comment: Thyr oglobulin Antibody measured by [facility] Methodology Performed By: #### T HYGAB #### [facility] [address] [address] [address] Lisa Lopez B-2 GLYCOPROTEIN AB IGGon Beta-2 Glycoprotein I Ab, IgG <9 Normal 0-20 [facility] Comment on above: Result Comment: The reference interval reflects a 3SD or 99th percentile interval, which is thought to represent a potentially clinically significant result in accordance with the International Consensus Statement on the classification criteria for definitive antiphospholipid syndrome (APS). J Thromb Haem 2006;4:295-306. Performed By: #### B 2GPG #### [facility] [address] [address] [address] Lisa Lopez B2-GLYCOPROTEIN 1 AB IGMon 0 04-28-2022 Beta-2 Glycoprotein I Ab, IgM <9 Normal 0-32 [facility] Comment on above: Result Comment: The reference interval reflects a 3SD or 99th percentile interval, which is thought to represent a potentially clinically significant result in accordance with the International Consensus Statement on the classification criteria for definitive antiphospholipid syndrome (APS). J Thromb Haem 2006;4:295-306. Performed By: #### B GLYIGM #### [facility] [address] [address] [address] Lisa Lopez LAB TESTINGon 04-28-2022 RECV HEADER SEE SCANNED REPORT I N HPF Normal [facility] Comment on above: Performed By: #### B 2GPG #### [facility] [address] [address] [address] Lisa Lopez REV FROM REF LAB 05/15/[address] [facility] Comment on above: Performed By: #### B 2GPG #### [facility] [address] [address] [address] Lisa Lopez SENT TO REF LAB 04/28/2022 Normal [facility] Comment on above: Performed By: #### B 2GPG #### [facility] [address] [address] [address] Lisa Lopez Screen dRVVTon 04-28-2022 dRVVT Coag (PPP) [Time] 34.1 s Normal 32.0-45.7 [facility] Comment on above: Order Comment: Speci men Type: BLOOD SPECIMEN Ordering Facility: External Submitter Address: , , Performed By: #### 6 303-2 #### [facility] CLIA [id number] [address] [place] [address] [place] dRVVT Coag (PPP) [Time]on dRVVT factor substitution immediately after 1:2 addition of normal plasma Coag (PPP) [Time] 37.5 seconds Normal 32.0-45.7 [facility] Comment on above: Order Comment: Speci men Type: BLOOD SPECIMEN Ordering Facility: External Submitter Address: , , Performed By: #### 6 303-2 #### [facility] CLIA [id number] [address] [place] [address] [place] dRVVT/dRVVT.excess phospholipid Coag (PPP) [Ratio] 0.93 Normal <1.32 [facility] Comment on above: Order Comment: Speci men Type: BLOOD SPECIMEN Ordering Facility: External Submitter Address: , , Performed By: #### 6 303-2 #### [facility] CLIA [id number] [address] [place] [address] [place] ANTITHROMBIN ACTIVITYon 04-13 Antithrombin Activity 132 % Normal 75-135 [facility] Comment on above: Result Comment: Dire ct Xa inhibitor anticoagulants such as rivaroxaban, apixaban and edoxaban will lead to spuriously elevated antithrombin activity levels possibly masking a deficiency. Performed By: #### B 2GPG #### [facility] [address] [place] [address] Dr. Lisa Lopez BLOOD CULTURE ID PANELon A. baumannii Not detected Normal NOT DETECTED [facility] Comment on above: Result Comment: Prev iously reported as: [id number] On 04/29/2022 04:07 By [facility] Performed By: #### B 2GPG #### [facility] [address] [place] [address] Dr. Lisa Lopez Bacteriodes fragilis Not detected Normal NOT DETECTED [facility] Comment on above: Result Comment: Prev iously reported as: [id number] On 04/29/2022 04:07 By [facility] Performed By: #### B 2GPG #### [facility] [address] [place] [address] Dr. Lisa ABRAHAM CONTROLS PASSED Normal [facility] Comment on above: Result Comment: Prev iously reported as: [id number] On 04/29/2022 04:07 By [facility] Performed By: #### B 2GPG #### [facility] [address] [place] [address] Dr. Lisa Lopez BCIDBTHD BLOOD CULTURE BOTTLE INFORMATION Normal [facility] Comment on above: Performed By: #### B 2GPG #### [facility] [address] [place] [address] Dr. Lisa Lopez BCIDHD1 ANTIMICROBIAL RESISTANCE GENES Normal [facility] Comment on above: Performed By: #### B 2GPG #### [facility] [address] [place] [address] Dr. Lisa Lopez BCIDHD2 SEE BELOW [facility] Comment on above: Result Comment: Note : Antimicrobial resitance can occur via multiple mechanisms. A Not Detected result for the [employer] antomicrobial resistance gene assays does not indicate antimicrobial susceptibility. Subculturing is required for species identification and susceptibility testing of isolates. Performed By: #### B 2GPG #### [facility] [address] [place] [address] Dr. Lisa Lopez BCIDHD3 Positive Normal [facility] Comment on above: Performed By: #### B 2GPG #### [facility] [address] [place] [address] Dr. Lisa Lopez BCIDHD4 Negative Normal [facility] Comment on above: Performed By: #### B 2GPG #### [facility] [address] [place] [address] Dr. Lisa Lopez BCIDHD5 YEAST Normal [facility] Comment on above: Performed By: #### B 2GPG #### [facility] [address] [place] [address] Dr. Lisa Lopez Bottle Set: Set 2 [facility] Comment on above: Result Comment: Prev iously reported as: [id number] On 04/29/2022 04:07 By [facility] Performed By: #### B 2GPG #### [facility] [address] [place] [address] Dr. Lisa Lopez Bottle: Aerobic Normal [facility] Comment on above: Result Comment: Prev iously reported as: [id number] On 04/29/2022 04:07 By [facility] Performed By: #### B 2GPG #### [facility] [address] [place] [address] Dr. Lisa Lopez C. neoformans/gattii Not detected Normal NOT DETECTED [facility] Comment on above: Result Comment: Prev iously reported as: [id number] On 04/29/2022 04:07 By [facility] Performed By: #### B 2GPG #### [facility] [address] [place] [address] Dr. Lisa Lopez Ayana albicans Not detected Normal NOT DETECTED [facility] Comment on above: Result Comment: Prev iously reported as: [id number] On 04/29/2022 04:07 By [facility] Performed By: #### B 2GPG #### [facility] [address] [place] [address] Dr. Lisa Lopez Ayana auris Not detected Normal NOT DETECTED [facility] Comment on above: Result Comment: Prev iously reported as: [id number] On 04/29/2022 04:07 By [facility] Performed By: #### B 2GPG #### [facility] [address] [place] [address] Dr. Lisa Lopez Ayana glabrata Not detected Normal NOT DETECTED [facility] Comment on above: Result Comment: Prev iously reported as: [id number] On 04/29/2022 04:07 By [facility] Performed By: #### B 2GPG #### [facility] [address] [place] [address] Dr. Lisa Lopez Ayana Krusei Not detected Normal NOT DETECTED [facility] Comment on above: Result Comment: Prev iously reported as: [id number] On 04/29/2022 04:07 By [facility] Performed By: #### B 2GPG #### [facility] [address] [place] [address] Dr. Lisa Lopez Ayana Parapsilosis Not detected Normal NOT DETECTED [facility] Comment on above: Result Comment: Prev iously reported as: [id number] On 04/29/2022 04:07 By [facility] Performed By: #### B 2GPG #### [facility] [address] [place] [address] Dr. Lisa Lopez Ayana Tropicalis Not detected Normal NOT DETECTED [facility] Comment on above: Result Comment: Prev iously reported as: [id number] On 04/29/2022 04:07 By [facility] Performed By: #### B 2GPG #### [facility] [address] [place] [address] Dr. Lisa Lopez CTX-M Resistant Gene Not detected Normal NOT DETECTED [facility] Comment on above: Result Comment: Prev iously reported as: [id number] On 04/29/2022 04:07 By [facility] Performed By: #### B 2GPG #### [facility] [address] [place] [address] Dr. Lisa Lopez E. Cloacae complex Not detected Normal NOT DETECTED [facility] Comment on above: Result Comment: Prev iously reported as: [id number] On 04/29/2022 04:07 By [facility] Performed By: #### B 2GPG #### [facility] [address] [place] [address] Dr. Lisa Loepz E. faecalis Not detected Normal NOT DETECTED [facility] Comment on above: Result Comment: Prev iously reported as: [id number] On 04/29/2022 04:07 By [facility] Performed By: #### B 2GPG #### [facility] [address] [place] [address] Dr. Lisa Lopez E. faecium Not detected Normal NOT DETECTED The [facility] Comment on above: Result Comment: Prev iously reported as: [id number] On 04/29/2022 04:07 By [facility] Performed By: #### B 2GPG #### [facility] [address] [place] [address] Dr. Lisa Lopez Enterobacteriaceae Not detected Normal NOT DETECTED [facility] Comment on above: Result Comment: Prev iously reported as: [id number] On 04/29/2022 04:07 By [facility] Performed By: #### B 2GPG #### [facility] [address] [place] [address] Dr. Lisa Lopez Escherichia coli Not detected Normal NOT DETECTED [facility] Comment on above: Result Comment: Prev iously reported as: [id number] On 04/29/2022 04:07 By [facility] Performed By: #### B 2GPG #### [facility] [address] [place] [address] Dr. Lisa Lopez H. influenzae Not detected Normal NOT DETECTED [facility] Comment on above: Result Comment: Prev iously reported as: [id number] On 04/29/2022 04:07 By [facility] Performed By: #### B 2GPG #### [facility] [address] [place] [address] Dr. Lisa Lopez IMP Resistant Gene Not detected Normal NOT DETECTED [facility] Comment on above: Result Comment: Prev iously reported as: [id number] On 04/29/2022 04:07 By [facility] Performed By: #### B 2GPG #### [facility] [address] [place] [address] Dr. Lisa Lopez K. oxytoca Not detected Normal NOT DETECTED [facility] Comment on above: Result Comment: Prev iously reported as: [id number] On 04/29/2022 04:07 By [facility] Performed By: #### B 2GPG #### [facility] [address] [place] [address] Dr. Lisa Lopez K. pneumoniae Not detected Normal NOT DETECTED [facility] Comment on above: Result Comment: Prev iously reported as: [id number] On 04/29/2022 04:07 By [facility] Performed By: #### B 2GPG #### [facility] [address] [place] [address] Dr. Lisa Lopez Klebsiella aerogenes Not detected Normal NOT DETECTED [facility] Comment on above: Result Comment: Prev iously reported as: [id number] On 04/29/2022 04:07 By [facility] Performed By: #### B 2GPG #### [facility] [address] [place] [address] Dr. Lisa Lopez KPC Resistant Gene Not detected Normal NOT DETECTED [facility] Comment on above: Result Comment: Prev iously reported as: [id number] On 04/29/2022 04:07 By [facility] Performed By: #### B 2GPG #### [facility] [address] [place] [address] Dr. Lisa Lopez List. monocytogenes Not detected Normal NOT DETECTED [facility] Comment on above: Result Comment: Prev iously reported as: [id number] On 04/29/2022 04:07 By [facility] Performed By: #### B 2GPG #### [facility] [address] [place] [address] Dr. Lisa Lopez Mcr-1 Resistant Gene Not detected Normal NOT DETECTED [facility] Comment on above: Result Comment: Prev iously reported as: [id number] On 04/29/2022 04:07 By [facility] Performed By: #### B 2GPG #### [facility] [address] [place] [address] Dr. Lisa Lopez mecA/C Not detected Normal NOT DETECTED [facility] Comment on above: Result Comment: Prev iously reported as: [id number] On 04/29/2022 04:07 By [facility] Performed By: #### B 2GPG #### [facility] [address] [place] [address] Dr. Lisa Lopez mecA/C MREJ Not detected Normal NOT DETECTED [facility] Comment on above: Result Comment: Prev iously reported as: [id number] On 04/29/2022 04:07 By [facility] Performed By: #### B 2GPG #### [facility] [address] [place] [address] Dr. Lisa Lopez N. meningitidis Not detected Normal NOT DETECTED The [facility] Comment on above: Result Comment: Prev iously reported as: [id number] On 04/29/2022 04:07 By [facility] Performed By: #### B 2GPG #### [facility] [address] [place] [address] Dr. Lisa Lopez NDM Resistant Gene Not detected Normal NOT DETECTED [facility] Comment on above: Result Comment: Prev iously reported as: [id number] On 04/29/2022 04:07 By [facility] Performed By: #### B 2GPG #### [facility] [address] [place] [address] Dr. Lisa Lopez Oxa-48-like Not detected Normal NOT DETECTED [facility] Comment on above: Result Comment: Prev iously reported as: [id number] On 04/29/2022 04:07 By [facility] Performed By: #### B 2GPG #### [facility] [address] [place] [address] Dr. Lisa Lopez Proteus Not detected Normal NOT DETECTED [facility] Comment on above: Result Comment: Prev iously reported as: [id number] On 04/29/2022 04:07 By [facility] Performed By: #### B 2GPG #### [facility] [address] [place] [address] Dr. Lisa Lopez Pseud. aeruginosa Not detected Normal NOT DETECTED [facility] Comment on above: Result Comment: Prev iously reported as: [id number] On 04/29/2022 04:07 By [facility] Performed By: #### B 2GPG #### [facility] [address] [place] [address] Dr. Lisa Lopez S. maltophilia Not detected Normal NOT DETECTED [facility] Comment on above: Result Comment: Prev iously reported as: [id number] On 04/29/2022 04:07 By [facility] Performed By: #### B 2GPG #### [facility] [address] [place] [address] Dr. Lisa Lopez Salmonella Not detected Normal NOT DETECTED [facility] Comment on above: Result Comment: Prev iously reported as: [id number] On 04/29/2022 04:07 By [facility] Performed By: #### B 2GPG #### [facility] [address] [place] [address] Dr. Lisa Lopez Seratia marcescens Not detected Normal NOT DETECTED [facility] Comment on above: Result Comment: Prev iously reported as: [id number] On 04/29/2022 04:07 By [facility] Performed By: #### B 2GPG #### [facility] [address] [place] [address] Dr. Lisa Lopez Site: left ac Normal [facility] Comment on above: Result Comment: Prev iously reported as: [id number] On 04/29/2022 04:07 By [facility] Performed By: #### B 2GPG #### [facility] [address] [place] [address] Dr. Lisa Lopez Staph. aureus Not detected Normal NOT DETECTED [facility] Comment on above: Result Comment: Prev iously reported as: [id number] On 04/29/2022 04:07 By [facility] Performed By: #### B 2GPG #### [facility] [address] [place] [address] Dr. Lisa Lopez Staph. epidermidis Not detected Normal NOT DETECTED [facility] Comment on above: Result Comment: Prev iously reported as: [id number] On 04/29/2022 04:07 By [facility] Performed By: #### B 2GPG #### [facility] [address] [place] [address] Dr. Lisa Lopez Staph. lugdunensis Not detected Normal NOT DETECTED [facility] Comment on above: Result Comment: Prev iously reported as: [id number] On 04/29/2022 04:07 By [facility] Performed By: #### B 2GPG #### [facility] [address] [place] [address] Dr. Lisa Lopez Staphylococcus Not detected Normal NOT DETECTED [facility] Comment on above: Result Comment: Prev iously reported as: [id number] On 04/29/2022 04:07 By [facility] Performed By: #### B 2GPG #### [facility] [address] [place] [address] Dr. Lisa Lopez Strep. agalactiae Not detected Normal NOT DETECTED [facility] Comment on above: Result Comment: Prev iously reported as: [id number] On 04/29/2022 04:07 By [facility] Performed By: #### B 2GPG #### [facility] [address] [place] [address] Dr. Lisa Lopez Strep. pneumoniae Not detected Normal NOT DETECTED [facility] Comment on above: Result Comment: Prev iously reported as: [id number] On 04/29/2022 04:07 By [facility] Performed By: #### B 2GPG #### [facility] [address] [place] [address] Dr. Lisa Lopez Strep. pyogenes Not detected Normal NOT DETECTED [facility] Comment on above: Result Comment: Prev iously reported as: [id number] On 04/29/2022 04:07 By [facility] Performed By: #### B 2GPG #### [facility] [address] [place] [address] Dr. Lisa Lopez Streptococcus Not detected Normal NOT DETECTED [facility] Comment on above: Result Comment: Prev iously reported as: [id number] On 04/29/2022 04:07 By [facility] Performed By: #### B 2GPG #### [facility] [address] [place] [address] Dr. Lisa Lopez Maria G/Manjinder Resist. Gene Not detected Normal NOT DETECTED [facility] Comment on above: Result Comment: Prev iously reported as: [id number] On 04/29/2022 04:07 By [facility] Performed By: #### B 2GPG #### [facility] [address] [place] [address] Dr. Lisa Lopez VIM Resistant Gene Not detected Normal NOT DETECTED [facility] Comment on above: Result Comment: Prev iously reported as: [id number] On 04/29/2022 04:07 By [facility] Performed By: #### B 2GPG #### [facility] [address] [place] [address] Dr. Lisa Lopez PROTEIN C FUNC ACTIVITYon Protein C-Functional 108 % Normal 73-180 [facility] Comment on above: Performed By: #### P RCFACT #### [facility] [address] [place] [address] Dr. Lisa Lopez PROTEIN S ANTIGENon 04-27-19 23 Protein S, Free 112 % Normal 61-136 [facility] Comment on above: Performed By: #### P RTSAG #### [facility] [address] [place] [address] Dr. Lisa Lopez Protein S, Free 117 % Normal 61-136 [facility] Comment on above: Performed By: #### P RCFACT #### [facility] [address] [place] [address] Dr. Lisa Lopez Protein S, Total 103 % Normal 60-150 [facility] Comment on above: Result Comment: This test was developed and its performance characteristics determined by [facility]. It has not been cleared or approved by the Food and Drug Administration. Performed By: #### P RTSAG #### [facility] [address] [place] [address] Dr. Lisa Lopez Protein S, Total 92 % Normal 60-150 [facility] Comment on above: Result Comment: This test was developed and its performance characteristics determined by [facility]. It has not been cleared or approved by the Food and Drug Administration. Performed By: #### P RCFACT #### [facility] [address] [place] [address] Dr. Lisa Lopez ANTICARDIOLIPIN AB (ENZO) IGA /IGG/IGMon 04-26-2022 Anticardiolipin Ab,IgA,Qn <9 Normal 0-11 [facility] Comment on above: Result Comment: Nega tive: <12 Indeterminate: 12 - 20 Low-Med Positive: >20 - 80 High Positive: >80 Performed By: #### A CAQUAN #### [facility] [address] [place] [address] Dr. Lisa Lopez Anticardiolipin Ab,IgG,Qn <9 Normal 0-14 [facility] Comment on above: Result Comment: Nega tive: <15 Indeterminate: 15 - 20 Low-Med Positive: >20 - 80 High Positive: >80 Performed By: #### A CAQUAN #### [facility] [address] [place] [address] Dr. Lisa Lopez Anticardiolipin Ab,IgM,Qn <9 Normal 0-12 [facility] Comment on above: Result Comment: Nega tive: <13 Indeterminate: 13 - 20 Low-Med Positive: >20 - 80 High Positive: >80 Performed By: #### A CAQUAN #### [facility] [address] [place] [address] Dr. Lisa Lopez CBC AUTO DIFFon 04-24-2022 BASO # 0.1 103/ul Normal 0.0-0.1 [facility] Comment on above: Performed By: #### C BC #### [facility] [address] [address] [address] Lisa Lopez Basophils/100 WBC (Bld) 0.8 % Normal 0.2-2.0 [facility] Comment on above: Performed By: #### C BC #### [facility] [address] [address] [address] Lisa Lopez EO # 0.2 103/ul Normal 0.0-0.7 [facility] Comment on above: Performed By: #### C BC #### [facility] [address] [address] [address] Lisa Lopez Eosinophils/100 WBC (Bld) 2.5 % Normal 0.9-7.0 [facility] Comment on above: Performed By: #### C BC #### [facility] [address] [place] [address] Dr. Lisa Lopez Erythrocyte distribution width (RBC) [Ratio] 13.1 % Normal 11.0-15.0 [facility] Comment on above: Performed By: #### C BC #### [facility] [address] [place] [address] Dr. Lisa Lopez Hematocrit (Bld) [Volume fraction] 42.6 % Normal 36.0-48.0 [facility] Comment on above: Performed By: #### C BC #### [facility] [address] [place] [address] Dr. Lisa Lopez Hemoglobin (Bld) [Mass/Vol] 13.2 g/dL Normal 12.0-16.0 [facility] Comment on above: Performed By: #### C BC #### [facility] [address] [place] [address] Dr. Lisa Lopez IG # 0.02 10e3/ul Normal 0.00-0.03 [facility] Comment on above: Performed By: #### C BC #### [facility] [address] [place] [address] Dr. Lisa Lopez IG % 0.3 % Normal 0.0-0.5 [facility] Comment on above: Performed By: #### C BC #### [facility] [address] [place] [address] Dr. Lisa Lopez LYMPH # 2.0 103/ul Normal 1.2-3.8 [facility] Comment on above: Performed By: #### C BC #### [facility] [address] [place] [address] Dr. Lisa Lopez Lymphocytes/100 WBC (Bld) 26.4 % Normal 20.5-60.0 [facility] Comment on above: Performed By: #### C BC #### [facility] [address] [place] [address] Dr. Lisa Lopez MANUAL DIFF REQ NO Normal [facility] Comment on above: Performed By: #### C BC #### [facility] [address] [place] [address] Dr. Lisa Lopez MCH (RBC) [Entitic mass] 28.3 pg Normal 26.7-34.0 [facility] Comment on above: Performed By: #### C BC #### [facility] [address] [place] [address] Dr. Lisa Lopez MCHC (RBC) [Mass/Vol] 31.0 g/dL Normal 29.9-35.2 [facility] Comment on above: Performed By: #### C BC #### [facility] [address] [place] [address] Dr. Lisa Lopez MCV (RBC) [Entitic vol] 91.4 fL Normal 81.0-99.0 [facility] Comment on above: Performed By: #### C BC #### [facility] [address] [place] [address] Dr. Lisa Lopez MONO # 0.6 103/ul Normal 0.3-0.8 [facility] Comment on above: Performed By: #### C BC #### [facility] [address] [place] [address] Dr. Lisa Lopez Monocytes/100 WBC (Bld) 7.7 % Normal 1.7-12.0 [facility] Comment on above: Performed By: #### C BC #### [facility] [address] [place] [address] Dr. Lisa Lopez NEUT # 4.8 103/ul Normal 1.4-6.5 [facility] Comment on above: Performed By: #### C BC #### [facility] [address] [place] [address] Dr. Lisa Lopez Neutrophils/100 WBC (Bld) 62.3 % Normal 43.0-75.0 [facility] Comment on above: Performed By: #### C BC #### [facility] [address] [place] [address] Dr. Lisa Lopez Platelet mean volume (Bld) [Entitic vol] 10.2 fL Normal 9.5-13.5 [facility] Comment on above: Performed By: #### C BC #### [facility] [address] [place] [address] Dr. Lisa Lopez PLT 301 103/ul Normal 150-450 [facility] Comment on above: Performed By: #### C BC #### [facility] [address] [place] [address] Dr. Lisa Lopez RBC 4.66 106/ul Normal 4.20-5.40 [facility] Comment on above: Performed By: #### C BC #### [facility] [address] [place] [address] Dr. Lisa Lopez WBC 7.7 103/ul Normal 4.0-11.0 [facility] Comment on above: Performed By: #### C BC #### [facility] [address] [place] [address] Dr. Lisa Lopez CBC AUTO DIFFon 04-07-2022 BASO # 0.1 103/ul Normal 0.0-0.1 [facility] Comment on above: Performed By: #### B 2GPG #### [facility] [address] [place] [address] Dr. Lisa Lopez Basophils/100 WBC (Bld) 0.7 % Normal 0.2-2.0 [facility] Comment on above: Performed By: #### B 2GPG #### [facility] [address] [place] [address] Dr. Lisa Lopez EO # 0.3 103/ul Normal 0.0-0.7 [facility] Comment on above: Performed By: #### B 2GPG #### [facility] [address] [place] [address] Dr. Lisa Lopez Eosinophils/100 WBC (Bld) 2.7 % Normal 0.9-7.0 [facility] Comment on above: Performed By: #### B 2GPG #### [facility] [address] [place] [address] Dr. Lisa Lopez Erythrocyte distribution width (RBC) [Ratio] 13.0 % Normal 11.0-15.0 [facility] Comment on above: Performed By: #### B 2GPG #### [facility] [address] [place] [address] Dr. Lisa Lopez Hematocrit (Bld) [Volume fraction] 42.0 % Normal 36.0-48.0 [facility] Comment on above: Performed By: #### B 2GPG #### [facility] [address] [place] [address] Dr. Lisa Lopez Hemoglobin (Bld) [Mass/Vol] 14.0 g/dL Normal 12.0-16.0 [facility] Comment on above: Performed By: #### B 2GPG #### [facility] [address] [place] [address] Dr. Lisa Lopez IG # 0.02 10e3/ul Normal 0.00-0.03 [facility] Comment on above: Performed By: #### B 2GPG #### [facility] [address] [place] [address] Dr. Lisa Lopez IG % 0.2 % Normal 0.0-0.5 [facility] Comment on above: Performed By: #### B 2GPG #### [facility] [address] [place] [address] Dr. Lisa Lopez LYMPH # 2.1 103/ul Normal 1.2-3.8 [facility] Comment on above: Performed By: #### B 2GPG #### [facility] [address] [place] [address] Dr. Lisa Lopez Lymphocytes/100 WBC (Bld) 22.8 % Normal 20.5-60.0 [facility] Comment on above: Performed By: #### B 2GPG #### [facility] [address] [place] [address] Dr. Lisa Lopez MANUAL DIFF REQ NO Normal [facility] Comment on above: Performed By: #### B 2GPG #### [facility] [address] [place] [address] Dr. Lisa Lopez MCH (RBC) [Entitic mass] 28.1 pg Normal 26.7-34.0 [facility] Comment on above: Performed By: #### B 2GPG #### [facility] [address] [place] [address] Dr. Lisa Lopez MCHC (RBC) [Mass/Vol] 33.3 g/dL Normal 29.9-35.2 [facility] Comment on above: Performed By: #### B 2GPG #### [facility] [address] [place] [address] Dr. Lisa Lopez MCV (RBC) [Entitic vol] 84.3 fL Normal 81.0-99.0 [facility] Comment on above: Performed By: #### B 2GPG #### [facility] [address] [place] [address] Dr. Lisa Lopez MONO # 0.6 103/ul Normal 0.3-0.8 [facility] Comment on above: Performed By: #### B 2GPG #### [facility] [address] [place] [address] Dr. Lisa Lopez Monocytes/100 WBC (Bld) 6.8 % Normal 1.7-12.0 [facility] Comment on above: Performed By: #### B 2GPG #### [facility] [address] [place] [address] Dr. Lisa Lopez NEUT # 6.1 103/ul Normal 1.4-6.5 [facility] Comment on above: Performed By: #### B 2GPG #### [facility] [address] [place] [address] Dr. Lisa Lopez Neutrophils/100 WBC (Bld) 66.8 % Normal 43.0-75.0 [facility] Comment on above: Performed By: #### B 2GPG #### [facility] [address] [place] [address] Dr. Lisa Lopez Platelet mean volume (Bld) [Entitic vol] 9.6 fL Normal 9.5-13.5 [facility] Comment on above: Performed By: #### B 2GPG #### [facility] [address] [place] [address] Dr. Lisa Lopez PLT 321 103/ul Normal 150-450 [facility] Comment on above: Performed By: #### B 2GPG #### [facility] [address] [place] [address] Dr. Lisa Lopez RBC 4.98 106/ul Normal 4.20-5.40 [facility] Comment on above: Performed By: #### B 2GPG #### [facility] [address] [place] [address] Dr. Lisa Lopez WBC 9.1 103/ul Normal 4.0-11.0 [facility] Comment on above: Performed By: #### B 2GPG #### [facility] [address] [place] [address] Dr. Lisa Lopez TSHon 04-07-2022 TSH 2.113 uIU/mL Normal 0.358-3.740 [facility] Comment on above: Performed By: #### T SH #### [facility] [address] [place] [address] Dr. Lisa Lopez US PELVIS AND TRANSVAGon [...] TAMMY GARCIA Date: 2022-02-18 20:11 Normal [facility] MRI Lumbar Spine w/o + [...] by Jackie Castle on 11/18/2021 1351 Normal [facility] US Abdomen Limitedon 022 US Abdomen Limited [...] by NIKITA CORDERO on 10/10/2021 1636 Normal [facility] XR Sacrum/Coccyxon 2 XR Sacrum/Coccyx COMPARISON: none FINDINGS: There is no lytic or sclerotic bone lesion. There is no fracture or dislocation. There is no significant degenerative change. There is a metallic IUD in the pelvis. The soft tissues are within normal limits. IMPRESSION: There are no acute osseous changes Report reported and signed by NIKITA CORDERO on 09/25/2021 1017 Normal [facility] Complete Blood Counton 05-14 Erythrocyte distribution width (RBC) [Ratio] 19.7 % High 11.0-15.0 [facility] Comment on above: Performed By: #### L IPD, CBC, TSH reflex FT4, CMP #### [facility] [address], [place] [id number] Hematocrit (Bld) [Volume fraction] 35.2 % Normal 35.0-47.0 [facility] Comment on above: Performed By: #### L IPD, CBC, TSH reflex FT4, CMP #### [facility] [address], [place] [id number] Hemoglobin (Bld) [Mass/Vol] 9.7 g/dL Low 11.6-15.5 [facility] Comment on above: Performed By: #### L IPD, CBC, TSH reflex FT4, CMP #### [facility] [address], [place] [id number] MCH (RBC) [Entitic mass] 18.9 pg Low 27.0-33.0 [facility] Comment on above: Performed By: #### L IPD, CBC, TSH reflex FT4, CMP #### [facility] [address], [place] [id number] MCHC (RBC) [Mass/Vol] 27.6 g/dL Low 32.0-36.0 [facility] Comment on above: Performed By: #### L IPD, CBC, TSH reflex FT4, CMP #### [facility] [address], [place] [id number] MCV (RBC) [Entitic vol] 69 fL Low 80-100 [facility] Comment on above: Performed By: #### L IPD, CBC, TSH reflex FT4, CMP #### [facility] [address], [place] [id number] Platelet mean volume (Bld) [Entitic vol] 9.30 fL Normal 7.50-12.50 [facility] Comment on above: Performed By: #### L IPD, CBC, TSH reflex FT4, CMP #### [facility] [address], [place] [id number] Platelets (Bld) [#/Vol] 348 10*3/uL Normal 140-400 [facility] Comment on above: Performed By: #### L IPD, CBC, TSH reflex FT4, CMP #### [facility] [address], [place] [id number] RBC (Bld) [#/Vol] 5.12 10*6/uL Normal 3.90-5.20 [facility] Comment on above: Performed By: #### L IPD, CBC, TSH reflex FT4, CMP #### [facility] [address], [place] [id number] RDW-SD 47.3 fL Normal 37.0-50.0 [facility] Comment on above: Performed By: #### L IPD, CBC, TSH reflex FT4, CMP #### [facility] [address], [place] [id number] WBC (Bld) [#/Vol] 7.1 10*3/uL Normal 3.8-11.0 [facility] Comment on above: Performed By: #### L IPD, CBC, TSH reflex FT4, CMP #### [facility] [address], [place] [id number] Comprehensive Metabolic [facility] 05-14-2021 Albumin [Mass/Vol] 4.1 g/dL Normal 3.6-5.1 Anisha corado [place] [employer] Comment on above: Performed By: #### L IPD, CBC, TSH reflex FT4, CMP #### [facility] [address], [place] [id number] Albumin/Globulin [Mass ratio] 1.5 {ratio} Normal 1.0-2.5 [facility] Comment on above: Performed By: #### L IPD, CBC, TSH reflex FT4, CMP #### [facility] [address], [place] [id number] ALP [Catalytic activity/Vol] 133 U/L High 35-119 [facility] Comment on above: Performed By: #### L IPD, CBC, TSH reflex FT4, CMP #### [facility] [address], [place] [id number] ALT [Catalytic activity/Vol] 17 U/L Normal 6-33 [facility] Comment on above: Result Comment: 03/13 Female reference range changed. Performed By: #### L IPD, CBC, TSH reflex FT4, CMP #### [facility] [address], [place] [id number] Anion gap [Moles/Vol] 18 mmol/L Normal 12-20 [facility] Comment on above: Result Comment: Effe ctive 04/18/2019 reference range changed. Performed By: #### L IPD, CBC, TSH reflex FT4, CMP #### [facility] [address], [place] [id number] AST [Catalytic activity/Vol] 17 U/L Normal 9-34 [facility] Comment on above: Performed By: #### L IPD, CBC, TSH reflex FT4, CMP #### [facility] [address], [place] [id number] BUN/CREA 14 Ratio Normal 6-22 [facility] Comment on above: Performed By: #### L IPD, CBC, TSH reflex FT4, CMP #### [facility] [address], [place] [id number] Calcium [Mass/Vol] 9.1 mg/dL Normal 8.6-10.2 Anisha corado [place] [employer] Comment on above: Performed By: #### L IPD, CBC, TSH reflex FT4, CMP #### [facility] [address], [place] [id number] Chloride [Moles/Vol] 105 mmol/L Normal 98-107 [facility] Comment on above: Performed By: #### L IPD, CBC, TSH reflex FT4, CMP #### [facility] [address], [place] [id number] CO2 [Moles/Vol] 22 mmol/L Normal 20-31 [facility] Comment on above: Performed By: #### L IPD, CBC, TSH reflex FT4, CMP #### [facility] [address], [place] [id number] Creatinine [Mass/Vol] 0.6 mg/dL Normal 0.6-1.4 [facility] Comment on above: Performed By: #### L IPD, CBC, TSH reflex FT4, CMP #### [facility] [address], [place] [id number] eGFRAA 153 mL/min/1.73m2 Normal >60 [facility] Comment on above: Performed By: #### L IPD, CBC, TSH reflex FT4, CMP #### [facility] [address], [place] [id number] eGFRNAA 126 mL/min/1.73m2 Normal >60 [facility] Comment on above: Performed By: #### L IPD, CBC, TSH reflex FT4, CMP #### [facility] [address], [place] [id number] Globulin (S) [Mass/Vol] 2.8 g/dL Normal 1.9-3.7 [facility] Comment on above: Performed By: #### L IPD, CBC, TSH reflex FT4, CMP #### [facility] [address], [place] [id number] Glucose [Mass/Vol] 94 mg/dL Normal 65-99 [facility] Comment on above: Result Comment: For FASTING Glucose --- ADA reference ranges: Normal 65-99 mg/dl Prediabetes 100-125 Diabetes >/= 126 Performed By: #### L IPD, CBC, TSH reflex FT4, CMP #### [facility] [address], [place] [id number] Potassium [Moles/Vol] 4.4 mmol/L Normal 3.5-5.5 [facility] Comment on above: Performed By: #### L IPD, CBC, TSH reflex FT4, CMP #### [facility] [address], [place] [id number] Protein [Mass/Vol] 6.9 g/dL Normal 6.1-8.1 Anisha corado [place] [employer] Comment on above: Performed By: #### L IPD, CBC, TSH reflex FT4, CMP #### [facility] [address], [place] [id number] Sodium [Moles/Vol] 140 mmol/L Normal 135-146 Anisha corado [place] [employer] Comment on above: Performed By: #### L IPD, CBC, TSH reflex FT4, CMP #### [facility] [address], [place] [id number] TBIL <0.3 Normal [facility] Comment on above: Performed By: #### L IPD, CBC, TSH reflex FT4, CMP #### [facility] [address], [place] [id number] Urea nitrogen [Mass/Vol] 8 mg/dL Normal 7-25 [facility] Comment on above: Performed By: #### L IPD, CBC, TSH reflex FT4, CMP #### [facility] [address], [place] [id number] Lipid Panelon 05-14-2021 Cholesterol [Mass/Vol] 150 mg/dL Normal 125-[address] [facility] Comment on above: Result Comment: Low risk < 200mg/dL Borderline risk 201-239 mg/dl High risk > or equal to 240 Performed By: #### L IPD, CBC, TSH reflex FT4, CMP #### [facility] [address], [place] [id number] Cholesterol in HDL [Mass/Vol] 40 mg/dL Low >40 [facility] Comment on above: Result Comment: High Cardiovascular Risk HDL <40 mg/dL Low Cardiovascular Risk HDL > or equal to 60 mg/dl Performed By: #### L IPD, CBC, TSH reflex FT4, CMP #### [facility] [address], [place] [id number] Cholesterol in LDL [Mass/Vol] 81 mg/dL Normal [facility] Comment on above: Result Comment: LDL ATP III CLASSIFICATION LDL less than 100 mg/dl Optimal LDL 100-129 mg/dl Near or above optimal LDL 130-159 Borderline high LDL 160-189 High LDL greater than 189 mg/dl Very High Performed By: #### L IPD, CBC, TSH reflex FT4, CMP #### [facility] [address], [place] [id number] Cholesterol in VLDL [Mass/Vol] 29 mg/dL Normal [facility] Comment on above: Performed By: #### L IPD, CBC, TSH reflex FT4, CMP #### [facility] [address], [place] [id number] Cholesterol.total/Chol esterol in HDL [Mass ratio] 4 {ratio} Normal [facility] Comment on above: Performed By: #### L IPD, CBC, TSH reflex FT4, CMP #### [facility] [address], [place] [id number] Triglyceride [Mass/Vol] 146 mg/dL Normal 30-150 [facility] Comment on above: Result Comment: TRIG ATPIII CLASSIFICATIONS TRIG less than 150 mg/dl Normal TRIG 150-199 mg/dl Borderline High TRIG 200-500 mg/dl High TRIG greather than 500 mg/dl Very High Performed By: #### L IPD, CBC, TSH reflex FT4, CMP #### [facility] [address], [place] [id number] TSH w/ Reflex to Free T4on 0 05-14-2021 TSH 1.460 uIU/mL Normal 0.400-4.500 [facility] Comment on above: Performed By: #### L IPD, CBC, TSH reflex FT4, CMP #### [facility] [address], [place] [id number] XR Shoulder Complete Left*on 04-15-2021 XR Shoulder [...] by Neri Ann on 04/15/2021 1158 Normal [facility] XR Shoulder Complete Right*o n 04-15-2021 XR Shoulder Complete Right* Please see XR Shoulder Complete Left report dated: 04/15/2021. Report reported and signed by Neri Ann on 04/15/2021 1158 Normal [facility] Family Medicine Office/Clini c Noteon 11-23-2019 Family [...] antihistamines and cold medications safe in . [id number] she clear anything she starts with OB. Follow up with family doctor in 7-10 days, sooner if not improving as expected, ER if condition worsens significantly. Ordered: Rapid Strep POC 02611 2. Rhinitis (J31.0: Chronic rhinitis) BMI 37.0-37.9, adult (Z68.37: Body mass index (BMI) 37.0-37.9, adult) Ordered: Body Mass Index (BMI) documented 3008F Rapid Strep POC 69001 Follow-up No qualifying data available Patient Education [...] Strep POC Result: Negative (11/23/19 12:50:00) Normal [facility] Comment on above: Result Comment: Elec tronically Signed By: JASMINA MARTÍNEZ [id number]\Date and Time Signed: 11/23/19 13:21 EDT Patient Educationon 11-23-19 Patient Education Allergy and Immunology Sore Throat [...] (GERD). HOME CARE INSTRUCTIONS ? Only take kert-huh-rapeqzi medicines as directed by your caregiver. ? [...] Document Reviewed: 12/05/2012 ExitCare? Patient Information ?2013 [employer] [facility]. Normal [facility] Vital Signs Date Time Vital Sign Value Performing Clinician Facility 07-29-2023 10:01-0400 Body height 167.64 cm PHYSICIAN NO [facility] 07-29-2023 10:01-0400 Body mass index (BMI) [Ratio] 36.3 kg/m2 PHYSICIAN NO [facility] 07-29-2023 10:01-0400 Body temperature 97.8 [degF] PHYSICIAN NO [facility] 07-29-2023 10:01-0400 Body weight 102.05 kg PHYSICIAN NO [facility] 07-29-2023 10:01-0400 Diastolic blood pressure 74 mm[Hg] PHYSICIAN NO [facility] 07-29-2023 10:01-0400 Heart rate 100 /min PHYSICIAN NO [facility] 07-29-2023 10:01-0400 SaO2% (BldA) [Mass fraction] 97 % PHYSICIAN NO [facility] 07-29-2023 10:01-0400 Systolic blood pressure 122 mm[Hg] PHYSICIAN NO [facility] 04-04-2023 14:50-0500 Body height 167.64 cm Emilee Schmid Other [employer] [facility] [employer] Other 04-04-2023 14:50-0500 Body mass index (BMI) [Ratio] 37.12 kg/m2 Emilee Schmid Other [employer] Other 04-04-2023 14:50-0500 Body temperature 97.9 [degF] Emilee Schmid Other [employer] Other 04-04-2023 14:50-0500 Body weight 104.33 kg Emilee Schmid Other [employer] Other 04-04-2023 14:50-0500 Diastolic blood pressure 63 mm[Hg] Emilee Schmid Other [employer] Other 04-04-2023 14:50-0500 Respiratory rate 18 /min Emilee Schmid Other [employer] Other 04-04-2023 14:50-0500 SaO2% (BldA) [Mass fraction] 98 % Emilee Schmid Other [employer] Other 04-04-2023 14:50-0500 Systolic blood pressure 113 mm[Hg] Emilee Schmid Other [employer] Other 03-09-2023 09:10-0500 Body height 167.64 cm Yury Alegria Other [employer] Other 03-09-2023 09:10-0500 Body mass index (BMI) [Ratio] 37.12 kg/m2 Yury Alegria Other [employer] Other 03-09-2023 09:10-0500 Body temperature 98.2 [degF] Yury Alegria Other [employer] Other 03-09-2023 09:10-0500 Body weight 104.33 kg Yury Alegria Other [employer] Other 03-09-2023 09:10-0500 Diastolic blood pressure 82 mm[Hg] Yury Alegria Other [employer] Other 03-09-2023 09:10-0500 Respiratory rate 18 /min Yury Alegria Other [employer] Other 03-09-2023 09:10-0500 SaO2% (BldA) [Mass fraction] 98 % Yury Alegria Other [employer] Other 03-09-2023 09:10-0500 Systolic blood pressure 134 mm[Hg] Yury Alegria Other [employer] Other 08-13-2022 09:30-0400 Diastolic blood pressure 72 mm[Hg] PHYSICIAN NO [facility] 08-13-2022 09:30-0400 Heart rate 80 /min PHYSICIAN NO [facility] 08-13-2022 09:30-0400 Respiratory rate 18 /min PHYSICIAN NO [facility] 08-13-2022 09:30-0400 SaO2% (BldA) [Mass fraction] 99 % PHYSICIAN NO [facility] 08-13-2022 09:30-0400 Systolic blood pressure 124 mm[Hg] PHYSICIAN NO [facility] 08-13-2022 08:01-0400 Body height 170.18 cm PHYSICIAN NO [facility] 08-13-2022 08:01-0400 Body weight 104.32 kg PHYSICIAN NO [facility] 08-01-2022 10:45-0400 Body height 167.64 cm Wilberto Corona Other [employer] Other 08-01-2022 10:45-0400 Body mass index (BMI) [Ratio] 39.09 kg/m2 Wilberto Corona Other [employer] Other 08-01-2022 10:45-0400 Body weight 109.86 kg Wilberto Corona Other [employer] Other 08-01-2022 10:45-0400 SaO2% (BldA) [Mass fraction] 99 % Wilberto Corona Other [employer] Other 05-14-2022 17:30-0500 Body height 167.64 cm Wilberto Corona Other [employer] Other 05-14-2022 17:30-0500 SaO2% (BldA) [Mass fraction] 97 % Wilberto Daveky Other [employer] Other 05-07-2022 08:59-0500 Diastolic blood pressure 56 mm[Hg] PHYSICIAN NO [facility] 05-07-2022 08:59-0500 Heart rate 62 /min PHYSICIAN NO [facility] 05-07-2022 08:59-0500 Respiratory rate 18 /min PHYSICIAN NO [facility] 05-07-2022 08:59-0500 SaO2% (BldA) [Mass fraction] 99 % PHYSICIAN NO [facility] 05-07-2022 08:59-0500 Systolic blood pressure 127 mm[Hg] PHYSICIAN NO [facility] 05-07-2022 07:47-0500 Body height 170.18 cm PHYSICIAN NO [facility] 05-07-2022 07:47-0500 Body weight 108.86 kg PHYSICIAN NO [facility] 04-24-2022 16:45-0500 Body height 167.64 cm Wilberto Corona Other [employer] Other 04-24-2022 16:45-0500 Diastolic blood pressure 80 mm[Hg] Wilberto Chloe Other [employer] Other 04-24-2022 16:45-0500 SaO2% (BldA) [Mass fraction] 98 % Wilberto Daveky Other [employer] Other 04-24-2022 16:45-0500 Systolic blood pressure 124 mm[Hg] Wilberto Corona Other [employer] Other 03-27-2022 17:00-0500 Body height 167.64 cm Wilberto Corona Other [employer] Other 03-27-2022 17:00-0500 Body mass index (BMI) [Ratio] 35.51 kg/m2 Wilberto Corona Other [employer] Other 03-27-2022 17:00-0500 Body weight 99.79 kg Wilberto Corona Other [employer] Other 03-27-2022 17:00-0500 Diastolic blood pressure 74 mm[Hg] Wilberto Corona Other [employer] Other 03-27-2022 17:00-0500 Systolic blood pressure 112 mm[Hg] Wilberto Corona Other [employer] Other 12-20-2021 19:20-0400 Body height 167.64 cm Emilee Schmid Other [employer] Other 12-20-2021 19:20-0400 Body mass index (BMI) [Ratio] 37.12 kg/m2 Emilee Schmid Other [employer] Other 12-20-2021 19:20-0400 Body temperature 98.7 [degF] Emilee Schmid Other [employer] Other 12-20-2021 19:20-0400 Body weight 104.33 kg Emilee Schmid Other [employer] Other 12-20-2021 19:20-0400 Respiratory rate 18 /min Emilee Schmid Other [employer] Other 12-20-2021 19:20-0400 SaO2% (BldA) [Mass fraction] 97 % Emilee Schmid Other [employer] Other Encounters Encounter Date Encounter Type Care Provider Facility Start: 12-17-2023 End: 12-17-2023 ambulatory VINAYAK ARRIAGAM Not Available Start: 12-07-2023 End: 12-07-2023 ambulatory CHEMA GRACIE Not Available Start: 11-09-2023 End: 11-09-2023 ambulatory CHEMA GRACIE Not Available Start: 10-08-2023 End: 10-08-2023 ambulatory PAWEL MELODY Not Available Start: 09-15-2023 End: 09-15-2023 ambulatory PAWEL MELODY Not Available Start: 08-27-2023 End: 08-27-2023 ambulatory CHEMA GRACIE Not Available Start: 08-20-2023 End: 08-20-2023 ambulatory PHYSICIAN NO FAMILY Facility:[facility] Start: 08-20-2023 End: 08-20-2023 ambulatory PHYSICIAN NO [facility] Work Phone: Start: 08-20-2023 End: 08-20-2023 Departed Referred PHYSICIAN NO [facility] Start: 07-29-2023 End: 07-29-2023 ambulatory PHYSICIAN NO [facility] Work Phone: Start: 07-29-2023 End: 07-29-2023 Patient encounter procedure PHYSICIAN NO [facility] Work Phone: Start: 07-28-2023 End: 07-28-2023 ambulatory Pawel Melody Facility:[facility] Start: 07-28-2023 End: 07-28-2023 ambulatory PHYSICIAN NO [facility] Work Phone: Start: 07-28-2023 End: 07-28-2023 Departed Referred PHYSICIAN NO [facility] [place] [facility] Start: 07-27-2023 End: 07-27-2023 ambulatory PAWEL MELODY Not Available Start: 07-14-2023 End: 07-14-2023 ambulatory PAWEL MELODY Not Available Start: 07-10-2023 End: 07-10-2023 ambulatory MARTINEZ Guillaume ONEYDA Not Available Start: 06-26-2023 End: 06-26-2023 ambulatory RICH CAMARGO Not Available Start: 06-08-2023 End: 06-08-2023 ambulatory KESHA Sen WORKMAN Not Available Start: 05-25-2023 End: 05-25-2023 ambulatory PAWEL GUZMANO Not Available Start: 05-04-2023 End: 05-04-2023 ambulatory Emilee Schmid Other [employer] Other Start: 05-04-2023 Telephone encounter Emilee Schmid [facility] Start: 04-04-2023 End: 04-04-2023 ambulatory Emilee Schmid Other [employer] Other Start: 04-04-2023 Office outpatient vi sit 25 minutes Emilee Schmid [facility] Start: 03-24-2023 End: 03-24-2023 ambulatory LYNNETTE Sen RETA Not Available Start: 03-17-2023 End: 03-17-2023 ambulatory JEREMY CASTLE Not Available Start: 03-09-2023 End: 03-09-2023 ambulatory Yury Alegria Other [employer] Other Start: 03-09-2023 Office outpatient vi sit 15 minutes Yury Alegria [facility] [address] Start: 09-09-2022 End: 09-09-[address] DOCTOR GRAVES Facility: Start: 08-13-2022 (PROC) PROCEDURE Wilberto Corona [facility] Start: 08-13-2022 End: 08-13-2022 Admission to same day surgery center PHYSICIAN NO [facility] Work Phone: Start: 08-13-2022 End: 08-13-2022 ambulatory PHYSICIAN NO [facility] Work Phone: Start: 08-01-2022 End: 08-01-2022 ambulatory Wilberto Corona Other [employer] Other Start: 08-01-2022 Office outpatient vi sit 25 minutes Wilberto Corona [facility] [place] Start: 07-30-2022 End: 07-31-[address] PAWEL OLIVER . Facility:[facility] Start: 05-22-2022 End: 05-22-[address] ALEXX WILLIAMSON . Facility:[facility] Start: 05-14-2022 End: 05-14-2022 ambulatory Wilberto Corona Other [employer] Other Start: 05-14-2022 Office outpatient vi sit 15 minutes Wilberto Corona [facility] Start: 05-07-2022 (PROC) [facility] Start: 05-07-2022 End: 05-07-2022 Admission to same day surgery center PHYSICIAN NO [facility] Work Phone: Start: 05-07-2022 End: 05-07-2022 ambulatory PHYSICIAN NO [facility] Work Phone: Start: 04-28-2022 End: 04-29-[address] PAWEL OLIVER . Facility:[facility] Start: 04-24-2022 End: 04-25-[address] PAWEL OLIVER . [employer] Other Start: 04-24-2022 Office outpatient vi sit 15 minutes Wilberto Corona [facility] Start: 04-07-2022 End: 04-08-[address] PAWEL OLIVER . Facility:[facility] Start: 03-27-2022 End: 03-27-2022 ambulatory Wilberto Corona Other [employer] Other Start: 03-27-2022 Office consultation new/estab patient 60 min Wilberto Corona [facility] Start: 02-17-2022 End: 02-18-[address] TAMMY GARCIA Facility:[facility] Start: 12-20-2021 End: 12-20-2021 ambulatory Emilee Schmid Other [employer] Other Start: 12-20-2021 Office outpatient vi sit 25 minutes Emilee Schmid [facility] Procedures Date Procedure Procedure Detail Performing Clinician Start: 08-13-2022 Injection of anesthe tic agent into stellate ganglion PHYSICIAN NO FAMILY Start: 05-07-2022 Injection of anesthe tic agent into stellate ganglion PHYSICIAN NO FAMILY Plan of Treatment Date Care Activity Detail Author Start: 08-13-2022 [facility] Start: 05-07-2022 [facility] Patient Education [facility] Work Phone: Patient referral [facility] Work Phone: [facility] Payers Date Payer Category Payer Self-pay 1992 Unknown [id number] 2.16.84 [id number] 1992 Unknown [id number] 2.16.84 0.1.586812.3.579.2.593 1992 Unknown [id number] 2.16.84 0.1.904672.3.579.2.59 1992 Unknown [id number] 2.16.84 0.1.596776.3.579.2.593 1992 Unknown [id number] 2.16.84 0.1.715660.3.579.2.59 1992 Unknown [id number] 2.16.84 0.1.278693.3.579.2.593 1992 Unknown [id number] 2.16.84 0.1.736339.3.579.2.59 1992 Unknown [id number] 2.16.84 0.1.339350.3.579.2.593 1992 Unknown [id number] 2.16.84 0.1.489601.3.579.2.1258 1992 Unknown [id number] 2.16.84 0.1.448547.3.579.2.1258 1992 Unknown [id number] 2.16.84 0.1.516001.3.579.2.1258 1992 Unknown [id number] 2.16.84 0.1.917926.3.579.2.1258 1992 Unknown [id number] 2.16.84 0.1.733643.3.579.2.1258 1992 Unknown [id number] 2.16.84 0.1.637153.3.579.2.1258 1992 Unknown [id number] 2.16.84 0.1.845004.3.579.2.1258 1992 Unknown [id number] 2.16.84 0.1.378683.3.579.2.1258 1992 Unknown [id number] 2.16.84 0.1.414959.3.579.2.1258 1992 Unknown [id number] 2.16.84 0.1.858776.3.579.2.1258 1992 Unknown [id number] 2.16.84 0.1.530997.3.579.2.1258 1992 Unknown [id number] 2.16.84 0.1.426104.3.579.2.1258 1992 Unknown [id number] 2.16.840 .1.012463.3.579.2.1258 1992 Unknown [id number] 2.16.840 .1.000834.3.579.2.1258 1959 [employer] Cross Blue Shield [id number] Unknown [facility] [id number] Unknown [id number] 2.16.8 40.1.396476.3.579.2.531 Unknown [id number] 2.16.8 40.1.022786.3.579.2.531 Social History Date Type Detail Facility Unknown if ever smoked [employer] Other Sex Assigned At Sex Assigned At Bir th [employer] Other Start: 1990 Sex Assigned At Female F [facility] Goals Date Patient Goal Desired Activity /State [...] understanding and is agreeable to treatment plan [employer] Other 11-27-2023 Evaluation note* Encounter Date Diagnosis [...] symptoms. Feb, Nasal congestion (ICD-10 - R09.81) [employer] Other [facility] Encounter Date Diagnosis Assessment [...] the injury she had imaging done at [place], she states this does not show any fractures. We will proceed with a repeat ganglion impar nerve block. Risks and benefits of procedure explained to patient; patient verbalizes understanding. Jul, Sacroiliitis (ICD-10 - M46.1) Consider SI joint injections in the future if needed Jul, Other chronic pain (ICD-10 - G89.29) Follow up after procedure [employer] Other 02-01-2023 Evaluation note* Encounter Date Diagnosis [...] (ICD-10 - G89.29) Follow up as needed. [employer] Other 01-12-2023 Evaluation note* Encounter Date Diagnosis [...] - G89.29) Continue with current treatment plan. [employer] Other 12-15-2022 Evaluation note* Encounter Date Diagnosis [...] negative findings were considered in medical decision-making. [employer] Other 09-09-2022 Evaluation note* Encounter Date Diagnosis Assessment Notes [...] understanding and is agreeable to treatment plan [employer] Other Evaluation noteNo assessment information available [facility] Work Phone: Evaluation noteNo [employer] Other History general Narrative - Reported* Type Description Date Medical History Hypothyroidism Medical History Anxiety Surgical History C section x2 Hospitalization History see above [employer] Other Reason for referral (narrative)* Reason *FU 04/14/23 patie nt requests referral to ENT for ongoing ear complaints Diagnosis 1 Acute middle ear eff usion, bilateral (H65.193) Referral Organization [facility] [address] Referring Provider First Name Emilee Referring Provider Last Name Schmid Referring Provider Specialty Nurse Elvis hensleyionetomasz Referred Organization [facility] Referred Provider Martinez Call Referred Address ,[place], [place],[address] Referred Provider Specialty Otolaryngolo gy Referral Priority Routine General Notes Maico Gonzalez 04/07 11:21:55 AM > Referral received, attachments made and faxed to [facility] [employer] Other Summary Purpose Family History No Family [...] Chief Complaint Unknown Chief Complaint Unknown hives Chief Complaint Unknown hives Unknown Additional Source Comments INFORMATION SOURCE (unrecogn ized section and content) DATE CREATED AUTHOR [facility]24/2019 [facility] DATE CREATED AUTHOR AUTHOR'S ORGANIZ ATION 11/18/2021 [facility] dical Specialist DATE CREATED AUTHOR AUTHOR'S ORGANIZ ATION 05/01/2022 [facility] DATE CREATED AUTHOR AUTHOR'S ORGANIZ ATION 09/19/2022 [facility] DATE CREATED AUTHOR AUTHOR'S ORGANIZ ATION 08/27/2023 [facility] DATE CREATED AUTHOR AUTHOR'S ORGANIZ ATION 12/19/2023 [facility] dical Specialists EPIC REASON FOR VISIT (unrecogniz [...] 2023 Pawel Oliver Attending Provider Active Start: Ap 2023 End: July 28, 2023 Team Status: Inactive Member Role Status Dates PHYSICIAN NO FAMILY Primary Care Provider Active Start: July 29, 2023 End: July 29, 2023 Evangelina Chavez APRN Attending Provider Active Sta rt: July 29, 2023 End: July 29, 2023 Team Status: Inactive Member Role Status Dates PHYSICIAN NO FAMILY Primary Care Provider Active Start: August 20, 2023 End: August 20, 2023 Pawel Oliver Attending Provider Active Start: Theresa tong 2023 End: August 20, 2023 Goals (unrecognized section and content) Goals [...] BE BASED ON THE PRIMARY CLINICAL RECORDS. [employer] provides no warranty or guarantee of the accuracy or completeness of information in this document.
== END 2024-01-04 20:37 | disposition home or self-care (01) ==
LOC: LAB 20:36
PROVIDERS: Visit Provider Obstetrics & Gynecology
DX: Z01.419 Encounter for gynecological examination (general) (routine) without abnormal findings (principal)
CPT/HCPCS: 87624; 88175

== ENCOUNTER 2025-02-22 19:44 | Outpatient (REF) | payer BC, SELFPAY ==
--- OUTSIDE RECORDS SUMMARY | 2025-02-22 15:30 | XMS_ITS | Encounter Summary ---
Author Organization [facility] Address [address] [place] [address] Care Team Providers Care Modular Set Crew Member Name Role Phone Flip Woo Unavailable Martinez Vieira DO Unavailable [phone] Reason for Visit * ReasonCommentsWell Women Visit Encounter Details DateTypeDepartmentCare Team (Latest Contact Info)Sixpzhbhjan39/12/2025 3:30 PM ESTProcedure Visit [facility] [address] [address] Pawel Oliver DO [address] [place] [id number] Well woman exam with routine gynecological exam; Mood changes Social History Tobacco UseTypesPacks/DayYears UsedDateSmoking Tobacco: NeverSmokeless Tobacco: NeverAlcohol UseStandard Drinks/WeekCommentsYes1 (1 standard drink = 0.6 oz pure alcohol)Caffeine intake: 1-2 cups per day soda/popHumiliation, Afraid, Rape, and Kick questionnaireAnswerDate RecordedWithin the last year, have you been afraid of your partner or ex-partner?No10/23/2022Within the last year, have you been humiliated or emotionally abused in other ways by your partner or ex-partner?No 10/23/2022Within the last year, have you been kicked, hit, slapped, or otherwise physically hurt by your partner or ex-partner?No10/23/2022Within the last year, have you been raped or forced to have any kind of sexual activity by your part ner or ex-partner?No10/23/2022Social Connection and Isolation PanelAnswerDate RecordedIn a typical week, how many times do you talk on the phone with family, friends, or neighbors?More than three times a week10/23/2022How often do you get together with friends or relatives?Twice a week10/23/2022How often do you attend judaism or anglican services?Patient cpyzfapp89/13/2023o you belong to any clubs or organizations such as judaism groups, unions, [employer] or athletic [employer] ups, or school groups?Patient cdqzifus06/13/2023How often do you attend meetings of the clubs or organizations you belong to?Patient wthasnvr86/13/2023re you , , , , never , or living with a partner? Patient slrzhymy74/13/2023UDIT-CAnswerDate RecordedQ1: How often do you have a drink containing alcohol?2-4 times a month10/23/2022Q2: How many drinks containing alcohol do you have on a typical day when you are drinking?1 or 2 10/23/2022Q3: How often do you have six or more drinks on one occasion?Less than dujnnbf1910/23/2022Overall Financial Resource Strain (CARDIA)AnswerDate Recorded How hard is it for you to pay for the very basics like food, housing, medical care, and heating?Not hard at all10/23/2022HQ-2AnswerDate RecordedPatient Health Questionnaire-2 Tqydu71405/25/2022[facility] - Occupational Stress QuestionnaireAnswerDate RecordedDo you feel stress - tense, restless, nervous, or anxious, or unable to sleep at night because your mind is troubled all the time - these days?Only a ekkwak9610/23/2022Exercise Vital SignAnswerDate RecordedOn average, how many days per week do you engage in moderate to strenuous exercise (like a brisk walk)?3 days10/23/2022On average, how many minutes do you engage in exercise at this level?60 min10/23/2022Hunger Vital SignAnswerDate RecordedWithin the past 12 months, you worried that your food would run out before you got the money to buymore.Never true10/23/2022 Within the past 12 months, the food you bought just didn't last and you didn't have money to get more.Never true10/23/2022RAPARE - TransportationAnswerDate RecordedIn the past 12 months, has lack of transportation kept you from medical appointments or from getting medications?No10/23/2022In the past 12 months, has lack of transportation kept you from meetings, work, or from getting things needed for daily living?No10/23/2022Housing Stability Vital SignAnswerDate RecordedIn the last 12 months, was there a time when you were not able to pay the mortgage or rent on time?No10/23/2022In the last 12 months, how many places have you lived?In the last 12 months, was there a time when you did not have a steady place to sleep or slept [place] (including now)?No 10/23/2022CommentsNoSex and Gender InformationValueDate RecordedSex Assigned at BirthNot on fileLegal ThoSyolfm70/15/2023 6:40 PM EDTGender Identity Jjhvjb8109/02/2022 8:35 AM EDTSexual OrientationNot on filedocumented as of this encounter Last Filed Vital Signs Vital SignReadingTime TakenCommentsBlood Pttptuuv612/80104/24/2024 4:01 PM EST Pulse--Temperature--Respiratory Rate--Oxygen Saturation--Inhaled Oxygen Concentration--Papiqh14.5 kg (193 lb)02/22/2025 4:01 PM ESTHeight--Body Mass Index31.1506 8:53 AM EDTdocumented in this encounter Progress Notes * Annette Ordonez LPN - 02/22/2025 3:30 PM EST Reason for Appointment: Patient ID: Nancy Toney is a 34 y.o. female who presents for Well Women Visit Patient presents today for Annual Exam. MEDICATIONS Current Outpatient Medications Medication Instructions benzoyl peroxide 5 % gel Apply to face once a day, in the morning, 30 day supply estradiol (ESTRACE) 0.5 mg, Oral, Daily, Take 1 tablet by mouth for 30 days FLUoxetine (PROZAC) 10 mg, Oral, Daily ibuprofen 800 MG tablet metFORMIN XR (GLUCOPHAGE-XR) 1,000 mg, Oral, Daily with evening meal, Do not crush, chew, or split. phentermine (ADIPEX-P) 37.5 mg, Oral, Daily before breakfast spironolactone (Aldactone) 50 MG tablet Take 1 tablet, by mouth, once daily, 30 days SUMAtriptan (Imitrex) 50 MG tablet TAKE 1 TABLET BY MOUTH ONCE DAILY IF NEEDED FOR MIGRANE MAY REPEAT 1 TAB IN 2HRS IF NO RELIEF NO MORE THAN 2/24HR tretinoin (Retin-A) 0.05 % cream Apply to face, once daily at evening/night time, 30 day supply ALLERGIES Allergies Allergen Reactions Steri-Strip Compound Benzoin [Benzoin] Rash PROBLEMS Active Ambulatory Problems Diagnosis Date Noted Abnormal uterine bleeding 11/24/2022 Anxiety 11/24/2022 Hypothyroid 11/24/2022 Iron deficiency anemia 11/24/2022 Menorrhagia with irregular cycle 11/24/2022 Resolved Ambulatory Problems Diagnosis Date Noted No Resolved Ambulatory Problems Past Medical History: Diagnosis Date Abnormal uterine bleeding (AUB) Iron deficiency Mood disorder PCOS (polycystic ovarian syndrome) Pelvic pain [place] teeth extracted 2008 HISTORY PAST MEDICAL HISTORY SOCIAL HISTORY Past Medical History: Diagnosis Date Abnormal uterine bleeding (AUB) Anxiety Hypothyroid Iron deficiency Menorrhagia with irregular cycle Mood disorder PCOS (polycystic ovarian syndrome) Pelvic pain [place] teeth extracted 2008 Social History Tobacco Use Smoking status: Never Smokeless tobacco: Never Substance Use Topics Alcohol use: Yes Alcohol/week: 1.0 standard drink of alcohol Types: 1 Standard drinks or equivalent per week Comment: Caffeine intake: 1-2 cups per day soda/pop Drug use: Never FAMILY HISTORY Family History Problem Relation Name Age of Onset Lymphoma Father Jr hannah Cancer Father Jr hannah No Known Problems Sister No Known Problems Son No Known Problems Daughter SURGICAL HISTORY Past Surgical History: Procedure Laterality Date SECTION, LOW TRANSVERSE 05/22/19 & 04/02/20 DILATION AND CURETTAGE OF UTERUS ROBOTIC ASSISTED HYSTERECTOMY 08/20/2023 [place] Eb[place] hysterectomy WISDOM TOOTH EXTRACTION REVIEW OF SYSTEMS Review of Systems: Review of Systems Constitutional: Negative. HENT: Negative. Eyes: Negative. Respiratory: Negative. Cardiovascular: Negative. Gastrointestinal: Negative. Genitourinary: Negative. Musculoskeletal: Negative. Skin: Negative. Neurological: Negative. All other systems reviewed and are negative. Hematological: Negative. Endocrine: Negative. Allergic/Immunologic: Negative. OBJECTIVE Objective: Physical Exam Constitutional: Appearance: Normal appearance. She is well-developed. Genitourinary: Vulva normal. Vaginal cuff intact. Cervix is absent. Uterus is absent. Breasts: Breasts are soft. Right: Normal. Left: Normal. Cardiovascular: Rate and Rhythm: Normal rate and regular rhythm. Abdominal: General: Bowel sounds are normal. There is no distension. Palpations: Abdomen is soft. Tenderness: There is no abdominal tenderness. There is no guarding or rebound. Musculoskeletal: General: No swelling. Normal range of motion. Right lower leg: No edema. Left lower leg: No edema. Neurological: Mental Status: She is alert and oriented to person, place, and time. Skin: General: Skin is warm and dry. Psychiatric: Mood and Affect: Mood normal. Behavior: Behavior normal. Vitals and nursing note reviewed. Exam conducted with a insights strategist present. Vitals: Estimated body mass index is 31.15 kg/m?? as calculated from the following: Height as of 09/22/24: 5' 6 . Weight as of this encounter: 193 lb. BP: 124/80 No LMP recorded (lmp unknown). Patient has had a hysterectomy. ASSESSMENT & PLAN ICD-10-CM 1. Well woman exam with routine gynecological exam Z01.419 Pap Smear HPV DNA probe, amplified Orders Placed This Encounter Procedures HPV DNA probe, amplified Annual Wellness Exam (Post Hysterectomy): Patient presents today for routine annual exam. Patient states she has no current complaints. Patients vitals were reviewed and within normal limits. Growth and development is noted to be appropriate for age. Menstrual history is noted to be obsolete due to patients history of hysterectomy. No mental health concerns was expressed. Pap Smear: Speculum was inserted into the vagina and pap was obtained without difficulty. HPV testing was performed per guidelines. Patient was advised that pap results could take anywhere from 7 to 10 days to receive and our office will reach out to the patient with those once we have them. Patient can also view results via [employer]. I reinforced importance of condom use for STI prevention. Patient declined cultures to be performed with today's visit. Breast Exam: Upon examination, clinical breast exam was noted to be normal. Patient was counseled on breast self-awareness, including the importance of knowing what is normal for her own breasts and promptly reporting any changes such as new lumps, skin dimpling, nipple discharge, or pain. Screening mammogram recommended annually beginning at age 40 or earlier if risk factors are present. Discussed signs and symptoms of breast cancer and when to seek medical attention. Answered all patient questions. Follow Up: Patient is to return to our office in one year for annual exam unless needed otherwise. Documented by Annette Ordonez LPN on behalf of: Pawel Oliver DO documented in this encounter Plan of Treatment NameTypePriorityAssociated DiagnosesOrder SchedulePap SmearPathology and CytologyRoutine Well woman exam with routine gynecological exam Ordered: 02/22/2025HPV DNA probe, amplifiedMicrobiologyRoutine Well woman exam with routine gynecological exam Ordered: 02/22/2025documented as of this encounter Visit Diagnoses Diagnosis Well woman exam with routine gynecological exam Routine gynecological examination Mood changes Unspecified episodic mood disorder documented in this encounter Care Teams Team MemberRelationshipSpecialtyStart DateEnd Date Martinez Vieira DO [address] [place] [address] PCP - [facility]05/14/24 Flip Woo PA [address] [place] [address] Physician AssistantFamily Medicine07/24/23documented as of this encounter
--- OUTSIDE RECORDS SUMMARY | 2025-02-22 19:47 | XMS_ITS | CCD ---
Author Organization [facility] Care Team Providers Care Police Communications Dispatcher Name Role Phone Emilee Schmid Unavailable MD Wilberto Corona Attending Provider NO FAMILY, PHYSICIAN Primary Care Provider Unava ilWilberto Etienne Unavailable NO FAMILY, PHYSICIAN Primary Care Provider Unava ilMD Wilberto Etienne Attending Provider MELODY ., DR FERREIRA Attending Unavailable RAHDA, DR TAMMY Eng Consulting Unavailable MISC, DR [...] e MISC, DR DIAS Primary Care Unavailable NEFCY, PETER Consulting Unavailable HUYNE, DR DIAS Primary Care Unavailable MELODY ., DR FERREIRA Consulting Unavailable MELODY ., DR FERREIRA Attending Unavailable MELODY ., DR FERREIRA Admitting Unavailable Yury Alegria Unavailable NO FAMILY, PHYSICIAN Primary Care Provider Unava ilable Yareli Olivery Attending Provider Melody, Pawel Attending Unavailable NO FAMILY, PHYSICIAN Primary Care Unavailable Melody, Pawel Admitting Unavailable NO FAMILY, PHYSICIAN Primary Care Unavailable Melody, Pawel Admitting Unavailable Melody, Pawel Attending Unavailable Martinez Vieira DO Unavailable Flip Galvan Unavailable Martinez Vieira DO Unavailable MICAELA IBRAHIM Attending Unavailable VINAYAK WALLS Attending Unavailable PAWEL OLIVER Attending Unavailable PAWEL OLIVER Attending Unavailable VINAYAK WALLS Attending Unavailable PAWEL OLIVER Attending Unavailable NIC WALLSE Attending Unavailable PAWEL OLIVER Attending Unavailable Allergies Allergy ClassificationReported Allergen(s)Allergy TypeDate of OnsetReaction(s) Facility (20 sources)benzoin resinDrug Dgosvnm09-27-6943OrrqZFPU Healthcare (2 sources)Benzoin CompoundPropensity to adverse wwagikrwm25-63-5195LbxhKQIQ Healthcare Medications Current Medications MedicationDrug Class(es)DatesSig (Normalized)Sig (Original)adapalene 0.001 mg/mg / benzoyl peroxide 0.025 mg/mg topical gel (20 sources)RetinoidStart: 11-09-2023 End: 26-66-4616Mkyeghuyo-Benzoyl Peroxide 0.1-2.5 % gel Indications: Acne, unspecified acne type Apply pea-size amount to T-zone, chin and problem areas nightly. 45 g 2 11/09/2023 11/04/2024 Discontinued (Therapy completed) amoxicillin 500 mg oral capsule (1 source)Penicillin-class Antibacterialtake 1 capsule by mouth every eight hoursAmoxicillin 500 MG 1 capsule Orally Three times a day Activebenzoyl peroxide 0.05 mg/mg topical gel (20 sources)Start: 12-17-2023 End: 25-35-4565rslhthx peroxide 5 % gel Indications: Acne vulgaris Apply to face once a day, in the morning, 30 day supply 42 g 11 11/04/2024 Activecefdinir 300 mg oral capsule (1 source)Cephalosporin AntibacterialStart: 82-51-3982sylv 1 capsule by mouth every twelve hoursCefdinir 300 MG 1 capsule Orally twice a day for 7 days Feb, ActiveDepo-Provera 400 MG/ML (3 sources)Depo-Provera 400 MG/ML as directed Intramuscular ActiveDesogestrel / Ethinyl Estradiol (5 sources)Progestin, EstrogenStart: 59-98-0498Jnoltlqxibp-Ethinyl Estradiol (Apri) 0.15-0.03 mg tablet Active 1 TAB PO Daily July 29, 2023 12:00amtake 1 tablet by mouth every twenty-four hoursApri 0.15-30 MG-MCG 1 tablet Orally Once a day Activeestradiol 0.5 mg oral tablet (18 sources)EstrogenStart: 02-17-2024 End: 06-88-1744czpz 1 tablet by mouth once dailyestradiol (Estrace) 0.5 MG tablet Indications: Hormone imbalance Take 1 tablet (0.5 mg) by mouth Daily Take 1 tablet by mouth for 30 days 90 tablet 2 03/22/2024 Activefluticasone propionate 0.05 mg/actuat metered dose nasal spray (9 sources)CorticosteroidStart: 97-01-5108cvff 1 spray(s) nasal route twice dailyFluticasone Propionate 50 MCG/ACT 1 spray in each nostril Nasally Twice a day for 14 days Feb, Activeibuprofen 800 mg oral tablet (20 sources)Nonsteroidal Anti-inflammatory DrugStart: 88-34-6893kpkfiagbd 800 MG tablet 07/21/2022 Xtofwa49 hr metFORMIN hydrochloride 500 mg extended release oral tablet (20 sources)BiguanideStart: 01-04-2024 End: 08-57-1648fsxd 2 tablets by mouth every twenty-four hours at mealtime metFORMIN XR (Glucophage-XR) 500 MG 24 hr tablet Indications: Encounter for weight management Take 2 tablets (1,000 mg) by mouth in the evening. Take with meals Do not crush, chew, or split. 60 tablet 11 09/22/2024 ActiveStart: 11-03-2023 End: 18-38-5644astx 1 tablet by mouth every twenty-four hours at mealtime metFORMIN XR (Glucophage-XR) 500 MG 24 hr tablet Indications: Encounter for weight management Take 1 tablet (500 mg) by mouth in the evening. Take with meals Do not crush, chew, or split. 30 tablet 11 11/03/2023 01/04/2024 Discontinued (Reorder)methylPREDNISolone acetate 20 mg/ml injectable suspension (2 sources)CorticosteroidStart: 69-41-9775Ouzdsnksxeyhpifezk Acetate (Depo- Medrol) 20 mg/mL suspension Active 20 MG INFILTRATN EVERY 4 WEEKS July 29, 2023 12:00amphentermine hydrochloride 37.5 mg oral tablet (20 sources)Sympathomimetic Amine AnorecticStart: 11-09-2023 End: 84-74-9784cuto 1 tablet by mouth before mealtimephentermine (Adipex-P) 37.5 MG tablet Indications: Encounter for weight management Take 1 tablet (37.5 mg) by mouth in the morning. Take before meals. 60 tablet 12/14/2024 02/12/2025 ActivepredniSONE 20 mg oral tablet (4 sources)Start: 87-53-8497Nrjuajthxr Active 20 MG PO Daily July 29, 2023 12:00am Take 3 pills x3 days, 2 pills x3 days,1 pill x 3 daysStart: 04-04-2023 take 1 tablet by mouth every twelve hoursprednisone 20 MG 1 tablet Orally BID for 5 Mar, ActiveSemaglutide (2 sources)Start: 20-85-9078dxjh 7 mg by mouth once dailySemaglutide Active 7 MG PO Daily July 29, 2023 12:00amspironolactone 50 mg oral tablet (20 sources)Aldosterone AntagonistStart: 06-21-2024 End: 30-82-7271ppji 1 tablet by mouth once dailyspironolactone (Aldactone) 50 MG tablet Indications: Acne vulgaris Take 1 tablet, by mouth, once daily, 30 days 30 tablet 11 11/04/2024 ActiveStart: 12-17-2023 End: 80-79-2338dgux 1 tablet by mouth once dailyspironolactone (Aldactone) 50 MG tablet Indications: Acne vulgaris Take 1 tablet, by mouth, once daily, 30 days 30 tablet 3 03/17/2024 ActiveSUMAtriptan 50 mg oral tablet (20 sources)Serotonin-1b and Serotonin-1d Receptor AgonistStart: 19-25-2112uvto 1 tablet by mouth once daily, then take 1 tablet by mouth every two hours SUMAtriptan (Imitrex) 50 MG tablet Indications: Migraine without aura and without status migrainosus, not intractable TAKE 1 TABLET BY MOUTH ONCE DAILY IF NEEDED FOR MIGRANE MAY REPEAT 1 TAB IN 2HRS IF NO RELIEF NO MORE THAN 2/24HR 9 tablet 01/26/2023 Activetretinoin 0.5 mg/ml topical cream (20 sources)RetinoidStart: 06-21-2024 End: 38-56-8280yoxqqtzsq (Retin-A) 0.05 % cream Indications: Acne vulgaris Apply to face, once daily at evening/night time, 30 day supply 45 g 11 11/04/2024 ActiveStart: 12-17-2023 End: 08-91-7408xzzmjajzr (Retin-A) 0.025 % cream Indications: Acne vulgaris Apply to face every evening as tolerated/30 day supply 20 g 11 12/17/2023 11/04/2024 Discontinued (Dose adjustment) Completed/Discontinued Medications MedicationDrug Class(es)DatesSig (Normalized)Sig (Original)cetirizine hydrochloride 10 mg oral tablet (8 sources)Histamine-1 Receptor AntagonistStart: 22-89-1710vhsb 1 tablet by mouth every twelve hoursCetirizine HCl 10 MG 1 tablet Orally Twice a day for 14 days Dec, Not-Takingcitalopram 20 mg oral tablet (8 sources)Serotonin Reuptake InhibitorCitalopram Hydrobromide 20 MG Oral for 90 Not-TakingDiclofenac (3 sources)Nonsteroidal Anti-inflammatory DrugStart: 56-81-7848Ofcwxqzn 1 % as directed Externally 1-2 grams every 6-8 hours as needed for 30 days Jul, Not-TakingStart: 80-73-6433Qwzlsadu 1 % as directed Externally 1-2 grams every 6-8 hours as needed for 30 days Jul, ActiveIron (8 sources)Iron Not-TakingIron ActiveLevonorgestrel (8 sources)Progestin, Progestin-containing Intrauterine DeviceMirena Not-Taking Mirena Activelevothyroxine sodium 0.075 mg oral tablet (13 sources)l-ThyroxineStart: 05-07-2022 End: 61-60-6207azex 75 ug by mouth once dailyLevothyroxine Discontinued 75 MCG PO Daily May 07, 2022 1:00am July 29, 2023 10:00amLevothyroxine Sodium 75 MCG Oral for 90 Not-TakingMegestrol (7 sources)ProgestinMegace ES Not-TakingMegace ES Active Problems Active Problems Problem ClassificationProblemDateDocumented DateEpisodic/Chronic Administrative/social admission (9 sources)Patient encounter status; Translations: [Persons encountering health services in other specified circumstances]74-10-1719FpsvsnazGcuzobt disorders (20 sources)Anxiety; Translations: [Anxiety disorder, unspecified]Onset: 540744-11-4788VhvomvwY Codes: Fall (1 source)Fall (on) (from) other stairs and steps, initial encounter; Translations: [FALL ON FROM OTH STAIRS STEPS INIT]Onset: 77-01-6906Tfhlqojn Menstrual disorders (20 sources)Excessive and frequent menstruation with irregular cycle; Translations: [Menometrorrhagia]Onset: 73-18-6208GkacyvxTlzqx and unspecified benign neoplasm (4 sources)Dermatofibroma; Translations: [Other benign neoplasm of skin, unspecified]84-67-5638NksgmjxtCsihl and unspecified benign neoplasm (2 sources)Melanocytic nevi of other parts of face; Translations: [Benign neoplasm of skin of other and unspecified parts of face]63-14-0190WfdxvzcfZkbtk and unspecified benign neoplasm (2 sources)Multiple benign melanocytic nevi ; Translations: [Melanocytic nevi of right upper limb, including shoulder]08-87-8552FfegpvayWjfrs endocrine disorders (2 sources)Polycystic ovary syndrome; Translations: [Polycystic ovarian syndrome]49-97-7098XnlrmmiBltcr endocrine disorders (2 sources)Disorder of endocrine system; Translations: [Endocrine disorder, unspecified]57-63-0899XbhoiaepLuxjt female genital disorders (4 sources)Abnormal uterine and vaginal bleeding, unspecified; Translations: [ABNORMAL UTERINE VAGINAL BLEED UNS]Onset: 00-38-0314IwuwyqgBlnqe female genital disorders (20 sources)Abnormal uterine bleeding; Translations: [Abnormal uterine and vaginal bleeding, unspecified]Onset: 141255-46-8726QlzprbsHbcjs nervous system disorders (9 sources)Chronic pain; Translations: [Other chronic pain]ChronicOther nervous system disorders (4 sources)Other chronic painChronicOther nutritional; endocrine; and metabolic disorders (6 sources)Weight increased; Translations: [Abnormal weight gain]03-28-2024 EpisodicOther screening for suspected conditions (not mental disorders or infectious disease) (4 sources)Encounter for screening for malignant neoplasm of cervix; Translations: [ENC SCREENING MALIG NEOPLASM CERV]Onset: 39-22-1903LogjjsztCxygq skin disorders (6 sources)Acne vulgaris; Translations: [Acne vulgaris]03-32-3587GrsthzewDjgba skin disorders (2 sources)Lentiginosis; Translations: [Other melanin hyperpigmentation] 90-07-5772XrispcanOsrtn upper respiratory disease (1 source)Nasal congestionEpisodicOtitis media and related conditions (3 sources)Other acute nonsuppurative otitis media, bilateral; Translations: [Acute suppurative otitis media without spontaneous rupture of ear drum, right ear]Onset: 12-20-2021 Resolved: 43-94-5128GnoeuggjRvcsruk cyst (1 source)Unspecified ovarian cyst, right side; Translations: [UNSPECIFIED OVARIAN CYST RIGHT SIDE]Onset: 13-92-2402CupqinydVkpxuyqizxk; intervertebral disc disorders; other back problems (13 sources)Inflammation of sacroiliac joint; Translations: [Sacroiliitis, not elsewhere classified]ChronicSpondylosis; intervertebral disc disorders; other back problems (7 sources)Sacrococcygeal disorders, not elsewhere classified; Translations: [SACROCOCCYGEAL DISORDERS NEC]Onset: 91-95-4443NlbtpljgEtdjgedzafc injury; contusion (1 source)Contusion of lower back and pelvis, initial encounter; Translations: [CONTUSION LOWER BACK PELVIS INITIAL]Onset: 27-03-5415CbbmvswiZrwywdq disorders (20 sources)Hypothyroidism, unspecified; Translations: [Hypothyroidism]Onset: 14-95-2203XrvbnhvDtuww infection (1 source)COVID-19; Translations: [COVID-19]Onset: 05-26-2022 Past or Other Problems Problem ClassificationProblemDateDocumented DateEpisodic/ChronicCardiac dysrhythmias (1 source)Palpitations; Translations: [PALPITATIONS]Onset: 54-57-1342Bubmmvql Deficiency and other anemia (20 sources)Iron deficiency anemia; Translations: [Iron deficiency anemia, unspecified]Onset: 989983-41-7146SowznxwlZexysplmewi chest pain (4 sources)Other chest pain; Translations: [OTHER CHEST PAIN]Onset: 05-22-2022 EpisodicOther and unspecified benign neoplasm (2 sources)Melanocytic nevus of trunk; Translations: [Melanocytic nevi of trunk] 01-88-7064JppgxmqgNekqb nutritional; endocrine; and metabolic disorders (1 source)Weight gain; Translations: [Abnormal weight gain]42-56-8649Ipwfeots Other skin disorders (2 sources)Lentigo simplex; Translations: [Other melanin hyperpigmentation] 25-12-8052Zinkuawa Results Test NameValueInterpretationReference RangeFacilityIGP,APTIMA HPV,AGE GDLNon 66-66-8656VXO GDLN ACOG TESTINGNote.NOMS HealthcareComment on above:TESTS RESULT FLAG UNITS REF RANGE LAB Clinician Provided Cytology Information Source.............Vagina No. of containers..01 ThinPrep Vial Age Algo ACOG Linsey... 30-65 01 FLAG LEGEND: L-Low Normal,H-High Normal,LL-Alert Low,HH-Alert High <-Panic Low,>-Panic High,A-Abnormal,AA-Critical Abnormal Performed at: 01 =[address] [place] [address] Trudy Tidwell MD, HPV APTIMANegativeNegativeNOMS HealthcareComment on above:This nucleic acid amplification test detects fourteen high- risk HPV types (16,18,31,33,35,39,45,51,52,56,58,59,66,68) without differentiation. Performed at: =[address] [id number] Machine Farmworker: Trudy Tidwell MD, Phone: [phone] Performed at: [address] [id number] Machine Farmworker: Trudy Tidwell MD, Phone: [phone] IGP, APTIMA HPV, RFX 16/18,45Note.NOMS HealthcareComment on above:TESTS RESULT FLAG UNITS REF RANGE LAB DIAGNOSIS: 02 NEGATIVE FOR INTRAEPITHELIAL LESION OR MALIGNANCY. Specimen adequacy: 02 Satisfactory for evaluation. No endocervical component is identified. Performed by: Esthela Damian Traffic Observer (ASCP) . 02 Note: Note 02 The Pap smear is a screening test designed to aid in the detection of premalignant and malignant conditions of the uterine cervix. It is not a diagnostic procedure and should not be used as the sole means of detecting cervical cancer. Both false-positive and false-negative reports do occur. Test Methodology: Note 02 This liquid based ThinPrep(R) pap test was screened with the use of an image guided system. HPV Genotype Reflex Note 02 Criteria not met, HPV Genotype not performed. FLAG LEGEND: L-Low Normal,H-High Normal,LL-Alert Low,HH-Alert High <-Panic Low,>-Panic High,A-Abnormal,AA-Critical Abnormal Performed at: [address] [address] Trudy Tidwell MD, SPATULA-ALONE VAGINA CLINISYNCNOMS Wilson HealthLon 05-20-1836BKnvqurod: [id number] Received: 08/21/231357 Status: JOSE MIGUEL Francisco Num: [id number] Spec Type: Surgical Subm Dr: Pawel Oliver Tissues: A Uterus w/ or w/o tubes ovaries except neoplastic or prolap (UTERUS, BILAT Procedures: HE/12, Gross/Micro L5 Age/ Patient Sex Location Account Attending Physician Nancy Toney 32/F [facility] [id number] Pawel Oliver SPEC NUM: [id number] RECD: 08/21/23 STATUS: JOSE MIGUEL FRANCISCO NUM: [id number] RAGHU: 08/20/[address]: Pawel Oliver ENTERED: 08/21/23 [facility] DR: Marcie Chavira SPEC TYPE: Surgical DEPT: SHIRA GREGORIO ORDERED: [...] #1 and #2. Tube #1 measures 5.3 Specimen: [id number] Received: 08/21/23 Status: JOSE MIGUEL Francisco Num: [id number] Spec Type: Surgical Subm Dr: Pawel Oliver Tissues: A Uterus w/ or w/o tubes ovaries except neoplastic or prolap (UTERUS, BILAT Procedures: , Gross/Micro L5 Patient: Nancy Toney [id number] (Continued) Specimen: [id number] Received: 08/21/23 (Continued) Gross Description (Continued) Signed (signature on file) Nadya Lopez MD 08/25/23 1939 Specimen: [id number] Received: 08/21/23 Status: JOSE MIGUEL Francisco Num: [id number] Spec Type: Surgical Subm Dr: Pawel Oliver Tissues: A Uterus w/ or w/o tubes ovaries except neoplastic or prolap (UTERUS, BILAT Procedures: , Gross/Micro L5 Patient: Nancy Toney [id number] (Continued) Specimen: [id number] Received: 08/21/23 (Continued) Gross Description (Continued) cm [...] unremarkable luminal centers lined by zendejas mucosa. Bridge Painter sections submitted as follows: A1: Anterior cervix A2: Posterior cervix A3-A4: Anterior endomyometrium A5-A6: Posterior endomyometrium A7: Fallopian tube #1 A8: Fallopian tube #2 Clinical history: Menorrhagia, pelvic pain TW CPT Codes 86041 Specimen: [id number] Received: 08/21/23 Status: JOSE MIGUEL Francisco Num: [id number] Spec Type: Surgical Subm Dr: Pawel Oliver Tissues: A Uterus w/ or w/o tubes ovaries except neoplastic or prolap (UTERUS, (more content not included)...NormalThe [facility] Physician GroupLon 07-27-2023L Specimen: [id number] Received: 07/28/23 Status: JOSE MIGUEL Francisco Num: [id number] Spec Type: Surgical Subm Dr: Pawel Oliver Tissues: A Endometrium - Biopsy (ENODM BX) Procedures: HE/2, Gross/Micro L4 Age/ Patient Sex Location Account Attending Physician Nancy Toney 32/F [facility] [id number] Pawel Melody SPEC NUM: [id number] RECD: 07/28/23 STATUS: JOSE MIGUEL STEWARDLakhsmi NUM: [id number] RAGHU: 07/27/23- SUBM DR: Pawel Oliver ENTERED: 07/28/[address] [facility] [address]: Fan,Lab SPEC TYPE: Surgical DEPT: SHIRA GREGORIO ENTERED BY: [id number] RECV BY: [id number] ORDERED: HE/2, Gross/Micro L4 ORDERED: HE/2, Gross/Micro [...] history: Menorrhagia with irregular cycle CPT Codes 71629 Specimen: [id number] Received: 07/28/23 Status: JOSE MIGUEL Francisco Num: [id number] Spec Type: Surgical Subm Dr: Pawel Oliver Tissues: A Endometrium - Biopsy (ENODM BX) Procedures: HE/2, Gross/Micro L4 Patient: ColtonmayuriNancy [id number] (Continued) Signed (signature on file) Oscar Quezada MD 07/30/[address] [place] [address] Physician GroupHCG ( test) IA.rapid Ql (U)Ordered By: Wilberto Corona on 52-54-7912FDT ( test) Ql (U)Negative [facility]US [facility] TRANSVAGon 03-79-6141FR PELVIS AND TRANSVAGEXAMINATION: US PELVIS AND TRANSVAG HISTORY: Excessive menstruation [...] Electronically authenticated by: TAMMY GARCIA Date: 2022-07-30 19:20[facility]XR SACRUM_COCCYXon 88-10-6739DL SACRUM_COCCYXEXAM: XR SACRUM_COCCYX TECHNIQUE: AP, angled AP and lateral views sacrum and coccyx HISTORY: Unspecified fall COMPARISON: None. FINDINGS: No fracture or dislocation. Soft tissues are unremarkable. No arthritic changes. IMPRESSION: No fracture. Electronically authenticated by: ALMA CROFT Date: 2022-07-30 18:51[facility] HospitalCBC AUTO DIFFon 54-20-6575IZBO #0.0 103/ulNormal0.0-0.1[facility]opathic HospitalComment on above:Performed By: #### PRCFACT #### [facility] [address] [place] [address] Dr. Lisa LopezBasophils/100 WBC (Bld)0.6 %Normal0.2-2.0[facility] Comment on above:Performed By: #### PRCFACT #### [facility] [address] [place] [address] Dr. Lisa Solorio #0.1 103/ulNormal0.0-0.7The [facility] HospitalComment on above: Performed By: #### PRCFACT #### [facility] [address] [place] [address] Dr. Lisa Michaelsosinophils/100 WBC (Bld)1.9 %Normal0.9-7.0The [facility] Comment on above:Performed By: #### PRCFACT #### [facility] [address] [place] [address] Dr. Lisa Michaelsrythrocyte distribution width (RBC) [Ratio]13.2 %Jjtwrc97.0-15.0 The [facility] HospitalComment on above:Performed By: #### PRCFACT #### [facility] [address] [place] [address] Dr. Lisa Barreraatocrit (Bld) [Volume fraction]41.9 %Rgpssj55.0-48.0The [facility] HospitalComment on above:Performed By: #### PRCFACT #### [facility] [address] [place] [address] Dr. Lisa LopezHemoglobin (Bld) [Mass/Vol]13.9 g/iAWsycou87.0-16.0The [facility] HospitalComment on above:Performed By: #### PRCFACT #### [facility] [address] [place] [address] Dr. Lisa Thorpe #0.02 10e3/ulNormal0.00-0.03The [facility] HospitalComment on above:Performed By: #### PRCFACT #### [facility] [address] [place] [address] Dr. Lisa Thorpe %0.3 %Normal0.0-0.5The [facility] HospitalComment on above: Performed By: #### PRCFACT #### [facility] [address] [place] [address] Dr. Lisa Rivera #0.5 103/ulCritically low1.2-3.8The [facility] Comment on above:Performed By: #### PRCFACT #### [facility] [address] [place] [address] Dr. Lisa Lawshocytes/100 WBC (Bld)6.2 %Critically low20.5-60.0The [facility] HospitalComment on above:Performed By: #### PRCFACT #### [facility] [address] [place] [address] Dr. Lisa LukeUAL DIFF REQNONormalThe [facility] HospitalComment on above: Performed By: #### PRCFACT #### [facility] [address] [place] [address] Dr. Lisa Escamilla (RBC) [Entitic mass]28.0 ifPqzsdi06.7-34.0The [facility] HospitalComment on above:Performed By: #### PRCFACT #### [facility] [address] [place] [address] Dr. Lisa Lambert (RBC) [Mass/Vol]33.2 g/fWLplxqn02.9-35.2The [facility] HospitalComment on above:Performed By: #### PRCFACT #### [facility] [address] [place] [address] Dr. Lisa LambertV (RBC) [Entitic vol]84.5 aKPqnxpf87.0-99.0The [facility] HospitalComment on above:Performed By: #### PRCFACT #### [facility] [address] [place] [address] Dr. Lisa Galicia #0.5 103/ulNormal0.3-0.8The [facility] HospitalComment on above:Performed By: #### PRCFACT #### [facility] [address] [place] [address] Dr. Lisa Fosterocytes/100 WBC (Bld)6.7 %Normal1.7-12.0[facility] Comment on above:Performed By: #### PRCFACT #### [facility] [address] [place] [address] Dr. Lisa Lopez #6.1 103/ulNormal1.4-6.5The [facility] HospitalComment on above:Performed By: #### PRCFACT #### [facility] [address] [place] [address] Dr. Lisa Zhangophils/100 WBC (Bld)84.3 %Critically high43.0-75.0The [facility] HospitalComment on above:Performed By: #### PRCFACT #### [facility] [address] [place] [address] Dr. Lisa Sheltonlet mean volume (Bld) [Entitic vol]9.5 fLNormal9.5-13.5The [facility] HospitalComment on above:Performed By: #### PRCFACT #### [facility] [address] [place] [address] Dr. Lisa LopezPLT260 103/btRsowek219-311Wpi [facility] HospitalComment on above: Performed By: #### PRCFACT #### [facility] [address] [place] [address] Dr. Lisa LopezRBC4.96 106/ulNormal4.20-5.40The [facility] HospitalComment on above:Performed By: #### PRCFACT #### [facility] [address] [place] [address] Dr. Lisa LopezWBC7.2 103/ulNormal4.0-11.0The [facility] HospitalComment on above: Performed By: #### PRCFACT #### [facility] [address] [place] [address] Dr. Lisa LopezCovievan-19 PCR (CVDTB)on 91-58-5097REFV-CoV-2 (COVID-19) RNA ALLI+probe Ql (Unsp spec)DetectedAbnormalNOT DETECTEDThe [facility] HospitalComment on above:Result Comment: This test is not yet approved or cleared by the [place] FDA. When there are no FDA-approved or cleared tests available, and other criteria are met, FDA can make tests available under an emergency access mechanism called an Emergency Use Authorization (EUA). The EUA for this test is supported by the [employer] Manager of Health and Human Service's declaration that circumstances exist to justify the emergency use of in vitro diagnostics for the detection and/or diagnosis of the virusthat causes COVID-19. This EUA will remain in effect for the duration of the COVID-19 declaration justifying emergency of IVDs, unless it is terminated or revoked by the FDA (after which the test mayno longer be used).Performed By: #### CVDTBH #### [facility] [address] [place] [address] Dr. Lisa Ayoub-DIMERon 64-84-7595L-DIMER0.23 mg/L FEUNormal<=0.59The [facility] on above:Performed By: #### B2GPG #### [facility] [address] [place] [address] Dr. Lisa LopezD-DIMER COMMENTSSEE [facility] on above:Result Comment: Increases in D-Dimer concentration observed with thromboembolic events [...] stress, and generalized hospitalization. Performed By: #### B2GPG #### [facility] [address] [place] [address] Dr. Lisa Garrison URINE PROFILEon 49-30-3918Ojwdykzso Ql (U)NegativeNormal NEGATIVEDayton Osteopathic HospitalComtrinity health [facility] on above:Performed By: #### B2GPG #### [facility] [address] [place] [address] Dr. Lisa LopezClarity (U)CLEARNormalCLEARDayton Osteopathic HospitalComment on above: Performed By: #### B2GPG #### [facility] [address] [place] [address] Dr. Lisa Colby (U)LT. YELLOWNormalYELLOWDayton Osteopathic HospitalComment on above:Performed By: #### B2GPG #### [facility] [address] [place] [address] Dr. Lisa WoodardSHAMAR micrscopic examination will be performed if indicated. NormalDayton Osteopathic HospitalComment on above:Performed By: #### B2GPG #### [facility] [address] [place] [address] Dr. Lisa LopezGlucose Ql (U)NegativeNormalNEGATIVEDayton Osteopathic HospitalComtrinity health [facility] on above:Performed By: #### B2GPG #### [facility] [address] [place] [address] Dr. Lisa LopezHemoglobin Ql (U)NegativeNormalNEGKettering Health Behavioral Medical Center Comment on above:Performed By: #### B2GPG #### [facility] [address] [place] [address] Dr. Lisa Hernandez Ql (U)NegativeNormalNEGATIVEThe [facility] HospitalComment on above:Performed By: #### B2GPG #### [facility] [address] [place] [address] Dr. Lisa LopezLEUKOCYTESNegativeNormalNEGATIVEDayton Osteopathic HospitalComment on above:Performed By: #### B2GPG #### [facility] [address] [place] [address] Dr. Lisa Klinetrdebbie Ql (U)NegativeNormalNEGATIVEThe [facility] HospitalComment on above:Performed By: #### B2GPG #### [facility] [address] [place] [address] Dr. Lisa LopezpH (U)7.0 [pH]Normal5-9The [facility] HospitalComment on above: Performed By: #### B2GPG #### [facility] [address] [place] [address] Dr. Lisa LopezSPEC GRAVITY<=1.421Xausjcnk7.005-<=1.025[facility] Comment on above:Performed By: #### B2GPG #### [facility] [address] [place] [address] Dr. Lisa Bolivar PROTEINNegativeBerkeley SpringsNEGATIVE/ TRACEDayton Osteopathic Hospital Comment on above:Performed By: #### B2GPG #### [facility] [address] [place] [address] Dr. Lisa Melendrez MICRO INDNOT INDICATEDNoCorey HospitalComment on above:Performed By: #### B2GPG #### [facility] [address] [place] [address] Dr. Lisa Tinocogen Qn (U)0.2 {Naya'U}/dLNormal0.2 - 1.0The [facility] HospitalComment on above:Performed By: #### B2GPG #### [facility] [address] [place] [address] Dr. Lisa BUCK AGon 76-87-6028CISAUQRBACEUT [facility] HospitalComment on above:Result Comment: Negative for Flu A protein angiten. Infection due to Flu A cannot be ruled out. FluA angiten in the sample may be below the detection limit of the test.Performed By: #### PRCFACT #### [facility] [address] [place] [address] Dr. Lisa BakerUBNEGHSEE [facility] HospitalComment on above: Result Comment: Negative for Flu B protein antigen. Infection due to Flu B cannot be ruled out. FluB antigen in the sample may be below the detection limit of the test.Performed By: #### PRCFACT #### [facility] [address] [place] [address] Dr. Lisa Guevara A AGNegativeNormalNEGATIVE SEE COMMENTThe St[facility] on above:Performed By: #### PRCFACT #### [facility] [address] [place] [address] Dr. Lisa Dunbar AGNegativeNormalNEGATIVE SEE COMMENTThe [facility] HospitalComment on above:Performed By: #### PRCFACT #### [facility] [address] [place] [address] Dr. Lisa LopezPREGNANCY URon 75-89-4740TPOHYARJS, QUALNegativeNormalNEGATIVEThe [facility] HospitalComment on above:Performed By: #### B2GPG #### [facility] [address] [place] [address] Dr. Lisa LopezPRORowdy 14(COMP METB)on 96-59-1961Yajzivk [Mass/Vol]3.6 g/dLNormal 3.4-5.0The [facility] HospitalComment on above:Performed By: #### PRCFACT #### [facility] [address] [place] [address] Dr. Lisa LopezAlbumin/Globulin [Mass ratio]0.9 {ratio}NormalThe [facility] HospitalComment on above:Performed By: #### PRCFACT #### [facility] [address] [address] [address] Lisa StraussP [Catalytic activity/Vol]102 U/RQqmjdw10-835Dpi [facility] HospitalComment on above:Performed By: #### PRCFACT #### [facility] [address] [address] [address] Lisa StraussT [Catalytic activity/Vol]32 U/XOpqape46-44Eqf [facility] HospitalComment on above:Performed By: #### PRCFACT #### [facility] [address] [address] [address] Lisa Caston gap [Moles/Vol]11.1 mmol/LNormalDayton Osteopathic Hospital Comment on above:Performed By: #### PRCFACT #### [facility] [address] [place] [address] Dr. Lisa LopezAST [Catalytic activity/Vol]14 U/LCritically uvy15-44Kig [facility] HospitalComment on above:Performed By: #### PRCFACT #### [facility] [address] [place] [address] Dr. Lisa LopezBilirubin [Mass/Vol]0.2 mg/dLNormal0.2-1.0[facility] Comment on above:Performed By: #### PRCFACT #### [facility] [address] [place] [address] Dr. Lisa LopezCalcium [Mass/Vol]9.2 mg/dLNormal8.5-10.1[facility] Comment on above:Performed By: #### PRCFACT #### [facility] [address] [place] [address] Dr. Lisa LopezChloride [Moles/Vol]102 mmol/MMcqmdn39-122Poq [facility] Comment on above:Performed By: #### PRCFACT #### [facility] [address] [place] [address] Dr. Lisa LopezCO2 [Moles/Vol]29.5 mmol/DHxayeq81.0-32.0The [facility] Comment on above:Performed By: #### PRCFACT #### [facility] [address] [place] [address] Dr. Lisa De Leonatinine [Mass/Vol]0.83 mg/dLNormal0.55-1.02The [facility] HospitalComment on above:Performed By: #### PRCFACT #### [facility] [address] [place] [address] Dr. Lisa MichaelsGFR-AF PALAUAN>60Normal>=60The [facility] HospitalComment on above:Performed By: #### PRCFACT #### [facility] [address] [place] [address] Dr. Lisa MichaelsGFR-NON AF PALAUAN>60Normal>=60The [facility] HospitalComment on above:Performed By: #### PRCFACT #### [facility] [address] [place] [address] Dr. Lisa LopezGlobulin (S) [Mass/Vol]4.2 g/dLNormalThe [facility] HospitalComment on above:Performed By: #### PRCFACT #### [facility] [address] [place] [address] Dr. Lisa LopezGlucose [Mass/Vol]107 mg/dLCritically xyxy93-011Klu [facility] Hospitalment on above:Performed By: #### PRCFACT #### [facility] [address] [place] [address] Dr. Lisa LopezPotassium [Moles/Vol]3.6 mmol/LNormal3.5-5.1[facility] Comment on above:Performed By: #### PRCFACT #### [facility] [address] [place] [address] Dr. Lisa LopezProtein [Mass/Vol]7.8 g/dLNormal6.4-8.2[facility] Comment on above:Performed By: #### PRCFACT #### [facility] [address] [place] [address] Dr. Lisa LopezSodium [Moles/Vol]139 mmol/LSbranz285-883Ajb [facility] Comment on above:Performed By: #### PRCFACT #### [facility] [address] [place] [address] Dr. Lisa Morse nitrogen [Mass/Vol]9.0 mg/dLNormal7.0-18.0The [facility] HospitalComment on above:Performed By: #### PRCFACT #### [facility] [address] [place] [address] Dr. Lisa Morse nitrogen/Creatinine [Mass ratio]10.8 mg/mgNoCorey HospitalComment on above:Performed By: #### PRCFACT #### [facility] [address] [place] [address] Dr. Lisa LopezPROTIMEon 63-68-0211HHW Coag (PPP) [Relative time]0.93 {INR} NormalThe [facility] HospitalComtrinity health [facility] on above:Performed By: #### B2GPG #### [facility] [address] [place] [address] Dr. Lisa Chavez GUIDELINESSEE BELOWCleveland Clinic Hillcrest HospitalComment on above:Result Comment: DESIRED INR: 2.0 - 3.0 CONDITIONS NOT LISTED BELOW 2.5 - 3.5 FOR PROSTHETIC HEART VALVE REPLACEMENT 2.5 - 3.5 RECURRENT THROMBOSIS Performed By: #### B2GPG #### [facility] [address] [place] [address] Dr. Lisa LopezPT Coag (PPP) [Time]9.9 sNormal9.0-11.6The [facility] Comment on above:Performed By: #### B2GPG #### [facility] [address] [place] [address] Dr. Lisa Borrero 12-76-4395kPGH Coag (Bld) [Time]28.0 nBfxsqn86.3-36.2[facility] HospitalComment on above:Performed By: #### B2GPG #### [facility] [address] [place] [address] Dr. Lisa Love, HIGH SENSITIVITYon 88-06-5958YHAUJK<4.7Ipjzum8.0-51.3 The [facility] HospitalComment on above:Result Comment: CUT-OFF POINTS HAVE BEEN ESTABLISHED BASED ON THE FOURTH UNIVERSAL DEFINITIONS OF MYOCARDIAL INFARCTION. THE UPPER REFERENCE LIMIT (URL) OF TROPONIN, DEFINED THE 99TH PERCENTILE OF cTnI DISTRIBUTION IN A REFERENCE POPULATION, HAS BEEN CONFIRMED THE DECISION THRESHOLD FOR WI DIAGNOSIS.Performed By: #### PRCFACT #### [facility] [address], [place] [address] Dr. Lisa Rabago 39-89-2348KYU5.450 uIU/mLNormal0.358-3.740The [facility] HospitalComment on above:Performed By: #### PRCFACT #### [facility] [address], [place] [address] Dr. Lisa LopezXR CHEST 1 Von 80-97-9489IG CHEST 1 VEXAM: XR CHEST 1 V at 1738 hours HISTORY: CHEST PAIN, UNSPECIFIED COMPARISON: [...] Electronically authenticated by: JENNYFER SMITH Date: 2022-05-22 18:12[facility] [place] [facility] ( test) IA.rapid Ql (U)Ordered By: Wilberto Corona on 37-01-7131PBU ( test) Ql (U)NegativeGood Samaritan Hospital FACTOR V LEIDEN MUTATION ANALYSISon 26-73-1754Swrioi V LeidenCommentThe University of Toledo Medical Centerment on above:Result Comment: Result: c.1601G>A (p.Tqm749Yop) - Not Detected . This result is not associated with an increased risk for venous thromboembolism. See Additional Clinical Information and Comments. Additional Clinical Information: Venous thromboembolism is a multifactorial disease influenced by genetic, environmental, and circumstantial risk factors. The c.1601G>A (p. Cla777Uxo) variant in the F5 gene, commonly referred [...] c.*97G>A variant and Factor V Leiden (PMID: 88118070). Additional risk factors include but are not [...] health care providers to discuss results at [phone] ([phone]). . Test Details: Variant Analyzed: c.1601G>A (p. Tag632Xlx), referred to as Factor V Leiden . [...] developed and its performance characteristics determined by [employer]. It has not been cleared or approved by the Food and Drug Administration. . References: Cindy S, Mercedes AK, Medina R, Surinder WW, Juwan JH; ACMG Professional Practice and Guidelines Committee. Addendum: [employer] consensus statement on factor V Leiden mutation testing. Sherin Med. 2020Jun 15. doi: 10.1038/e09632-842-32473-o. PMID: 97857672. . Miguel Angel LITTLE. Factor V Leiden Thrombophilia. 1998August 24 (Updated 2017Apr 16). In: Tj MP, Hilda HH, Kelsey RA, et al., editors. Cinda(Patricia) (Internet). Stamps ([place]): [employer]; 6574-7258. Available from: https://www.ncbi.nlm.nih.gov/books/TAW1880/ . Leif S, Mercedes AK, Banuelos X, Liam B, Luisito EB, Estela P, Junito CS; [facility] Clinical Recruiter Committee. Venous thromboembolism laboratory testing (factor V Leiden and factor II c.*97G>A), 2018 update: a technical standard of the [employer] and [employer] (ACMG). Sherin Med. 2018 Mar;20(12):1355-0864. doi: 10.1038/c69555-094-8815-i. Epub 2017Jan 15. PMID: 85303420. . Yaneth Cortez, PhD, FACMG Dameon Donnelly, PhD Ad Tineo, PhD, FAC Rui Mejia, PhD, FAC Robert Napoles, PhD, FAC Alin Santo, PhD, FAC Jdui Borges, PhD, FAC Felipa Becker, PhD, FACPerformed By: #### FVPCR #### [facility] [address] [place] [address] Dr. Lisa LopezTHYROGLOBULIN ABon 49-61-6266Gnphyhpowyvax Antibody<1.0Normal 0.0-0.9[facility] HospitalComment on above:Result Comment: Thyroglobulin Antibody measured by [employer] MethodologyPerformed By: #### THYGAB #### [facility] [address] [place] [address] Dr. Lisa LopezB-2 GLYCOPROTEIN AB IGGon 63-39-6847Qnbd-2 Glycoprotein I Ab, IgG <1Yucvxr1-07Vcq [facility] HospitalComment on above:Result Comment: The reference interval reflects a 3SD or 99th percentile interval, which is thought to represent a potentially clinically significant result in accordance with the International Consensus Statement on the classification criteria for definitive antiphospholipid syndrome (APS). J Thromb Haem 2006;4:295-306.Performed By: #### B2GPG #### [facility] [address] [place] [address] Dr. Lisa LopezB2-GLYCOPROTEIN 1 AB IGMon 25-36-4809Krvf-2 Glycoprotein I Ab, IgM<3Ovolhq1-99XwzMetroHealth [facility] on above:Result Comment: The reference interval reflects a 3SD or 99th percentile interval, which is thought to represent a potentially clinically significant result in accordance with the International Consensus Statement on the classification criteria for definitive antiphospholipid syndrome (APS). J Thromb Haem 2006;4:295-306.Performed By: #### BGLYIGM #### [facility] [address] [place] [address] Dr. Lisa Mcdonald TESTINGon 73-83-4113UVJM HEADERSEE SCANNED REPORT IN [facility] on above:Performed By: #### B2GPG #### [facility] [address] [place] [address] Dr. Lisa Walker FROM REF LAB05/15/2022[facility] [place] [facility] on above:Performed By: #### B2GPG #### [facility] [address] [place] [address] Dr. Lisa Sanderson TO REF LAB04/28/2022[facility] on above:Performed By: #### B2GPG #### [facility] [address] [place] [address] Dr. Lisa Fermin dRVVTon 12-75-5737zLDZB Coag (PPP) [Time]34.1 sNormal 32.0-45.7CTuscarawas Hospital on above:Order Comment: Specimen Type: BLOOD SPECIMEN Ordering Facility: External Submitter Address: , ,Performed By: #### 6303-2 #### [facility] CLIA [id number] [address] [place] [address] [place] AMERICAdRVVT Coag (PPP) [Time]on 09-83-5003jTGDR factor substitution immediately after 1:2 addition of normal plasma Coag (PPP) [Time]37.5 raxpobmGfnkuf59.0-45.7CPremier Health [facility] Comment on above:Order Comment: Specimen Type: BLOOD SPECIMEN Ordering Facility: External Submitter Address: , ,Performed By: #### 6303-2 #### [facility] CLIA [id number] [address] [place] [address] [place] AMERICAdRVVT/dRVVT.excess phospholipid Coag (PPP) [Ratio]0.93Normal<1.32Uc HealthComment on above:Order Comment: Specimen Type: BLOOD SPECIMEN Ordering Facility: External Submitter Address: , ,Performed By: #### 6303-2 #### [facility] CLIA [id number] [address] [place] [address] [place] AMERICAANTITHROMBIN ACTIVITYon 49-41-9300Ehuibwcfqrhe Gdqnrabq238 %Anunby12-438Eav [facility] HospitalComment on above:Result Comment: Direct Xa inhibitor anticoagulants such as rivaroxaban, apixaban and edoxaban will lead to spuriously elevated antithrombin activity levels possibly masking a deficiency.Performed By: #### B2GPG #### [facility] [address] [place] [address] Dr. Lisa Ojeda CULTURE ID PANELon 04-27-2022. baumanniiNot detectedNormal NOT DETECTEDThe [facility] on above:Result Comment: Previously reported as: [id number] On 04/29/2022 04:07 By [id number] By: #### B2GPG #### [facility] [address] [place] [address] Dr. Lisa Mendez fragilisNot detectedNormalNOT DETECTEDThe [facility] on above:Result Comment: Previously reported as: [id number] On 04/29/2022 04:07 By [id number] By: #### B2GPG #### [facility] [address] [place] [address] Dr. Lisa CorralesID CONTROLSPASSEDNormalThe [facility] HospitalComtrinity health [facility] on above: Result Comment: Previously reported as: [id number] On 04/29/2022 04:07 By EC25Clhoumrmr By: #### B2GPG #### [facility] [address] [place] [address] Dr. Lisa SoloBTHDBLOOD CULTURE BOTTLE Clinton [facility] HospitalComment on above:Performed By: #### B2GPG #### [facility] [address] [place] [address] Dr. Lisa SoloWfgzlYMJHWZ3TVCAYMSILGQQH RESISTANCE GENESCleveland Clinic [facility] Hospital Comment on above:Performed By: #### B2GPG #### [facility] [address] [place] [address] Dr. Lisa SoloHD2SEE BELOWCleveland Clinic Hillcrest HospitalComtrinity health [facility] on above: Result Comment: Note: Antimicrobial resitance can occur via multiple mechanisms. A Not Detected result for the [employer] antomicrobial resistance gene assays does not indicate antimicrobial susceptibility. Subculturing is required for species identification and susceptibility testing of isolates.Performed By: #### B2GPG #### [facility] [address] [place] [address] Dr. Lisa SoloHurssNVVFEJ4YedmilinLbryywNwtCincinnati Children's Hospital Medical CenterComtrinity [facility] on above: Performed By: #### B2GPG #### [facility] [address] [place] [address] Dr. Lisa SoloYvphnRRTSXE4QsmqpdqoDdlpxrZdo [facility] HospitalComment on above: Performed By: #### B2GPG #### [facility] [address] [place] [address] Dr. Lisa SoloYvfycGRQKAI1REWOBAcvupmPfaCleveland Clinic Hillcrest HospitalComtr[facility] on above:Performed By: #### B2GPG #### [facility] [address] [place] [address] Dr. Lisa Rubio Set:Set 2NormalDayton Osteopathic HospitalComtrinity health [facility] on above: Result Comment: Previously reported as: [id number] On 04/29/2022 04:07 By [email or web address] By: #### B2GPG #### [facility] [address] [place] [address] Dr. Lisa Rubio:AerobicNormalThe [facility] HospitalComment on above:Result Comment: Previously reported as: [id number] On 04/29/2022 04:07 By [id number] By: #### B2GPG #### [facility] [address] [place] [address] Dr. Lisa Penny. neoformans/gattiiNot detectedNormalNOT DETECTEDThe [facility] HospitalComment on above:Result Comment: Previously reported as: [id number] On 04/29/2022 04:07 By JD35Seaenvrof By: #### B2GPG #### [facility] [address] [place] [address] Dr. Lisa Chang albicansNot detectedNormalNOT DETECTEDThe [facility] HospitalComtr[facility] on above:Result Comment: Previously reported as: [id number] On 04/29/2022 04:07 By [id number] By: #### B2GPG #### [facility] [address] [place] [address] Dr. Lisa Chang aurisNot detectedNormalNOT DETECTEDThe [facility] Comment on above:Result Comment: Previously reported as: [id number] On 04/29/2022 04:07 By [id number] By: #### B2GPG #### [facility] [address] [place] [address] Dr. Lisa Chang glabrataNot detectedNormalNOT DETECTEDThe [facility] HospitalComment on above:Result Comment: Previously reported as: [id number] On 04/29/2022 04:07 By [id number] By: #### B2GPG #### [facility] [address] [place] [address] Dr. Lisa SpeariNot detectedNormalNOT DETECTEDThe [facility] Comment on above:Result Comment: Previously reported as: [id number] On 04/29/2022 04:07 By [id number] By: #### B2GPG #### [facility] [address] [place] [address] Dr. Lisa Chang ParapsilosisNot detectedNormalNOT DETECTEDThe [facility] HospitalComtr[facility] on above:Result Comment: Previously reported as: [id number] On 04/29/2022 04:07 By KH70Fkmufzwga By: #### B2GPG #### [facility] [address] [place] [address] Dr. Lisa Chang TropicalisNot detectedNormalNOT DETECTEDThe [facility] HospitalComtr[facility] on above:Result Comment: Previously reported as: [id number] On 04/29/2022 04:07 By UY01Egnhuccpm By: #### B2GPG #### [facility] [facility] [address] [place] [address] Dr. Lisa LopezCTX-M Resistant GeneNot detectedNormalNOT DETECTEDThe [facility] on above:Result Comment: Previously reported as: [id number] On 04/29/2022 04:07 By [id number] By: #### B2GPG #### [facility] [address] [place] [address] Dr. Lisa Michaels. Cloacae complexNot detectedNormalNOT DETECTEDThe [facility] on above:Result Comment: Previously reported as: [id number] On 04/29/2022 04:07 By [id number] By: #### B2GPG #### [facility] [address] [place] [address] Dr. Lisa Michaels. faecalisNot detectedNormalNOT DETECTEDThe [facility] Comment on above:Result Comment: Previously reported as: [id number] On 04/29/2022 04:07 By [id number] By: #### B2GPG #### [facility] [address] [place] [address] Dr. Lisa Michaels. faeciumNot detectedNormalNOT DETECTEDThe [facility] Comment on above:Result Comment: Previously reported as: [id number] On 04/29/2022 04:07 By [id number] By: #### B2GPG #### [facility] [address] [place] [address] Dr. Lisa MichaelsnterobacteriaceaeNot detectedNormalNOT DETECTEDThe [facility] HospitalComment on above:Result Comment: Previously reported as: [id number] On 04/29/2022 04:07 By [id number] By: #### B2GPG #### [facility] [address] [place] [address] Dr. Lisa Byrdichia coliNot detectedNormalNOT DETECTEDThe [facility] HospitalComment on above:Result Comment: Previously reported as: [id number] On 04/29/2022 04:07 By [id number] By: #### B2GPG #### [facility] [address] [place] [address] Dr. Lisa Alvarez. influenzaeNot detectedNormalNOT DETECTEDThe [facility] Comment on above:Result Comment: Previously reported as: [id number] On 04/29/2022 04:07 By [id number] By: #### B2GPG #### [facility] [address] [place] [address] Dr. Lisa Anderson Resistant GeneNot detectedNormalNOT DETECTEDThe [facility] on above:Result Comment: Previously reported as: [id number] On 04/29/2022 04:07 By [id number] By: #### B2GPG #### [facility] [address] [place] [address] Dr. Lisa Carter. oxytocaNot detectedNormalNOT DETECTEDThe [facility] Comment on above:Result Comment: Previously reported as: [id number] On 04/29/2022 04:07 By [id number] By: #### B2GPG #### [facility] [address] [place] [address] Dr. Lisa Carter. pneumoniaeNot detectedNormalNOT DETECTEDThe [facility] Comment on above:Result Comment: Previously reported as: [id number] On 04/29/2022 04:07 By [id number] By: #### B2GPG #### [facility] [address] [place] [address] Dr. Lisa Louis aerogenesNot detectedNormalNOT DETECTEDThe [facility] on above:Result Comment: Previously reported as: [id number] On 04/29/2022 04:07 By [id number] By: #### B2GPG #### [facility] [address] [place] [address] Dr. Lisa LopezKPC Resistant GeneNot detectedNormalNOT DETECTEDThe [facility] HospitalComment on above:Result Comment: Previously reported as: [id number] On 04/29/2022 04:07 By [id number] By: #### B2GPG #### [facility] [address] [place] [address] Dr. Lisa Keating. monocytogenesNot detectedNormalNOT DETECTEDThe [facility] on above:Result Comment: Previously reported as: [id number] On 04/29/2022 04:07 By [id number] By: #### B2GPG #### [facility] [address] [place] [address] Dr. Lisa Lambertr-1 Resistant GeneNot detectedNormalNOT DETECTEDThe [facility] on above:Result Comment: Previously reported as: [id number] On 04/29/2022 04:07 By [id number] By: #### B2GPG #### [facility] [address] [place] [address] Dr. Lisa Avalos/CNot detectedNormalNOT DETECTEDThe [facility] on above:Result Comment: Previously reported as: [id number] On 04/29/2022 04:07 By [id number] By: #### B2GPG #### [facility] [address] [place] [address] Dr. Lisa Avalos/C MREJNot detectedNormalNOT DETECTEDThe [facility] Comment on above:Result Comment: Previously reported as: [id number] On 04/29/2022 04:07 By [id number] By: #### B2GPG #### [facility] [address] [place] [address] Dr. Lisa Abraham. meningitidisNot detectedNormalNOT DETECTEDThe [facility] on above:Result Comment: Previously reported as: [id number] On 04/29/2022 04:07 By [id number] By: #### B2GPG #### [facility] [address] [place] [address] Dr. Lisa Arellano Resistant GeneNot detectedNormalNOT DETECTEDThe [facility] HospitalComment on above:Result Comment: Previously reported as: [id number] On 04/29/2022 04:07 By [id number] By: #### B2GPG #### [facility] [address] [place] [address] Dr. Lisa AshbySwunbHxd-64-dpqeJyd detectedNormalNOT DETECTEDThe [facility] Comment on above:Result Comment: Previously reported as: [id number] On 04/29/2022 04:07 By [id number] By: #### B2GPG #### [facility] [address] [place] [address] Dr. Lisa LopezProtaugustsNot detectedNormalNOT DETECTEDThe [facility] on above:Result Comment: Previously reported as: [id number] On 04/29/2022 04:07 By [id number] By: #### B2GPG #### [facility] [address] [place] [address] Dr. Lisa Ryna. aeruginosaNot detectedNormalNOT DETECTEDThe [facility] HospitalComment on above:Result Comment: Previously reported as: [id number] On 04/29/2022 04:07 By [id number] By: #### B2GPG #### [facility] [address] [place] [address] Dr. Lisa Keane. maltophiliaNot detectedNormalNOT DETECTEDThe [facility] Comment on above:Result Comment: Previously reported as: [id number] On 04/29/2022 04:07 By [id number] By: #### B2GPG #### [facility] [address] [place] [address] Dr. Lisa LawlerellaNot detectedNormalNOT DETECTEDThe [facility] Comment on above:Result Comment: Previously reported as: [id number] On 04/29/2022 04:07 By [id number] By: #### B2GPG #### [facility] [address] [place] [address] Dr. Lisa Vicente marcescensNot detectedNormalNOT DETECTEDThe [facility] HospitalComment on above:Result Comment: Previously reported as: [id number] On 04/29/2022 04:07 By [id number] By: #### B2GPG #### [facility] [address] [place] [address] Dr. Lisa Sandhute:left acNormalThe [facility] HospitalComment on above:Result Comment: Previously reported as: [id number] On 04/29/2022 04:07 By [id number] By: #### B2GPG #### [facility] [address] [place] [address] Dr. Lisa Cam. aureusNot detectedNormalNOT DETECTEDThe [facility] Comment on above:Result Comment: Previously reported as: [id number] On 04/29/2022 04:07 By [id number] By: #### B2GPG #### [facility] [address] [place] [address] Dr. Lisa Cam. epidermidisNot detectedNormalNOT DETECTEDDayton Osteopathic HospitalComment on above:Result Comment: Previously reported as: [id number] On 04/29/2022 04:07 By [id number] By: #### B2GPG #### [facility] [address] [place] [address] Dr. Lisa Cam. lugdunensisNot detectedNormalNOT DETECTEDThe [facility] HospitalComment on above:Result Comment: Previously reported as: [id number] On 04/29/2022 04:07 By [id number] By: #### B2GPG #### [facility] [address] [place] [address] Dr. Lisa AquinoococcusNot detectedNormalNOT DETECTEDThe [facility] Comment on above:Result Comment: Previously reported as: [id number] On 04/29/2022 04:07 By [id number] By: #### B2GPG #### [facility] [address] [place] [address] Dr. Lisa Cleary agalactiaeNot detectedNormalNOT DETECTEDThe [facility] on above:Result Comment: Previously reported as: [id number] On 04/29/2022 04:07 By [id number] By: #### B2GPG #### [facility] [address] [place] [address] Dr. Lisa Tirado. pneumoniaeNot detectedNormalNOT DETECTEDThe [facility] HospitalComment on above:Result Comment: Previously reported as: [id number] On 04/29/2022 04:07 By [id number] By: #### B2GPG #### [facility] [address] [place] [address] Dr. Lisa Cleary pyogenesNot detectedNormalNOT DETECTEDThe [facility] on above:Result Comment: Previously reported as: [id number] On 04/29/2022 04:07 By IZ62Bccsdufsj By: #### B2GPG #### [facility] [address] [place] [address] Dr. Lisa TiradotococcusNot detectedNormalNOT DETECTEDThe [facility] Comment on above:Result Comment: Previously reported as: [id number] On 04/29/2022 04:07 By [id number] By: #### B2GPG #### [facility] [address] [place] [address] Dr. Lisa Rogers/Manjinder Resist. GeneNot detectedNormalNOT DETECTEDThe [facility] on above:Result Comment: Previously reported as: [id number] On 04/29/2022 04:07 By [id number] By: #### B2GPG #### [facility] [address] [place] [address] Dr. Lisa Mcneal Resistant GeneNot detectedNormalNOT DETECTEDThe [facility] on above:Result Comment: Previously reported as: [id number] On 04/29/2022 04:07 By [id number] By: #### B2GPG #### [facility] [address] [place] [address] Dr. Lisa LopezPROTEIN C FUNC ACTIVITYon 18-90-1372Undxpsl C-Iizykteauh916 % Cngvcj39-610Cah [facility] on above:Performed By: #### PRCFACT #### [facility] [address] [place] [address] Dr. Lisa LopezPROTEIN S ANTIGENon 01-08-3969Rynwojp S, Jbtj276 %Euxnru22-565Kze [facility] HospitalComment on above:Performed By: #### PRTSAG #### [facility] [address] [place] [address] Dr. Lisa LopezProtein S, Dbjt678 %Mueesq90-979Mos [facility]Com[facility] on above:Performed By: #### PRCFACT #### [facility] [address] [place] [address] Dr. Lisa LopezProtein S, Axhak586 %Nphrgs32-151Czu [facility] Hospitalment on above:Result Comment: This test was developed and its performance characteristics determined by [employer]. It has not been cleared or approved by the Food and Drug Administration.Performed By: #### PRTSAG #### [facility] [address] [place] [address] Dr. Lisa LopezProtein S, Total92 %Quexph98-835Cun [facility] on above:Result Comment: This test was developed and its performance characteristics determined by [employer]. It has not been cleared or approved by the Food and Drug Administration.Performed By: #### PRCFACT #### [facility] [address] [place] [address] Dr. Lisa LopezANTICARDIOLIPIN AB (ENZO) IGA/IGG/IGMon 41-62-3315Dggepjntblbueqj Ab,IgA,Qn<5Hwdtff1-80Oxh [facility] HospitalComment on above:Result Comment: Negative: <12 Indeterminate: 12 - 20 Low-Med Positive: >20 - 80 High Positive: >80Performed By: #### ACAQUAN #### [facility] [address] [place] [address] Dr. Lisa LopezAnticardiolipin Ab,IgG,Qn<0Whmykp8-79Hoc [facility] HospitalComment on above:Result Comment: Negative: <15 Indeterminate: 15 - 20 Low-Med Positive: >20 - 80 High Positive: >80Performed By: #### ACAQUAN #### [facility] [address] [place] [address] Dr. Lisa LopezAnticardiolipin Ab,IgM,Qn<7Bxxjol2-13Bza [facility] HospitalComment on above:Result Comment: Negative: <13 Indeterminate: 13 - 20 Low-Med Positive: >20 - 80 High Positive: >80Performed By: #### ACAQUAN #### [facility] [address] [place] [address] Dr. Lisa Roberts AUTO DIFFon [id number] #0.1 103/ulNormal0.0-0.1The [facility] HospitalComment on above:Performed By: #### CBC #### [facility] [address] [place] [address] Dr. Lisa LopezBasophils/100 WBC (Bld)0.8 %Normal0.2-2.0The [facility] Comment on above:Performed By: #### CBC #### [facility] [address] [place] [address] Dr. Lisa [place] #0.2 103/ulNormal0.0-0.7The [facility] HospitalComment on above: Performed By: #### CBC #### [facility] [address] [place] [address] Dr. Lisa Michaelsosinophils/100 WBC (Bld)2.5 %Normal0.9-7.0The [facility] Comment on above:Performed By: #### CBC #### [facility] [address] [place] [address] Dr. Lisa Michaelsrythrocyte distribution width (RBC) [Ratio]13.1 %Rlnldi88.0-15.0 The [facility] HospitalComment on above:Performed By: #### CBC #### [facility] [address] [place] [address] Dr. Lisa LopezHematocrit (Bld) [Volume fraction]42.6 %Xicgnk08.0-48.0The [facility] HospitalComment on above:Performed By: #### CBC #### [facility] [address] [place] [address] Dr. Lisa LopezHemoglobin (Bld) [Mass/Vol]13.2 g/pDCnraat33.0-16.0The [facility] HospitalComment on above:Performed By: #### CBC #### [facility] [address] [place] [address] Dr. Lisa Thorpe #0.02 10e3/ulNormal0.00-0.03The [facility] HospitalComment on above:Performed By: #### CBC #### [facility] [address] [place] [address] Dr. Lisa Thorpe %0.3 %Normal0.0-0.5The [facility] Hospitalment on above: Performed By: #### CBC #### [facility] [address] [place] [address] Dr. Lisa LawsH #2.0 103/ulNormal1.2-3.8The [facility] HospitalComment on above:Performed By: #### CBC #### [facility] [address] [place] [address] Dr. Lisa Lawshocytes/100 WBC (Bld)26.4 %Bgurmo61.5-60.0The [facility] HospitalComment on above:Performed By: #### CBC #### [facility] [address] [place] [address] Dr. Lisa LukeUAL DIFF REQNONormalThe [facility] HospitalComment on above: Performed By: #### CBC #### [facility] [address] [address] [address] Lisa Lambert (RBC) [Entitic mass]28.3 fcHlsakv74.7-34.0The [facility] HospitalComment on above:Performed By: #### CBC #### [facility] [address] [place] [address] Dr. Lisa Lambert (RBC) [Mass/Vol]31.0 g/eRQthmig67.9-35.2The [facility] HospitalComment on above:Performed By: #### CBC #### [facility] [address] [place] [address] Dr. Lisa Luther (RBC) [Entitic vol]91.4 bGBevmdl70.0-99.0The [facility] HospitalComment on above:Performed By: #### CBC #### [facility] [address] [place] [address] Dr. Lisa Galicia #0.6 103/ulNormal0.3-0.8The [facility] HospitalComment on above:Performed By: #### CBC #### [facility] [address] [place] [address] Dr. Lisa Fosterocytes/100 WBC (Bld)7.7 %Normal1.7-12.0The [facility] on above:Performed By: #### CBC #### [facility] [address] [place] [address] Dr. Lisa Lopez #4.8 103/ulNormal1.4-6.5The [facility] HospitalComment on above:Performed By: #### CBC #### [facility] [address] [place] [address] Dr. Lisa Carringtonutrophils/100 WBC (Bld)62.3 %Itilgf22.0-75.0The [facility] HospitalComment on above:Performed By: #### CBC #### [facility] [address] [place] [address] Dr. Lisa Sheltonlet mean volume (Bld) [Entitic vol]10.2 fLNormal9.5-13.5The [facility] HospitalComment on above:Performed By: #### CBC #### [facility] [address] [place] [address] Dr. Lisa LopezPLT301 103/mzTfsknp475-042Spz [facility] HospitalComment on above: Performed By: #### CBC #### [facility] [address] [place] [address] Dr. Lisa LopezRBC4.66 106/ulNormal4.20-5.40The [facility] HospitalComment on above:Performed By: #### CBC #### [facility] [address] [place] [address] Dr. Lisa LopezWBC7.7 103/ulNormal4.0-11.0The [facility] HospitalComment on above: Performed By: #### CBC #### [facility] [address] [place] [address] Dr. Lisa Roberts AUTO DIFFon [id number] #0.1 103/ulNormal0.0-0.1The [facility] HospitalComment on above:Performed By: #### B2GPG #### [facility] [address] [place] [address] Dr. Lisa LopezBasophils/100 WBC (Bld)0.7 %Normal0.2-2.0[facility] Comment on above:Performed By: #### B2GPG #### [facility] [address] [place] [address] Dr. Lisa Solorio #0.3 103/ulNormal0.0-0.7The [facility] HospitalComment on above: Performed By: #### B2GPG #### [facility] [address] [place] [address] Dr. Lisa Michaelsosinophils/100 WBC (Bld)2.7 %Normal0.9-7.0The [facility] Comment on above:Performed By: #### B2GPG #### [facility] [address] [place] [address] Dr. Lisa Michaelsrythrocyte distribution width (RBC) [Ratio]13.0 %Iszonw37.0-15.0 The [facility] HospitalComment on above:Performed By: #### B2GPG #### [facility] [address] [place] [address] Dr. Lisa LopezHematocrit (Bld) [Volume fraction]42.0 %Kxnhlk08.0-48.0The [facility] HospitalComment on above:Performed By: #### B2GPG #### [facility] [address] [place] [address] Dr. Lisa LopezHemoglobin (Bld) [Mass/Vol]14.0 g/pWGvuyhq94.0-16.0The [facility] HospitalComment on above:Performed By: #### B2GPG #### [facility] [address] [place] [address] Dr. Lisa Thorpe #0.02 10e3/ulNormal0.00-0.03The [facility] HospitalComment on above:Performed By: #### B2GPG #### [facility] [address] [place] [address] Dr. Lisa Thorpe %0.2 %Normal0.0-0.5The [facility] HospitalComment on above: Performed By: #### B2GPG #### [facility] [address] [place] [address] Dr. Lisa LawsH #2.1 103/ulNormal1.2-3.8The [facility] HospitalComment on above:Performed By: #### B2GPG #### [facility] [address] [place] [address] Dr. Lisa Lawshocytes/100 WBC (Bld)22.8 %Xfnwoz49.5-60.0The [facility] HospitalComment on above:Performed By: #### B2GPG #### [facility] [address] [place] [address] Dr. Lisa LukeUAL DIFF REQNONormalThe [facility] HospitalComment on above: Performed By: #### B2GPG #### [facility] [address] [place] [address] Dr. Lisa Lambert (RBC) [Entitic mass]28.1 weNlrmah09.7-34.0The [facility] HospitalComment on above:Performed By: #### B2GPG #### [facility] [address] [place] [address] Dr. Lisa Lambert (RBC) [Mass/Vol]33.3 g/hXYaktqg46.9-35.2The [facility] HospitalComment on above:Performed By: #### B2GPG #### [facility] [address] [place] [address] Dr. Lisa Lambert (RBC) [Entitic vol]84.3 yVRmhxla28.0-99.0The [facility] HospitalComment on above:Performed By: #### B2GPG #### [facility] [address] [place] [address] Dr. Lisa Galicia #0.6 103/ulNormal0.3-0.8The [facility] HospitalComment on above:Performed By: #### B2GPG #### [facility] [address] [place] [address] Dr. Lisa Fosterocytes/100 WBC (Bld)6.8 %Normal1.7-12.0The [facility] Comment on above:Performed By: #### B2GPG #### [facility] [address] [place] [address] Dr. Lisa Lopez #6.1 103/ulNormal1.4-6.5The [facility] HospitalComment on above:Performed By: #### B2GPG #### [facility] [address] [place] [address] Dr. Lisa Carringtonutrophils/100 WBC (Bld)66.8 %Egvwas25.0-75.0The [facility] HospitalComment on above:Performed By: #### B2GPG #### [facility] [address] [place] [address] Dr. Yilan ChangPlatelet mean volume (Bld) [Entitic vol]9.6 fLNormal9.5-13.5The [facility] HospitalComment on above:Performed By: #### B2GPG #### [facility] [address] [place] [address] Dr. Lisa LopezPLT321 103/ocYpvlpo086-118Mwa [facility] HospitalComment on above: Performed By: #### B2GPG #### [facility] [address] [place] [address] Dr. Lisa LopezRBC4.98 106/ulNormal4.20-5.40The [facility] Po[facility] HospitalComment on above:Performed By: #### B2GPG #### [facility] [address] [place] [address] Dr. Lisa LopezWBC9.1 103/ulNormal4.0-11.0The [facility] Po[facility] HospitalComment on above: Performed By: #### B2GPG #### [facility] [address] [place] [address] Dr. Lisa Rabago 15-59-9684ZNG5.113 uIU/mLNormal0.358-3.740The [facility] on above:Performed By: #### TSH #### [facility] [address] [place] [address] Dr. Lisa LopezUS PELVIS AND TRANSVAGon 37-91-6498HK PELVIS AND TRANSVAG EXAMINATION: US PELVIS AND [...] Electronically authenticated by: TAMMY GARCIA Date: 2022-02-18 20:11[facility] Lumbar Spine w/o + w/on 96-96-0064VGC Lumbar Spine w/o + w/ MRI of the lumbar spine without and with IV contrast History:??Hard lump on tailbone for 1.5 months. Sacral pain. Check for possible abscess. Patient unable to sit. Comparison:??X-ray sacrum/coccyx: 09/25/2021 Technique:??Multiplanar multisequence MRI of the lumbar spine was performed without contrast.??Additional sequences were obtained to the sacrum/coccyx. It was routine without and with IV contrast. 20 mL of ProHance given intravenously. A marker was placed at the site of the patient's pain. Findings: Lumbar spine alignment is anatomic.??Conus medullaris terminates at a normal level. Lumbar vertebral body height are maintained.??Intervertebral disc heights are maintained. ??No abnormal sites [...] COCCYDYNIA. Report reported and signed by Jackie Nicolas on 11/18/2021 1351NormalNorthern Mt. Sinai HospitalUS Abdomen Limitedon 32-50-3592LV Abdomen LimitedCLINICAL HISTORY: . COMPARISON: . TECHNIQUE: . Grayscale and Doppler images of the region of concern in the area of the sacrum were obtained in multiple planes. FINDINGS: There are no solid or cystic lesions in the region of concern. IMPRESSION: There are no sonographically detectable abnormalities. Report reported and signed by NIKITA CORDERO on 10/10/2021 1636[facility] HospitalXR Sacrum/Coccyxon [id number] Sacrum/CoccyxCOMPARISON: none FINDINGS: There is no lytic or sclerotic bone lesion. There is no fracture or dislocation. There is no significant degenerative change. There is a metallic IUD in the pelvis. The soft tissues are within normal limits. IMPRESSION: There are no acute osseous changes Report reported and signed by NIKITA CORDERO on 09/25/2021 1017[facility] Tiffin HospitalComplete Blood Counton 83-66-7266Kvboivopwos distribution width (RBC) [Ratio]19.7 %High11.0-15.0[facility] HospitalComment on above:Performed By: #### LIPD, CBC, TSH reflex FT4, CMP #### [facility] [address], [place] [id number] (Bld) [Volume fraction]35.2 %Izwwtu02.0-47.0 [facility] HospitalComment on above:Performed By: #### LIPD, CBC, TSH reflex FT4, CMP #### [facility] [address], [place] [id number] (Bld) [Mass/Vol]9.7 g/dLLow11.6-15.5[facility] HospitalComment on above:Performed By: #### LIPD, CBC, TSH reflex FT4, CMP #### [facility] [address], [place] [id number] (RBC) [Entitic mass]18.9 pgLow27.0-33.0[facility] HospitalComment on above:Performed By: #### LIPD, CBC, TSH reflex FT4, CMP #### [facility] [address], [place] [id number] (RBC) [Mass/Vol]27.6 g/dLLow32.0-36.0[facility] SpecialistComment on above:Performed By: #### LIPD, CBC, TSH reflex FT4, CMP #### [facility] [address], [place] [id number] (RBC) [Entitic vol]69 aJDea03-996Lbiermcl [facility] SpecialistComment on above:Performed By: #### LIPD, CBC, TSH reflex FT4, CMP #### [facility] [address], [place] [id number] mean volume (Bld) [Entitic vol]9.30 fLNormal 7.50-12.50NoMer[facility] SpecialistComment on above:Performed By: #### LIPD, CBC, TSH reflex FT4, CMP #### [facility] [address], [place] [id number] (Bld) [#/Vol]348 10*3/iOHtjpxg924-980Tmdwzmil [facility] SpecialistComment on above:Performed By: #### LIPD, CBC, TSH reflex FT4, CMP #### [facility] [address], [place] [id number] (Bld) [#/Vol]5.12 10*6/uLNormal3.90-5.20NoMer[facility] Health [facility] Hospital SpecialistComment on above:Performed By: #### LIPD, CBC, TSH reflex FT4, CMP #### [facility] [address], [place] [id number]-XL69.3 lHPbdgux99.0-50.0NoMer[facility] Health [facility] Hospital Specialist Comment on above:Performed By: #### LIPD, CBC, TSH reflex FT4, CMP #### [facility] [address], [place] [id number] (Bld) [#/Vol]7.1 10*3/uLNormal3.8-11.0[facility] SpecialistComment on above:Performed By: #### LIPD, CBC, TSH reflex FT4, CMP #### [facility] [address], [place] [id number] Metabolic Panelon 84-66-6456Njtaagp [Mass/Vol] 4.1 g/dLNormal3.6-5.1[facility] SpecialistComment on above:Performed By: #### LIPD, CBC, TSH reflex FT4, CMP #### [facility] [address], [place] [id number]/Globulin [Mass ratio]1.5 {ratio}Normal1.0-2.5NoMer[facility] Health [facility] Hospital SpecialistComment on above:Performed By: #### LIPD, CBC, TSH reflex FT4, CMP #### [facility] [address], [place] [id number] [Catalytic activity/Vol]133 U/SIsue39-324Kjzufwgy [facility] SpecialistComment on above:Performed By: #### LIPD, CBC, TSH reflex FT4, CMP #### [facility] [address], [place] [id number] [Catalytic activity/Vol]17 U/LNormal6-33NoMer[facility] Health [facility] Hospital SpecialistComment on above:Result Comment: 03/13/2021 Female reference range changed.Performed By: #### LIPD, CBC, TSH reflex FT4, CMP #### [facility] [address], [place] [id number] gap [Moles/Vol]18 mmol/RRvrhvt06-86Bvzdedfz [facility] SpecialistComment on above:Result Comment: Effective 04/18/2019 reference range changed.Performed By: #### LIPD, CBC, TSH reflex FT4, CMP #### [facility] [address], [place] [id number] [Catalytic activity/Vol]17 U/LNormal9-34NoMer[facility] Health [facility] SpecialistComment on above:Performed By: #### LIPD, CBC, TSH reflex FT4, CMP #### [facility] [address], [place] [id number]/CREA14 RatioNormal6-22NoMer[facility] Health [facility] Hospital Specialist Comment on above:Performed By: #### LIPD, CBC, TSH reflex FT4, CMP #### [facility] [address], [place] [id number] [Mass/Vol]9.1 mg/dLNormal8.6-10.2[facility] SpecialistComment on above:Performed By: #### LIPD, CBC, TSH reflex FT4, CMP #### [facility] [address], [place] [id number] [Moles/Vol]105 mmol/OYrhoxf91-832Bzhvupny [facility] SpecialistComment on above:Performed By: #### LIPD, CBC, TSH reflex FT4, CMP #### [facility] [address], [place] [id number] [Moles/Vol]22 mmol/MQgrrur16-24Uyjubysn [facility] SpecialistComment on above:Performed By: #### LIPD, CBC, TSH reflex FT4, CMP #### [facility] [address], [place] [id number] [Mass/Vol]0.6 mg/dLNormal0.6-1.4[facility] SpecialistComment on above:Performed By: #### LIPD, CBC, TSH reflex FT4, CMP #### [facility] [address], [place] [id number] mL/min/1.81u7Crjymx>60[facility] SpecialistComment on above:Performed By: #### LIPD, CBC, TSH reflex FT4, CMP #### [facility] [address], [place] [id number] mL/min/1.32b9Naicjx>60NortOhioHealth Hardin [facility] Hospital SpecialistComment on above:Performed By: #### LIPD, CBC, TSH reflex FT4, CMP #### [facility] [address], [place] [id number] (S) [Mass/Vol]2.8 g/dLNormal1.9-3.7[facility] SpecialistComment on above:Performed By: #### LIPD, CBC, TSH reflex FT4, CMP #### [facility] [address], [place] [id number] [Mass/Vol]94 mg/fVKuopod27-90Vgdggniq [facility] SpecialistComment on above:Result Comment: For FASTING Glucose --- ADA reference ranges: Normal 65-99 mg/dl Prediabetes 100-125 Diabetes >/= 126Performed By: #### LIPD, CBC, TSH reflex FT4, CMP #### [facility] [address], [place] [id number] [Moles/Vol]4.4 mmol/LNormal3.5-5.5[facility] SpecialistComment on above:Performed By: #### LIPD, CBC, TSH reflex FT4, CMP #### [facility] [address], [place] [id number] [Mass/Vol]6.9 g/dLNormal6.1-8.1[facility] SpecialistComment on above:Performed By: #### LIPD, CBC, TSH reflex FT4, CMP #### [facility] [address], [place] [id number] [Moles/Vol]140 mmol/AZatqjl212-870Wwsyribz [facility] SpecialistComment on above:Performed By: #### LIPD, CBC, TSH reflex FT4, CMP #### [facility] [address], [place] [id number]<0.3NormalNortOhioHealth Hardin Memorial Hospital SpecialistComment on above:Performed By: #### LIPD, CBC, TSH reflex FT4, CMP #### [facility] [address], [place] [id number] nitrogen [Mass/Vol]8 mg/dLNormal7-25[facility] SpecialistComment on above:Performed By: #### LIPD, CBC, TSH reflex FT4, CMP #### [facility] [address], [place] [id number] Panelon 48-49-5122Unkepuhaeyp [Mass/Vol]150 mg/dLNormal 125-200NortOhioHealth Hardin Memorial Hospital SpecialistComment on above:Result Comment: Low risk < 200mg/dL Borderline risk 201-239 mg/dl High risk > or equal to 240Performed By: #### LIPD, CBC, TSH reflex FT4, CMP #### [facility] [address], [place] [id number] in HDL [Mass/Vol]40 mg/dLLow>40NoUniversity Hospitals TriPoint Medical CenterComment on above:Result Comment: High Cardiovascular Risk HDL <40 mg/dL Low Cardiovascular Risk HDL > or equal to 60 mg/dlPerformed By: #### LIPD, CBC, TSH reflex FT4, CMP #### [facility] [address], [place] [id number] in LDL [Mass/Vol]81 mg/dLNormalNoMer[facility] SpecialistComment on above:Result Comment: LDL ATP III CLASSIFICATION LDL less than 100 mg/dl Optimal LDL 100-129 mg/dl Near or above optimal LDL 130-159 Borderline high LDL 160-189 High LDL greater than 189 mg/dl Very HighPerformed By: #### LIPD, CBC, TSH reflex FT4, CMP #### [facility] [address], [place] [id number] in VLDL [Mass/Vol]29 mg/dLNormalNoMer[facility] SpecialistComment on above:Performed By: #### LIPD, CBC, TSH reflex FT4, CMP #### [facility] [address], [place] [id number].total/Cholesterol in HDL [Mass ratio]4 {ratio} NormalNoUniversity Hospitals TriPoint Medical CenterComment on above:Performed By: #### LIPD, CBC, TSH reflex FT4, CMP #### [facility] [address], [place] [id number] [Mass/Vol]146 mg/lLVbvrxv52-237JhmackfjUniversity Hospitals TriPoint Medical CenterComtrinity health [facility] on above:Result Comment: TRIG ATPIII CLASSIFICATIONS TRIG less than 150 mg/dl Normal TRIG 150-199 mg/dl Borderline High TRIG 200-500 mg/dl High TRIG greather than 500 mg/dl Very HighPerformed By: #### LIPD, CBC, TSH reflex FT4, CMP #### [facility] [address] [place], [place] [id number] w/ Reflex to Free T4on 48-80-2659YOI7.460 uIU/mLNormal 0.400-4.500Nortpo [facility] SpecialistComment on above:Performed By: #### LIPD, CBC, TSH reflex FT4, CMP #### [facility] [address], [place] [id number] Shoulder Complete Left*on 88-97-3153ZD Shoulder Complete Left*CLINICAL HISTORY: Anterior shoulder pain with abduction. COMPARISON: [...] and signed by Neri Ann on 04/15/[address] [place], [place] [address]XR Shoulder Complete Right*on 23-82-3116WD Shoulder Complete Right*Please see XR Shoulder Complete Left report dated: 04/15/2021. Report reported and signed by Neri Ann on 04/15/[address] [place] [address] Medicine Office/Clinic Noteon 08-68-1699[facility] Medicine Office/Clinic NoteChief Complaint EST Sore Throat HPI Staff Patient [...] denies seasonal allergies. no fever, chills, malaise, myalgia.no ear ache, sinus congestion, or headache. no [...] well nourished, in no acute distress Head: Normocephalic/atraumatic no sinus tenderness frontal or maxillary Eyes: Pupils equal, round, and reactive to light. Conjunctivae and sclerae normal, and extraocular movements intact Ears: No deformity or lesion of external ear. Canals and TM appear normal bilaterally. TM?s intact,not inflamed, with normal light reflex. Hearing grossly normal to conversational speech Nose: mild nasal mucosa inflammation and edema with clear rhinorrhea Mouth: _moist mucosa. posterior pharynx with mild edema and erythema, +PND, no purulent exudate, noabscess. uvula midline. Neck: anterior cervical adenopathy L [...] po intake food/fluids. no fever, nontoxic, no systemicsymptoms. advised that sore throat likely from PND which could be rhinitis, seasonal allergies, viral URI, others. advised to monitor for worsening symptoms. provided list of antihistaminesand cold medications safe in . ap6ljyosycqi she clear anything she starts with OB. Follow up with family doctor in 7-10 days, sooner if not improving as expected, ER if condition worsens significantly. Ordered: Rapid Strep POC 33899 2. Rhinitis (J31.0: Chronic rhinitis) BMI 37.0-37.9, adult (Z68.37: Body mass index (BMI) 37.0-37.9, adult) Ordered: Body Mass Index (BMI) documented 3008F Rapid Strep POC 58706 Follow-up No qualifying data available Patient Education [...] Results Rapid Strep POC Result: Negative (11/23/19 12:50:00)[facility] HospitalComment on above:Result Comment: Electronically Signed By: JASMINA MARTÍNEZ PA-C\.br\Date and Time Signed: 11/22/2012:21 EDTPatient Educationon 58-81-5234Lggdsvv EducationAllergy and Immunology Sore Throat A sore throat [...] (GERD). HOME CARE INSTRUCTIONS ? Only take poja-mtz-djwmcve medicines as directed by your caregiver. ? [...] Document Reviewed: 12/05/2012 ExitCare? Patient Information ?2013 [employer].[facility] Vital Signs Date TimeVital SignValuePerforming WofhwqnjyHmtnxbdc14-63-6098 16:19-0400Body mass index (BMI) [Ratio]30.51 kg/w8Vjhoj Melody DO Work Phone: [facility]St[facility] HospitalYggawtpdns74-53-8511 16:19-0400Body yecwlt82.73 kgCorey Melody DO Work Phone: [facility] LouisVvqggbfpyl35-32-5121 16:19-0400Diastolic blood rinhdprf71 mm[Hg]Pawel Melody DO Work Phone: [facility] LouisBfjdwqcyku08-96-1243 16:19-0400Systolic blood pwhroafg162 mm[Hg]Pawel Melody DO Work Phone: [facility] HospitalCzoynlyofd85-66-4239 08:53-0400Body hbtyny235.6 cmCorey Melody DO Work Phone: [phone] [place], [place] [address]Tmrianxuka22-75-1227 08:53-0400Body mass index (BMI) [Ratio]30.02 kg/z8Ryncx Melody DO Work Phone: 1(980)[facility] [place] [address]-12-2025 08:53-0400Body mjplon00.37 kgCorey Melody DO Work Phone: 1(379)[facility] [place] [address]-12-2025 08:53-0400Diastolic blood nxuwmlqd95 mm[Hg]Pawel Melody DO Work Phone: 1(364)[facility] [place] [address]-12-2025 08:53-0400Systolic blood yepwlven155 mm[Hg]Pawel Melody DO Work Phone: [phone] [place], [place] [address]12-16-2024 08:58-0500Body mass index (BMI) [Ratio]32.6 kg/g6Ddlue Melody DO Work Phone: 1(691)[facility] [place], [place] [address]Fmcikczayv58-62-5673 08:58-0500Body bnsesj61.63 kgCorey Melody DO Work Phone: [phone] [place] [address]-16-2024 08:58-0500Diastolic blood iqjsyvss84 mm[Hg]Pawel Melody DO Work Phone: 1(256)[facility] [place] [address]-16-2024 08:58-0500Systolic blood thnxvedx027 mm[Hg]Pawel Melody DO Work Phone: 1(266)[facility] [place], [place] [address]Egqpdywvwy22-63-8848 08:45-0400Body mass index (BMI) [Ratio]33.73 kg/k3Avtrz Melody DO Work Phone: 1(417)[facility] [place] [address]-23-2024 08:45-0400Body ouoewm91.8 kg Pawel Melody DO Work Phone: [phone] [place] [address]-23-2024 08:45-0400Diastolic blood wkarpljn16 mm[Hg]Pawel Melody DO Work Phone: 1(157)[facility] [place] [address]-23-2024 08:45-0400Systolic blood yspvhufn216 mm[Hg]Pawel Melody DO Work Phone: [facility] LouisHayfhudhme78-96-0813 08:59-0400Body mass index (BMI) [Ratio]34.54 kg/m2Micaela Ibrahim GABINO Work Phone: [facility] LouisHzyxhjkomn22-64-3573 08:59-0400Body iyisnb89.07 kgMicaela Ibrahim GABINO Work Phone: [facility] LouisYbobdlnsie65-23-8903 08:59-0400Diastolic blood hvkvcqod40 mm[Hg]Micaela Ibrahim GABINO Work Phone: [facility] LouisQqcxiwosbe09-45-0628 08:59-0400Systolic blood ovpcrgkj842 mm[Hg]Micaela Ibrahim GABINO Work Phone: [facility] LouisJwfbzhnnsj02-12-9432 10:01-0400Body .64 cmPHYSICIAN NO [facility]04-17-2024 10:01-0400Body mass index (BMI) [Ratio]36.3 kg/p6PMUMISMMR NO [facility]04-17-2024 10:01-0400Body darugwsegtx26.8 [degF]PHYSICIAN NO [facility]04-17-2024 10:01-0400Body exddgc540.05 kg PHYSICIAN NO [facility]04-17-2024 10:01-0400 Diastolic blood mrxarodx57 mm[Hg]PHYSICIAN NO [facility]04-17-2024 10:01-0400Heart aiks159 /minPHYSICIAN NO [facility]04-17-2024 10:01-5646PlE2% (BldA) [Mass fraction]97 % PHYSICIAN NO [facility]04-17-2024 10:01-0400 Systolic blood tnlxxhuh010 mm[Hg]PHYSICIAN NO [facility]12-23-2023 14:50-0500Body .64 Giorgio Schmid Other [place] [employer] Other 12-23-2023 14:50-0500Body mass index (BMI) [Ratio] 37.12 kg/t9PyqdnEmilee Schmid Other [employer] Other 12-23-2023 14:50-0500Body tawhksznzgn86.9 [degF]Emilee Schmid Other [employer] Other 12-23-2023 14:50-0500Body dmlolr961.33 kgPranavmey Schmid Other [employer] Other 12-23-2023 14:50-0500Diastolic blood oramxdfg88 mm[Hg] Emilee Schmid Other [employer] Other 12-23-2023 14:50-0500Respiratory rate18 /minAmbmey Schmid Other [employer] Other 12-23-2023 14:50-1371XgD8% (BldA) [Mass fraction]98 % Emilee Schmid Other [employer] Other 12-23-2023 14:50-0500Systolic blood pnzismng869 mm[Hg] Emilee Schmid Other [employer] Other 11-27-2023 09:10-0500Body exdfui696.64 [facility] Airam Other [employer] Other 11-27-2023 09:10-0500Body mass index (BMI) [Ratio] 37.12 kg/v9Msanzzelizabeth Alegria Other [employer] Other 11-27-2023 09:10-0500Body nglnijlgqgq58.2 [degF]Yury Airam Other [employer] Other 11-27-2023 09:10-0500Body .33 kgThomas Aiarm Other [employer] Other 11-27-2023 09:10-0500Diastolic blood qqsmcyyt76 mm[Hg] Yury Alegria Other [employer] Other 11-27-2023 09:10-0500Respiratory rate18 /minThomas Airam Other [employer] Other 11-27-2023 09:10-9250ThF9% (BldA) [Mass fraction]98 % Yury Alegria Other [employer] Other 11-27-2023 09:10-0500Systolic blood olbfjajt820 mm[Hg] Yury Alegria Other [employer] Other 672593-19-1518 09:30-0400Diastolic blood xjwtvadr61 mm[Hg] PHYSICIAN NO [facility]05-03-2023 09:30-0400Heart rate80 /minPHYSICIAN [facility]05-03-2023 09:30-0400Respiratory rate18 /minPHYSICIAN [facility]05-03-2023 09:30-3937MqS5% (BldA) [Mass fraction]99 %PHYSICIAN NO [facility]05-03-2023 09:30-0400Systolic blood zlucxtfm835 mm[Hg]PHYSICIAN NO [facility]05-03-2023 08:01-0400 Body .18 cmPHYSICIAN [facility] 08-13-2022 08:01-0400Body xktyav750.32 kgPHYSICIAN [facility]04-21-2023 10:45-0400Body kkdlfe572.64 cmSherif Chloe Other [facility] [employer] Other 04-21-2023 10:45-0400Body mass index (BMI) [Ratio] 39.09 kg/r0UqoqkzWilberto Corona Other [facility] [employer] Other 04-21-2023 10:45-0400Body mebazg210.86 kgShangeliquerowdy Corona Other [facility] [employer] Other 04-21-2023 10:45-2053JfC7% (BldA) [Mass fraction]99 % Wilberto Daveky Other [facility] [employer] Other 02-01-2023 17:30-0500Body .64 cmSmague Corona Other [facility] [employer] Other 02-01-2023 17:30-6870EbN3% (BldA) [Mass fraction]97 % Wilberto Daveky Other [facility] [employer] Other 658083-91-4591 08:59-0500Diastolic blood mm[Hg] PHYSICIAN NO [facility]01-25-2023 08:59-0500Heart rate62 /minPHYSICIAN [facility]01-25-2023 08:59-0500Respiratory rate18 /minPHYSICIAN [facility]01-25-2023 08:59-0744JcE8% (BldA) [Mass fraction]99 %PHYSICIAN NO [facility]01-25-2023 08:59-0500Systolic blood givscdbh858 mm[Hg]PHYSICIAN [facility]01-25-2023 07:47-0500 Body yhrpbq299.18 cmPHYSICIAN [facility] 05-07-2022 07:47-0500Body xyqjgl711.86 kgPHYSICIAN [facility]01-12-2023 16:45-0500Body .64 Danielle Corona Other [employer] Other 01-12-2023 16:45-0500Diastolic blood fnvinmbu98 mm[Hg] Wilberto Corona Other [employer] Other 01-12-2023 16:45-8263MhQ0% (BldA) [Mass fraction]98 % Wilberto Corona Other [employer] Other 467153-70-0980 16:45-0500Systolic blood qctpsimi512 mm[Hg] Wilberto Corona Other [employer] Other 12-15-2022 17:00-0500Body oaknlj193.64 Danielle Chloe Other [employer] Other 12-15-2022 17:00-0500Body mass index (BMI) [Ratio] 35.51 kg/e6ZtteuoWilberto Corona Other [employer] Other 12-15-2022 17:00-0500Body .79 kgSholesya Corona Other [employer] Other 12-15-2022 17:00-0500Diastolic blood jfafdwow66 mm[Hg] Wilberto Corona Other [employer] Other 12-15-2022 17:00-0500Systolic blood ucvayfxh703 mm[Hg] Wilberto Corona Other [employer] Other 09-09-2022 19:20-0400Body .64 cmAfredi Schmid Other [employer] Other 09-09-2022 19:20-0400Body mass index (BMI) [Ratio] 37.12 kg/e6WsbwzEmilee Schmid Other [employer] Other 09-09-2022 19:20-0400Body wzlzzkgoihk86.7 [degF]Emilee Schmid Other [employer] Other 09-09-2022 19:20-0400Body uoymme099.33 kgEmilee Schmid Other [employer] Other 09-09-2022 19:20-0400Respiratory rate18 /minPranavmey Schmid Other [employer] Other 09-09-2022 19:20-6211LlC1% (BldA) [Mass fraction]97 % Emilee Schmid Other [employer] Other Encounters Encounter DateEncounter TypeCare ProviderFacilityStart: 12-14-2024 End: 68-72-7800grunruxlwcHYCMB FAZIONot AvailableStart: 12-14-2024 End: 24-73-6229Unpdsp outpatient visit 15 minutesCorey Melody DO Work Phone: [facility] OBGYNComment on above:Encounter for weight managementStart: 12-14-2024 End: 64-00-8115Ayzwcx flowsheetCorey Melody DO Work Phone: [facility] [place] OBGYNStart: 12-14-2024 End: 60-92-4979Fqojfy flowsheetCorey Melody DO Work Phone: [facility] OBGYNStart: 11-04-2024 End: 28-20-5813Npljtf flowsheetRylee [facility] Health PA Work Phone: [facility] DERMStart: 11-04-2024 End: 08-86-2781Ysyykr flowsheetRylee [facility]let Health PA Work Phone: [facility] DERMStart: 11-04-2024 End: 69-04-4660Uvvinb outpatient visit 15 minutesRylee Carondelet Health PA Work Phone: [facility] DERMComment on above:Acne vulgaris (Primary Dx); Lentigines; Melanocytic nevus of face, other location; Multiple benign melanocytic nevi of both upper extremities, both lower extremities, and trunk; DermatofibromaStart: 11-04-2024 End: 19-83-2231sdbejyaxrrTQOMR NORTHEIMNot AvailableStart: 09-22-2024 End: 84-18-4539Joiuzd flowsheetCorey Melody DO Work Phone: [facility] BCP OBStart: 09-22-2024 End: 43-42-2498Bezvfq flowsheetCorey Melody DO Work Phone: [facility] BCP OBStart: 09-22-2024 End: 21-35-9213Subxge outpatient visit 15 minutesCorey Melody DO Work Phone: [facility] BCP OBComment on above:Weight gain; Encounter for weight managementStart: 09-22-2024 End: 06-91-1093ewfquxloxrKTFRT FAZIONot AvailableStart: 06-21-2024 End: 54-95-0048lftdyrckruQCLPU NORTHEIMNot AvailableStart: 06-21-2024 End: 10-45-9782Mgppyy flowsheetRylee [facility] PA Work Phone: [facility] SWS DERMStart: 06-21-2024 End: 17-58-7985Mambaq flowsheetRylee [facility] PA Work Phone: [facility] SWS DERMStart: 06-20-2024 End: 18-16-4924mpcmkrshucUSI RAMEYNot AvailableStart: 03-28-2024 End: 02-37-3542Bpegbu flowsheetCorey Melody DO Work Phone: [facility] BCP OBStart: 03-28-2024 End: 81-86-7375Yudgbl flowsheetCorey Melody DO Work Phone: [facility] BCP OBStart: 03-28-2024 End: 88-25-4710Yevcsr outpatient visit 15 minutesCorey Melody DO Work Phone: [facility] BCP OBComment on above:Weight gain; Encounter for weight managementStart: 03-28-2024 End: 54-90-6162xyehaazokaXYXGH FAZIONot AvailableStart: 03-17-2024 End: 07-55-8576Oootut outpatient visit 15 minutesRylee Baofeng PA Work Phone: [facility] SWS DERMComment on above:Acne vulgaris (Primary Dx)Start: 03-17-2024 End: 26-75-0070fhnizrwudbQLVIH NORTHEIMNot AvailableStart: 03-17-2024 End: 76-77-3350Qylrwu flowsheetRylee [employer] [facility] PA Work Phone: [facility] SWS DERMStart: 03-17-2024 End: 49-21-7073Ymdlyb flowsheetRylee [facility] PA Work Phone: [facility] SWS DERMStart: 02-16-2024 End: 43-13-8765Lzqj/qhp telephone evaluation 5-10 minCorey Melody DO Work Phone: [facility] BCP OBComment on above:PCOS (polycystic ovarian syndrome); Hormone imbalanceStart: 01-04-2024 End: 99-61-9926Lgimhq flowsheetCorey Melody DO Work Phone: [facility] BCP OBStart: 01-04-2024 End: 68-04-5219Hhmqnl flowsheetCorey Melody DO Work Phone: [facility] BCP OBStart: 01-04-2024 End: 51-41-8181Qdsmxhswn Result EncounterCorey Melody DO Work Phone: noms External Department UnsolicitedStart: 01-04-2024 End: 60-86-2078Rlquydk encounter procedureCorey Melody DO Work Phone: noms HealthcareStart: 01-04-2024 End: 57-99-9946Ykomsnti preventive med est patient 18-39 yrsCorey Melody DO Work Phone: NOBD BCP OBComment on above:Well woman exam with routine gynecological exam; Weight gain; Encounter for weight managementStart: 01-04-2024 End: 45-27-1310vzqcjgwrptWTPHY FAMEGGANONot AvailableStart: 12-17-2023 End: 20-36-0720Mgcfry [employer] PA Work Phone: noms SWS DERMStart: 12-17-2023 End: 89-90-4099Qbxglf Hydrelisray county memorial hospitalDishcrawlprattville [facility]ist hospital PA Work Phone: noms SWS DERMStart: 12-17-2023 End: 24-09-4414Bxppro outpatient new 45 minutesNorthern [facility] [employer] PA Work Phone: noms SWS DERMComment on above:Acne vulgaris (Primary Dx); Dermatofibroma; Melanocytic nevus of trunk; Lentigo simplexStart: 12-07-2023 End: 91-93-0143Lnohpc Chaz LLOYD Work Phone: [facility] BCP OBStart: 12-07-2023 End: 78-82-8119Chkcwu Chaz LLOYD Work Phone: [facility] BCP OBStart: 12-07-2023 End: 65-30-6949Isuhtmd encounter procedureMicaela LLOYD Work Phone: [facility] BCP OBComment on above:Weight gain; Encounter for weight managementStart: 08-20-2023 End: 44-39-8103rlnzcehqgiEHVTKKOVL NO FAMILYFacility:[facility] Hospitaltart: 08-20-2023 End: 13-28-6437czlmyurampZRUBMJTDY NO [facility] Work Phone: Start: 08-20-2023 End: 62-04-7348Ihlaajmq ReferredPHYSICIAN NO [facility]-LAB Path Spec Fan HospStart: 07-29-2023 End: 33-59-6691mzgumlyccmPTSXJWYBL NO [facility] Work Phone: Start: 07-29-2023 End: 93-30-4598Fgnjmbq encounter procedurePHYSICIAN NO [facility] Work Phone: Start: 07-28-2023 End: 86-35-8835nzwpcnxuewCotuu FazioFacility:[facility] Start: 07-28-2023 End: 91-97-6024fzftapxfwmDONNRULPD NO [facility] Work Phone: Start: 07-28-2023 End: 72-34-8730Baqyfdeq ReferredPHYSICIAN NO [facility]-LAB Path Spec Fan HospStart: 05-04-2023 End: 52-09-7196tpxbubrustDxsug Keller Other [employer] Other Start: 69-34-3287Wdfikfpbn encounterAmber BinuFPG Referral CoordinatorStart: 04-04-2023 End: 64-59-4963lyhftrjsrsPtrav Keller Other [employer] Other Start: 26-13-7811Wdpoet outpatient visit 25 minutes Emilee SchmidFPG [facility]: 03-09-2023 End: 86-77-6058vfblgiuxmlZuscnq [place] Other [employer] Other Start: 91-47-7286Jpbtoc outpatient visit 15 minutes Yury Nicole [facility]rt: 09-09-2022 End: 58-09-8110wpionlzgfqDD DOCTOR MISCFacility:Z9Jkeik: 08-13-2022(PROC) PROCEDURESherKettering Health Springfield OutPtStart: 08-13-2022 End: 09-69-7469Nlgrncjlx to same day surgery centerPHYSICIAN [facility] Work Phone: Start: 08-13-2022 End: 04-84-4445ftctubifecVWMFIXUAZ [facility] Work Phone: Start: 08-01-2022 End: 45-42-3136cytlfbtuicKeljqk Zaky Other [employer] Other Start: 34-45-3974Qhgwhy outpatient visit 25 minutes Wilberto Coughlin [facility] HospitalkStart: 07-30-2022 End: 79-13-9536tahfwegidmIE PAWEL OLIVER .Facility:T9Oogxk: 05-22-2022 End: 59-43-0747pateeqkddjRQ ALEXX WILLIAMSON .Facility:Q3Amduy: 05-14-2022 End: 70-85-0452oefijlsmygQrwkoq Zaky Other [employer] Other Start: 18-83-7069Dscepx outpatient visit 15 minutes Wilberto Coughlin Pain ManagementStart: 05-07-2022(PROC) PROCEDUREShermikki [facility] OutPtStart: 05-07-2022 End: 18-37-1375Fkdmjxoqd to same day surgery centerPHYSICIAN [facility] Work Phone: Start: 05-07-2022 End: 57-00-1765buiarhpkeyPIRAGUZFM [facility] Work Phone: Start: 04-28-2022 End: 46-96-6428ffadsfzhdsWC PAWEL MELODY .Facility:W3Jgpgf: 04-24-2022 End: 25-03-1591emrnfsuaqxLN PAWEL MELODY .[place] [employer] Other Start: 03-88-2671Tfarme outpatient visit 15 minutes Wilberto CoronaFPG Pain ManagementStart: 04-07-2022 End: 28-99-2449bpsephtdydKU PAWEL MELODY .Facility:V1Zeoze: 03-27-2022 End: 27-47-5426dgagignnqxEucmcl Chloe Other [facility] [employer] Other Start: 21-92-1262Lvpfsc consultation new/estab patient 60 minSherif ChloeFPG Pain ManagementStart: 02-17-2022 End: 22-48-5876jpnotumtdaUU TAMMY Carmonacility:R1Rjjye: 12-20-2021 End: 14-56-7233dfhbagivzeOxpan Keller Other [place] [employer] Other Start: 85-93-4956Gtyoiq outpatient visit 25 minutes Emilee Fisher [facility] Imtiaz Procedures DateProcedureProcedure DetailPerforming ClinicianStart: 63-87-3666GIQ,APTIMA HPV,AGE GDLNCorey Melody DO Work Phone: Start: 92-72-2839Wrcpapzjz of anesthetic agent into stellate ganglionPHYSICIAN NO FAMILYStart: 13-00-2386Ouejjserw of anesthetic agent into stellate ganglionPHYSICIAN NO FAMILY Plan of Treatment DateCare ActivityDetailAuthorStart: 02-16-2025 End: 59-87-9254Pwrriww encounter xykviuiiv76/06/2025 8:40 AM EST Procedure Visit [facility] Fan CARLIN [address] [place] [id number] Pawel Oliver DO [address] [place] [address] NOMGuillaume MICHELLENStart: 12-14-2024 End: 73-44-3354Narcdae encounter jihcidtvg14/03/2025 8:30 AM EDT Office Visit [facility] BCP OB [address] [place] [id number] Micaela Ibrahim PA [address] [place] [address] NOMS BCP OBStart: 42-06-7644Yfiwopora vaccinationNOMS HealthcareStart: 11-04-2024 End: 04-47-0356Wbucxoq encounter zrubdbufw28/25/2025 10:10 AM EDT Office Visit [facility] DERM [address] [place] [address] Vinayak Walls PA [address] [place] [address] ArrivedNOMS SWS DERMComment on above:ArrivedStart: 09-22-2024 End: 58-03-4111Faxkrjx encounter procedureNOMS BCP OBComment on above:Arrived Start: 06-21-2024 End: 28-03-5268Jikwkqx encounter procedureNOMS SWS DERMComment on above:Arrived Start: 06-20-2024 End: 59-94-9305Enqzhqe encounter ctybjfzdt58/10/2025 8:40 AM EDT Office Visit [facility] OB [address] [place] [phone] Pawel Oliver DO [address] [place] [address] N[facility] BCP OBStart: 03-28-2024 End: 28-25-4920Wraolvz encounter procedureNOMS BCP OBComment on above:Arrived Start: 03-17-2024 End: 34-49-0029Gqcmxaq encounter procedureNOMS SWS DERMComment on above:Arrived Start: 02-17-2024 End: 29-84-8553TUGCGURP Lab Routine PCOS (polycystic ovarian syndrome) Expected: 02/17/2024 (Approximate), Expires: 02/16/2025NOMS HealthcareComment on above: Expected: 02/17/2024 (Approximate), Expires: 02/16/2025Start: 01-04-2024 End: 58-20-0100Yrzknwh encounter procedureNOMS BCP OBComment on above:Arrived Start: 12-17-2023 End: 93-79-6238Wlcbuyt encounter procedureNOMS SWS DERMComment on above:Arrived Start: 29-64-7891Hklmoqvmm vaccinationInfluenza Vaccine (#1)[facility] Start: 40-65-9899AnfjbzaexMary Rutan Hospitaltart: 91-91-2370JpbvwkvyoGood Samaritan HospitalCBC W Auto Differential panel - BloodCBC and differential Lab Routine PCOS (polycystic ovarian syndrome) Ordered: 02/17/2024NOIN HealthcareComment on above:Ordered: 02/17/2024ytology Cervical or vaginal smear or scraping studyPap Smear Pathology and Cytology Routine Well woman exam with routine gynecological exam Ordered: 01/04/2024[facility] Work Phone: comment on above:Ordered: 01/04/2024HEA-sulfateDHEA- sulfate Lab Routine PCOS (polycystic ovarian syndrome) Ordered: 02/17/2024NOIN HealthcareComment on above:Ordered: 02/17/2024EstradiolEstradiol Lab Routine PCOS (polycystic ovarian syndrome) Hormone imbalance Ordered: 02/17/2024[facility] Work Phone: comncre on above:Ordered: 02/17/2024Follicle stimulating hormoneFollicle stimulating hormone Lab Routine PCOS (polycystic ovarian syndrome) Ordered: 02/17/2024NOIN HealthcareComment on above:Ordered: 02/17/2024hCG, quantitative, pregnancyhCG, quantitative, Lab Routine PCOS (polycystic ovarian syndrome) Ordered: 02/17/2024NOIN HealthcareComment on above:Ordered: 02/17/2024Hemoglobin A1c/Hemoglobin.total in BloodHemoglobin A1c Lab Routine PCOS (polycystic ovarian syndrome) Hormone imbalance Ordered: 02/17/2024NOIN HealthcareComment on above:Ordered: 02/17/2024Human papilloma virus DNA [Presence] in Unspecified specimen by Probe with amplificationHPV DNA probe, amplified Microbiology Routine Well woman exam with routine gynecological exam Ordered: 01/04/2024[facility] HealthcareComment on above:Ordered: 01/04/2024 Luteinizing hormoneLuteinizing hormone Lab Routine PCOS (polycystic ovarian syndrome) Ordered: 02/17/2024[facility] HealthcareComment on above:Ordered: 02/17/2024 [facility] Work Phone: [facility] referralS[facility] Work Phone: ProgesteroneProgesterone Lab Routine PCOS (polycystic ovarian syndrome) Hormone imbalance Ordered: 02/17/2024[facility] HealthcareComment on above:Ordered: 02/17/2024Thyrotropin [Units/volume] in Serum or PlasmaTSH Lab Routine PCOS (polycystic ovarian syndrome) Ordered: 02/17/2024[facility] Comment on above:Ordered: 02/17/2024Thyroxine (T4) free [Mass/volume] in Serum or PlasmaT4, free Lab Routine PCOS (polycystic ovarian syndrome) Ordered: 02/17/2024[facility] HealthcareComment on above:Ordered: 02/17/2024[facility] Immunizations Immunization DateImmunizationNotesCare AhwpnhzjCdsukuas50-00-3345Gbgnombmn, injectable, Madin Michelle Canine Kidney, preservative free, quadrivalentMicaela LLOYD Work Phone: [facility] LouisHagonpelgz68-67-9654hxebmqlcg virus vaccine, unspecified formulationMicaela LLOYD Work Phone: [facility]. LouisVyldwfyolh78-41-2595iajztaw toxoid, reduced diphtheria toxoid, and acellular pertussis vaccine, adsorbedMicaela LLOYD Work Phone: [facility] LouisSewybsjrbx97-32-0595xmxgnhuoe, injectable, quadrivalent, preservative freeMicaela LLOYD Work Phone: [facility] Payers DatePayer CategoryPayerPolicy [id number] Cross Blue ShieldBCBS Member Subscriber Plan / Payer (Effective 2022-Present) Name: Nancy Toney MemberID: [id number] Relation to Subscriber: Self Name: Nancy Toney ID: Not on file Type: Not on file Address: [address] [place] [id number] BCBS BCBS [id number] 2022-Present [phone] [address] [place] [id number] 2.840.1.804936.3.57[id number] 2.840.1.189820.3.57[id number] 2.840.1.796992.3.57[id number] 2.840.1.812208.3.57[id number] 2.840.1.668765.3.57[id number] 2.840.1.862251.3.579.[id number] 2.16840.1.937442.3.579.2.81579-38-6533Bzxghgg2337218 2.16840.1.042611.3.579.[id number] 2.16840.1.612914.3.579.2.890070-86-5454Cjmmipd34176436 2.16840.1.026207.3.57[id number] 2.0.1.636097.3.57[id number] 2.840.1.661586.3.57[id number] 2.0.1.783540.3.579.[id number] 2.840.1.126802.3.579.2.[id number] 2.0.1.297952.3.57[id number] 2.0.1.390345.3.579.2.296306-47-6378Nlnf Cross Blue [id number] 2.0.1.245166.63CxhmkakUZG552113527178 cza4ihx1-f725-32j0-qj87-965q53j229ax [id number] 2.0.1.1[id number] 2.0.1.567622.3.579.2.531 Social History DateTypeDetailFacilityUnknown if ever smokedNoresearch [facility] [employer] Other Start: 10-23-2022 End: 94-63-9358Inx Assigned At [facility] HealthcareStart: 09-43-5323Poc Assigned At [facility]tart: 64-07-8820Cpgszna smoking status NHISNever smoked tobaccoNOMS HealthcareStart: 26-15-7653Xcldryo use and exposureSmokeless tobacco non-userNOMS HealthcareStart: 01-04-2024 End: 53-81-8959Qfcnvempw beverage intakeCurrent drinker of alcohol (finding)NOMS HealthcareStart: 10-23-2022 End: 84-06-1123Ctoakfxym beverage intakeNOIN HealthcareWithin the last year, have you been afraid of your partner or ex-partner?NoNOMS HealthcareHow often do you attend taoist or latter day services?Patient declinedNOMS HealthcareHow often to you have a drink containing alcohol?2-4 times a monthNOMS HealthcareHow many standard drinks containing alcohol do you have on a typical day?1 or 2NOMS HealthcareHow often do you have 6 or more drinks on 1 occasion?Less than monthlyNOMS HealthcareDo you feel stress - tense, restless, nervous, or anxious, or unable to sleep at night because yourmind is troubled all the time - these days [OSQ]Only a littleNOMS Healthcare(I/We) worried whether (my/our) food would run out before (I/we) got money to buy more.Never trueNOIN HealthcareStart: 54-63-8696Zgrvbbn CommentCaffeine intake: 1-2 cups per day soda/popNOMS HealthcareStart: 72-09-6979Zox assigned at birthNot on fileNOIN HealthcareStart: 55-08-0057Bjsfij identityIdentifies as female gender (finding)[facility] Goals DatePatient GoalDesired Activity/State Clinical Notes 12-20-2021 to 12-14-2024 Note Date & HlfxGenmUuxphoii82-14-5773 History of Present illness Narrative* Annette Ordonez, UNIVERSITY SERVICES PROGRAM ASSOCIATE - 12/14/2024 3:40 PM EDT Reason for Appointment: Patient ID: Nancy Toney is a 34 y.o. female who presents for encounter for weight management Patient presents today for a weight management consultation. Patient has been prescribed Adipex andshe is here for her 2nd prescription. Today's Vitals: Estimated body mass index is 30.51 kg/m as calculated from the following: Height as of 09/22/24: 5' 6 . Weight as of this encounter: 189 lb. Previous Weight/BMI: Wt Readings from Last 2 Encounters: 12/14/24 189 lb 09/22/24 186 lb BMI Readings from Last 2 Encounters: 12/14/24 30.51 kg/m 09/22/24 30.02 kg/m Allergies as of 12/14/2024 - Reviewed 12/14/2024 Allergen Reaction Noted Steri-strip compound benzoin [benzoin] Rash 08/27/2023 Past Medical History: Diagnosis Date Abnormal uterine bleeding (AUB) Anxiety Hypothyroid Iron deficiency Menorrhagia with irregular cycle Mood disorder PCOS (polycystic ovarian syndrome) Pelvic pain [place] teeth extracted 2008 Past Surgical History: Procedure Laterality Date SECTION, LOW TRANSVERSE 05/22/19 & 04/02/20 DILATION AND CURETTAGE OF UTERUS ROBOTIC ASSISTED HYSTERECTOMY 08/20/2023 Da Ebony hysterectomy WISDOM TOOTH EXTRACTION Assessment/Plan Encounter Diagnosis Name Primary? Encounter for weight management Adipex: Patient presents today for Adipex prescription. Patients weight and blood pressure has been captured and discussed with the patient. I have discussed/reiterated the importance of keeping a food journal, proper nutrition/diet, and exercise regimen while taking Adipex. Patient verbalized understanding and was given a printed prescription signed by provider to take to their local pharmacy. Follow Up: Patient is to return to the office in 1 month for further evaluation to assess patient progress. Documented by: Annette Ordonez LPN on behalf of Pawel Oliver DO documented in this encounterThe Rehabilitation Institute of St. LouisBouoiiqond12-92-5957 History of Present illness Narrative* GABINO Cerna - 11/04/2024 10:10 AM EDT Skin Check Location: Patient requests a full body skin examination Dermatologic history: no history of skin cancer, no history of atypical moles, no family history ofmelanoma Last visit: Last skin check first skin check, last office visit 4 months ago Established patient Follow up Diagnosis: Acne Location: face Last visit: 4 months ago Symptoms: none Status: clear today Treatments tried and failed: Differin Gel, Tretinoin 0.025% Current treatment: Benzoyl Peroxide 5% gel, Tretinoin 0.05% cream(increased last visit) Aldactone 50 mg qd All pertinent medical history, medications, and allergies were reviewed. General Exam: alert, oriented to person, place, and time, normal affect, well appearing Unaccompanied Scalp, Examined , exam limited by hair Right leg Examined , patient left sock on Head, Face Examined Left leg Examined , patient left sock on Neck Examined Right foot Examined Chest Examined Patient kept bra on Left foot Examined Back Examined Buttocks Examined Patient kept underwear on Abdomen Examined Digits,nails: Examined Right arm Examined Left arm Examined Lymphatics: Not examined Hands Examined Skin Exam 1. MELANOCYTIC NEVUS OF FACE, OTHER LOCATION Generalized Scattered benign appearing, regular brown to light brown melanocytic papules and macules with similar morphology Counseled regarding these benign growths. Rarely, a nevus can develop into malignant melanoma, so any changing nevi should be promptly re-evaluated. 2. ACNE VULGARIS Head - Anterior (Face) Stable today. Patient improved with treatment. Plan to continue Spironolactone 50 mg once daily as patient is stable on this dose. Patient will continue the BPO 5% gel and Tretinoin, 0.05% cream. Follow up yearly,sooner if flaring despite treatment. Related Medications tretinoin (Retin-A) 0.05 % cream Apply to face, once daily at evening/night time, 30 day supply spironolactone (Aldactone) 50 MG tablet Take 1 tablet, by mouth, once daily, 30 days benzoyl peroxide 5 % gel Apply to face once a day, in the morning, 30 day supply 3. LENTIGINES Generalized Scattered zendejas macules in sun-exposed areas. The patient was informed that lentigines are benign pigmented lesions that occur on sun-exposed andsun-damaged skin. No treatment is necessary. Recommended regular use of broad spectrum sunscreen SPF 30 or higher 4. MULTIPLE BENIGN MELANOCYTIC NEVI OF BOTH UPPER EXTREMITIES, BOTH LOWER EXTREMITIES, AND TRUNK Generalized Scattered benign appearing, regular brown to light brown melanocytic papules and macules with similar morphology Counseled regarding these benign growths. Rarely, a nevus can develop into malignant melanoma, so any changing nevi should be promptly re-evaluated. 5. DERMATOFIBROMA (2) Left Lower Leg - Anterior, Left Thigh - Anterior Firm brown papule that dimples with lateral pressure. Discussed that these are benign scars on the skin. If lesion is changing/symptomatic, return to office to have lesion re-evaluated Next Visit: 1 year documented in this encounterThe Rehabilitation Institute of St. LouisJqmcmyqjvy63-89-1374 History of Present illness Narrative* Tiffany Martines MA - 09/22/2024 8:40 AM EDT Reason for Appointment: Patient ID: Nancy Toney is a 34 y.o. female who presents for Weight Management (Pt present today for Adipex #12 visit.) Patient presents today for Medication Follow Up appointment. MEDICATIONS Current Outpatient Medications Medication Instructions Adapalene-Benzoyl Peroxide 0.1-2.5 % gel Apply pea-size amount to T-zone, chin and problem areas nightly. benzoyl peroxide 5 % gel Apply to face once a day, in the morning, 30 day supply estradiol (ESTRACE) 0.5 mg, Oral, Daily, Take 1 tablet by mouth for 30 days ibuprofen 800 MG tablet TAKE 1 TABLET BY MOUTH EVERY 8 HOURS WITH FOOD OR MILK NEEDED FOR 10 DAYS metFORMIN XR (GLUCOPHAGE-XR) 1,000 mg, Oral, Daily with evening meal, Do not crush, chew, or split. phentermine (ADIPEX-P) 37.5 mg, Oral, Daily before breakfast phentermine (ADIPEX-P) 37.5 mg, Oral, Daily before breakfast phentermine (ADIPEX-P) 37.5 mg, Oral, Daily before breakfast phentermine (ADIPEX-P) 37.5 mg, Oral, Daily before breakfast phentermine (ADIPEX-P) 37.5 mg, Oral, Daily before breakfast phentermine (ADIPEX-P) 37.5 mg, Oral, Daily before breakfast spironolactone (Aldactone) 50 MG tablet Take 1 tablet, by mouth, once daily, 30 days SUMAtriptan (Imitrex) 50 MG tablet TAKE 1 TABLET BY MOUTH ONCE DAILY IF NEEDED FOR MIGRANE MAY REPEAT 1 TAB IN 2HRS IF NO RELIEF NO MORE THAN 2/24HR tretinoin (Retin-A) 0.025 % cream Apply to face every evening as tolerated/30 day supply tretinoin (Retin-A) 0.05 % cream Apply to [...] disorder PCOS (polycystic ovarian syndrome) Pelvic pain [place] teeth extracted 2008 HISTORY PAST MEDICAL HISTORY SOCIAL HISTORY Past Medical History: Diagnosis Date Abnormal uterine bleeding (AUB) Anxiety Hypothyroid Iron deficiency Menorrhagia with irregular cycle Mood disorder PCOS (polycystic ovarian syndrome) Pelvic pain [place] teeth extracted 2008 Social History Tobacco Use [...] Constitutional: Appearance: Normal appearance. She is well-developed. Cardiovascular: Rate and Rhythm: Normal rate and regular rhythm. Pulmonary: Effort: Pulmonary effort is normal. Breath sounds: Normal breath sounds. Abdominal: General: Bowel sounds are normal. There [...] nursing note reviewed. Exam conducted with a piece presser present. Vitals: Estimated body mass index is 30.02 kg/m as calculated from the following: Height as of this encounter: 5' 6 . Weight as of this encounter: 186 lb. BP: 124/72 No LMP recorded (lmp unknown). Patient has had a hysterectomy. ASSESSMENT & PLAN ICD-10-CM 1. Weight gain R63.5 2. Encounter for weight management Z76.89 phentermine (Adipex-P) 37.5 MG tablet Pt present today for Adipex #12 visit. Pt is doing well with Adipex and BMI is at 30.01 BMI and is aware this is her last Adipex script due to BMI. PVU and aware. Rx was printed and given to patient.Pt to schedule annual visit w/Dr. Oliver. Documented by Tiffany Martines MA on behalf of: Micaela LLOYD. documented in this encounterThe Rehabilitation Institute of St. LouisHofhdwsewe84-76-5914 History of Present illness Narrative* Annette Ordonez LPN - 03/28/2024 8:40 AM EST Reason for Appointment: Patient ID: Nancy Toney is a 33 y.o. female who presents for Weight Management (Pt present today for Adipex #6) Patient presents today for a weight management consultation. Patient has been prescribed Adipex andshe is here for her 3rd prescription. Today's Vitals: Estimated body mass index is 32.6 kg/m as calculated from the following: Height as of 10/08/23: 5' 6 . Weight as of this encounter: 202 lb. Previous Weight/BMI: Wt Readings from Last 3 Encounters: 03/28/24 202 lb 01/04/24 209 lb 12/07/23 214 lb BMI Readings from Last 3 Encounters: 03/28/24 32.60 kg/m 01/04/24 33.73 kg/m 12/07/23 34.54 kg/m Allergies as of 03/28/2024 - Reviewed 03/28/2024 Allergen Reaction Noted Steri-strip compound benzoin [benzoin] Rash 08/27/2023 Past Medical History: Diagnosis Date Abnormal uterine bleeding (AUB) Anxiety Hypothyroid (CMS/HCC) Iron deficiency Menorrhagia with irregular cycle Mood disorder (CMS/HCC) PCOS (polycystic ovarian syndrome) Pelvic pain [place] teeth extracted 2008 Past Surgical History: Procedure Laterality Date SECTION, LOW TRANSVERSE 05/22/19 & 04/02/20 DILATION AND CURETTAGE OF UTERUS ROBOTIC ASSISTED HYSTERECTOMY 08/20/2023 Da Ebony hysterectomy WISDOM TOOTH EXTRACTION Review of Systems: Review of Systems Constitutional: Negative. HENT: Negative. Eyes: Negative. Respiratory: Negative. Cardiovascular: Negative. Gastrointestinal: Negative. Genitourinary: Negative. Musculoskeletal: Negative. Skin: Negative. Neurological: Negative. All other systems reviewed and are negative. Hematological: Negative. Endocrine: Negative. Allergic/Immunologic: Negative. Objective Physical Exam Constitutional: Appearance: Normal appearance. She is well-developed. Cardiovascular: Rate and Rhythm: Normal rate and regular rhythm. Pulmonary: Effort: Pulmonary effort is normal. Breath sounds: Normal breath sounds. Abdominal: General: Bowel sounds are normal. There [...] nursing note reviewed. Exam conducted with a piece presser present. Assessment/Plan Encounter Diagnoses Name Primary? Weight gain Encounter for weight management Adipex: Patient presents today for 3rd Adipex prescription. Patient desires additional weigh loss and she is currently taking metformin along with working out to achieve further results. Weight and blood pressure has been captured and I have discussed/reiterated the importance of keeping a food journal, proper nutrition/diet, and exercise regimen. Patient verbalized understanding. Patient has lost more than 5% of her initial body weight 90 day script given. Follow Up: Patient is to return to office for annual well women exam unless needed otherwise. Documented by: Annette Ordonez LPN on behalf of Pawel Oliver DO documented in this encounterThe [facility] of St. [id number] History of Present illness Narrative* GABINO Cerna - 03/17/2024 3:20 PM EST Images from the original note were not included. Follow up Diagnosis: Acne Location: face Last visit: 12/17/2023 Symptoms: pimples Status: improved since last visit Treatments tried and failed: Adapalene-BPO prescribed by [employer], made her more oily Current treatment: spironolactone (Aldactone) 50 MG tablet, benzoyl peroxide 5 % gel, and tretinoin(Retin-A) 0.025 % cream All pertinent medical history, medications, and allergies were reviewed. General Exam: alert, oriented to person, place, and time, normal affect, well appearing Accompanied by son A focused exam completed based on patient reported problems, see below: 1. Acne vulgaris Head - Anterior (Face) Scattered comedones and inflammatory papules. Improved since last visit. Patient improved with treatment. Plan to continue Spironolactone 50 mg once daily as patient is stable on this dose. Notify office with any onset of dizziness or light-headedness after starting medicine. Patient will continue the BPO 5% gel in the morning, refills were given. Will continue Tretinoin 0.025% cream in the evening. Follow up 3 months. Related Medications benzoyl peroxide 5 % gel Apply to face once a day, in the morning, 30 day supply tretinoin (Retin-A) 0.025 % cream Apply to face every evening as tolerated/30 day supply spironolactone (Aldactone) 50 MG tablet Take 1 tablet, by mouth, once daily, 30 days Next Visit: 3 months, follow up documented in this encounterThe [facility] Institute of St. [id number] History of Present illness Narrative* Annette Ordonez LPN - 02/16/2024 8:00 AM EST Reason for Appointment: Patient ID: Nancy Toney is a 33 y.o. female who presents for No chief complaint on file. Patient presents today via telephone call for a telehealth appointment. Patients Phone #: [phone] (mobile) Current Medications: has a current medication list which includes the following prescription(s): adapalene-benzoyl peroxide, benzoyl peroxide, ibuprofen, metformin xr, phentermine, phentermine, phentermine, spironolactone, sumatriptan, and tretinoin. Medical History: Active Ambulatory Problems Diagnosis Date Noted Abnormal uterine bleeding 11/24/2022 Anxiety 11/24/2022 Hypothyroid (CMS/HCC) 11/24/2022 Iron deficiency anemia 11/24/2022 Menorrhagia with irregular cycle 11/24/2022 Resolved Ambulatory Problems Diagnosis Date Noted No Resolved Ambulatory Problems Past Medical History: Diagnosis Date Abnormal uterine bleeding (AUB) Iron deficiency Mood disorder (CMS/HCC) PCOS (polycystic ovarian syndrome) Pelvic pain [place] teeth extracted 2008 Family History Problem Relation Name Age of Onset Lymphoma Father Jr hannah Cancer Father Jr hannah No Known Problems Sister No Known Problems Son No Known Problems Daughter Social History Tobacco Use Smoking status: Never Smokeless tobacco: Never Substance Use Topics Alcohol use: Yes Alcohol/week: 1.0 standard drink of alcohol Types: 1 Standard drinks or equivalent per week Comment: Caffeine intake: 1-2 cups per day soda/pop Drug use: Never Past Surgical History: Procedure Laterality Date SECTION, LOW TRANSVERSE 05/22/19 & 04/02/20 DILATION AND CURETTAGE OF UTERUS ROBOTIC ASSISTED HYSTERECTOMY 08/20/2023 [place] Eb[place] hysterectomy WISDOM TOOTH EXTRACTION Allergies Allergen Reactions Steri-Strip Compound Benzoin [Benzoin] Rash Vitals: Estimated body mass index is 33.73 kg/m as calculated from the following: Height as of 10/08/23: 5' 6 . Weight as of 01/04/24: 209 lb. BP: No LMP recorded (lmp unknown). Patient has had a hysterectomy. Assessment/Plan Encounter Diagnoses Name Primary? PCOS (polycystic ovarian syndrome) Hormone imbalance Pt was called and discussed hormones with pt in detail. Sent in labs for pt to have obtained. Discussed adding control or estradiol for symptom control. Pt had hysterectomy. Rx for estradiol faxed to pharmacy. Pt to follow up for annual unless needed sooner. Today's telehealth visit consisted of spending 10 minutes talking to patient on the phone. Documented by Annette Ordonez LPN on behalf of: Pawel Oliver DO documented in this encounterThe [facility] Institute of St. [id number] History of Present illness Narrative* Odalis Ramirez LPN - 01/04/2024 8:30 AM EDT Reason for Appointment: Patient ID: Nancy Toney is a 33 y.o. female who presents for Gynecologic Exam and Weight Management (Adipex #3 at todays visit) Patient presents today for Annual Exam. and Weight Management Consult. MEDICATIONS Current Outpatient Medications Medication Instructions Adapalene-Benzoyl Peroxide 0.1-2.5 % gel Apply pea-size amount to T-zone, chin and problem areas nightly. benzoyl peroxide 5 % gel Apply to face once a day, in the morning, 30 day supply ibuprofen 800 MG tablet TAKE 1 TABLET BY MOUTH EVERY 8 HOURS WITH FOOD OR MILK NEEDED FOR 10 DAYS metFORMIN XR (GLUCOPHAGE-XR) 500 mg, Oral, Daily with evening meal, Do not crush, chew, or split. phentermine (ADIPEX-P) 37.5 mg, Oral, Daily before breakfast phentermine (ADIPEX-P) 37.5 mg, Oral, Daily before breakfast phentermine (ADIPEX-P) 37.5 mg, Oral, Daily before breakfast spironolactone (Aldactone) 50 MG tablet Take 1 tablet, by mouth, once daily, 30 days SUMAtriptan (Imitrex) 50 MG tablet TAKE 1 TABLET BY MOUTH ONCE DAILY IF NEEDED FOR MIGRANE MAY REPEAT 1 TAB IN 2HRS IF NO RELIEF NO MORE THAN 2/24HR tretinoin (Retin-A) 0.025 % cream Apply to face every evening as tolerated/30 day supply ALLERGIES Allergies Allergen Reactions Steri-Strip Compound Benzoin [Benzoin] Rash PROBLEMS Active Ambulatory Problems Diagnosis Date Noted Abnormal uterine bleeding 11/24/2022 Anxiety 11/24/2022 Hypothyroid (CMS/HCC) 11/24/2022 Iron deficiency anemia 11/24/2022 Menorrhagia with irregular cycle 11/24/2022 Resolved Ambulatory Problems Diagnosis Date Noted No Resolved Ambulatory Problems Past Medical History: Diagnosis Date Abnormal uterine bleeding (AUB) Iron deficiency Mood disorder (CMS/HCC) PCOS (polycystic ovarian syndrome) Pelvic pain [place] teeth extracted 2008 HISTORY PAST MEDICAL HISTORY SOCIAL HISTORY Past Medical History: Diagnosis Date Abnormal uterine bleeding (AUB) Anxiety Hypothyroid (CMS/HCC) Iron deficiency Menorrhagia with irregular cycle Mood disorder (CMS/HCC) PCOS (polycystic ovarian syndrome) Pelvic pain [place] teeth extracted 2008 Social History Tobacco Use Smoking status: Never Smokeless tobacco: Never Substance Use Topics Alcohol use: Yes Alcohol/week: 1.0 standard drink of alcohol Types: 1 Standard drinks or equivalent per week Comment: Caffeine intake: 1-2 cups per day soda/pop Drug use: Never FAMILY HISTORY Family History Problem Relation Name Age of Onset Lymphoma Father hannah Cancer Father hannah No Known Problems Sister No Known Problems Son No Known Problems Daughter SURGICAL HISTORY Past Surgical History: Procedure Laterality Date SECTION, LOW TRANSVERSE 05/22/19 & 04/02/20 DILATION AND CURETTAGE OF UTERUS ROBOTIC ASSISTED HYSTERECTOMY 08/20/2023 [place] [facility] hysterectomy WISDOM TOOTH EXTRACTION REVIEW OF SYSTEMS Review of Systems: Review of Systems All other systems reviewed and are negative. OBJECTIVE Objective: Physical Exam Constitutional: Appearance: Normal appearance. She is well-developed. Genitourinary: Vulva normal. Vaginal cuff intact. Cervix is not absent. Uterus is not absent. Breasts: Breasts are soft. Right: Normal. [...] nursing note reviewed. Exam conducted with a piece presser present. Vitals: Estimated body mass index is 33.73 kg/m as calculated from the following: Height as of 10/08/23: 5' 6 . Weight as of this encounter: 209 lb. BP: 112/72 No LMP recorded (lmp unknown). Patient has had a hysterectomy. ASSESSMENT & PLAN ICD-10-CM 1. Well woman exam with routine gynecological exam Z01.419 Pap Smear HPV DNA probe, amplified 2. Weight gain R63.5 3. Encounter for weight management Z76.89 phentermine (Adipex-P) 37.5 MG tablet Annual Exam: Patient presents today for an annual exam. Patient states she is doing well and has no complaints. Pap was obtained without difficulty. Patient presents today for 3rd Adipex prescription. Patient desires additional weigh loss and she is currently taking metformin along with working out to achieve further results. The possibility of Ozempic for future use has been discussed. Weight and blood pressure has been captured and it has been discussed/reiterated the importance of keeping a food journal, proper nutrition/diet, and exerciseregimen. Patient verbalized understanding. Patient has lost more than 5% of her initial body weight. 90 day supply given. Increased Metformin to 1,000mg daily and refills sent to pharmacy. Orders Placed This Encounter Procedures HPV DNA probe, amplified Follow Up: Patient is to return in one year for annual unless needed otherwise. Documented by Odalis Ramirez LPN on behalf of: Pawel Oliver DO documented in this encounterThe Rehabilitation Institute of St. [id number] History of Present illness Narrative* GABINO Cerna - 12/17/2023 11:30 AM EDT Images from the original note were not included. Skin Check Location: Patient requests a full body skin examination Dermatologic history: no history of skin cancer, no history of atypical moles Last visit: 2018 Lesions: Location: Left thigh Duration: years Quality: denies pain, denies itch Associated symptoms: hard bump Treatments: none Acne Location: Face, especially on the chin and neck Duration: years Nature of acne: pimples Associated Factors: oily skin Treatments used in the past: Adapalene-BPO prescribed by [employer], made her more oily Current treatment: Cetaphil face wash Patient had a hysterectomy in August, they did leave her ovaries All pertinent medical history, medications, and allergies were reviewed. General Exam: alert , oriented to person, place, and time , normal affect, well appearing Areas not examined despite medical recommendation: From the waist down Scalp, Examined Right leg Examined Head, Face Examined Left leg Examined Neck Examined Right foot Examined Chest Examined Left foot Examined Back Examined tattoo on upper back Buttocks Examined Abdomen Examined Digits,nails: Examined Right arm Examined tattoo on shoulder Left arm Examined Lymphatics: Not examined Hands Examined 1. Acne vulgaris Head - Anterior (Face) Scattered comedones and inflammatory papules. Flared today. The patient was counseled that it may take up to 2-3 months to notice significant improvement of the acne. The use of non-comedogenic cleansers and moisturizers was recommended. Acne treatment plan given today. Patient notes worsened breakouts since getting off control and having hysterectomy. Patient still has her ovaries. Plan to start Spironolactone 50 mg once daily to start. Notify office with anyonset of dizziness or light- headedness after starting medicine. Patient will continue the BPO 5% gel in the morning, refills were given. Will add Tretinoin 0.025% cream in the evening as she had little to no improvement with Adapalene. Use pea-sized amount of this medicine and use every other nightif skin is becoming too dry. Literature provided and reviewed potential side effects. Follow up in 2 months. spironolactone (Aldactone) 50 MG tablet - Head - Anterior (Face) Take 1 tablet, by mouth, once daily, 30 days benzoyl peroxide 5 % gel - Head - Anterior (Face) Apply to face once a day, in the morning, 30 day supply tretinoin (Retin-A) 0.025 % cream - Head - Anterior (Face) Apply to face every evening as tolerated/30 day supply 2. Dermatofibroma (2) Left Lower Leg - Anterior, Left Thigh - Anterior Firm brown papule that dimples with lateral pressure. Discussed that these are benign scars on the skin. If lesion is changing/symptomatic, return to office to have lesion re-evaluated 3. Melanocytic nevus of trunk Scattered benign appearing, regular brown to light brown melanocytic papules and macules with similar morphology Counseled regarding these benign growths. Rarely, a nevus can develop into malignant melanoma, so any changing nevi should be promptly re-evaluated. Discussed ABCD's of melanoma and literature provided. 4. Lentigo simplex (2) Left Shoulder - Posterior, Right Shoulder - Posterior Scattered zendejas macules in sun-exposed areas. The patient was informed that lentigines are benign pigmented lesions that occur on sun-exposed andsun-damaged skin. No treatment is necessary. Recommended regular use of broad spectrum sunscreen SPF 30 or higher. Sunscreen literature provided. Next Visit: 3 months/acne documented in this encounterThe Rehabilitation Institute of St. [id number] History of Present illness Narrative* Tiffany Martines MA - 12/07/2023 8:50 AM EDT Reason for Appointment: Patient ID: Nancy Toney is a 33 y.o. female who presents for Weight Management (Adipex#2) Patient presents today for a weight management consultation. Patient has been prescribed Adipex andshe is here for her 2nd prescription. Today's Vitals: Estimated body mass index is 34.54 kg/m as calculated from the following: Height as of 10/08/23: 5' 6 . Weight as of this encounter: 214 lb. Previous Weight/BMI: Wt Readings from Last 2 Encounters: 12/07/23 214 lb 11/09/23 221 lb 6.4 oz BMI Readings from Last 2 Encounters: 12/07/23 34.54 kg/m 11/09/23 35.73 kg/m Allergies as of 12/07/2023 - Reviewed 12/07/2023 Allergen Reaction Noted Steri-strip compound benzoin [benzoin compound] Rash 08/27/2023 Past Medical History: Diagnosis Date Abnormal uterine bleeding (AUB) Anxiety Hypothyroid (CMS/HCC) Iron deficiency Menorrhagia with irregular cycle Mood disorder (CMS/HCC) PCOS (polycystic ovarian syndrome) Pelvic pain [place] teeth extracted 2008 Past Surgical History: Procedure Laterality Date SECTION, LOW TRANSVERSE 05/22/19 & 04/02/20 DILATION AND CURETTAGE OF UTERUS ROBOTIC ASSISTED HYSTERECTOMY 08/20/2023 [place] hysterectomy WISDOM TOOTH EXTRACTION Assessment/Plan Encounter Diagnoses Name Primary? Weight gain Encounter for weight management Adipex: Patient presents today for 2nd Adipex prescription. Patients weight and blood pressure has been captured and discussed with the patient. I have discussed/reiterated the importance of keeping a food journal, proper nutrition/diet, and exercise regimen while taking Adipex. Patient verbalized understanding and was given a printed prescription signed by provider to take to their local pharmacy. Follow Up: Patient is to return to the office in 1 month for further evaluation to assess patient progress. Weight and blood pressure will need to be obtained in order for patient to receive 3rd prescription. Documented by: Tiffany Martines MA on behalf of GABINO Boyce documented in this encounterThe Rehabilitation Institute of St. [id number] Evaluation note* Encounter Date Diagnosis Assessment Notes Treatment Notes Treatment Clinical Notes Mar, Acute middle ear effusion, bilat eral (ICD-10 - H65.193) Discussed diagnosis with patient, [...] per patient request. Patient verbalizes understanding and isagreeable to treatment plan [facility] [facility] Other 11-27-2023 Evaluation note* Encounter Date Diagnosis [...] infection caused from an URI, the flu orallergies. Take medication as directed. Complete all doses, even if you feel better. Tylenol or ibuprofen can help with pain. Warm pack to area for comfort helps as well. Follow up with primary care lucy tenorio if no improvement of symptoms. Feb,Nasal congestion (ICD-10 - R09.81) [employer] [facility] Other 05-03-2023 [facility]* Encounter Date Diagnosis Assessment [...] the injury she had imaging done at [place], she states this does not show anyfractures. We will proceed with a repeat ganglion impar nerve block. Risks and benefits of procedure explained to patient; patient verbalizes understanding. Jul,Sacroiliitis (ICD-10 - M46.1) Consider SI joint injections in the future if needed Jul,Other chronic pain (ICD-10 - G89.29) Follow up after procedure [facility] [facility] Other 02-01-2023 Evaluation note* Encounter Date Diagnosis Assessment Notes Treatment Notes Treatment Clinical Notes May, Coccydynia (ICD-10 - M53.3) 31 year old female here for follow up status post ganglion impar block under fluoroscopic guidance.Patient reports 90% pain relief as well as improved walking, standing and daily functions followingthe procedure. She voices complaints of mild tailbone pain today. Overall she is doing very well and does not require any further treatment at this time. She is counselled against sitting on hard surfaces. She can continue her activities as tolerated and call the office should her pain become bothersome. May,Sacroiliitis (ICD-10 - M46.1) Patient denies any pain today. May,Other chronic pain (ICD-10 - G89.29) Follow up as needed. [employer] Other 01-12-2023 Evaluation note* Encounter Date Diagnosis [...] a ganglion impar nerve block under fluoroscopic gu idance. Risks and benefits of procedure explained to patient; patient verbalizes understanding. Apr,Sacroiliitis (ICD-10 - M46.1) In the future if the pain persists, we can consider sacroiliac joint injections. Apr,Other chronic pain (ICD-10 - G89.29) Continue with current treatment plan. [employer] Other 12-15-2022 Evaluation note* Encounter Date Diagnosis [...] reviewed office notes from referring provider, Dr Woo. 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 History, physical examination and available images are consistent with coccydynia and sacroilitis. Anatomy of spine discussed in detail with patient in regards to patients condition. I recommend we proceedwith a paracoccygeal nerve block under fluoroscopic guidance. Risks and benefits of procedure explained to patient; patient verbalizes understanding. Mar,acroiliitis (ICD-10 - M46.1) In the future if the pain persists, we can consider sacroiliac joint injections. Mar,ther chronic pain (ICD-10 - G89.29) Continue with current treatment plan. Mar,therMedical decision making shows a new problem to me with further workup planned or suggested with thepotential for extensive treatment options that were considered with the most applicable given this patient's situation as noted above. Treatment options considered include a combination of physical th erapy approaches, pharmacologic management, and interventional procedures. Those most applicable tothe patient were discussed at this time. Risk [...] prolonged functional impairment requiring constant patient reassessment andhigh-level medical decision making. The amount and complexity of data reviewed is high given that patient labs, radiology reports, and other test were obtained, reviewed and summarized as applicable from the physician portal and/or outside medical records. Pertinent positive and negative findings were considered in medical decision-making. [employer] Other 09-09-2022 Evaluation note* Encounter Date Diagnosis Assessment Notes Treatment Notes Treatment Clinical Notes Dec, Acute effusion of both middle ea rs (ICD-10 - H65.193) Discussed diagnosis with patient, [...] understanding and is agreeable to treatment plan [employer] Other Evalusyoir noteNo assessment information available [facility] Work Phone: [email or web address] noteNo InformationNort Glance Other Evaluation note* Diagnosis PCOS (polycystic ovarian syndrome) Polycystic ovaries Hormone imbalance [facility]* Diagnosis Acne vulgaris- Primary Other acne [facility]* Diagnosis Weight gain Other symptoms concerning nutrition, metabolism, and development Encounter for weight management [facility]* Diagnosis Weight gain Other symptoms concerning nutrition, metabolism, and development Encounter for weight management [facility]* Diagnosis Acne vulgaris- Primary Other acne Dermatofibroma Benign neoplasm of skin, site unspecified Melanocytic nevus of trunk Benign neoplasm of skin of trunk, except scrotum Lentigo simplex Other dyschromia [facility]* Diagnosis Well woman exam with routine gynecological exam Routine gynecological examination Weight gain Other symptoms concerning nutrition, metabolism, and development Encounter for weight management documented [facility]* Diagnosis Weight gain Other symptoms concerning nutrition, metabolism, and development Encounter for weight management documented in this encounter [facility]* Diagnosis Acne vulgaris- Primary Other acne Lentigines Melanocytic nevus of face, other location Multiple benign melanocytic nevi of both upper extremities, both lower extremities, and trunk Dermatofibroma Benign neoplasm of skin, site unspecified documented in this encounter [facility]* Diagnosis Encounter for weight management documented in this encounter [facility] HealthcareHistory general Narrative - Reported* Type Description Date Medical History Hypothyroidism Medical HistoryAnxietySurgical HistoryC section [id number] Historysee above [employer] Other Reason for referral (narrative)* Reason *FU 04/14/23 patie nt requests referral to ENT for ongoing ear complaints Diagnosis 1 Acute middle ear eff usion, bilateral (H65.193) Referral Organization [facility] Referring Provider First Name Emilee Referring Provider Last Name Binu Referring Provider Specialty Nurse Pract itioner Referred Organization [facility] Referred Provider Martinez Vazquez Referred Address ,[place], [place],[address] Referred Provider Specialty Otolaryngolo gy Referral Priority Routine General Notes Maico Gonzalez 04/07 11:21:55 AM > Referral received, attachments made and faxed to [facility] [place] [facility] Other Summary Purpose Family History No Family History Records Found Relationship Condition Age at Onset Recorded Date/T lenka Not Specified No pertinent family history Unknown fatherLymphomaUnknownNot SpecifiedDiabetes mellitusUnknown Advance Directives No Advanced Directives Records Found [...] section and content) DATE CREATED AUTHOR 11/24/2019 [facility] DATE CREATED AUTHOR AUTHOR'S ORGANIZ ATKARO 11/18/2021 [facility] DATE CREATED AUTHOR AUTHOR'S ORGANIZ ATION 05/01/2022 [facility] DATE CREATED AUTHOR AUTHOR'S ORGANIZ ATION 09/19/2022 [facility] DATE CREATED AUTHOR AUTHOR'S ORGANIZ ATION 08/27/2023 [facility] DATE CREATED AUTHOR AUTHOR'S ORGANIZ ATION 12/16/2024 [facility] EPIC REASON FOR VISIT (unrecogniz ed section and content) ReasonCommentsFollow-upReasonCommentsWeight ManagementPt present today for Adipex #6ReasonCommentsWeight ManagementAdipex#2ReasonCommentsSkin CheckReason CommentsGynecologic ExamWeight ManagementAdipex #3 at todays visitReasonComments Weight ManagementPt present today for Adipex #12 visit.ReasonCommentsencounter for weight management Care Teams (unrecognized sec tion and content) Team Status: Inactive Member Role Status Dates Wilberto Corona MD Attending Provider Active PHYSICIAN NO FAMILYPrimary Care ProviderActive Team Status: Active Member Role Status Dates PHYSICIAN NO FAMILY Primary Care Provider Active Team Status: Inactive Member Role Status Dates PHYSICIAN NO FAMILY Primary Care Provider Active Howie Javier ProviderActive Team Status: Inactive Member Role Status Dates PHYSICIAN NO FAMILY Primary Care Provider Active Start: July 28, 2023 End: July 27ore LylaoAttartur ProviderActiveStart: July 28, 2023 End: July 28, 2023 Team Status: Inactive Member Role Status Dates PHYSICIAN NO FAMILY Primary Care Provider Active Start: July 29, 2023 End: July 28Femi Rocha ProviderActiveStart: July 29, 2023 End: July 29, 2023 Team Status: Inactive Member Role Status Dates PHYSICIAN NO FAMILY Primary Care Provider Active Start: August 20, 2023 End: August 19ore Kayleettartur ProviderActiveStart: August 20, 2023 End: August 20, 2023Team MemberRelationshipSpecialtyStart DateEnd Date Martinez Vieira DO [address] [address] PCP - [place] [facility]05/14/23 Flip Woo, PA [address] [place] [address] Physician [facility]07/24/23Team MemberRelationshipSpecialtyStart DateEnd Date Martinez Vieira, DO [address] [place] [address] PCP - [place] [facility]05/14/23 Flip Woo, PA [address] [place] [address] Physician [facility]07/24/23Team MemberRelationshipSpecialtyStart DateEnd Date Martinez Vieira, DO [address] [place] [address] PCP - [place] [facility]05/14/23 Flip Woo, PA [address] [place] [address] Physician [facility]07/24/23Team MemberRelationshipSpecialtyStart DateEnd Date Martinez Vieira, DO [address] [place] [address] PCP - [place] [facility]05/14/23 Flip Woo, PA [address] [place] [address] Physician [facility]07/24/23Team MemberRelationshipSpecialtyStart DateEnd Date Martinez Vieira, DO [address] [place] [address] PCP - [place] [facility]05/14/23 Flip Woo, PA [address] [place] [address] [facility]07/24/23Team MemberRelationshipSpecialtyStart DateEnd Date Martinez Vieira, [address] [place] [address] PCP - [place] [facility]05/14/23 Flip Woo, PA [address] [place] [address] [facility]/23Team MemberRelationshipSpecialtyStart DateEnd Date Martinez Vieira, [address] [place] [address] PCP - [place] [facility]05/14/23 Flip Woo, PA [address] [place] [address] [facility]07/24/23Team MemberRelationshipSpecialtyStart DateEnd Date Martinez Vieira, [address] [place] [address] PCP - [place] [facility]05/14/23 Flip Woo, PA [address] [place] [address] [facility]07/24/23Team MemberRelationshipSpecialtyStart DateEnd Date Martinez Vieira, [address] [place] [address] PCP - [place] [facility]05/14/23 Flip Woo, PA [address] [place] [address] [facility]07/24/23Team MemberRelationshipSpecialtyStart DateEnd Date Martinez Vieira, [address] [place] [address] PCP - [place] [facility]05/14/24 Flip Woo, PA [address] [place] [address] [facility]07/24/23Team MemberRelationshipSpecialtyStart DateEnd Date Martinez Vieira, [address] [place] [address] PCP - [place] [facility] [facility]05/14/24 Flip Woo, PA [address] [place] [address] [facility]07/24/23Team MemberRelationshipSpecialtyStart DateEnd Date Martinez Vieira, [address] [place] [address] PCP - [place] [facility]05/14/24 Flip Woo, PA [address] [place] [address] [facility]07/24/23Team MemberRelationshipSpecialtyStart DateEnd Date Martinez Vieira, [address] [place] [address] PCP - [place] [facility]05/14/24 Flip Woo PA [address] [place] [address] [facility]Mer[facility]07/24/23Team MemberRelationshipSpecialtyStart DateEnd Date Martinez Vieira DO [address] [place] [address] PCP - [place] [facility]05/14/24 Flip Woo PA [address] [place] [address] [facility]07/24/23Team MemberRelationshipSpecialtyStart DateEnd Date Martinez Vieira DO [address] [place] [address] PCP - [place] [facility]05/14/24 Flip Woo PA [address] [place] [address] [facility]07/24/23Team MemberRelationshipSpecialtyStart DateEnd Date Martinez Vieira DO [address] [place] [address] PCP - [place] [facility]05/14/24 Flip Woo PA [address] [place] [address] [facility] Medicine07/24/23 Goals (unrecognized section and content) Goals may [...] BE BASED ON THE PRIMARY CLINICAL RECORDS. [facility] [employer] [facility]. provides no warranty or guarantee of the accuracy or completeness of information in this document.
--- OUTSIDE RECORDS SUMMARY | 2025-02-22 19:49 | XMS_ITS | Clinical Summary ---
Author Organization [facility] Address [address] [place] [address] Care Team Providers Care Car Repossessor Name Role Phone Flip Woo PA Unavailable Martinez Vieira DO Unavailable [phone] Allergies Active AllergyReactionsCriticalityNoted OcgeGovganmjAygwqaqVwsrCet35/16/2024 Medications MedicationSigDispense QuantityRefillsLast FilledStart DateEnd DateStatus ibuprofen 800 MG tablet 07/21/2022ctive SUMAtriptan (Imitrex) 50 MG tablet Indications:Migraine without aura and without status migrainosus, not intractableTAKE 1 TABLET BY MOUTH ONCE DAILY IF NEEDED FOR MIGRANE MAY REPEAT 1 TAB IN 2HRS IF NO RELIEF NO MORE THAN 2/24HR 9 tablet 3Active estradiol (Estrace) 0.5 MG tablet Indications:Hormone imbalanceTake 1 tablet (0.5 mg) by mouth Daily Take 1 tablet by mouth for 30 days 90 tablet 4Active metFORMIN XR (Glucophage-XR) 500 MG 24 hr tablet Indications:Encounter for weight managementTake 2 tablets (1,000 mg) by mouth in the evening. Take with meals Do not crush, chew, or split. 60 tablet 5Active tretinoin (Retin-A) 0.05 % cream Indications:Acne vulgarisApply to face, once daily at evening/night time, 30 day supply 45 g 5Active spironolactone (Aldactone) 50 MG tablet Indications:Acne vulgarisTake 1 tablet, by mouth, once daily, 30 days 30 tablet 5Active benzoyl peroxide 5 % gel Indications:Acne vulgarisApply to face once a day, in the morning, 30 day supply 42 g 1105Active phentermine (Adipex-P) 37.5 MG tablet Indications:Encounter for weight managementTake 1 tablet (37.5 mg) by mouth in the morning. Take before meals. 60 tablet 5Active FLUoxetine (PROzac) 10 MG capsule Indications:Mood changesTake 1 capsule (10 mg) by mouth Daily 30 capsule ctive FLUoxetine (PROzac) 10 MG capsule Indications:Mood changesTake 1 capsule (10 mg) by mouth Daily 30 capsule Discontinued(Reorder) Active Problems ProblemNoted DateDiagnosed DateAbnormal uterine /14/2023nxiety 11/24/20224181Seabhblwozc20/14/2023Iron deficiency crplip3911/24/2022Menorrhagia with irregular cycle11/24/2022 Encounters DateTypeDepartmentCare NqvxGkruwgsfpdv41/12/2025 3:30 PM ESTProcedure Visit [facility] [address] [place] [address] Pawel Oliver, DO Well woman exam with routine gynecological exam; Mood qpktpio3202/22/2025amblinda flowsheet [facility] [address] [place] [address] Pawel Oliver, DO 02/20/2025Refill [facility] [address] [place] [address] Pawel Oliver, DO Mood vlsktmu1601/25/2025Telephone [facility] [address] [place] [address] Pawel Oliver, 12/14/2024 3:40 PM EDTOffice Visit [facility] [place] [address] Pawel Oliver, DO Encounter for weight kbkavxncaj00/03/2025amboo flowsheet [facility] [address] [place] [address] Pawel Oliver DO 12/13/2024Travelfrom Last 3 Months Immunizations ImmunizationAdministration DatesNext DueInfluenza, injectable, MDCK, preservative free, dyprgqbgywlg16/10/2020Influenza, injectable, quadrivalent, preservative free02/13/2019Tdap05/27/2019 Family History Medical HistoryRelationNameCommentsNo Known ProblemsDaughterCancerFatherJr hannah LymphomaFatherJr parrNo Known ProblemsSisterNo Known ProblemsSonRelationName StatusCommentsDaughterAlive1 daughterFatherJr parrAliveMotherAliveSister1 sister SonAlive1 son Social History Tobacco UseTypesPacks/DayYears UsedDateSmoking Tobacco: NeverSmokeless Tobacco: Never Tobacco Cessation:Counseling Given: Not Answered Alcohol UseStandard Drinks/WeekCommentsYes1 (1 standard drink = 0.6 [...] relatives?Twice a week10/23/2022How often do you attend taoist or yazidi services?Patient gohsccdc79/13/2023Do you belong to any clubs or organizations such as taoist groups, unions, fraternal or athletic chio ups, or school groups?Patient wsdhooqk46/13/2023How often do you attend meetings of the clubs or organizations you belong to?Patient fntmfauy02/13/2023re you , , , , never , or living with a partner? Patient syjapozr84/13/2023UDIT-CAnswerDate RecordedQ1: How often do you have a drink containing alcohol?2-4 times a month10/23/2022Q2: How many drinks containing alcohol do you have on a typical day when you are drinking?1 or 2 10/23/2022Q3: How often do you have six or more drinks on one occasion?Less than vyvhoyl0510/23/2022Overall Financial Resource Strain (CARDIA)AnswerDate Recorded How hard is it for you to pay for the very basics like food, housing, medical care, and heating?Not hard at all10/23/2022HQ-2AnswerDate RecordedPatient Health Questionnaire-2 Wculf92305/25/2022[place] [facility] of Occupational Health - Occupational Stress QuestionnaireAnswerDate RecordedDo you feel stress - tense, restless, nervous, or anxious, or unable to sleep at night because your mind is troubled all the time - these days?Only a itasgz1910/23/2022Exercise Vital SignAnswerDate RecordedOn average, how many days [...] steady place to sleep or slept in warrentonelter (including now)?No 10/23/2022CommentsNoSex and Gender InformationValueDate RecordedSex Assigned at BirthNot on fileLegal ZprGoqtvp90/15/2023 6:40 PM EDTGender Identity Btlkry0609/02/2022 8:35 AM EDTSexual OrientationNot on file Last Filed Vital Signs Vital SignReadingTime TakenCommentsBlood Wcupbcwz488/80104/24/2024 4:01 PM EST Vqepi658806/08/2023 12:49 PM GOSQfulysohdrt28.4 ??C (97.6 ??F)06/08/2023 12:49 PM ESTRespiratory Rate--Oxygen Qxbplytcap03%06/08/2023 12:49 PM ESTInhaled Oxygen Concentration--Rczylh29.5 kg (193 lb)02/22/2025 4:01 PM GZVFbejdd994.6 cm (5' 6 )09/22/2024 8:53 AM EDTBody Mass Index31.15009/22/2024 8:53 AM EDT Plan of Treatment Health MaintenanceDue DateLast DoneCommentsCOVID-19 Vaccine ( season) 2024Influenza Vaccine (#1), 02/13/2019Cervical Cancer ScreeningDiscontinuedPap GjeaqQlxsnkxzyzad52/23/2024, 10/27/2022HPV/Cotest DiscontinuedPneumococcal Vaccine: Pediatrics (0 to 5 Years) and At-Risk Patients (6 to 64 Years)Aged OutNo longer eligible based on patient's age to complete this topic Procedures Procedure NamePriorityDate/TimeAssociated DiagnosisCommentsPAP SMEARRoutine 01/04/2024 12:00 AM EDTfrom Last 3 Months or Most Recently Relevant to Health Maintenance Results * Pap Smear (01/04/2024 12:00 AM EDT)Specimen (Source)Anatomical Location / LateralityCollection Method / VolumeCollection TimeReceived TimeSwabCervical swab / Unknown Narrative Authorizing ProviderResult TypeResult StatusFazio Nurse Noms Bcp ObLAB CYTOLOGY ORDERABLESFinal ResultPerforming OrganizationAddressCity/State/ZIP CodePhone Number EXTERNAL LAB from Last 3 Months or Most Recently Relevant to Health Maintenance Insurance Care Teams Team MemberRelationshipSpecialtyStart DateEnd Date Martinez Vieira DO [address] [place] [address] PCP - [facility]05/14/24 Flip Woo PA [address] [place] [address] Physician AssistantFamily [facility]07/24/23
--- OUTSIDE RECORDS SUMMARY | 2025-02-22 19:49 | XMS_ITS | Encounter Summary ---
Author Organization [facility] Address [address] [place] [address] Care Team Providers Care Engineering Technician Name Role Phone Flip Woo Unavailable Martinez Vieira DO Unavailable [phone] Reason for Visit * ReasonCommentsMed Refill Encounter Details DateTypeDepartmentCare Team (Latest Contact Info)Trwkxlzbcre71/10/2025Refill [facility] [address] [place] [id number] Pawel Oliver DO [address] [place], [facility]11 Mood changes Social History Tobacco UseTypesPacks/DayYears UsedDateSmoking [...] relatives?Twice a week10/23/2022How often do you attend advent or muslim services?Patient fesbernv17/13/2023o you belong to any clubs or organizations such as advent groups, Football Meisters, [employer] or athletic [employer] ups, or school groups?Patient xxywwxao88/13/2023How often do you attend meetings of the clubs or organizations you belong to?Patient atxgzfwp60/13/2023re you , , , , never , or living with a partner? Patient bhweezum92/13/2023UDIT-CAnswerDate RecordedQ1: How often do you have a drink containing alcohol?2-4 times a month10/23/2022Q2: How many drinks containing alcohol do you have on a typical day when you are drinking?1 or 2 10/23/2022Q3: How often do you have six or more drinks on one occasion?Less than zrezira7410/23/2022Overall Financial Resource Strain (CARDIA)AnswerDate Recorded How hard is it for you to pay for the very basics like food, housing, medical care, and heating?Not hard at all10/23/2022HQ-2AnswerDate RecordedPatient Health Questionnaire-2 Fnoij82605/25/2022Finsteward [facility] [place] of Occupational Health - Occupational Stress QuestionnaireAnswerDate RecordedDo you feel stress - tense, restless, nervous, or anxious, or unable to sleep at night because your mind is troubled all the time - these days?Only a okvqwc8210/23/2022Exercise Vital SignAnswerDate RecordedOn average, how many days [...] steady place to sleep or slept in ashelter (including now)?No 10/23/2022CommentsNoSex and Gender InformationValueDate RecordedSex Assigned at BirthNot on fileLegal YcdUatmqo55/15/2023 6:40 PM EDTGender Identity Mlrlbi0609/02/2022 8:35 AM EDTSexual OrientationNot on filedocumented as of this encounter Plan of Treatment Not on file documented as of this encounter Visit Diagnoses Diagnosis Mood changes Unspecified episodic mood disorder documented in this encounter Care Teams Team MemberRelationshipSpecialtyStart DateEnd Date Martinez Vieira DO [address] [place] [address] P[facility] - [facility]05/14/24 Flip Woo PA [address] [place] [address] Physician AssistantFamily Medicine07/24/23documented as of this encounter
--- OUTSIDE RECORDS SUMMARY | 2025-02-22 19:49 | XMS_ITS | Clinical Summary ---
Author Organization [facility] Address [address] [place] [address] Care Team Providers Care Patent Attorney Name Role Phone Unavailable Primary Care Provider Unavailabl e Medications MedicationSigDispense QuantityRefillsLast FilledStart DateEnd DateStatus metformin HCl (METFORMIN ORAL) Take 500 mcg by mouth three times daily.Active progesterone micronized (PROMETRIUM) 200 mg capsule 1 capsule twice daily. insert vaginally as directed 60 capsule Active PNV Comb#99-Znce-EW-[place] 3 29-1-400 mg CPKD Take 1 capsule by mouth once daily. 90 Each Active letrozole (FEMARA) 2.5 mg tablet Take 3 tablets by mouth once daily for 5 days. 15 tablet Active Family History Medical HistoryRelationCommentson metforminMotherRelationStatusCommentsMother Social History Tobacco UseTypesPacks/DayYears UsedDateSmoking Tobacco: NeverArea Deprivation IndexAnswerDate RecordedNational Score (1-100), lower number is lower riskNot on file03/22/2020State Score (1-10), lower number is lower riskNot on file 03/22/2020Data from: https://www.neighborhoodatlas.medicine.[facility].edu/. Last address used for calculationNot on file03/22/2020CommentsNoSex and Gender InformationValueDate RecordedSex Assigned at BirthNot on fileLegal Sex Fpctcv2704/20/2018 12:21 PM ESTGender IdentityNot on fileSexual OrientationNot on file Last Filed Vital Signs Vital SignReadingTime TakenCommentsBlood Juvlkzwm929/78006/08/2018 10:01 AM EST Pulse--Temperature--Respiratory Rate--Oxygen Saturation--Inhaled Oxygen Concentration--Jhyipd38.4 kg (217 lb)06/08/2018 10:01 AM RRCQajokx013.2 cm (5' 7 )06/08/2018 10:01 AM ESTBody Mass Index33.9906/08/2018 10:01 AM EST Plan of Treatment Health MaintenanceDue DateLast DoneCommentsAnxiety Mifkpbxzq27/21/2011Depression Aieqkbexn42/21/2011HIV Aockehaat88/21/2011Hepatitis C Wbkaxjgzv89/21/2011 DTaP,Tdap,Td Vaccine (1 - Tdap)09/01/2011Hepatitis B Vaccine (1 of 3 - 19+ 3- dose series)09/01/2011Cervical Cancer Ywtqppxbe07/21/2014HPV Vaccine (1 - 3-dose SCDM series)09/01/2019Covid-19 Vaccine (1 - 2024- season)2024Influenza Vaccine (#1)2024 Insurance * Guarantor: Nancy Toney TypeRelation to PatientDate of PhoneBilling AddressPersonal/FpalbtFdsz15/21/1991 na (Work) [address] [place] [address]
--- OUTSIDE RECORDS SUMMARY | 2025-02-22 19:49 | XMS_ITS | Encounter Summary ---
Author Organization [facility] Address [address] [place] [address] Care Team Providers Care Supervisor Pipelines Name Role Phone Flip Woo Unavailable Martinez Vieira DO Unavailable [phone] Encounter Details DateTypeDepartmentCare Team (Latest Contact Info)Vptlmopnzir09/12/2025amboo flowsheet [facility] [address] [place] [address] Pawel Oliver DO [address], [facility]11 Social History Tobacco UseTypesPacks/DayYears UsedDateSmoking Tobacco: NeverSmokeless [...] relatives?Twice a week10/23/2022How often do you attend adventism or cheondoism services?Patient kxgigusf35/13/2023o you belong to any clubs or organizations such as adventism groups, unions, [employer] or athletic chio ups, or school groups?Patient xirrxdfg50/13/2023How often do you attend meetings of the clubs or organizations you belong to?Patient gckjjcpe35/13/2023re you , , , , never , or living with a partner? Patient gmvpecgo60/13/2023UDIT-CAnswerDate RecordedQ1: How often do you have a drink containing alcohol?2-4 times a month10/23/2022Q2: How many drinks containing alcohol do you have on a typical day when you are drinking?1 or 2 10/23/2022Q3: How often do you have six or more drinks on one occasion?Less than qypzixq5910/23/2022Overall Financial Resource Strain (CARDIA)AnswerDate Recorded How hard is it for you to pay for the very basics like food, housing, medical care, and heating?Not hard at all10/23/2022HQ-2AnswerDate RecordedPatient Health Questionnaire-2 Nzerm34105/25/2022Finjordan [facility] [place] of Occupational Health - Occupational Stress QuestionnaireAnswerDate RecordedDo you feel stress - tense, restless, nervous, or anxious, or unable to sleep at night because your mind is troubled all the time - these days?Only a akfjcc3510/23/2022Exercise Vital SignAnswerDate RecordedOn average, how many days [...] InformationValueDate RecordedSex Assigned at BirthNot on fileLegal BohVvvwzc35/15/2023 6:40 PM EDTGender Identity Spbeea9809/02/2022 8:35 AM EDTSexual OrientationNot on filedocumented as of this encounter Plan of Treatment Not on file documented as of this encounter Visit Diagnoses Not on filedocumented in this encounter Care Teams Team MemberRelationshipSpecialtyStart DateEnd Date Martinez Vieira DO [address] [place] [address] PCP - Cornelia Jimenez05/14/24 Flip Woo PA [address] [place] [address] Physician AssistantFamily Medicine07/24/23documented as of this encounter
== END 2025-02-22 19:45 | disposition home or self-care (01) ==
LOC: LAB 19:44
PROVIDERS: Visit Provider Obstetrics & Gynecology
DX: Z01.419 Encounter for gynecological examination (general) (routine) without abnormal findings (principal)
CPT/HCPCS: 87624; 88175